=== PATIENT | male | born 1945 | race Caucasian/White ===

== ENCOUNTER 2018-06-19 22:25 | Inpatient (IN) | payer MEDICARE ==
[2018-06-19 23:13] LABS: INR-International Normal Ratio 1.9; Prothrombin Time 21.4 SEC (12.0-14.7)
[2018-06-19 23:14] LABS: Actual Bicarbonate (HCO3a) 18.5 mEq/L (22-28); Base Excess (BEa) -4.5 mEq/L (-2.0 to +3.0); CO2 Tension 28.5 mmHg (35.0-45.0); O2 Tension (PaO2) 51.9 mmHg (> 70.0); pH, Arterial 7.43 (7.35-7.45)
[2018-06-19 23:15] LABS: Calcium, Ionized 1.03 mmol/L (1.12-1.30); Carboxyhemoglobin (COHb) 1.3 gm% (0.0-3.0); Hemoglobin (Hb) 12.7 g/dL (14.0-18.0); Potassium - ABG Lab 3.84 mmol/L (3.70-5.30)
[2018-06-19 23:16] LABS: ALV-art Gradient 110.715 (0-20); Puncture Site LRA
[2018-06-19 23:38] LABS: Troponin I 0.162 ng/mL (< 0.028)
[2018-06-20] MEDS ORDERED: Fleet Enema 133 ML BOT PR PRN (00:30)
[2018-06-20] MEDS ORDERED: Enoxaparin Sodium 40 MG/0.4 ML SYRINGE SC SCH (00:30)
[2018-06-20] MEDS ORDERED: Ondansetron ODT 4 MG TAB PO PRN (00:30)
[2018-06-20] MEDS ORDERED: Bisacodyl 5 MG TAB PO PRN (00:30)
[2018-06-20] MEDS ORDERED: Ondansetron HCl/PF 4 MG/2 ML Vial IVP PRN (00:30)
[2018-06-20] MEDS ORDERED: VANCOMYCIN IVPB PRN (00:36)
[2018-06-20] MEDS ORDERED: CCU Electrolyte Replacement 1 EACH FS SCH (00:36)
[2018-06-20] MEDS ORDERED: Potassium Phosphate 15 MMOL in Sodium Chloride 0.9% 250 ML 250 ML IV PRN (00:51)
[2018-06-20] MEDS ORDERED: Potassium Phosphate 12 MMOL in Sodium Chloride 0.9% 250 ML 250 ML IV PRN (00:51)
[2018-06-20] MEDS ORDERED: CCU ELECTROLYTE REPLACEMENT PROTOCOL FS PRN (00:51)
[2018-06-20] MEDS ORDERED: Magnesium Oxide 400 MG TAB PO PRN ×2 (00:51)
[2018-06-20] MEDS ORDERED: Potassium Chloride 40 MEQ in Sodium Chloride 0.9% 250 ML 250 ML IVPB PRN (00:51)
[2018-06-20] MEDS ORDERED: Potassium Chloride 20 MEQ TAB PO PRN (00:51)
[2018-06-20] MEDS ORDERED: Potassium Chloride 40 MEQ in Premix Bag 1 BAG IVPB PRN (00:51)
[2018-06-20] MEDS ORDERED: Magnesium 2 GM/NS 0.9% 100 ML 2 GM in Premix Bag 1 BAG IVPB PRN (00:51)
[2018-06-20] MEDS ORDERED: Potassium Phosphate 9 MMOL in Sodium Chloride 0.9% 100 ML IVPB PRN (00:51)
--- NOTE | 2018-06-20 02:17 | HP ---
HISTORIAN: The patient's caregiver and patient. HISTORY OF PRESENT ILLNESS: This is a 72-year-old male with a past medical history remarkable for al coholism, cirrhosis, hypertension, hyperlipidemia presenting with shortness of breath, which has been ongoing for a couple of days. Per patient's caregiver, the patient has been having shortness of rebecca ath and also complaining of feeling like he has a cough, but he is not able to get the sputum out. T he patient was then sent [facility] and the patient was found to have some pneumonia i n the lungs bilaterally, so the patient was transferred from [place] to our hospital. Upon revi lau the patient's chart, it was found that the patient had an infection in the right knee. The pat ient was started on antibiotics and the patient also had history of cirrhosis, which the patient is r ecovering from. The patient is an alcoholic and he quit drinking, and the patient is now on Lasix. The patient has diastolic heart failure as well. REVIEW OF SYSTEMS: Positive for shortness of breath, otherwise as documented in HPI. All other syst ems were reviewed and are negative. PAST MEDICAL HISTORY: Refer to HPI. PAST SURGICAL HISTORY: The patient has multiple orthopedic surgeries on his right knee and open redu ction and internal fixation of right distal tibia/fibula fracture. SOCIAL HISTORY: The patient is being taken care of by his ex-, who is the caregiver. The patien t states that he does not want to be resuscitated and he does not want to be intubated. The patient has a [id number] history of smoking and the patient is also alcoholic. ALLERGIES: IODINE and DULOXETINE. FAMILY HISTORY: Reviewed and noncontributory to this visit. CURRENT MEDICATIONS: The patient is on 1. Cubicin 500 mg. 2. Rifampin 300 mg. 3. Metoprolol tartrate 25 mg. 4. Lasix 40 mg. 5. Potassium chloride 20 mEq b.i.d. 6. Jackman every 6 hours p.r.n. 7. Tramadol 50 mg t.i.d. PHYSICAL EXAMINATION: VITAL SIGNS: Temperature is 97.6, blood pressure 105/69, pulse is 87, respiratory rate of 16, O2 sat at 85 on 3-liter oxygen. GENERAL: The patient is lying in bed. At this point, the patient has a BiPAP on. The patient is ab le to speak in full sentences. The patient does not appear to be in acute distress. HEENT: Normocephalic, atraumatic. Pupils are equal, round, and reactive to light. Extraocular musc les are intact. No scleral icterus. Mucous membranes are dry. NECK: Supple. No tracheal deviation. LUNGS: Bilateral crackles and anterior lung fuentes has BiPAP lung sounds. CARDIAC: Positive S1, S2. Regular rate and rhythm. No murmurs, no gallops, no rubs appreciated. ABDOMEN: Obese abdomen. Positive bowel sounds. Soft, nondistended. No tenderness. No pulsatile m asses. BACK: Normal. EXTREMITIES: Upper extremities: 5/5 upper extremity strength. PICC line was noted. No signs of in fection in PICC line. Lower extremities: The patient has about 2+ edema noted at lower extremities. Right knee has 10 cm and [address] No discharge. No redness. No purulent dressing seen. Dressing is intact and clean. NEUROLOGIC: Cranial nerves II-XII grossly intact. The patient is alert, oriented x3, not in acute d istress. SKIN: Warm, dry, and intact. The patient do have some dressing on the right. The right knee 10 cm and 11 cm sutures, which are all in place with no signs of infection. In the ED, the patient was given Levophed. DIAGNOSTIC DATA: Chest x-ray showed diffuse increased interstitial and alveolar opacity throughout t he left hemithorax. Findings are worrisome of pneumonia. On CT of the chest, multifocal infiltrates , likely secondary to pneumonia. Small pleural effusions noted. Cirrhosis with ascites. LABORATORY DATA: WBC is 10.4, hemoglobin is 11.9, hematocrit is 36. Electrolytes, potassium is 3.1, sodium is 131, carbon dioxide is 20, BUN is 12, creatinine is 0.7. GFR greater than 90. Glucose of 79, magnesium of 1.6, lactic acid of 2.9, calcium of 7.7, total bilirubin is 2.6. Urinalysis is neg ative for leukoesterase and negative for nitrites. ASSESSMENT AND PLAN: 1. This is a 72-year-old male being admitted for hypoxic respiratory failure. The patient presented to the hospital with having shortness of breath, and at the time the patient arrived in the ED, the patient's oxygenation was 85%. ABG was done, which showed the patient's O2 tension was 56. Therefor e, the patient was put on BiPAP. I spoke to family. The patient's family stated that the patient is DNR/DNI, and also, the patient agrees to being DNR/DNI. At this point, we will put the patient on B iPAP. We will do another ABG in an hour or so, and we will re-evaluate the patient's oxygenation sta tus. We will admit the patient to the ICU since the patient is also in septic shock with Levophed, a nd we will get Pulmonology consult. We will start the patient on vancomycin and cefepime. We will c ontinue to monitor the patient closely. We will also do pneumonia workup. 2. Diastolic congestive heart failure. The patient does not have any echo on record; however, based on the patient's history and physical in our electronic medical record, the patient do have diastoli c congestive heart failure. The patient takes Lasix. At this point, we cannot give Lasix. The candice ent needs pressors to maintain his blood pressure, so we will continue to watch the patient. 3. Pneumonia. The patient is currently on antibiotics for possible pneumonia, which was confirmed o n imaging. We will continue the patient on antibiotics. We will give the patient DuoNeb treatments p.r.n. and we will continue to monitor the patient. 4. Hypertension. We will monitor the patient's blood pressure closely. 5. Hyperlipidemia. We will monitor the patient. 6. History of right knee surgery, currently stable. No signs of infection. We will monitor the pat ient closely. 7. Cirrhosis with ascites. The patient is currently on pressors. We are not able to give the patie nt his dose of Lasix due to the patient's blood pressure. At this point, we will continue to monitor the patient closely. The patient's abdomen is soft and nontender at this time. We will continue to monitor the patient. 8. Deep venous thrombosis and gastrointestinal prophylaxis. The patient's INR is 1.9. We will give the patient Lovenox for DVT prophylaxis and Pepcid for GI prophylaxis.
[2018-06-20 02:48] LABS: Lactic Acid 4.1 mmol/L (0.5-2.2)
[2018-06-20 02:55] LABS: Troponin I 0.159 ng/mL (< 0.028)
[2018-06-20 02:57] LABS: ALT (SGPT) Less than 7 U/L (8-55); AST (SGOT) 18 U/L (5-34); Albumin 1.8 g/dL (3.4-4.8); Alkaline Phosphatase 138 U/L (40-150); Anion Gap 17 mmol/L (10-20); BUN (Urea Nitrogen) 14 mg/dL (8.4-25.7); Bilirubin, Total 2.7 mg/dL (0.2-1.2); Calc. Creatinine Clearance 107 mL/min (70-130); Calcium 7.5 mg/dL (7.8-10.44); Carbon Dioxide 16 mmol/L (23-31); Chloride 103 mmol/L (98-107); Estimated GFR-MDRD 78; Globulin 3.7 g/dL (2.4-3.5); Glucose 83 mg/dL (80-115); Potassium 4.4 mmol/L (3.5-5.1); Protein, Total 5.5 g/dL (5.8-8.1); Sodium 132 mmol/L (136-145)
[2018-06-20 02:58] LABS: Band 3 % (5-11); Hemoglobin 11.7 g/dL (14.0-18.0); Hypochromia SLIGHT = 6-15 cells (100X) (0-5/hpf); Lymphocytes 12 % (21-51); MDiff Complete? YES; Mean Corpuscular HGB CONC 32.5 g/dL (32.0-36.0); Mean Corpuscular Hemoglobin 32.5 pg (27.0-31.0); Mean Corpuscular Volume 99.8 fL (78.0-98.0); Mean Platelet Volume 6.7 fL (7.4-10.4); Monocytes 4 % (0-10); Neutrophil 81 % (42-75); PLT Morphology Comment Appears Adequate; Platelet Count 243 thou/uL (130-400); RBC Distribution Width 14.8 % (11.5-14.5); White Blood Cell (WBC) Count 10.1 thou/uL (4.8-10.8)
[2018-06-20 03:54] LABS: Actual Bicarbonate (HCO3a) 21.4 mEq/L (22-28); Base Excess (BEa) -1.8 mEq/L (-2.0 to +3.0); CO2 Tension 31.9 mmHg (35.0-45.0); Hemoglobin (Hb) 12.5 g/dL (14.0-18.0); O2 Tension (PaO2) 95.4 mmHg (> 70.0); pH, Arterial 7.45 (7.35-7.45)
[2018-06-20 03:55] LABS: Calcium, Ionized 1.03 mmol/L (1.12-1.30); Carboxyhemoglobin (COHb) 1.6 gm% (0.0-3.0); Potassium - ABG Lab 3.99 mmol/L (3.70-5.30); Puncture Site R RADIAL
[2018-06-20 03:56] LABS: ALV-art Gradient 221.225 (0-20)
[2018-06-20] MEDS: Vancomycin HCl 1.25 GM in Sodium Chloride 0.9% 250 ML 250 ML IVPB SCH ×3 (04:00→21:12)
[2018-06-20] MEDS: Acetaminophen 325 MG TAB PO PRN (04:58)
[2018-06-20] MEDS ORDERED: Norepinephrine 8 MG/0.9% NS 250 ML ONE (09:01)
[2018-06-20] MEDS: Cefepime 2 GM in Sodium Chloride 0.9% 100 ML IVPB SCH ×2 (11:36→17:17)
[2018-06-20] MEDS: Famotidine/PF 20 mg/2ml Vial SLOW IVP SCH ×2 (11:37→19:32)
[2018-06-20 11:54] LABS: Legionella Urinary Ag Negative (Negative); Strep pneumo Urine Ag NEGATIVE (NEGATIVE)
--- NOTE | 2018-06-20 12:37 | PDOC.PN ---
- Subjective Encounter Start Date: 06/20/18 Encounter Start Time: 08:45 -: old records requested/rev Patient seen and examined. No new complaints. No overnight events he required bipap until this morning, he is on levophed, pt feels better now - Objective Resuscitation Status: Resuscitation Status DNR:Do Not Resuscitate MAR Reviewed: Yes Vital Signs & Weight: Vital Signs (12 hours) Temp Pulse Resp Pulse Ox 06/20/18 08:00 98.7 F 06/20/18 07:00 98 F 06/20/18 06:00 98.4 F 06/20/18 05:29 98.1 F 107 H 21 H 97 06/20/18 02:00 98.1 F 06/20/18 01:30 86 98 Weight Weight 229 lb 8.019 oz Most Recent Monitor Data Heart Rate from ECG 113 NIBP 103/60 NIBP BP-Mean 76 Respiration from ECG 19 SpO2 99 I&O: 06/19/18 06/20/18 06/21/18 06:59 06:59 06:59 Intake Total 400 Output Total 100 80 Balance -100 320 Result Diagrams: 06/20/18 02:23 06/20/18 02:23 Additional Labs: Accuchecks 06/19/18 22:47 POC Glucose 74 Radiology Reviewed by me: Yes EKG Reviewed by me: Yes (nsr) Phys Exam - Physical Examination Constitutional: NAD HEENT: PERRLA, moist MMs, sclera anicteric Neck: no JVD, supple Respiratory: no wheezing, no rhonchi scattered rales Cardiovascular: RRR, no significant murmur, no rub tachycardia Gastrointestinal: soft, positive bowel sounds ascites+ Musculoskeletal: no edema, pulses present Neurological: moves all 4 limbs Lymphatic: no nodes Psychiatric: normal affect Skin: no rash, normal turgor Dx/Plan (1) Acute respiratory failure with hypoxia Code(s): J96.01 - ACUTE RESPIRATORY FAILURE WITH HYPOXIA Status: Acute (2) Demand ischemia Code(s): I24.8 - OTHER FORMS OF ACUTE ISCHEMIC HEART DISEASE Status: Acute (3) Lactic acidosis Code(s): E87.2 - ACIDOSIS Status: Acute (4) Multifocal pneumonia Code(s): J18.9 - PNEUMONIA, UNSPECIFIED ORGANISM Status: Acute (5) Septic shock Code(s): A41.9 - SEPSIS, UNSPECIFIED ORGANISM; R65.21 - SEVERE SEPSIS WITH SEPTIC SHOCK Status: Acute (6) Alcoholic cirrhosis of liver with ascites Code(s): K70.31 - ALCOHOLIC CIRRHOSIS OF LIVER WITH ASCITES Status: Chronic (7) Chronic stage c diastolic heart failure Code(s): I50.32 - CHRONIC DIASTOLIC (CONGESTIVE) HEART FAILURE Status: Chronic (8) Coagulopathy Status: Chronic (9) Hypertension Code(s): I10 - ESSENTIAL (PRIMARY) HYPERTENSION Status: Chronic (10) Hyponatremia Code(s): E87.1 - HYPO-OSMOLALITY AND HYPONATREMIA Status: Chronic (11) Macrocytic anemia Code(s): D53.9 - NUTRITIONAL ANEMIA, UNSPECIFIED Status: Chronic (12) Physical deconditioning Code(s): R53.81 - OTHER MALAISE Status: Chronic - Plan cont current plan of care, continue antibiotics, respiratory therapy * continue cefepime and vancomycin * continue leveophed titration * continue bipap as needed * pulmonary on case * medication reviewed as below * symptomatic treatment * will follow culture * his prognosis is guarded * he is DNR. Review of Systems - Review of Systems Constitutional: weakness. negative: fever, chills, sweats, malaise, other ENT: negative: Ear Pain, Ear Discharge, Nose Pain, Nose Discharge, Nose Congestion, Mouth Pain, Mouth Swelling, Throat Pain, Throat Swelling, Other Respiratory: Cough, Shortness of Breath, SOB with Excertion. negative: Dry, Hemoptysis, Pleuritic Pain, Sputum, Wheezing Cardiovascular: edema. negative: chest pain, palpitations, orthopnea, paroxysmal nocturnal dyspnea, light headedness, other Gastrointestinal: negative: Nausea, Vomiting, Abdominal Pain, Diarrhea, Constipation, Melena, Hematochezia, Other Genitourinary: negative: Dysuria, Frequency, Incontinence, Hematuria, Retention , Other Musculoskeletal: Leg Pain. negative: Neck Pain, Shoulder Pain, Arm Pain, Back Pain, Hand Pain, Foot Pain, Other - Medications/Allergies Allergies/Adverse Reactions: Allergies Allergy/AdvReac Type Severity Reaction Status Date / Time Iodinated Contrast- Oral and Allergy Verified 01/31/18 11:31 IV Dye [Iodinated Contrast Media - IV Dye] loxapine Allergy Verified 01/31/18 11:31 shrimp Allergy Verified 01/31/18 11:31 Medications: Current Medications Acetaminophen (Tylenol) 650 mg PO Q4H PRN PRN Reason: Headache/Fever or Pain Last Admin: 06/20/18 04:58 Dose: 650 mg Bisacodyl (Dulcolax) 10 mg PO DAILYPRN PRN PRN Reason: Constipation Famotidine (Pepcid) 20 mg SLOW IVP Q12HR [facility] Last Admin: 06/20/18 11:37 Dose: Not Given Potassium Chloride 40 meq/ (Sodium Chloride) 270 mls @ 135 mls/hr IVPB ASDIR PRN PRN Reason: FOR SERUM K+ 2.5 - 3.5 Potassium Chloride 40 meq/ (Device) 100 mls @ 50 mls/hr IVPB ASDIR PRN PRN Reason: FOR SERUM K+ 2.5 - 3.5 Magnesium Sulfate 1 gm/ Sodium (Chloride) 102 mls @ 102 mls/hr IV PRN PRN PRN Reason: MAG LEVEL 1.4 - 2.0 Magnesium Sulfate 2 gm/ Device 100 mls @ 100 mls/hr IVPB ASDIR PRN PRN Reason: MAGNESIUM < 1.4 Potassium Phosphate 9 mmol/ (Sodium Chloride) 103 mls @ 25.75 mls/hr IVPB ASDIR PRN PRN Reason: Phosphate 1.0-1.8 Potassium Phosphate 12 mmol/ (Sodium Chloride) 254 mls @ 63.5 mls/hr IV ASDIR PRN PRN Reason: Serum phosphate 0.5-0.9 Potassium Phosphate 15 mmol/ (Sodium Chloride) 255 mls @ 63.75 mls/hr IV ASDIR PRN PRN Reason: Serum Phos < 0.5 Cefepime HCl 2 gm/ Sodium (Chloride) 100 mls @ 200 mls/hr IVPB 0600,1800 [facility] Last Admin: 06/20/18 11:36 Dose: Not Given Vancomycin HCl 1.25 gm/ Sodium (Chloride) 250 mls @ 166.667 mls/hr IVPB 0400, 1200,2000 [facility] Last Admin: 06/20/18 12:37 Dose: 250 mls Magnesium Oxide (Magnesium Oxide) 400 mg PO BIDPRN PRN PRN Reason: FOR SERUM MAG 1.4 - 2.0 Magnesium Oxide (Magnesium Oxide) 800 mg PO PRN PRN PRN Reason: FOR SERUM MAG < 1.4 Miscellaneous Medication (Pharmacy To Dose) 1 each IVPB PRN PRN PRN Reason: Pharmacy to dose Miscellaneous Medication (Ccu Electrolyte Replacement) 1 each FS ONE YEIMY Stop: 07/20/18 00:37 Miscellaneous Medication (Phos-Nak) 1 pkt PO TIDPRN PRN PRN Reason: FOR PHOS LEVEL 1.0 - 1.8 Miscellaneous Medication (Phos-Nak) 2 pkt PO TIDPRN PRN PRN Reason: FOR PHOS LEVEL 0.5 - 1.0 Ccu Electrolyte (Replacement Protocol) 0 each FS PRN PRN PRN Reason: FOR ELECTROLYTE REPLACEMENT Ondansetron HCl (Zofran Odt) 4 mg PO Q6H PRN PRN Reason: Nausea/Vomiting Ondansetron HCl (Zofran) 4 mg IVP Q6H PRN PRN Reason: Nausea/Vomiting Pneumococcal 13-Valent Conj Vacc (Prevnar) 0.5 ml IM .ONCE ONE Stop: 06/22/18 09:01 Potassium Chloride (K-Dur) 40 meq PO ASDIR PRN PRN Reason: FOR SERUM K+ 2.5 - 3.5 Potassium Chloride (Klor-Con) 40 meq PER TUBE ASDIR PRN PRN Reason: FOR SERUM K+ 2.5-3.5 Saccharomyces Boulardii (Florastor) 250 mg PO DAILY [facility] Sodium Biphosphate/Sodium Phosphate (Fleet Enema) 133 ml [place] ONE PRN PRN Reason: Constipation Stop: 07/20/18 00:31 Sodium Chloride (Flush - Normal Saline) 10 ml IVF Q12HR [facility] Last Admin: 06/20/18 11:37 Dose: Not Given Sodium Chloride (Flush - Normal Saline) 10 ml IVF PRN PRN PRN Reason: Saline Flush
[2018-06-20] MEDS ORDERED: Norepinephrine 8 MG/250 ML BAG IVPB PRN (17:25)
--- NOTE | 2018-06-20 18:50 | CON ---
DATE OF CONSULTATION: 06/20/2018 HISTORY OF PRESENT ILLNESS: Mr. Saucedo is a 72-year-old male. He is very pleasant. He says 2017, has been a bad year for him from an orthopedic surgery standpoint. 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 The hardware has been removed. He has had multiple admissions to [facility] for this and eventually had fusion of his knee on the right. He has a bandage and says he has been draining out of the lateral aspect of his knee and was actually recently in the hospital at [facility] , receiving IV antibiotics. He was sent home with a PICC line. SOCIAL HISTORY: He is a former smoker, former heavy drinker. He says he has not smoked in 2 months. He has not had a drink in quite some time. He was drinking, he says a half gallon of Ml a day on the [employer]. PAST HISTORY: He reportedly has a history of cirrhosis. We do not have any medical records from [facility] yet. ALLERGIES: He reports allergies to IODINE and DULOXETINE. FAMILY HISTORY: Negative for lung disease in early age. MEDICATIONS: Prior to admission he was on Cubicin, rifampin, metoprolol, Lasix , potassium, [place], tramadol. REVIEW OF SYSTEMS: Ten-point review of systems completed; otherwise negative. He is admitted for hypotension. He says he has been bedridden essentially for many months. PHYSICAL EXAMINATION: GENERAL: 72 year old male. He appears older than his age. VITALS: He is afebrile, heart rate 98, respiratory rate is 22, oximetry is 91% on 4 liter cannula, blood pressure 97/57. HEENT: Pupils are equal. Sclerae is anicteric. NECK: Supple, no lymphadenopathy. LUNGS: Clear. HEART: Regular rhythm. S1 and S2 are normal. ABDOMEN: Soft and nontender. EXTREMITIES: Without clubbing, cyanosis, or edema. He does have a bandage on the lateral aspect of his right leg. He has chronic plantar flexion of his right foot. He has stasis changes in both lower extremities. His right foot hurts when he is dorsiflexed. DIAGNOSTIC AND LABORATORY DATA: Chest x-ray and CT had been reviewed. He has diffuse alveolar infiltrate in his left lung and small infiltrate in his right base. White count is 10.1, hemoglobin 11.7, platelets 243,000. Sodium 132, potassium 4.4, chloride 103, bicarbonate 16, BUN 14, creatinine 0.95, bilirubin is 2.7, alkaline phosphatase 138, AST is 18, ALT less than 7, protein is 5.5, albumin is 1.1. IMPRESSION: 1. Hypotension? intravascular volume depletion versus sepsis. It would be unususal for him to present septic on IV antibiotics. He has been volume resuscitated and he is weaning off pressors. 2. Mild hyponatremia. 3. Metabolic acidosis, pH 7.45, CO2 of 31, pO2 of 97 on his last gas, which is improved from yesterday with a pH of 7.43, CO2 of 28. 4. ? infected hardware on the right. We really need medical records from [facility]. 5. Cirrhosis. 6. History of heavy tobacco use with no complaints of dyspnea. 7. Pneumonia, most likely with aspiration pathogens secondary to his chronic bedridden state and deconditioning. 8. Do not resuscitate status. We are happy to follow along with the other physicians caring for him. This was a 70-minute consult, with greater than 50% of the time spent in unit coordinating care. PIYUSH
[2018-06-20 20:09] LABS: Vancomycin, Trough 47.5 ug/mL
[2018-06-21 02:32] LABS: Vancomycin, Random 41.4 ug/mL (See Comment)
[2018-06-21] MEDS: Cefepime 2 GM in Sodium Chloride 0.9% 100 ML IVPB SCH ×2 (05:19→18:18)
[2018-06-21 09:30] LABS: #Eosinphils 0.3 thou/uL (0.0-0.7); #Lymphocytes 1.5 thou/uL (1.20-3.40); #Monocytes 0.7 thou/uL (0.11-0.59); #Neutrophils 7.8 thou/uL (1.40-6.50); %Basophils 0.1 % (0.0-1.0); %Eosinophils 2.6 % (0.0-10.0); %Lymphocytes 14.5 % (21.0-51.0); %Monocytes 6.9 % (0.0-10.0); %Neutrophils 75.9 % (42.0-75.0); Hemoglobin 11.5 g/dL (14.0-18.0); Mean Corpuscular HGB CONC 33.4 g/dL (32.0-36.0); Mean Corpuscular Hemoglobin 32.8 pg (27.0-31.0); Mean Corpuscular Volume 98.2 fL (78.0-98.0); Mean Platelet Volume 6.7 fL (7.4-10.4); Platelet Count 256 thou/uL (130-400); Red Blood Cell (RBC) Count 3.52 mill/uL (4.70-6.10); White Blood Cell (WBC) Count 10.2 thou/uL (4.8-10.8)
[2018-06-21 09:51] LABS: ALT (SGPT) 9 U/L (8-55); AST (SGOT) 34 U/L (5-34); Albumin 1.9 g/dL (3.4-4.8); Alkaline Phosphatase 147 U/L (40-150); Anion Gap 17 mmol/L (10-20); BUN (Urea Nitrogen) 20 mg/dL (8.4-25.7); Bilirubin, Total 1.8 mg/dL (0.2-1.2); Calc. Creatinine Clearance 78 mL/min (70-130); Calcium 7.5 mg/dL (7.8-10.44); Carbon Dioxide 16 mmol/L (23-31); Chloride 102 mmol/L (98-107); Estimated GFR-MDRD 55; Globulin 3.8 g/dL (2.4-3.5); Glucose 124 mg/dL (80-115); Potassium 4.6 mmol/L (3.5-5.1); Protein, Total 5.7 g/dL (5.8-8.1); Sodium 130 mmol/L (136-145)
[2018-06-21] MEDS ORDERED: Albumin 25% 25 GM/100 ML BOT IVPB SCH (10:43)
[2018-06-21] MEDS: Saccharomyces boulardii 250 MG CAP PO SCH (11:14)
[2018-06-21] MEDS: Famotidine 20 MG TAB PO SCH ×2 (11:15→22:16)
--- NOTE | 2018-06-21 11:46 | PDOC.PN ---
- Subjective Encounter Start Date: 06/21/18 Encounter Start Time: 09:00 pt is doing well, still on levophed drip, no pain, no fever - Objective Resuscitation Status: Resuscitation Status DNR:Do Not Resuscitate MAR Reviewed: Yes Vital Signs & Weight: Vital Signs (12 hours) Temp 06/21/18 08:00 97.8 F 06/21/18 04:00 97.6 F 06/21/18 00:00 97.2 F L Weight Admit Weight 230 lb Weight 229 lb 8.019 oz Most Recent Monitor Data Heart Rate from ECG 103 NIBP 117/65 NIBP BP-Mean 87 Respiration from ECG 26 SpO2 95 I&O: 06/20/18 06/21/18 06/22/18 06:59 06:59 06:59 Intake Total 2072.4 360 Output Total 100 555 50 Balance -100 1517.4 310 Result Diagrams: 06/21/18 09:14 06/21/18 09:14 Radiology Reviewed by me: Yes (xray reviewed) EKG Reviewed by me: Yes (nsr) Phys Exam - Physical Examination Constitutional: NAD HEENT: PERRLA, moist MMs, sclera anicteric Neck: no JVD, supple Respiratory: no wheezing, no rhonchi Cardiovascular: RRR, no significant murmur, no rub Gastrointestinal: soft, no distention, positive bowel sounds ascites+ Musculoskeletal: pulses present, edema present Neurological: non-focal, moves all 4 limbs Lymphatic: no nodes Psychiatric: normal affect Skin: no rash, normal turgor Dx/Plan (1) Acute respiratory failure with hypoxia Code(s): J96.01 - ACUTE RESPIRATORY FAILURE WITH HYPOXIA Status: Acute (2) Demand ischemia Code(s): I24.8 - OTHER FORMS OF ACUTE ISCHEMIC HEART DISEASE Status: Acute (3) Lactic acidosis Code(s): E87.2 - ACIDOSIS Status: Acute (4) Multifocal pneumonia Code(s): J18.9 - PNEUMONIA, UNSPECIFIED ORGANISM Status: Acute (5) Septic shock Code(s): A41.9 - SEPSIS, UNSPECIFIED ORGANISM; R65.21 - SEVERE SEPSIS WITH SEPTIC SHOCK Status: Acute (6) Alcoholic cirrhosis of liver with ascites Code(s): K70.31 - ALCOHOLIC CIRRHOSIS OF LIVER WITH ASCITES Status: Chronic (7) Chronic stage c diastolic heart failure Code(s): I50.32 - CHRONIC DIASTOLIC (CONGESTIVE) HEART FAILURE Status: Chronic (8) Coagulopathy Status: Chronic (9) Hypertension Code(s): I10 - ESSENTIAL (PRIMARY) HYPERTENSION Status: Chronic (10) Hyponatremia Code(s): E87.1 - HYPO-OSMOLALITY AND HYPONATREMIA Status: Chronic (11) Macrocytic anemia Code(s): D53.9 - NUTRITIONAL ANEMIA, UNSPECIFIED Status: Chronic (12) Physical deconditioning Code(s): R53.81 - OTHER MALAISE Status: Chronic - Plan cont current plan of care, continue antibiotics * orthopedic consulted for his hardware infection * consult dr quinonez to decide about antibiotics * continue vancomycin and cefepime for now * follow culture * wean off levophed as tolerated * medication reviewed as below * symptomatic treatment. Review of Systems - Review of Systems Constitutional: negative: fever, chills, sweats, weakness, malaise, other Eyes: negative: Pain, Vision Change, Conjunctivae Inflammation, Eyelid Inflammation, Redness, Other ENT: negative: Ear Pain, Ear Discharge, Nose Pain, Nose Discharge, Nose Congestion, Mouth Pain, Mouth Swelling, Throat Pain, Throat Swelling, Other Respiratory: negative: Cough, Dry, Shortness of Breath, Hemoptysis, SOB with Excertion, Pleuritic Pain, Sputum, Wheezing Cardiovascular: negative: chest pain, palpitations, orthopnea, paroxysmal nocturnal dyspnea, edema, light headedness, other Gastrointestinal: negative: Nausea, Vomiting, Abdominal Pain, Diarrhea, Constipation, Melena, Hematochezia, Other Genitourinary: negative: Dysuria, Frequency, Incontinence, Hematuria, Retention , Other Musculoskeletal: Leg Pain. negative: Neck Pain, Shoulder Pain, Arm Pain, Back Pain, Hand Pain, Foot Pain, Other - Medications/Allergies Allergies/Adverse Reactions: Allergies Allergy/AdvReac Type Severity Reaction Status Date / Time Iodinated Contrast- Oral and Allergy Verified 01/31/18 11:31 IV Dye [Iodinated Contrast Media - IV Dye] loxapine Allergy Verified 01/31/18 11:31 shrimp Allergy Verified 01/31/18 11:31 Medications: Current Medications Acetaminophen (Tylenol) 650 mg PO Q4H PRN PRN Reason: Headache/Fever or Pain Last Admin: 06/20/18 04:58 Dose: 650 mg Albumin Human (Albumin 25%) 25 gm IVPB NOW YEIMY Stop: 06/21/18 12:30 Last Admin: 06/21/18 11:37 Dose: 25 gm Albumin Human (Albumin 25%) 25 gm IVPB Q6HR [facility] Stop: 06/23/18 12:01 Bisacodyl (Dulcolax) 10 mg PO DAILYPRN PRN PRN Reason: Constipation Famotidine (Pepcid) 20 mg PO Q12HR [facility] Last Admin: 06/21/18 11:15 Dose: 20 mg Potassium Chloride 40 meq/ (Sodium Chloride) 270 mls @ 135 mls/hr IVPB ASDIR PRN PRN Reason: FOR SERUM K+ 2.5 - 3.5 Potassium Chloride 40 meq/ (Device) 100 mls @ 50 mls/hr IVPB ASDIR PRN PRN Reason: FOR SERUM K+ 2.5 - 3.5 Magnesium Sulfate 1 gm/ Sodium (Chloride) 102 mls @ 102 mls/hr IV PRN PRN PRN Reason: MAG LEVEL 1.4 - 2.0 Magnesium Sulfate 2 gm/ Device 100 mls @ 100 mls/hr IVPB ASDIR PRN PRN Reason: MAGNESIUM < 1.4 Potassium Phosphate 9 mmol/ (Sodium Chloride) 103 mls @ 25.75 mls/hr IVPB ASDIR PRN PRN Reason: Phosphate 1.0-1.8 Potassium Phosphate 12 mmol/ (Sodium Chloride) 254 mls @ 63.5 mls/hr IV ASDIR PRN PRN Reason: Serum phosphate 0.5-0.9 Potassium Phosphate 15 mmol/ (Sodium Chloride) 255 mls @ 63.75 mls/hr IV ASDIR PRN PRN Reason: Serum Phos < 0.5 Cefepime HCl 2 gm/ Sodium (Chloride) 100 mls @ 200 mls/hr IVPB 0600,1800 [facility] Last Admin: 06/21/18 05:19 Dose: 100 mls Norepinephrine Bitartrate (Levophed) 250 mls @ 0 mls/hr IVPB INF PRN; Protocol PRN Reason: Blood Pressure Last Admin: 06/21/18 05:20 Dose: 250 mls Vancomycin HCl 1.25 gm/ Sodium (Chloride) 250 mls @ 166.667 mls/hr IVPB .PENDING LEVEL < 20 YEIMY Magnesium Oxide (Magnesium Oxide) 400 mg PO BIDPRN PRN PRN Reason: FOR SERUM MAG 1.4 - 2.0 Magnesium Oxide (Magnesium Oxide) 800 mg PO PRN PRN PRN Reason: FOR SERUM MAG < 1.4 Miscellaneous Medication (Pharmacy To Dose) 1 each IVPB PRN PRN PRN Reason: Pharmacy to dose Miscellaneous Medication (Ccu Electrolyte Replacement) 1 each FS ONE [facility] Stop: 07/20/18 00:37 Miscellaneous Medication (Phos-Nak) 1 pkt PO TIDPRN PRN PRN Reason: FOR PHOS LEVEL 1.0 - 1.8 Miscellaneous Medication (Phos-Nak) 2 pkt PO TIDPRN PRN PRN Reason: FOR PHOS LEVEL 0.5 - 1.0 Morphine Sulfate (Morphine) 2 mg SLOW IVP Q4H PRN PRN Reason: Severe Pain (7-10) Last Admin: 06/21/18 01:29 Dose: 2 mg Ccu Electrolyte (Replacement Protocol) 0 each FS PRN PRN PRN Reason: FOR ELECTROLYTE REPLACEMENT Ondansetron HCl (Zofran Odt) 4 mg PO Q6H PRN PRN Reason: Nausea/Vomiting Ondansetron HCl (Zofran) 4 mg IVP Q6H PRN PRN Reason: Nausea/Vomiting Pneumococcal 13-Valent Conj Vacc (Prevnar) 0.5 ml IM .ONCE ONE Stop: 06/22/18 09:01 Potassium Chloride (K-Dur) 40 meq PO ASDIR PRN PRN Reason: FOR SERUM K+ 2.5 - 3.5 Potassium Chloride (Klor-Con) 40 meq PER TUBE ASDIR PRN PRN Reason: FOR SERUM K+ 2.5-3.5 Saccharomyces Boulardii (Florastor) 250 mg PO DAILY [facility] Last Admin: 06/21/18 11:14 Dose: 250 mg Sodium Biphosphate/Sodium Phosphate (Fleet Enema) 133 ml [place] ONE PRN PRN Reason: Constipation Stop: 07/20/18 00:31 Sodium Chloride (Flush - Normal Saline) 10 ml IVF Q12HR [facility] Last Admin: 06/21/18 11:16 Dose: 10 ml Sodium Chloride (Flush - Normal Saline) 10 ml IVF PRN PRN PRN Reason: Saline Flush
[2018-06-21 12:15] LABS: Bilirubin Negative (Negative); Blood, Urine Negative (Negative); Clarity CLOUDY (Clear); Glucose, Urine (Dipstick) Negative (Negative); Leukocyte Small (Negative); Nitrite Negative (Negative); Protein, Urine (Dipstick) 30 mg/dL (Neg-Trace); Urobilinogen 0.2 mg/dL (0.2-1.0)
--- NOTE | 2018-06-21 12:18 | RAD ---
RIGHT TIBIA AND FIBULA TWO VIEWS: HISTORY: Hardware survey. COMPARISON: None. FINDINGS: There is a lulu traversing the right knee joint space. There appears to be bone graft material in the knee joint space. The distal aspect of the intramedullary lulu terminates at the distal third of the tibial diaphysis. Tracks from two previously removed screws are noted in the proximal to mid right tibia. At the level of the distal tibia, there appears to be extensive internal fixation hardware al ángel the lateral aspect of the distal fibula, as well as within the intramedullary aspect of the dista l tibia, traversing the tibiotalar articulation and extending through the calcaneus and tibia. Fusio n hardware is suspected. The majority of the fusion hardware appears to be intact. The screw at the distal aspect of the external fixation hardware, at the distal aspect of the fibula, is broken. The re is also a broken screw traversing the posterior-superior calcaneus. There does appear to be soft tissue swelling. There does appear to be some perihardware lucency involving the component within th e medullary space at the distal tibia, as well as perihardware lucency involving a screw associated w ith this hardware, at the level of the distal tibia. There appear to be erosive changes involving th e calcaneus, where the intramedullary internal fixation hardware was inserted. IMPRESSION: Postoperative changes, as above. POS: KRYSTYNA
[2018-06-21 12:22] LABS: Bacteria/HPF None Seen HPF (None Seen)
[2018-06-21 12:23] LABS: Pathc Cast-AUWi Flag 5.96 (0-2.49)
--- NOTE | 2018-06-21 12:32 | RAD ---
RIGHT FEMUR TWO VIEWS: 06/21/2018 HISTORY: Hardware survey. COMPARISON: View of the right knee from 05/15/2018. FINDINGS: There is partial visualization of a right knee arthrodesis with a single lulu transfixing the knee rayo nt with increased density material within the knee joint, related to prior surgery. There is irregul arity involving the distal right femoral metadiaphysis and metaphysis, which may be related to remote fracture and injury or related to prior post surgical change. This is unchanged from the prior exam . The distal portion of the tibial component is not imaged on this exam. No acute fracture or dislo cation is seen involving the right femur. There is osteoarthritis of the right hip. Vascular calcif ications are seen in the superficial femoral and limited visualized popliteal artery. IMPRESSION: 1. No acute osseous abnormality involving the right femur. 2. Mild osteoarthritis, right hip. 3. Post surgical changes, right knee, related to arthrodesis, with irregularity of the distal right femoral metadiaphysis, which may be related to prior injury and remote fracture. POS: KRYSTYNA
[2018-06-21 12:36] LABS: Renal Epithelial None Seen HPF (0-3); Transitional Epithelial NONE SEEN HPF (0-3)
[2018-06-21 12:37] LABS: Hyaline Casts/LPF 0-3 HYALINE CAST LPF (0-3 Hyaline); Manual Microscopic Reviewed? No Path Casts Seen
[2018-06-21] MEDS: Albumin 25% 25 GM/100 ML BOT IVPB SCH ×2 (13:52→18:18)
--- NOTE | 2018-06-21 14:09 | CON ---
DATE OF CONSULTATION: 06/21/2018. REQUESTING PHYSICIAN: Dr. Filiberto Jc. CONSULTING PHYSICIAN: Dr. Dmitriy Guerrero. 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 BRIEF CLINICAL HISTORY: Mr. Herman is a 72-year-old white male who was admitted to our facility to [facility] emergency room 2 days ago with septic shock. He has had a known draining arthrodesis for several months now, which was preceded by a failed total knee arthroplasty for the last couple of years. I o nly have the most recent hospitalization notes from Dr. Alford, which indicated a debridement and irrig ation of his infected arthrodesis of the right lower extremity. His orthopedic history is somewhat c omplex and dates back approximately 3 years according to the patient when he injured himself. He had an ORIF, ultimately a tibiotalar fusion as followed by a right total knee arthroplasty approximately 3 years ago. This got infected and it was explanted. He had antibiotic spacers and ex-fix placed a nd then ultimately arthrodesis nail was placed in the right lower extremity. All these modalities gusman ve remained infected according to the patient. He has been in and out of the hospital many times in the last 3 years and now he has been admitted to [place] and the patient requested another orthope dic opinion regarding his condition. He was treated by the medicine team and Dr. Jc successfully. He is still on some pressors, but his septic shock is resolving with treatment. He is currently co nvalescing in the Intensive Care Unit. PAST MEDICAL HISTORY: Does consist of congestive heart failure. He has a history of chronic alcohol ism and tobacco use, but he has not smoked in 2-3 months and he quit drinking a few years ago. He do es have a history of cirrhosis. PHYSICAL EXAMINATION: Visual inspection of the right lower extremity demonstrates him to have a drai taylor wound on the lateral aspect of the knee. He has claw toes on the right and edematous changes of the right lower extremity consistent with peripheral edema and impaired vasoconstriction control and vasomotor control. IMAGING STUDIES: Two views femur and two views tibia demonstrates fusion nail to be in place. It do es not appear to be a solid arthrodesis between the distal femur and proximal tibia. He has signific ant amount of hardware placed in the ankle consistent with open reduction and internal fixation as we ll as the tibiotalar fusion nail. IMPRESSION: 1. 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 2. Failed arthrodesis, right lower extremity. 3. Congestive heart failure. 4. Alcoholic cirrhosis and generally poor health. PLAN: A long discussion with the patient regarding treatment options were failed arthrodesis to incl ude explantation as well as above knee amputation of the right lower extremity. The patient is arvin ble to this as he has just recently had a septic shock infection secondary to this chronic problem an d most likely will suffer these in the future. Our plan is to perform the explantation and above-the -knee amputation on Tuesday of this week as long as Dr. Jc and the medicine team are comfortable wi th the patient being medically optimized. We will discuss the option with Dr. Jc and patient has been posted for Tuesday and I will meet with he and his significant other either tomorrow or later thi s evening to discuss details of surgery and obtaining consent.
--- NOTE | 2018-06-21 16:50 | PRG ---
DATE OF SERVICE: 06/21/2018 His case was also discussed with Orthopedic Surgery and Dr. Vazquez. SUBJECTIVE: His drainage out of his right leg when he arrived to [facility] was cultured and this isolated Staph aureus. Orthopedics feels that there is no good treatment other than amputation for this if he wants this problem to be resolved as it can be. I am waiting for their final recommendations. He says he is feeling better. PAST HISTORY: Not obtained SOCIAL HISTORY: Not obtained. FAMILY HISTORY: Non contributory REVIEW OF SYSTEMS: 10 point system review completed, otherwise negative. OBJECTIVE: GENERAL: His drainage out of his right leg when he arrived to [facility] was cultured and this isolated Staph aureus. HEENT: pupils react. NECK: supple. VITAL SIGNS: His blood pressure is 112/64, heart rate 95, respiratory rate is 25. LUNGS: Clear. HEART: Regular rhythm. ABDOMEN: Soft. EXTREMITIES: Without asymmetry as stasis changes, more on the right than on the left. MRSA was isolated from his knee drainage as well as yeast and a coag negative staph. Blood cultures are negative this admission. IMPRESSION: 1. Extreme deconditioning secondary to multiple orthopedic procedures on his right lower extremity. Orthopedics have been consulted for further recommendations as well as Infectious Disease. 2. Hypotension, most likely secondary to intravascular volume depletion. This is essentially resolved. 3. Cirrhosis with a low serum albumin. I have started him on salt poor albumin. This will help with his oncotic pressure and hopefully facilitate maintenance of blood pressure, especially in the setting of an operative procedure. 4. Mild metabolic acidosis. 5. Anemia, most likely of chronic disease. 6. Coagulopathy. This will obviously need to be corrected before an operative procedure and probably will have to be corrected with fresh frozen plasma, I would not give that today. I would wait until the night before the morning of the procedure. We will continue to follow in the Critical Care Unit for now. Obviously, this is a high morbidity surgery if he requires it, but his morbidity with his current chronically infected right lower extremity is quite high and if he can survive the surgery and the wound healing, he will probably have a better quality of life than he has now in my opinion. ADDENDUM: Mr. Saucedo also has aspiration pneumonia, for which he is asymptomatic at this point in time. His gas exchange is improved to a point where he would probably tolerate general anesthesia without any significant complications. I would continue the IV antimicrobial therapy for now for his pneumonia as well as antimicrobial therapy for his knee. The pneumonia is most likely aspiration mediated. This is a 50 minute consult, with greater than 50% of time spent on unit in coordination of care. PIYUSH
[2018-06-21] MEDS ORDERED: Lorazepam 2 MG/ML VIAL ONE (19:43)
--- NOTE | 2018-06-21 21:01 | PDOC.EVN ---
Event Note - Event Note Event Note: pt interfering with treatment, needing restrains, even after anxiolytics have been giving, will monitor
--- NOTE | 2018-06-21 21:08 | CON ---
DATE OF CONSULTATION: 06/21/2018 REASON FOR CONSULTATION: Pneumonia, right knee infection. HISTORY OF PRESENT ILLNESS: Mr. Saucedo is a 72-year-old patient, who has a history of alcoholism, chronic smoking with COPD, hypertension, and multiple right knee, complications related to prior replacements with treatments including protracted IV antimicrobial therapy for Streptococcus mitis infection , eventually resulted in chronic and stable right knee prosthesis. He had readmissions and repeat sampling of the area with negative cultures. Eventually , the prosthesis was removed, he was treated again with protracted antimicrobial therapy and apparently left against medical advice from a rehab and then went home. At home, he developed a purulent exudate with foul odor and he was admitted and had operative irrigation by Dr. Alford, arthrotomy. The operative report has been reviewed and there was gross purulence encountered with two sinus tracts. The area was washed out and rongeur and curet used to further dissection debridement. At this time, culture yielded methicillin- resistant Staphylococcus aureus. Vancomycin MELISSA was 1. The patient was kind of not willing to be examined this last admission to the hospital. He eventually was discharged on Cubicin, rifampin, metoprolol, Lasix, potassium chloride, and [place]. Over the past few days, he developed progressively worsening dyspnea, some cough, but no sputum production. He was brought to the emergency room in [place] and then transferred to [facility] with bilateral multifocal pneumonitis. He was admitted to the ICU, he is not intubated at this time. He is awake, a little bit delirious. REVIEW OF SYSTEMS: He denies any headaches, no visual symptoms, sore throat, odynophagia, dysphagia, no back pain. He is coughing a little bit, but no sputum production. No abdominal pain. He has some moderate pain in the right foot and mild pain in the right knee. PAST MEDICAL HISTORY: Alcoholism, chronic liver disease, chronic smoking, COPD , hypertension, hyperlipidemia, multiple complications right knee arthroplasty site, which culminated in removal of the implant recently and fusion procedure. He had a recent washout procedure with MRSA retrieved and had been discharged on IV Cubicin and rifampin. PAST SURGICAL HISTORY: As above. He also has a fracture of the distal tibia, fibula, which required fixation of the right ankle. SOCIAL HISTORY: Alcoholism. He has a DNR status. Lives in his own home and is currently a smoker. Still drink alcoholic beverages. ALLERGIES: IODINE, DULOXETINE. FAMILY HISTORY: Noncontributory. MEDICATION LIST: In the hospital includes albumin, Dulcolax, cefepime, Pepcid, magnesium, morphine, Levophed, and vancomycin. PHYSICAL EXAMINATION: VITAL SIGNS: T-max 98.4, blood pressure 117/55, pulse 102 and 96, and O2 sats are 98% with nasal cannula O2 administration. SKIN: Shows the area of surgical intervention of the right knee with still stitches in place. The incision appears dry without erythema, no areas of dehiscence, the knee itself is not erythematous. GENERAL: The patient is voiding spontaneously. He is awake. He did not recognize me. He knows he is in [facility], but could not tell me the date. His recollection of the events is very poor. HEENT: Ocular movements are conjugate. Pupils are 2 mm and reactive. Numerous missing teeth, the remainder ones with marked decay. NECK: Supple. LUNGS: With symmetric air entry with few crackles scattered through right and left hemithorax. No wheezing. HEART: S1 and S2 with no murmurs. No S3. ABDOMEN: Slightly distended. No obvious evidence of ascites. No bladder distention. EXTREMITIES: The right knee is postoperatively not inflamed, does not appear inflamed. There is light amount of serous drainage, but it is very scanty amount in the lower edge of the incision, stitches still in place. He has a right foot and flexion seems to be chronically, so he has a complete fixation of the ankle joint following previous fracture. NEUROLOGIC: Awake is awake, but is disoriented except for name and place. LABORATORY DATA: White cell count is 10.1, hemoglobin 11.7, MCV 99 with 81% neutrophils, 12% lymphocytes, and follow up white cell count 10.2, hemoglobin 11.5. INR 1.9, pH 7.45, pCO2 of 31, pO2 of 95. Sodium 130, creatinine 1.29, which is up from admission, bilirubin was 2.7 and 1.8. Transaminases normal, alkaline phosphatase normal, albumin 1.8 and 1.9. Serum total protein 5.5. CRP 11.38. Urinalysis with 4-6 wbc's. Legionella and Strep pneumonia antigen negative. Vancomycin trough is 47 and chest x-ray and CT of chest with bilateral diffuse multifocal pneumonitis. ASSESSMENT: 1. Alcoholism with chronic liver disease. 2. Chronic obstructive pulmonary disease, chronic smoking. 3. Multiple complications right knee, which ended up and implant removal and fixation with most recent procedure in May when MRSA was retrieved from site. The patient had been receiving daptomycin since mid May approximately and was supposed to complete treatment at the end of this month and then be on suppressive oral antimicrobial therapy. 4. Progressively worsening bilateral pulmonary infiltrates with hypoxemia. DISCUSSION: Differential diagnosis includes community-acquired pneumonia, usual pathogens, plus possibility of hospital-acquired pathogens with resistant profile versus acute eosinophilic pneumonia secondary to daptomycin. There is asymmetry in the lung infiltrates which would be atypical for eosinophilic pneumonia. Pathogens including pneumocystis also within the realm of possibility, but less likely other fungal and mycobacterial infection are less likely as well. Pulmonary edema secondary to cardiomyopathy and other forms of pneumonitis less likely. In addition to broad spectrum antimicrobial coverage, may consider methylprednisolone. I do not believe that we need to do any surgical intervention at this point for the right lower knee. I do not find evidence of uncontrolled infection there at this point. MTDD
[2018-06-22] MEDS: Albumin 25% 25 GM/100 ML BOT IVPB SCH ×4 (00:41→17:42)
[2018-06-22] MEDS ORDERED: Vancomycin HCl 1.25 GM in Sodium Chloride 0.9% 250 ML 250 ML IVPB SCH (03:30)
[2018-06-22] MEDS: Cefepime 2 GM in Sodium Chloride 0.9% 100 ML IVPB SCH ×2 (05:36→17:56)
[2018-06-22] MEDS ORDERED: ISOVUE-370 76%-LOCM 1 ML ONE (08:22)
[2018-06-22] MEDS: Saccharomyces boulardii 250 MG CAP PO SCH (08:35)
[2018-06-22] MEDS: Famotidine 20 MG TAB PO SCH ×2 (08:35→21:26)
[2018-06-22] MEDS ORDERED: Prevnar 13-Val Conj/PF 0.5 ML SYRINGE IM ONE (09:00)
[2018-06-22] MEDS ORDERED: Diabetic Tussin 200 MG/10 ML UDCUP PO PRN (09:28)
[2018-06-22] MEDS ORDERED: Chloraseptic Spray 180 ml Bottle PO PRN (09:28)
[2018-06-22] MEDS ORDERED: Sodium Chloride 0.65% Nasal 44 ML BOT EA NARE PRN (09:28)
[2018-06-22] MEDS ORDERED: Eucerin (Mineral Oil/Petrolatum,White) 30 gm Jar TOP PRN (09:28)
[2018-06-22] MEDS ORDERED: hydrALAZINE 20 MG/ML VIAL SLOW IVP PRN (09:28)
[2018-06-22] MEDS ORDERED: Milk Of Magnesia 30 ML UDCUP PO PRN (09:28)
[2018-06-22] MEDS ORDERED: Mag-Al 1200 mg/1200 mg/30 ML UDCUP PO PRN (09:28)
[2018-06-22] MEDS ORDERED: Artificial Tears 18 DROP/0.9 ML EA EYE PRN (09:28)
--- NOTE | 2018-06-22 10:32 | PDOC.PN ---
- Subjective Encounter Start Date: 06/22/18 Encounter Start Time: 09:50 this morning pt is not agitated but he has more dyspnea, no fever last night he was delerious and required restraints - Objective Resuscitation Status: Resuscitation Status DNR:Do Not Resuscitate MAR Reviewed: Yes Vital Signs & Weight: Vital Signs (12 hours) Temp Pulse Ox 06/22/18 08:00 94 L 06/22/18 07:00 97.0 F L 92 L 06/22/18 04:00 97.8 F 06/22/18 02:14 96 06/22/18 00:00 97.6 F 95 Weight Admit Weight 230 lb Weight 229 lb 8.019 oz Most Recent Monitor Data Heart Rate from ECG 114 NIBP 113/63 NIBP BP-Mean 92 Respiration from ECG 19 SpO2 89 I&O: 06/21/18 06/22/18 06/23/18 06:59 06:59 06:59 Intake Total 2072.4 2858 490 Output Total 555 495 300 Balance 1517.4 2363 190 Result Diagrams: 06/21/18 09:14 06/21/18 09:14 EKG Reviewed by me: Yes (nsr) Phys Exam - Physical Examination Constitutional: NAD HEENT: PERRLA, moist MMs, sclera anicteric Neck: no JVD, supple Respiratory: no wheezing, no rhonchi coarse sound Cardiovascular: RRR, no significant murmur, no rub Gastrointestinal: soft, non-tender, no distention, positive bowel sounds ascites+ Musculoskeletal: edema present anasarca+ Neurological: moves all 4 limbs Lymphatic: no nodes Psychiatric: normal affect Skin: no rash, normal turgor Dx/Plan (1) Acute respiratory failure with hypoxia Code(s): J96.01 - ACUTE RESPIRATORY FAILURE WITH HYPOXIA Status: Acute (2) Demand ischemia Code(s): I24.8 - OTHER FORMS OF ACUTE ISCHEMIC HEART DISEASE Status: Acute (3) Lactic acidosis Code(s): E87.2 - ACIDOSIS Status: Acute (4) Multifocal pneumonia Code(s): J18.9 - PNEUMONIA, UNSPECIFIED ORGANISM Status: Acute (5) Septic shock Code(s): A41.9 - SEPSIS, UNSPECIFIED ORGANISM; R65.21 - SEVERE SEPSIS WITH SEPTIC SHOCK Status: Resolved (6) Alcoholic cirrhosis of liver with ascites Code(s): K70.31 - ALCOHOLIC CIRRHOSIS OF LIVER WITH ASCITES Status: Chronic (7) Chronic stage c diastolic heart failure Code(s): I50.32 - CHRONIC DIASTOLIC (CONGESTIVE) HEART FAILURE Status: Chronic (8) Coagulopathy Status: Chronic (9) Hypertension Code(s): I10 - ESSENTIAL (PRIMARY) HYPERTENSION Status: Chronic (10) Hyponatremia Code(s): E87.1 - HYPO-OSMOLALITY AND HYPONATREMIA Status: Chronic (11) Macrocytic anemia Code(s): D53.9 - NUTRITIONAL ANEMIA, UNSPECIFIED Status: Chronic (12) Physical deconditioning Code(s): R53.81 - OTHER MALAISE Status: Chronic - Plan cont current plan of care, continue antibiotics * now off levophed * continue albumin * anasarca related with cirrhosis * continue cefepime and vancomycin * may be we can monitor him at [facility] today * medication reviewed as below * symptomatic treatment * ID recommendation noted * follow culture. so far negative * will repeat labs tomorrow Review of Systems - Review of Systems Constitutional: weakness. negative: fever, chills, sweats, malaise, other Respiratory: Shortness of Breath, SOB with Excertion. negative: Cough, Dry, Hemoptysis, Pleuritic Pain, Sputum, Wheezing Cardiovascular: edema. negative: chest pain, palpitations, orthopnea, paroxysmal nocturnal dyspnea, light headedness, other Gastrointestinal: negative: Nausea, Vomiting, Abdominal Pain, Diarrhea, Constipation, Melena, Hematochezia, Other Genitourinary: negative: Dysuria, Frequency, Incontinence, Hematuria, Retention , Other Musculoskeletal: Leg Pain. negative: Neck Pain, Shoulder Pain, Arm Pain, Back Pain, Hand Pain, Foot Pain, Other - Medications/Allergies Allergies/Adverse Reactions: Allergies Allergy/AdvReac Type Severity Reaction Status Date / Time Iodinated Contrast- Oral and Allergy Verified 01/31/18 11:31 IV Dye [Iodinated Contrast Media - IV Dye] loxapine Allergy Verified 01/31/18 11:31 shrimp Allergy Verified 01/31/18 11:31 Medications: Current Medications Acetaminophen (Tylenol) 650 mg PO Q4H PRN PRN Reason: Headache/Fever or Pain Last Admin: 06/20/18 04:58 Dose: 650 mg Al Hydroxide/Mg Hydroxide (Maalox) 15 ml PO Q4H PRN PRN Reason: Heartburn or Indigestion Albumin Human (Albumin 25%) 25 gm IVPB Q6HR [facility] Stop: 06/23/18 12:01 Last Admin: 06/22/18 05:36 Dose: 25 gm Artificial Tears (Tears Naturale) 0 drop EA EYE PRN PRN PRN Reason: Dry Eyes Bisacodyl (Dulcolax) 10 mg PO DAILYPRN PRN PRN Reason: Constipation Famotidine (Pepcid) 20 mg PO Q12HR [facility] Last Admin: 06/22/18 08:35 Dose: 20 mg Guaifenesin (Robitussin Sf) 200 mg PO Q4H PRN PRN Reason: Cough Hydralazine HCl (Apresoline) 10 mg SLOW IVP Q4H PRN PRN Reason: Systolic BP > 180 Potassium Chloride 40 meq/ (Sodium Chloride) 270 mls @ 135 mls/hr IVPB ASDIR PRN PRN Reason: FOR SERUM K+ 2.5 - 3.5 Potassium Chloride 40 meq/ (Device) 100 mls @ 50 mls/hr IVPB ASDIR PRN PRN Reason: FOR SERUM K+ 2.5 - 3.5 Magnesium Sulfate 1 gm/ Sodium (Chloride) 102 mls @ 102 mls/hr IV PRN PRN PRN Reason: MAG LEVEL 1.4 - 2.0 Magnesium Sulfate 2 gm/ Device 100 mls @ 100 mls/hr IVPB ASDIR PRN PRN Reason: MAGNESIUM < 1.4 Potassium Phosphate 9 mmol/ (Sodium Chloride) 103 mls @ 25.75 mls/hr IVPB ASDIR PRN PRN Reason: Phosphate 1.0-1.8 Potassium Phosphate 12 mmol/ (Sodium Chloride) 254 mls @ 63.5 mls/hr IV ASDIR PRN PRN Reason: Serum phosphate 0.5-0.9 Potassium Phosphate 15 mmol/ (Sodium Chloride) 255 mls @ 63.75 mls/hr IV ASDIR PRN PRN Reason: Serum Phos < 0.5 Cefepime HCl 2 gm/ Sodium (Chloride) 100 mls @ 200 mls/hr IVPB 0600,1800 [facility] Last Admin: 06/22/18 05:36 Dose: 100 mls Norepinephrine Bitartrate (Levophed) 250 mls @ 0 mls/hr IVPB INF PRN; Protocol PRN Reason: Blood Pressure Last Admin: 06/21/18 05:20 Dose: 250 mls Vancomycin HCl 1.25 gm/ Sodium (Chloride) 250 mls @ 166.667 mls/hr IVPB .PENDING LEVEL < 20 YEIMY Magnesium Hydroxide (Milk Of Magnesium) 30 ml PO DAILYPRN PRN PRN Reason: Constipation Magnesium Oxide (Magnesium Oxide) 400 mg PO BIDPRN PRN PRN Reason: FOR SERUM MAG 1.4 - 2.0 Magnesium Oxide (Magnesium Oxide) 800 mg PO PRN PRN PRN Reason: FOR SERUM MAG < 1.4 Mineral Oil/White Petrolatum (Eucerin Cream) 0 gm TOP BIDPRN PRN PRN Reason: Dry Skin Miscellaneous Medication (Pharmacy To Dose) 1 each IVPB PRN PRN PRN Reason: Pharmacy to dose Miscellaneous Medication (Phos-Nak) 1 pkt PO TIDPRN PRN PRN Reason: FOR PHOS LEVEL 1.0 - 1.8 Miscellaneous Medication (Phos-Nak) 2 pkt PO TIDPRN PRN PRN Reason: FOR PHOS LEVEL 0.5 - 1.0 Morphine Sulfate (Morphine) 2 mg SLOW IVP Q4H PRN PRN Reason: Severe Pain (7-10) Last Admin: 06/22/18 08:31 Dose: 2 mg Ondansetron HCl (Zofran Odt) 4 mg PO Q6H PRN PRN Reason: Nausea/Vomiting Ondansetron HCl (Zofran) 4 mg IVP Q6H PRN PRN Reason: Nausea/Vomiting Phenol (Chloraseptic Mason 180 Ml Bot) 0 ml PO PRN PRN PRN Reason: Sore Throat Potassium Chloride (K-Dur) 40 meq PO ASDIR PRN PRN Reason: FOR SERUM K+ 2.5 - 3.5 Potassium Chloride (Klor-Con) 40 meq PER TUBE ASDIR PRN PRN Reason: FOR SERUM K+ 2.5-3.5 Saccharomyces Boulardii (Florastor) 250 mg PO DAILY [facility] Last Admin: 06/22/18 08:35 Dose: 250 mg Sodium Biphosphate/Sodium Phosphate (Fleet Enema) 133 ml W[place] ONE PRN PRN Reason: Constipation Stop: 07/20/18 00:31 Sodium Chloride (Flush - Normal Saline) 10 ml IVF Q12HR [facility] Last Admin: 06/22/18 08:35 Dose: 10 ml Sodium Chloride (Flush - Normal Saline) 10 ml IVF PRN PRN PRN Reason: Saline Flush Sodium Chloride ([place] Nasal Mason 0.65%) 0 ml EA NARE QIDPRN PRN PRN Reason: Nasal Congestion
--- NOTE | 2018-06-22 15:43 | RAD ---
1 VIEW CHEST: Date: 06/22/18 COMPARISON: 06/19/18. HISTORY: Hypoxia. FINDINGS: Stable right-sided PICC line. Persistent interstitial and alveolar infiltrates throughout the lung pa renchyma. Stable configuration of the cardiac silhouette. No pneumothorax or osseous abnormalities. IMPRESSION: Persistent interstitial and alveolar infiltrates. Continued surveillance is recommended. POS: DIVYA
[2018-06-22] MEDS ORDERED: Furosemide 40 MG/4 ML VIAL SLOW IVP SCH (15:45)
--- NOTE | 2018-06-22 15:46 | PRG ---
DATE OF SERVICE: 06/22/2018 SUBJECTIVE: Mr. Virgil Saucedo has no new complaints. He is tired of being in bed, but admits he is starting to get used to it. We discussed his amputation again, he is willing to move forward. He sa ys he realizes that hopefully this will make him actually more functional over the long haul if we ca n just get him through the healing phase after the surgery. OBJECTIVE: VITAL SIGNS: He is afebrile, heart rate is 102, blood pressure 126/75, respiratory rates in the 20s to low 30s. LUNGS: Clear. HEART: Regular rhythm. ABDOMEN: Soft and nontender. He is tentatively on the schedule for tomorrow. He has an INR of 1.9 on admission, so I have ordered plasma today and we will repeat a protime in the morning. If his INR is prolonged in the morning, we will give him more plasma prior to surgery. LABORATORY DATA: There is no new lab today. He obviously needs lab in the morning for surgery. ASSESSMENT AND PLAN: He had an episode last night where he became short of breath, which resolved th morning. I suspect this is secondary more likely to retained mucus and secretions than anything e lse given his rapid improvement when the sun came up. We will place him on a nebulizer and continue with current care. He is in a positive fluid balance t hat is almost 4 liters over the last 2 days. I will check a chest x-ray in the morning. Cut back on his fluids. With regards to the diffuse infiltrate in his left lung, I still believe this is an aspiration pneumo cali and from that standpoint, he is clinically stable. I doubt there is a malignant process going on in his left chest. There was no clear indication for bronchoscopy at this point in time. I would c ontinue antimicrobial therapy both for his knee and he really needs to continue this for his lungs.
[2018-06-22] MEDS ORDERED: diphenhydrAMINE 50 MG/ML VIAL IVP SCH (20:15)
[2018-06-22] MEDS ORDERED: methylPREDNISolone Sod Succ/PF 125 MG/2 ML VIAL IVP SCH (20:15)
[2018-06-22] MEDS ORDERED: Famotidine/PF 20 mg/2ml Vial SLOW IVP SCH (20:30)
[2018-06-22] MEDS ORDERED: Lorazepam 2 MG/ML VIAL SLOW IVP PRN (21:43)
--- NOTE | 2018-06-22 22:39 | CT ---
CTA OF THE CHEST WITH CONTRAST: 06/22/18 COMPARISON: 06/19/18 HISTORY: Dyspnea. TECHNIQUE: Multiple contiguous axial images were obtained in a CTA of the chest with contrast per pulmonary embo lism protocol. 3D oblique MIP reformats and direct coronal reformats were performed. FINDINGS: The pulmonary arteries are well opacified without filling defect to suggest pulmonary emboli. The hea rt is mildly enlarged. Calcifications are seen in the coronary arteries. No hilar or mediastinal lymp hadenopathy are seen. There is a small left pleural effusion. Multifocal ground glass opacities are seen in the lungs which likely represent multifocal infiltrates. These appear to have worsened compared to the prior examina tion. A gallstone is seen in the gallbladder. There are varices adjacent to the spleen. The liver is nodula r and cirrhotic. Degenerative changes are seen in the spine. Diffuse soft tissue anasarca is present. IMPRESSION: 1. No evidence of pulmonary thromboembolism. 2. Worsening multifocal infiltrates. 3. Small left pleural effusion. POS: [facility]
[2018-06-23] MEDS: Albumin 25% 25 GM/100 ML BOT IVPB SCH ×3 (01:23→14:39)
[2018-06-23 04:01] LABS: #Lymphocytes 0.5 thou/uL (1.20-3.40); #Monocytes 0.1 thou/uL (0.11-0.59); #Neutrophils 4.9 thou/uL (1.40-6.50); %Basophils 0.3 % (0.0-1.0); %Eosinophils 0.5 % (0.0-10.0); %Lymphocytes 8.6 % (21.0-51.0); %Monocytes 2.4 % (0.0-10.0); %Neutrophils 88.3 % (42.0-75.0); Hemoglobin 8.2 g/dL (14.0-18.0); Mean Corpuscular HGB CONC 33.4 g/dL (32.0-36.0); Mean Corpuscular Hemoglobin 32.7 pg (27.0-31.0); Mean Corpuscular Volume 97.9 fL (78.0-98.0); Mean Platelet Volume 7.4 fL (7.4-10.4); Platelet Count 127 thou/uL (130-400); RBC Distribution Width 15.2 % (11.5-14.5); Red Blood Cell (RBC) Count 2.51 mill/uL (4.70-6.10); White Blood Cell (WBC) Count 5.6 thou/uL (4.8-10.8)
[2018-06-23 04:07] LABS: Vancomycin, Random 21.6 ug/mL (See Comment)
[2018-06-23 04:13] LABS: INR-International Normal Ratio 1.6; Prothrombin Time 19.3 SEC (12.0-14.7)
[2018-06-23 04:20] LABS: ALT (SGPT) 8 U/L (8-55); AST (SGOT) 25 U/L (5-34); Albumin 3.9 g/dL (3.4-4.8); Alkaline Phosphatase 104 U/L (40-150); Anion Gap 17 mmol/L (10-20); BUN (Urea Nitrogen) 20 mg/dL (8.4-25.7); Bilirubin, Total 1.9 mg/dL (0.2-1.2); Calc. Creatinine Clearance 99 mL/min (70-130); Calcium 8.8 mg/dL (7.8-10.44); Carbon Dioxide 20 mmol/L (23-31); Chloride 102 mmol/L (98-107); Estimated GFR-MDRD 72; Globulin 2.6 g/dL (2.4-3.5); Glucose 124 mg/dL (80-115); Potassium 3.8 mmol/L (3.5-5.1); Protein, Total 6.5 g/dL (5.8-8.1); Sodium 135 mmol/L (136-145)
[2018-06-23] MEDS: Cefepime 2 GM in Sodium Chloride 0.9% 100 ML IVPB SCH ×2 (05:33→18:42)
--- NOTE | 2018-06-23 08:37 | RAD ---
PORTABLE AP CHEST XRAY: DATE: 06/23/18. HISTORY: On ventilator. Followup evaluation. COMPARISON: 06/22/18. FINDINGS: The patient is rotated to the right which limits evaluation of the chest including mediastinal struct ures and cardiac silhouette and right chest. Right-sided PICC line is in place. There are increased interstitial and alveolar opacities seen diffusely throughout the lungs bilaterally and given differ ences in technique are probably not significantly changed when compared to prior study. There is a s uggestion of small bilateral pleural effusions. IMPRESSION: 1. Stable chest with diffuse increased interstitial and alveolar opacities bilaterally as well as bi lateral pleural effusions. 2. The heart is probably enlarged, but the patient is rotated which limits adequate evaluation. POS: [facility]
--- NOTE | 2018-06-23 08:38 | PDOC.PN ---
- Subjective Encounter Start Date: 06/23/18 Encounter Start Time: 07:00 pt is wheezing this morning, he appears sleepy and confused, exwife bedside, no fever, appear more dyspnic - Objective Resuscitation Status: Resuscitation Status DNR:Do Not Resuscitate MAR Reviewed: Yes Vital Signs & Weight: Vital Signs (12 hours) Temp Pulse Pulse Resp BP Pulse Ox 06/23/18 08:00 97.5 F L 06/23/18 07:29 100 22 H 06/23/18 05:38 97.9 F 97 24 H 113/77 95 06/23/18 02:55 99 24 H 96 06/23/18 02:00 97.9 F 06/23/18 01:24 97.8 F 94 26 H 122/78 98 06/22/18 23:50 98.0 F 93 21 H 91/54 L 99 06/22/18 23:30 97.9 F 98 23 H 86/53 L 96 06/22/18 23:00 97.9 F 06/22/18 22:38 102 H 20 98 Weight Admit Weight 230 lb Weight 229 lb 8.019 oz Most Recent Monitor Data Heart Rate from ECG 103 NIBP 132/74 NIBP BP-Mean 89 Respiration from ECG 21 SpO2 87 I&O: 06/22/18 06/23/18 06/24/18 06:59 06:59 06:59 Intake Total 2858 3008 Output Total 495 1650 Balance 2363 1358 Result Diagrams: 06/23/18 03:30 06/23/18 03:30 Radiology Reviewed by me: Yes (chest xray, echo) EKG Reviewed by me: Yes (nsr) Phys Exam - Physical Examination Constitutional: NAD confused HEENT: PERRLA, sclera anicteric Neck: no nodes, supple, full ROM Respiratory: wheezing present bilateral scattered rales Cardiovascular: RRR, no rub parasternal murmur+ Gastrointestinal: soft, non-tender, positive bowel sounds ascites+ Musculoskeletal: pulses present, edema present Neurological: moves all 4 limbs Lymphatic: no nodes Psychiatric: normal affect Skin: no rash, normal turgor Dx/Plan (1) Acute respiratory failure with hypoxia Code(s): J96.01 - ACUTE RESPIRATORY FAILURE WITH HYPOXIA Status: Acute (2) Demand ischemia Code(s): I24.8 - OTHER FORMS OF ACUTE ISCHEMIC HEART DISEASE Status: Acute (3) Lactic acidosis Code(s): E87.2 - ACIDOSIS Status: Acute (4) Multifocal pneumonia Code(s): J18.9 - PNEUMONIA, UNSPECIFIED ORGANISM Status: Acute (5) Septic shock Code(s): A41.9 - SEPSIS, UNSPECIFIED ORGANISM; R65.21 - SEVERE SEPSIS WITH SEPTIC SHOCK Status: Resolved (6) Alcoholic cirrhosis of liver with ascites Code(s): K70.31 - ALCOHOLIC CIRRHOSIS OF LIVER WITH ASCITES Status: Chronic (7) Chronic stage c diastolic heart failure Code(s): I50.32 - CHRONIC DIASTOLIC (CONGESTIVE) HEART FAILURE Status: Chronic (8) Coagulopathy Status: Chronic (9) Hypertension Code(s): I10 - ESSENTIAL (PRIMARY) HYPERTENSION Status: Chronic (10) Hyponatremia Code(s): E87.1 - HYPO-OSMOLALITY AND HYPONATREMIA Status: Chronic (11) Macrocytic anemia Code(s): D53.9 - NUTRITIONAL ANEMIA, UNSPECIFIED Status: Chronic (12) Physical deconditioning Code(s): R53.81 - OTHER MALAISE Status: Chronic (13) Status post hardware removal Code(s): Z98.890 - OTHER SPECIFIED POSTPROCEDURAL STATES Status: Chronic (14) Pulmonary hypertension Code(s): I27.20 - PULMONARY HYPERTENSION, UNSPECIFIED Status: Chronic (15) Severe tricuspid regurgitation Code(s): I07.1 - RHEUMATIC TRICUSPID INSUFFICIENCY Status: Chronic - Plan cont current plan of care, plan discussed w/ family, continue antibiotics * medication reviewed as below * symptomatic treatment. * will give one dose of lasix * continue cefepime and vancomycin * ? plan for right AKA * prognosis is guarded * BNP is elevated Review of Systems - Review of Systems Eyes: negative: Pain, Vision Change, Conjunctivae Inflammation, Eyelid Inflammation, Redness, Other ENT: negative: Ear Pain, Ear Discharge, Nose Pain, Nose Discharge, Nose Congestion, Mouth Pain, Mouth Swelling, Throat Pain, Throat Swelling, Other Respiratory: negative: Cough, Dry, Shortness of Breath, Hemoptysis, SOB with Excertion, Pleuritic Pain, Sputum, Wheezing Cardiovascular: edema. negative: chest pain, palpitations, orthopnea, paroxysmal nocturnal dyspnea, light headedness, other Gastrointestinal: negative: Nausea, Vomiting, Abdominal Pain, Diarrhea, Constipation, Melena, Hematochezia, Other Genitourinary: negative: Dysuria, Frequency, Incontinence, Hematuria, Retention , Other Musculoskeletal: negative: Neck Pain, Shoulder Pain, Arm Pain, Back Pain, Hand Pain, Leg Pain, Foot Pain, Other Skin: negative: Rash, Lesions, José, Bruising, Other Neurological: Confusion. negative: Weakness, Numbness, Incoordination, Change in Speech, Seizures, Other Other: not reliable due to his level of cognitive status - Medications/Allergies Allergies/Adverse Reactions: Allergies Allergy/AdvReac Type Severity Reaction Status Date / Time Iodinated Contrast- Oral and Allergy Verified 01/31/18 11:31 IV Dye [Iodinated Contrast Media - IV Dye] loxapine Allergy Verified 01/31/18 11:31 shrimp Allergy Verified 01/31/18 11:31 Medications: Current Medications Acetaminophen (Tylenol) 650 mg PO Q4H PRN PRN Reason: Headache/Fever or Pain Last Admin: 06/20/18 04:58 Dose: 650 mg Al Hydroxide/Mg Hydroxide (Maalox) 15 ml PO Q4H PRN PRN Reason: Heartburn or Indigestion Albumin Human (Albumin 25%) 25 gm IVPB Q6HR [facility] Stop: 06/23/18 12:01 Last Admin: 06/23/18 06:29 Dose: 25 gm Albuterol/Ipratropium (Duoneb) 3 ml NEB [id number] [facility] Last Admin: 06/23/18 07:29 Dose: 3 ml Artificial Tears (Tears Naturale) 0 drop EA EYE PRN PRN PRN Reason: Dry Eyes Bisacodyl (Dulcolax) 10 mg PO DAILYPRN PRN PRN Reason: Constipation Famotidine (Pepcid) 20 mg PO Q12HR [facility] Last Admin: 06/22/18 21:26 Dose: Not Given Furosemide (Lasix) 40 mg SLOW IVP ONE [facility] Guaifenesin (Robitussin Sf) 200 mg PO Q4H PRN PRN Reason: Cough Hydralazine HCl (Apresoline) 10 mg SLOW IVP Q4H PRN PRN Reason: Systolic BP > 180 Potassium Chloride 40 meq/ (Sodium Chloride) 270 mls @ 135 mls/hr IVPB ASDIR PRN PRN Reason: FOR SERUM K+ 2.5 - 3.5 Potassium Chloride 40 meq/ (Device) 100 mls @ 50 mls/hr IVPB ASDIR PRN PRN Reason: FOR SERUM K+ 2.5 - 3.5 Magnesium Sulfate 1 gm/ Sodium (Chloride) 102 mls @ 102 mls/hr IV PRN PRN PRN Reason: MAG LEVEL 1.4 - 2.0 Magnesium Sulfate 2 gm/ Device 100 mls @ 100 mls/hr IVPB ASDIR PRN PRN Reason: MAGNESIUM < 1.4 Potassium Phosphate 9 mmol/ (Sodium Chloride) 103 mls @ 25.75 mls/hr IVPB ASDIR PRN PRN Reason: Phosphate 1.0-1.8 Potassium Phosphate 12 mmol/ (Sodium Chloride) 254 mls @ 63.5 mls/hr IV ASDIR PRN PRN Reason: Serum phosphate 0.5-0.9 Potassium Phosphate 15 mmol/ (Sodium Chloride) 255 mls @ 63.75 mls/hr IV ASDIR PRN PRN Reason: Serum Phos < 0.5 Cefepime HCl 2 gm/ Sodium (Chloride) 100 mls @ 200 mls/hr IVPB 0600,1800 [facility] Last Admin: 06/23/18 05:33 Dose: 100 mls Vancomycin HCl 1.25 gm/ Sodium (Chloride) 250 mls @ 166.667 mls/hr IVPB .PENDING LEVEL < 20 [facility] Lorazepam (Ativan) 1 mg SLOW IVP Q2H PRN PRN Reason: RESTLESSNESS/AGITATION Last Admin: 06/23/18 01:23 Dose: 1 mg Magnesium Hydroxide (Milk Of Magnesium) 30 ml PO DAILYPRN PRN PRN Reason: Constipation Magnesium Oxide (Magnesium Oxide) 400 mg PO BIDPRN PRN PRN Reason: FOR SERUM MAG 1.4 - 2.0 Magnesium Oxide (Magnesium Oxide) 800 mg PO PRN PRN PRN Reason: FOR SERUM MAG < 1.4 Mineral Oil/White Petrolatum (Eucerin Cream) 0 gm TOP BIDPRN PRN PRN Reason: Dry Skin Miscellaneous Medication (Pharmacy To Dose) 1 each IVPB PRN PRN PRN Reason: Pharmacy to dose Miscellaneous Medication (Phos-Nak) 1 pkt PO TIDPRN PRN PRN Reason: FOR PHOS LEVEL 1.0 - 1.8 Miscellaneous Medication (Phos-Nak) 2 pkt PO TIDPRN PRN PRN Reason: FOR PHOS LEVEL 0.5 - 1.0 Morphine Sulfate (Morphine) 2 mg SLOW IVP Q4H PRN PRN Reason: Severe Pain (7-10) Last Admin: 06/23/18 04:03 Dose: 2 mg Ondansetron HCl (Zofran Odt) 4 mg PO Q6H PRN PRN Reason: Nausea/Vomiting Ondansetron HCl (Zofran) 4 mg IVP Q6H PRN PRN Reason: Nausea/Vomiting Phenol (Chloraseptic [place] 180 Ml Bot) 0 ml PO PRN PRN PRN Reason: Sore Throat Potassium Chloride (K-Dur) 40 meq PO ASDIR PRN PRN Reason: FOR SERUM K+ 2.5 - 3.5 Potassium Chloride (Klor-Con) 40 meq PER TUBE ASDIR PRN PRN Reason: FOR SERUM K+ 2.5-3.5 Saccharomyces Boulardii (Florastor) 250 mg PO DAILY [facility] Last Admin: 06/22/18 08:35 Dose: 250 mg Sodium Biphosphate/Sodium Phosphate (Fleet Enema) 133 ml FL ONE PRN PRN Reason: Constipation Stop: 07/20/18 00:31 Sodium Chloride (Flush - Normal Saline) 10 ml IVF Q12HR [facility] Last Admin: 06/22/18 21:27 Dose: 10 ml Sodium Chloride (Flush - Normal Saline) 10 ml IVF PRN PRN PRN Reason: Saline Flush Sodium Chloride ([place] Nasal [place] 0.65%) 0 ml EA NARE QIDPRN PRN PRN Reason: Nasal Congestion
[2018-06-23] MEDS ORDERED: Furosemide 40 MG/4 ML VIAL SLOW IVP SCH (08:45)
[2018-06-23] MEDS ORDERED: PROPOFOL 200 MG/20 ML VIAL ONE (10:06)
[2018-06-23] MEDS ORDERED: Propofol 1,000 MG/100 ML VIAL IV ONE (12:36)
[2018-06-23 13:14] LABS: Actual Bicarbonate (HCO3a) 19.6 mEq/L (22-28); Base Excess (BEa) -6.9 mEq/L (-2.0 to +3.0); CO2 Tension 43.6 mmHg (35.0-45.0); Carboxyhemoglobin (COHb) 1.1 gm% (0.0-3.0); Hemoglobin (Hb) 9.4 g/dL (14.0-18.0); O2 Tension (PaO2) 138.5 mmHg (> 70.0); Potassium - ABG Lab 3.69 mmol/L (3.70-5.30); pH, Arterial 7.27 (7.35-7.45)
[2018-06-23 13:16] LABS: Puncture Site ALINE
--- NOTE | 2018-06-23 13:39 | OP ---
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 PROCEDURE PERFORMED: Removal of knee prosthesis cemented with methyl methacrylate and amputation of the right leg through the thigh, [id number] amputation. SURGEON: Dmitriy Guerrero M.D. ACCOUNTING MACHINE OPERATOR: Javier Schwarz PA-C. BLOOD LOSS: About 200 mL. SPECIMEN: Leg. DRAINS: None. COMPLICATIONS: None. TOURNIQUET TIME: 69 minutes. DESCRIPTION OF PROCEDURE: The patient was taken to the operating room where general anesthesia was i nduced. He was placed on a bump. Right leg was prepped and draped in usual sterile fashion. I elev ated the leg to exsanguinate and used a sterile tourniquet high on the thigh, then reprepped and drap ed the leg since there was pus draining from the wound. I juventino flaps proximally above the knee joint to try and avoid contaminating the overall incision with deep infection. Flaps were incised, identi fied the profunda femoris artery. I cut the femur circumferentially using a Gigli saw for the back h retirement and a power saw for the front half because there was a large intramedullary nail shaft for the pr osthesis in the femur. The femoral prosthesis was then removed with some difficulty from the femur. I then spent about the next 15 minutes chipping cement from inside the intramedullary canal. I used the [place] revision instruments to help with this. Once this was completed, I used pulsatile lava ge irrigation and I used a reamed flexible reaming of the intramedullary canal to clean the inside of the femur. Once this was cleaned out the ureter irrigated further with pulsatile lavage irrigation. I identified the profunda femoris and the common femoral arteries and double ligated this with a si lk suture and stick ties. Tourniquet was released. Hemostasis was obtained. I closed the flaps wit h #2 Vicryl for fascial layer and loosely closed the skin with Prolene to allow for drainage, then I will place a wound VAC on this drain tomorrow.
[2018-06-23] MEDS: Famotidine 20 MG TAB PO SCH ×2 (14:18→20:55)
[2018-06-23] MEDS: Saccharomyces boulardii 250 MG CAP PO SCH (14:18)
[2018-06-23] MEDS: Vancomycin HCl 1.25 GM in Sodium Chloride 0.9% 250 ML 250 ML IVPB SCH (14:39)
--- NOTE | 2018-06-23 15:01 | PRG ---
DATE OF SERVICE: 06/23/2018 SERVICE: Pulmonary Medicine. INTERVAL HISTORY: The patient went to the operating room this morning and returned to the ICU, still intubated. He underwent a successful amputation of the lower extremity. He cannot provide addition al elements of the history because he is currently sedated. Otherwise, there were no reports of the events overnight. PHYSICAL EXAMINATION: VITAL SIGNS: Afebrile, pulse 90, blood pressure 125/61, respirations 18, saturation 94% on 47% FiO2 and a PEEP of 7. GENERAL: The patient is intubated and sedated. HEENT: Normocephalic, atraumatic. Sclerae are white. Conjunctivae are pink. Oral mucosa is moist without lesions. LUNGS: Decent air entry. There are crackles present. No prolonged expiratory phase is noted. Rhon chi are there. ABDOMEN: Soft, nontender, nondistended. Bowel sounds are positive. HEART: Normal rate, regular. MUSCULOSKELETAL: No cyanosis or clubbing. The right leg is now surgically absent. No edema is pres ent. GENITOURINARY: Fatima catheter in place. LABORATORY DATA: WBC 5.6, hemoglobin 8.2, platelets 127,000. INR 1.6. PH 7.27, pCO2 43, PO2 138. Basic metabolic profile and liver function studies are essentially unremarkable. Total bilirubin is minimally elevated at 1.9. BNP 3600. Urinalysis was previously unremarkable. Random vancomycin 18. Strep and Legionella urine antigens are negative. IMAGIN. Chest x-ray demonstrates diffuse infiltrates throughout bilateral lung fuentes. It is most severe in the right mid lung zone, in the left lower lobe. 2. Echocardiogram demonstrates normal ejection fraction, but there is a D-shaped ventricle consisten t with elevated right-sided heart pressures. Dilated aortic root is noted. 3. CT of the chest demonstrates no evidence of VTE. Worsening multifocal infiltrates are present. There is a small left pleural effusion present. ASSESSMENT: 1. Acute hypoxic respiratory failure. 2. Community-acquired pneumonia. 3. Septic arthritis, status post right above-knee amputation, postop day 0. 4. Pulmonary hypertension. DISCUSSION AND PLAN: The patient is a little volume up for the duration of this hospital stay. Incl uding the ER, he is up a total of 8 liters. We will try to minimize our fluids moving forward and pr ovide him with a daily dose of Lasix. Antibiotics including vancomycin and cefepime will be continue d. He will remain on mechanical ventilation over the next 24 hours. Hopefully, we will be able to e xtubate him shortly. I will continue to follow through the weekend. CRITICAL CARE TIME: 30 minutes.
[2018-06-23] MEDS ORDERED: DISCONTINUE PREVIOUS NARCOTIC PAIN MEDICATIONS AND BENZODIAZEPINES FS SCH (15:07)
[2018-06-23] MEDS ORDERED: Propofol BOLUS 1,000 MG/100 ML VIAL IV PRN (15:07)
[2018-06-23] MEDS ORDERED: Fentanyl BOLUS 250 ML IVPB PRN (15:07)
[2018-06-23] MEDS: fentaNYL Citrate/PF 2,000 MCG in Sodium Chloride 0.9% 60 ML IV SCH (15:48)
[2018-06-23] MEDS: Propofol 1,000 MG/100 ML VIAL IV PRN (19:50)
[2018-06-23 20:09] LABS: Mycoplasma pneumoniae IgG AB 325 U/mL (0-99); Mycoplasma pneumoniae IgM AB Less than 770 U/mL (0-769)
[2018-06-24] MEDS: Cefepime 2 GM in Sodium Chloride 0.9% 100 ML IVPB SCH ×2 (05:51→17:34)
[2018-06-24] MEDS: Furosemide 40 MG/4 ML VIAL SLOW IVP SCH (05:52)
[2018-06-24 07:03] LABS: Actual Bicarbonate (HCO3a) 21.3 mEq/L (22-28); Base Excess (BEa) -3.2 mEq/L (-2.0 to +3.0); Calcium, Ionized 1.11 mmol/L (1.12-1.30); Carboxyhemoglobin (COHb) 0.8 gm% (0.0-3.0); Hemoglobin (Hb) 9.3 g/dL (14.0-18.0); O2 Tension (PaO2) 141.5 mmHg (> 70.0); Potassium - ABG Lab 3.24 mmol/L (3.70-5.30); pH, Arterial 7.39 (7.35-7.45)
[2018-06-24 07:04] LABS: Puncture Site ALINE
[2018-06-24 07:28] LABS: #Eosinphils 0.1 thou/uL (0.0-0.7); #Lymphocytes 0.9 thou/uL (1.20-3.40); #Monocytes 0.8 thou/uL (0.11-0.59); #Neutrophils 7.4 thou/uL (1.40-6.50); %Basophils 0.3 % (0.0-1.0); %Eosinophils 1.4 % (0.0-10.0); %Lymphocytes 9.8 % (21.0-51.0); %Monocytes 8.8 % (0.0-10.0); %Neutrophils 79.7 % (42.0-75.0); Hemoglobin 8.9 g/dL (14.0-18.0); Mean Corpuscular HGB CONC 32.6 g/dL (32.0-36.0); Mean Corpuscular Volume 98.3 fL (78.0-98.0); Mean Platelet Volume 7.4 fL (7.4-10.4); Platelet Count 146 thou/uL (130-400); RBC Distribution Width 16.3 % (11.5-14.5); Red Blood Cell (RBC) Count 2.77 mill/uL (4.70-6.10); White Blood Cell (WBC) Count 9.2 thou/uL (4.8-10.8)
[2018-06-24 07:45] LABS: Lactic Acid 1.6 mmol/L (0.5-2.2)
[2018-06-24 07:50] LABS: ALT (SGPT) 8 U/L (8-55); AST (SGOT) 22 U/L (5-34); Albumin 3.5 g/dL (3.4-4.8); Alkaline Phosphatase 85 U/L (40-150); Anion Gap 12 mmol/L (10-20); BUN (Urea Nitrogen) 20 mg/dL (8.4-25.7); Bilirubin, Total 1.7 mg/dL (0.2-1.2); Calc. Creatinine Clearance 97 mL/min (70-130); Calcium 8.7 mg/dL (7.8-10.44); Carbon Dioxide 21 mmol/L (23-31); Chloride 107 mmol/L (98-107); Estimated GFR-MDRD 72; Globulin 2.4 g/dL (2.4-3.5); Glucose 87 mg/dL (80-115); Potassium 3.4 mmol/L (3.5-5.1); Protein, Total 5.9 g/dL (5.8-8.1); Sodium 137 mmol/L (136-145)
[2018-06-24 07:54] LABS: Troponin I 0.091 ng/mL (< 0.028)
--- NOTE | 2018-06-24 07:59 | RAD ---
PORTABLE CHEST: Date: 06/24/18 PROVIDED CLINICAL HISTORY: Respiratory insufficiency. FINDINGS: Comparison with 06/23/18. Interval placement of endotracheal tube and enteric catheter, the former tip located in the region of the thoracic inlet and the latter tip located inferior to the diaphragm, but not visualized. Extensi ve bilateral air space disease and bilateral pleural effusions persist. There is no evidence for pneu mothorax. Right-sided central line is again seen in similar position. IMPRESSION: Interval intubation and enteric catheter placement. Diffuse bilateral air space disease and bilateral pleural effusions. POS: [facility]
[2018-06-24] MEDS: Famotidine 20 MG TAB PO SCH ×2 (09:17→19:54)
[2018-06-24] MEDS: Saccharomyces boulardii 250 MG CAP PO SCH (09:17)
--- NOTE | 2018-06-24 10:24 | PDOC.PN ---
- Subjective Encounter Start Date: 06/24/18 Encounter Start Time: 08:50 -: old records requested/rev pt is on ventilator, no fever, arousable on vent - Objective Resuscitation Status: Resuscitation Status DNR:Do Not Resuscitate MAR Reviewed: Yes Vital Signs & Weight: Vital Signs (12 hours) Temp Pulse Resp BP Pulse Ox 06/24/18 08:00 18 98 06/24/18 07:00 98.0 F 06/24/18 06:24 88 133/63 06/24/18 06:23 90 17 99 06/24/18 06:00 15 06/24/18 04:00 97.9 F 16 06/24/18 02:19 85 15 97 06/24/18 02:00 15 06/24/18 00:00 97.9 F 15 06/23/18 22:52 88 15 96 Weight Admit Weight 230 lb Weight 225 lb Most Recent Monitor Data Heart Rate from ECG 106 NIBP 107/67 NIBP BP-Mean 78 Respiration from ECG 18 SpO2 94 I&O: 06/23/18 06/24/18 06/25/18 06:59 06:59 06:59 Intake Total 3008 769 50 Output Total 1650 675 600 Balance 1358 94 -550 Result Diagrams: 06/24/18 07:15 06/24/18 07:15 Radiology Reviewed by me: Yes EKG Reviewed by me: Yes (nsr, irregular) Phys Exam - Physical Examination Constitutional: NAD on vent HEENT: PERRLA, sclera anicteric Neck: no JVD, supple Respiratory: no wheezing, no rales, no rhonchi Cardiovascular: no rub, irregular SM+ parasternal Gastrointestinal: soft, no distention, positive bowel sounds Musculoskeletal: pulses present, edema present unable to assess Lymphatic: no nodes Deviation from normal: unable to assess Skin: normal turgor Dx/Plan (1) Acute respiratory failure with hypoxia Code(s): J96.01 - ACUTE RESPIRATORY FAILURE WITH HYPOXIA Status: Acute (2) Demand ischemia Code(s): I24.8 - OTHER FORMS OF ACUTE ISCHEMIC HEART DISEASE Status: Acute (3) Lactic acidosis Code(s): E87.2 - ACIDOSIS Status: Acute (4) Multifocal pneumonia Code(s): J18.9 - PNEUMONIA, UNSPECIFIED ORGANISM Status: Acute (5) Septic shock Code(s): A41.9 - SEPSIS, UNSPECIFIED ORGANISM; R65.21 - SEVERE SEPSIS WITH SEPTIC SHOCK Status: Resolved (6) Alcoholic cirrhosis of liver with ascites Code(s): K70.31 - ALCOHOLIC CIRRHOSIS OF LIVER WITH ASCITES Status: Chronic (7) Chronic stage c diastolic heart failure Code(s): I50.32 - CHRONIC DIASTOLIC (CONGESTIVE) HEART FAILURE Status: Chronic (8) Coagulopathy Status: Chronic (9) Hypertension Code(s): I10 - ESSENTIAL (PRIMARY) HYPERTENSION Status: Chronic (10) Hyponatremia Code(s): E87.1 - HYPO-OSMOLALITY AND HYPONATREMIA Status: Chronic (11) Macrocytic anemia Code(s): D53.9 - NUTRITIONAL ANEMIA, UNSPECIFIED Status: Chronic (12) Physical deconditioning Code(s): R53.81 - OTHER MALAISE Status: Chronic (13) Status post hardware removal Code(s): Z98.890 - OTHER SPECIFIED POSTPROCEDURAL STATES Status: Chronic (14) Pulmonary hypertension Code(s): I27.20 - PULMONARY HYPERTENSION, UNSPECIFIED Status: Chronic (15) Severe tricuspid regurgitation Code(s): I07.1 - RHEUMATIC TRICUSPID INSUFFICIENCY Status: Chronic (16) Above knee amputation of right lower extremity Code(s): Z89.611 - ACQUIRED ABSENCE OF RIGHT LEG ABOVE KNEE Status: Acute - Plan cont current plan of care, continue antibiotics * medication reviewed as below * symptomatic treatment * vent management as per pulmonary * post op care as per ortho. * continue vancomycin and cefepime * prognosis is guarded Review of Systems - Review of Systems Other: unable to review due to intubated status - Medications/Allergies Allergies/Adverse Reactions: Allergies Allergy/AdvReac Type Severity Reaction Status Date / Time Iodinated Contrast- Oral and Allergy Verified 01/31/18 11:31 IV Dye [Iodinated Contrast Media - IV Dye] loxapine Allergy Verified 01/31/18 11:31 shrimp Allergy Verified 01/31/18 11:31 Medications: Current Medications Acetaminophen (Tylenol) 650 mg PO Q4H PRN PRN Reason: Headache/Fever or Pain Last Admin: 06/20/18 04:58 Dose: 650 mg Al Hydroxide/Mg Hydroxide (Maalox) 15 ml PO Q4H PRN PRN Reason: Heartburn or Indigestion Albuterol/Ipratropium (Duoneb) 3 ml NEB [id number] [facility] Last Admin: 06/24/18 10:25 Dose: 3 ml Artificial Tears (Tears Naturale) 0 drop EA EYE PRN PRN PRN Reason: Dry Eyes Bisacodyl (Dulcolax) 10 mg PO DAILYPRN PRN PRN Reason: Constipation Famotidine (Pepcid) 20 mg PO Q12HR [facility] Last Admin: 06/24/18 09:17 Dose: 20 mg Furosemide (Lasix) 40 mg SLOW IVP 0600 [facility] Last Admin: 06/24/18 05:52 Dose: 40 mg Furosemide (Lasix) 40 mg SLOW IVP ONE [facility] Guaifenesin (Robitussin Sf) 200 mg PO Q4H PRN PRN Reason: Cough Hydralazine HCl (Apresoline) 10 mg SLOW IVP Q4H PRN PRN Reason: Systolic BP > 180 Potassium Chloride 40 meq/ (Sodium Chloride) 270 mls @ 135 mls/hr IVPB ASDIR PRN PRN Reason: FOR SERUM K+ 2.5 - 3.5 Potassium Chloride 40 meq/ (Device) 100 mls @ 50 mls/hr IVPB ASDIR PRN PRN Reason: FOR SERUM K+ 2.5 - 3.5 Magnesium Sulfate 1 gm/ Sodium (Chloride) 102 mls @ 102 mls/hr IV PRN PRN PRN Reason: MAG LEVEL 1.4 - 2.0 Magnesium Sulfate 2 gm/ Device 100 mls @ 100 mls/hr IVPB ASDIR PRN PRN Reason: MAGNESIUM < 1.4 Potassium Phosphate 9 mmol/ (Sodium Chloride) 103 mls @ 25.75 mls/hr IVPB ASDIR PRN PRN Reason: Phosphate 1.0-1.8 Potassium Phosphate 12 mmol/ (Sodium Chloride) 254 mls @ 63.5 mls/hr IV ASDIR PRN PRN Reason: Serum phosphate 0.5-0.9 Potassium Phosphate 15 mmol/ (Sodium Chloride) 255 mls @ 63.75 mls/hr IV ASDIR PRN PRN Reason: Serum Phos < 0.5 Cefepime HCl 2 gm/ Sodium (Chloride) 100 mls @ 200 mls/hr IVPB 0600,1800 [facility] Last Admin: 06/24/18 05:51 Dose: 100 mls Vancomycin HCl 1.25 gm/ Sodium (Chloride) 250 mls @ 166.667 mls/hr IVPB Q2D@ 1400 [facility] Last Admin: 06/23/18 14:39 Dose: 250 mls Fentanyl Citrate 2,000 mcg/ (Sodium Chloride) 100 mls @ 0 mls/hr IV INF [facility]; Protocol Stop: 07/23/18 15:07 Last Admin: 06/23/18 15:48 Dose: 100 mls Fentanyl Citrate (Fentanyl Bolus) 250 mls @ 0 mls/hr IVPB PRN PRN PRN Reason: Breakthrough pain/agitation Stop: 07/23/18 15:07 Lorazepam (Ativan) 2 mg SLOW IVP Q1H PRN PRN Reason: Breakthrough agitation Stop: 07/23/18 15:07 Magnesium Hydroxide (Milk Of Magnesium) 30 ml PO DAILYPRN PRN PRN Reason: Constipation Magnesium Oxide (Magnesium Oxide) 400 mg PO BIDPRN PRN PRN Reason: FOR SERUM MAG 1.4 - 2.0 Magnesium Oxide (Magnesium Oxide) 800 mg PO PRN PRN PRN Reason: FOR SERUM MAG < 1.4 Mineral Oil/White Petrolatum (Eucerin Cream) 0 gm TOP BIDPRN PRN PRN Reason: Dry Skin Miscellaneous Medication (Pharmacy To Dose) 1 each IVPB PRN PRN PRN Reason: Pharmacy to dose Miscellaneous Medication (Phos-Nak) 1 pkt PO TIDPRN PRN PRN Reason: FOR PHOS LEVEL 1.0 - 1.8 Miscellaneous Medication (Phos-Nak) 2 pkt PO TIDPRN PRN PRN Reason: FOR PHOS LEVEL 0.5 - 1.0 Morphine Sulfate (Morphine) 2 mg SLOW IVP Q1H PRN PRN Reason: BREAKTHROUGH PAIN/AGITATION Stop: 07/23/18 15:07 Discontinue Previous Narcotic Pain Medications And Benzodiazepines 1 each FS .ONE [facility] Stop: 07/23/18 15:07 Ondansetron HCl (Zofran Odt) 4 mg PO Q6H PRN PRN Reason: Nausea/Vomiting Ondansetron HCl (Zofran) 4 mg IVP Q6H PRN PRN Reason: Nausea/Vomiting Phenol (Chloraseptic [place] 180 Ml Bot) 0 ml PO PRN PRN PRN Reason: Sore Throat Potassium Chloride (K-Dur) 40 meq PO ASDIR PRN PRN Reason: FOR SERUM K+ 2.5 - 3.5 Potassium Chloride (Klor-Con) 40 meq PER TUBE ASDIR PRN PRN Reason: FOR SERUM K+ 2.5-3.5 Potassium Chloride (Klor-Con) 40 meq PO Q4H [facility] Stop: 06/24/18 14:31 Propofol (Diprivan) 1,000 mg IV INF PRN; Protocol PRN Reason: TO ACHIEVE GOAL RASS Stop: 07/23/18 15:07 Last Admin: 06/23/18 19:50 Dose: 1,000 mg Propofol (Diprivan Bolus) 20 mg IV Q5MIN PRN PRN Reason: BREAKTHROUGH AGITATION Stop: 07/23/18 15:07 Saccharomyces Boulardii (Florastor) 250 mg PO DAILY [facility] Last Admin: 06/24/18 09:17 Dose: 250 mg Sodium Biphosphate/Sodium Phosphate (Fleet Enema) 133 ml [place] ONE PRN PRN Reason: Constipation Stop: 07/20/18 00:31 Sodium Chloride (Flush - Normal Saline) 10 ml IVF Q12HR [facility] Last Admin: 06/24/18 09:18 Dose: 10 ml Sodium Chloride (Flush - Normal Saline) 10 ml IVF PRN PRN PRN Reason: Saline Flush Sodium Chloride ([place] Nasal [place] 0.65%) 0 ml EA NARE QIDPRN PRN PRN Reason: Nasal Congestion
[2018-06-24] MEDS: Propofol 1,000 MG/100 ML VIAL IV PRN ×2 (11:05→22:48)
[2018-06-24] MEDS: fentaNYL Citrate/PF 2,000 MCG in Sodium Chloride 0.9% 60 ML IV SCH (11:08)
--- NOTE | 2018-06-24 11:44 | PRG ---
DATE OF SERVICE: 06/24/2018 SERVICE: Pulmonary Medicine. INTERVAL HISTORY: The patient is doing fine in the postop period. He is recovering nicely. He does not have any complaints right now, but remains fairly heavily sedated. The nursing reports no events overnight. PHYSICAL EXAMINATION: VITAL SIGNS: Afebrile, pulse 106, blood pressure 107/67, respirations 18, saturation 94% on 51% FiO2. HEENT: Normocephalic, atraumatic. Sclerae are white. Conjunctivae are pink. Oral mucosa is moist without lesions. LUNGS: Extensive rhonchi and crackles are present. No prolonged expiratory phase or wheezing is appreciated. HEART: Normal rate, regular. ABDOMEN: Soft, nontender, nondistended. Bowel sounds are positive. MUSCULOSKELETAL: No cyanosis or clubbing. There is diffuse 2+ edema throughout. GENITOURINARY: Fatima catheter in place. NEUROLOGIC: Grossly nonfocal. LABORATORY DATA: WBC 9.2, hemoglobin 8.9 and roughly stable, platelets 146,000 and up trending. INR 1.6. PH 7.39, pCO2 36, pO2 141 on 51% FiO2. Potassium 3.4. Creatinine 1.02. Total bilirubin 1.7. Basic metabolic profile is otherwise unremarkable. Troponin 0.09 and down trending. Lactate is unremarkable. Tracheal cultures have many white blood cells, but no organisms are seen. Interestingly, moderate epithelial cells were recovered. IMAGING: Chest x-ray demonstrates extensive bilateral infiltrates. Bilateral pleural effusions are noted. Widened carinal angle is suggestive of left atrial enlargement. Endotracheal tube is 2 cm above the level of the al. Enteric catheter courses below the level of the diaphragm in the midline. ASSESSMENT: 1. Acute hypoxic respiratory failure. 2. Community-acquired pneumonia. 3. Septic arthritis, status post right above-knee amputation, postop day 1. 4. Pulmonary hypertension. DISCUSSION AND PLAN: We will continue to diurese the patient until he returns to euvolemia. Potassium will be replaced throughout the day. We will continue to wean oxygen support as tolerated. In 24 hours, hopefully we will be able to comfortably extubate the patient. All depends on his volume status, however. Critical care time: 30 minutes. [facility]
--- NOTE | 2018-06-24 13:25 | PRG ---
DATE OF SERVICE: 06/24/2018 SUBJECTIVE: Mr. Saucedo had amputation of the right lower extremity at the AKA level by Dr. Guerrero. The operative note was reviewed and the pathology report is still pending. He is now intubated, wilmer david. OBJECTIVE: VITAL SIGNS: T-max 97.9, blood pressure 100/49, respiratory rate 18, O2 sat 95%. His I's and O's ar e positive for the past 72 hours. He has got an indwelling Fatima catheter. HEENT: Ocular movements are not testable at this time. He has miotic pupils. LUNGS: Symmetric coarse breath sounds. CARDIOVASCULAR: S1, S2, regular rate without obvious murmurs. ABDOMEN: Soft. The right AKA site with dressing, which was now removed. LABORATORY DATA: White cell count 5.6, hemoglobin 8.2, platelets 127,000 with 88% neutrophils. Chem istry of sodium 135, creatinine 1.02, bilirubin 1.9, albumin 3.9. Urinalysis was not remarkable. To xicology with a vancomycin trough of 18. Microbiology with negative blood cultures at 48 hours from admission and respiratory culture, no grow th thus far. The patient had a chest CT angiogram on 06/22/2018 with worsening multifocal infiltrate s. A repeat chest x-ray on 06/23/2018, with stable chest with diffuse interstitial alveolar opacitie s bilaterally and bilateral pleural effusions. Echocardiogram report from 06/22/2018, with estimated EF of 60%-65%, elevated right-sided pressures, reduced RV systolic function, severe tricuspid regurg itation, which are consistent with pulmonary hypertension, probably from the lung disease. ASSESSMENT AND DISCUSSION: Alcoholism, chronic liver disease, chronic obstructive pulmonary disease, multiple complications right knee with eventual implant removal and fixation with most recent proced ure in May when MRSA was retrieved from site. The patient had been on daptomycin and rifampin sin ce mid May and now developed bilateral pneumonitis. Currently receiving treatment assuming an inf ectious pneumonitis. 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 The patient is not bacteremic and would be less likely that the right knee process led to the pne umonitis. Since had been on effective antimicrobial therapy, the unlikely to become bacteremic with in the morning.
[2018-06-24] MEDS ORDERED: Furosemide 40 MG/4 ML VIAL SLOW IVP SCH (15:00)
[2018-06-24] MEDS ORDERED: Amiodarone HCl 450 MG, Admixture Fee 1 EACH in Dextrose 5% in Water 250 ML IVPB SCH ×2 (19:45→20:00)
[2018-06-24] MEDS ORDERED: Amiodarone HCl 150 MG, Admixture Fee 1 EACH in Dextrose 5% in Water 100 ML IVPB SCH ×2 (19:45→20:00)
[2018-06-24] MEDS ORDERED: Digoxin 0.5 MG/2 ML AMP SLOW IVP SCH ×2 (20:00→23:59)
[2018-06-24] MEDS: Lorazepam 2 MG/ML VIAL SLOW IVP PRN (21:53)
[2018-06-25 04:17] LABS: Anion Gap 13 mmol/L (10-20); BUN (Urea Nitrogen) 19 mg/dL (8.4-25.7); Calc. Creatinine Clearance 106 mL/min (70-130); Calcium 8.3 mg/dL (7.8-10.44); Carbon Dioxide 21 mmol/L (23-31); Chloride 109 mmol/L (98-107); Estimated GFR-MDRD 79; Glucose 90 mg/dL (80-115); Magnesium 1.6 mg/dL (1.6-2.6); Phosphorus 2.2 mg/dL (2.3-4.7); Potassium 3.5 mmol/L (3.5-5.1); Sodium 139 mmol/L (136-145)
[2018-06-25 04:33] LABS: Band 11 % (5-11); Eosinophils 1 % (0-10); Hemoglobin 8.6 g/dL (14.0-18.0); Lymphocytes 8 % (21-51); MDiff Complete? YES; Mean Corpuscular HGB CONC 33.9 g/dL (32.0-36.0); Mean Corpuscular Hemoglobin 32.9 pg (27.0-31.0); Mean Corpuscular Volume 97.1 fL (78.0-98.0); Mean Platelet Volume 7.1 fL (7.4-10.4); Monocytes 5 % (0-10); Neutrophil 75 % (42-75); Platelet Count 124 thou/uL (130-400); RBC Distribution Width 15.9 % (11.5-14.5); Red Blood Cell (RBC) Count 2.62 mill/uL (4.70-6.10); White Blood Cell (WBC) Count 8.2 thou/uL (4.8-10.8)
[2018-06-25] MEDS: Cefepime 2 GM in Sodium Chloride 0.9% 100 ML IVPB SCH ×2 (05:02→18:25)
[2018-06-25] MEDS: Furosemide 40 MG/4 ML VIAL SLOW IVP SCH (05:02)
[2018-06-25 07:03] LABS: Actual Bicarbonate (HCO3a) 21.9 mEq/L (22-28); Base Excess (BEa) -2.5 mEq/L (-2.0 to +3.0); Calcium, Ionized 1.08 mmol/L (1.12-1.30); Carboxyhemoglobin (COHb) 1.6 gm% (0.0-3.0); Hemoglobin (Hb) 9.2 g/dL (14.0-18.0); O2 Tension (PaO2) 85.2 mmHg (> 70.0); Potassium - ABG Lab 3.58 mmol/L (3.70-5.30)
[2018-06-25 07:06] LABS: Puncture Site ALINE
[2018-06-25] MEDS: Saccharomyces boulardii 250 MG CAP PO SCH (08:54)
[2018-06-25] MEDS: Famotidine 20 MG TAB PO SCH ×2 (08:55→21:11)
[2018-06-25] MEDS: fentaNYL Citrate/PF 2,000 MCG in Sodium Chloride 0.9% 60 ML IV SCH (09:55)
--- NOTE | 2018-06-25 11:13 | PRG ---
DATE OF SERVICE: 06/25/2018 SERVICE: Pulmonary Medicine. INTERVAL HISTORY: The patient is doing great from a respiratory standpoint. He cannot provide any additional elements of the history. There has been no interval events overnight. PHYSICAL EXAMINATION: VITAL SIGNS: Afebrile, pulse 100, blood pressure 139/70, respirations 14, saturation 96% on 37% FiO2 and PEEP of 5. GENERAL: The patient is intubated and sedated. HEENT: Normocephalic, atraumatic. Sclerae are white. Conjunctivae are pink. Oral mucosa is moist without lesions. LUNGS: Decent air entry. Crackles are still present. There is no prolonged expiratory phase or wheezing. HEART: Normal rate, regular. ABDOMEN: Soft, nontender, nondistended. Bowel sounds are positive. MUSCULOSKELETAL: No cyanosis or clubbing. There is 2 to 3+ pitting in the left lower extremity, which has actually improved a little bit. LABORATORY DATA: WBC 8.2, hemoglobin 8.6, platelets 124,000. PH 7.40, pCO2 36 , pO2 85, corresponding to saturation of 96% down to 37% FiO2. Basic metabolic profile is essentially unremarkable. Bicarbonate is stable at 21, phosphorus 2.2 and low. Magnesium 1.6. ASSESSMENT: 1. Acute hypoxic respiratory failure. 2. Community-acquired pneumonia. 3. Septic arthritis, status post right above-knee amputation, postop day 2. 4. Pulmonary hypertension. DISCUSSION AND PLAN: We will continue to gently diurese the patient as tolerated. I will replace his potassium, phosphorus and magnesium today. Antibiotics will be continued. We will hold sedation and put him on a spontaneous breathing trial. I have dropped his PEEP and his FiO2. If he tolerates these changes, we will consider him for extubation at some point today. Pulmonary Critical Care will continue to follow along. Critical care time: 30 minutes. MTDD
[2018-06-25] MEDS ORDERED: Magnesium Sulfate 2 GM in Sodium Chloride 0.9% 100 ML IVPB SCH (12:00)
[2018-06-25] MEDS ORDERED: Potassium Phosphate 30 MMOL in Sodium Chloride 0.9% 500 ML IVPB SCH (12:00)
--- NOTE | 2018-06-25 12:33 | PDOC.PN ---
- Subjective Encounter Start Date: 06/25/18 Encounter Start Time: 12:31 Subjective: nsg notes rev, maggie ovn, ventilated -: ex / caregiver @ bedside - Objective Resuscitation Status: Resuscitation Status DNR:Do Not Resuscitate Vital Signs & Weight: Vital Signs (12 hours) Temp Pulse Resp BP Pulse Ox 06/25/18 10:17 100 139/70 06/25/18 10:16 92 10 L 96 06/25/18 10:00 11 L 06/25/18 08:00 99.0 F 06/25/18 07:50 11 L 98 06/25/18 06:31 100 132/58 L 06/25/18 06:27 100 14 94 L 06/25/18 06:00 13 06/25/18 04:00 11 L 06/25/18 03:00 98.4 F 06/25/18 02:19 102 H 06/25/18 02:18 100 12 93 L 06/25/18 02:00 13 Weight Admit Weight 230 lb Weight 225 lb Most Recent Monitor Data Heart Rate from ECG 105 NIBP 131/70 NIBP BP-Mean 87 Respiration from ECG 14 SpO2 97 I&O: 06/24/18 06/25/18 06/26/18 06:59 06:59 06:59 Intake Total 769 1274.3 60 Output Total 675 2970 1100 Balance 94 -1695.7 -1040 Result Diagrams: 06/25/18 03:28 06/25/18 03:28 Phys Exam - Physical Examination Constitutional: NAD lying in bed, intubated, restrained ETT in appropriate placement prominent ventilator sounds Cardiovascular: RRR, no significant murmur, no rub soft heart tones Gastrointestinal: soft, positive bowel sounds Dx/Plan - Plan (1) Acute respiratory failure with hypoxia Code(s): J96.01 - ACUTE RESPIRATORY FAILURE WITH HYPOXIA Status: Acute ventilator dependent apprec [facility] c/s (2) Demand ischemia Code(s): I24.8 - OTHER FORMS OF ACUTE ISCHEMIC HEART DISEASE Status: Acute (3) Lactic acidosis Code(s): E87.2 - ACIDOSIS Status: Acute improved (4) Multifocal pneumonia Code(s): J18.9 - PNEUMONIA, UNSPECIFIED ORGANISM Status: Acute vanc, cefepime (5) Septic shock Code(s): A41.9 - SEPSIS, UNSPECIFIED ORGANISM; R65.21 - SEVERE SEPSIS WITH SEPTIC SHOCK Status: Resolved vanc, cefepime empiric (6) Alcoholic cirrhosis of liver with ascites Code(s): K70.31 - ALCOHOLIC CIRRHOSIS OF LIVER WITH ASCITES Status: Chronic (7) Chronic stage c diastolic heart failure Code(s): I50.32 - CHRONIC DIASTOLIC (CONGESTIVE) HEART FAILURE Status: Chronic (8) Coagulopathy Status: Chronic (9) Hypertension Code(s): I10 - ESSENTIAL (PRIMARY) HYPERTENSION Status: Chronic (10) Hyponatremia Code(s): E87.1 - HYPO-OSMOLALITY AND HYPONATREMIA Status: Chronic stable (11) Macrocytic anemia Code(s): D53.9 - NUTRITIONAL ANEMIA, UNSPECIFIED Status: Chronic stable (12) Physical deconditioning Code(s): R53.81 - OTHER MALAISE Status: Chronic will need PT/ OT as soon as feasible (13) Status post hardware removal Code(s): Z98.890 - OTHER SPECIFIED POSTPROCEDURAL STATES Status: Chronic apprec ortho c/s (14) Pulmonary hypertension Code(s): I27.20 - PULMONARY HYPERTENSION, UNSPECIFIED Status: Chronic (15) Severe tricuspid regurgitation Code(s): I07.1 - RHEUMATIC TRICUSPID INSUFFICIENCY Status: Chronic (16) Above knee amputation of right lower extremity Code(s): Z89.611 - ACQUIRED ABSENCE OF RIGHT LEG ABOVE KNEE Status: Acute - Plan * prognosis is guarded Review of Systems - Medications/Allergies Allergies/Adverse Reactions: Allergies Allergy/AdvReac Type Severity Reaction Status Date / Time Iodinated Contrast- Oral and Allergy Verified 01/31/18 11:31 IV Dye [Iodinated Contrast Media - IV Dye] loxapine Allergy Verified 01/31/18 11:31 shrimp Allergy Verified 01/31/18 11:31 Medications: Current Medications Acetaminophen (Tylenol) 650 mg PO Q4H PRN PRN Reason: Headache/Fever or Pain Last Admin: 06/20/18 04:58 Dose: 650 mg Al Hydroxide/Mg Hydroxide (Maalox) 15 ml PO Q4H PRN PRN Reason: Heartburn or Indigestion Albuterol/Ipratropium (Duoneb) 3 ml NEB [id number] [facility] Last Admin: 06/25/18 10:16 Dose: 3 ml Artificial Tears (Tears Naturale) 0 drop EA EYE PRN PRN PRN Reason: Dry Eyes Bisacodyl (Dulcolax) 10 mg PO DAILYPRN PRN PRN Reason: Constipation Famotidine (Pepcid) 20 mg PO Q12HR [facility] Last Admin: 06/25/18 08:55 Dose: 20 mg Furosemide (Lasix) 40 mg SLOW IVP 0600 [facility] Last Admin: 06/25/18 05:02 Dose: 40 mg Furosemide (Lasix) 40 mg SLOW IVP 1400 [facility] Stop: 06/25/18 16:00 Guaifenesin (Robitussin Sf) 200 mg PO Q4H PRN PRN Reason: Cough Hydralazine HCl (Apresoline) 10 mg SLOW IVP Q4H PRN PRN Reason: Systolic BP > 180 Potassium Chloride 40 meq/ (Sodium Chloride) 270 mls @ 135 mls/hr IVPB ASDIR PRN PRN Reason: FOR SERUM K+ 2.5 - 3.5 Potassium Chloride 40 meq/ (Device) 100 mls @ 50 mls/hr IVPB ASDIR PRN PRN Reason: FOR SERUM K+ 2.5 - 3.5 Magnesium Sulfate 1 gm/ Sodium (Chloride) 102 mls @ 102 mls/hr IV PRN PRN PRN Reason: MAG LEVEL 1.4 - 2.0 Magnesium Sulfate 2 gm/ Device 100 mls @ 100 mls/hr IVPB ASDIR PRN PRN Reason: MAGNESIUM < 1.4 Potassium Phosphate 9 mmol/ (Sodium Chloride) 103 mls @ 25.75 mls/hr IVPB ASDIR PRN PRN Reason: Phosphate 1.0-1.8 Potassium Phosphate 12 mmol/ (Sodium Chloride) 254 mls @ 63.5 mls/hr IV ASDIR PRN PRN Reason: Serum phosphate 0.5-0.9 Potassium Phosphate 15 mmol/ (Sodium Chloride) 255 mls @ 63.75 mls/hr IV ASDIR PRN PRN Reason: Serum Phos < 0.5 Cefepime HCl 2 gm/ Sodium (Chloride) 100 mls @ 200 mls/hr IVPB 0600,1800 [facility] Last Admin: 06/25/18 05:02 Dose: 100 mls Vancomycin HCl 1.25 gm/ Sodium (Chloride) 250 mls @ 166.667 mls/hr IVPB Q2D@ 1400 [facility] Last Admin: 06/23/18 14:39 Dose: 250 mls Fentanyl Citrate 2,000 mcg/ (Sodium Chloride) 100 mls @ 0 mls/hr IV INF [facility]; Protocol Stop: 07/23/18 15:07 Last Admin: 06/25/18 09:55 Dose: 100 mls Fentanyl Citrate (Fentanyl Bolus) 250 mls @ 0 mls/hr IVPB PRN PRN PRN Reason: Breakthrough pain/agitation Stop: 07/23/18 15:07 Magnesium Sulfate 2 gm/ Sodium (Chloride) 104 mls @ 100 mls/hr IVPB NOW [facility] Stop: 06/25/18 14:00 Potassium Phosphate 30 mmol/ (Sodium Chloride) 510 mls @ 83.3 mls/hr IVPB NOW [facility] Stop: 06/25/18 18:08 Lorazepam (Ativan) 2 mg SLOW IVP Q1H PRN PRN Reason: Breakthrough agitation Stop: 07/23/18 15:07 Last Admin: 06/24/18 21:53 Dose: 2 mg Magnesium Hydroxide (Milk Of Magnesium) 30 ml PO DAILYPRN PRN PRN Reason: Constipation Magnesium Oxide (Magnesium Oxide) 400 mg PO BIDPRN PRN PRN Reason: FOR SERUM MAG 1.4 - 2.0 Last Admin: 06/25/18 04:28 Dose: 400 mg Magnesium Oxide (Magnesium Oxide) 800 mg PO PRN PRN PRN Reason: FOR SERUM MAG < 1.4 Mineral Oil/White Petrolatum (Eucerin Cream) 0 gm TOP BIDPRN PRN PRN Reason: Dry Skin Miscellaneous Medication (Pharmacy To Dose) 1 each IVPB PRN PRN PRN Reason: Pharmacy to dose Miscellaneous Medication (Phos-Nak) 1 pkt PO TIDPRN PRN PRN Reason: FOR PHOS LEVEL 1.0 - 1.8 Miscellaneous Medication (Phos-Nak) 2 pkt PO TIDPRN PRN PRN Reason: FOR PHOS LEVEL 0.5 - 1.0 Morphine Sulfate (Morphine) 2 mg SLOW IVP Q1H PRN PRN Reason: BREAKTHROUGH PAIN/AGITATION Stop: 07/23/18 15:07 Discontinue Previous Narcotic Pain Medications And Benzodiazepines 1 each FS .ONE [facility] Stop: 07/23/18 15:07 Ondansetron HCl (Zofran Odt) 4 mg PO Q6H PRN PRN Reason: Nausea/Vomiting Ondansetron HCl (Zofran) 4 mg IVP Q6H PRN PRN Reason: Nausea/Vomiting Phenol (Chloraseptic [place] 180 Ml Bot) 0 ml PO PRN PRN PRN Reason: Sore Throat Potassium Chloride (K-Dur) 40 meq PO ASDIR PRN PRN Reason: FOR SERUM K+ 2.5 - 3.5 Potassium Chloride (Klor-Con) 40 meq PER TUBE ASDIR PRN PRN Reason: FOR SERUM K+ 2.5-3.5 Last Admin: 06/25/18 04:28 Dose: 40 meq Potassium Chloride (Klor-Con) 40 meq PO NOW [facility] Stop: 06/25/18 13:30 Last Admin: 06/25/18 11:54 Dose: 40 meq Propofol (Diprivan) 1,000 mg IV INF PRN; Protocol PRN Reason: TO ACHIEVE GOAL RASS Stop: 07/23/18 15:07 Last Admin: 06/24/18 22:48 Dose: 1,000 mg Propofol (Diprivan Bolus) 20 mg IV Q5MIN PRN PRN Reason: BREAKTHROUGH AGITATION Stop: 07/23/18 15:07 Saccharomyces Boulardii (Florastor) 250 mg PO DAILY [facility] Last Admin: 06/25/18 08:54 Dose: 250 mg Sodium Biphosphate/Sodium Phosphate (Fleet Enema) 133 ml [place] ONE PRN PRN Reason: Constipation Stop: 07/20/18 00:31 Sodium Chloride (Flush - Normal Saline) 10 ml IVF Q12HR [facility] Last Admin: 06/25/18 08:55 Dose: 10 ml Sodium Chloride (Flush - Normal Saline) 10 ml IVF PRN PRN PRN Reason: Saline Flush Sodium Chloride ([place] Nasal [place] 0.65%) 0 ml EA NARE QIDPRN PRN PRN Reason: Nasal Congestion
[2018-06-25] MEDS: Vancomycin HCl 1.25 GM in Sodium Chloride 0.9% 250 ML 250 ML IVPB SCH (13:43)
[2018-06-25] MEDS ORDERED: Furosemide 40 MG/4 ML VIAL SLOW IVP SCH (14:00)
[2018-06-26] MEDS: fentaNYL Citrate/PF 2,000 MCG in Sodium Chloride 0.9% 60 ML IV SCH (03:16)
[2018-06-26] MEDS: Furosemide 40 MG/4 ML VIAL SLOW IVP SCH (06:46)
[2018-06-26] MEDS: Cefepime 2 GM in Sodium Chloride 0.9% 100 ML IVPB SCH ×2 (06:47→17:39)
[2018-06-26 08:19] LABS: Actual Bicarbonate (HCO3a) 24.2 mEq/L (22-28); Base Excess (BEa) -0.8 mEq/L (-2.0 to +3.0); CO2 Tension 41.7 mmHg (35.0-45.0); Calcium, Ionized 1.11 mmol/L (1.12-1.30); Hemoglobin (Hb) 10.4 g/dL (14.0-18.0); O2 Tension (PaO2) 70.4 mmHg (> 70.0); Potassium - ABG Lab 3.96 mmol/L (3.70-5.30); pH, Arterial 7.38 (7.35-7.45)
[2018-06-26 08:28] LABS: Puncture Site RR
[2018-06-26 08:29] LABS: ALV-art Gradient 98.505 (0-20)
[2018-06-26] MEDS: Famotidine 20 MG TAB PO SCH ×2 (09:12→22:10)
[2018-06-26] MEDS: Saccharomyces boulardii 250 MG CAP PO SCH (09:12)
--- NOTE | 2018-06-26 11:50 | PDOC.PN ---
- Subjective Encounter Start Date: 06/26/18 Encounter Start Time: 09:50 -: old records requested/rev pt is on ventilator, Patient seen and examined. No overnight events - Objective Resuscitation Status: Resuscitation Status DNR:Do Not Resuscitate MAR Reviewed: Yes Vital Signs & Weight: Vital Signs (12 hours) Temp Pulse Resp BP Pulse Ox 06/26/18 11:03 102 H 06/26/18 10:00 14 06/26/18 08:00 97 06/26/18 07:54 15 06/26/18 07:43 101 H 136/77 06/26/18 07:00 98.9 F 06/26/18 06:00 14 06/26/18 04:00 99.4 F 17 06/26/18 02:40 103 H 06/26/18 02:39 105 H 19 97 06/26/18 02:00 15 06/26/18 00:00 99.1 F 14 Weight Admit Weight 230 lb Weight 225 lb Most Recent Monitor Data Heart Rate from ECG 104 NIBP 155/77 NIBP BP-Mean 84 Respiration from ECG 13 SpO2 95 I&O: 06/25/18 06/26/18 06/27/18 06:59 06:59 06:59 Intake Total 1274.3 2528.5 Output Total 2970 3520 1180 Balance -1695.7 -991.5 -1180 Result Diagrams: 06/25/18 03:28 06/25/18 03:28 EKG Reviewed by me: Yes (nsr) Phys Exam - Physical Examination Constitutional: NAD on ventilator HEENT: PERRLA, sclera anicteric Neck: no JVD, supple Respiratory: no wheezing, no rales, no rhonchi reduced air entry at base Cardiovascular: RRR, no rub SM+ parasternal Gastrointestinal: soft, no distention, positive bowel sounds Musculoskeletal: edema present right AKA site with wound vac unable to assess Lymphatic: no nodes Deviation from normal: unable to assess Skin: no rash, normal turgor Dx/Plan (1) Acute respiratory failure with hypoxia Code(s): J96.01 - ACUTE RESPIRATORY FAILURE WITH HYPOXIA Status: Acute Comment: on vent (2) Demand ischemia Code(s): I24.8 - OTHER FORMS OF ACUTE ISCHEMIC HEART DISEASE Status: Acute (3) Lactic acidosis Code(s): E87.2 - ACIDOSIS Status: Resolved (4) Multifocal pneumonia Code(s): J18.9 - PNEUMONIA, UNSPECIFIED ORGANISM Status: Acute (5) Septic shock Code(s): A41.9 - SEPSIS, UNSPECIFIED ORGANISM; R65.21 - SEVERE SEPSIS WITH SEPTIC SHOCK Status: Resolved (6) Alcoholic cirrhosis of liver with ascites Code(s): K70.31 - ALCOHOLIC CIRRHOSIS OF LIVER WITH ASCITES Status: Chronic (7) Chronic stage c diastolic heart failure Code(s): I50.32 - CHRONIC DIASTOLIC (CONGESTIVE) HEART FAILURE Status: Chronic (8) Coagulopathy Status: Chronic (9) Hypertension Code(s): I10 - ESSENTIAL (PRIMARY) HYPERTENSION Status: Chronic (10) Hyponatremia Code(s): E87.1 - HYPO-OSMOLALITY AND HYPONATREMIA Status: Chronic (11) Macrocytic anemia Code(s): D53.9 - NUTRITIONAL ANEMIA, UNSPECIFIED Status: Chronic (12) Physical deconditioning Code(s): R53.81 - OTHER MALAISE Status: Chronic (13) Status post hardware removal Code(s): Z98.890 - OTHER SPECIFIED POSTPROCEDURAL STATES Status: Chronic (14) Pulmonary hypertension Code(s): I27.20 - PULMONARY HYPERTENSION, UNSPECIFIED Status: Chronic (15) Severe tricuspid regurgitation Code(s): I07.1 - RHEUMATIC TRICUSPID INSUFFICIENCY Status: Chronic (16) Above knee amputation of right lower extremity Code(s): Z89.611 - ACQUIRED ABSENCE OF RIGHT LEG ABOVE KNEE Status: Acute - Plan cont current plan of care, continue antibiotics * continue wound care with wound vac * vent as per pulmonary * continue cefepime and vancomycin * medication reviewed as below * symptomatic treatment * supportive care. Review of Systems - Review of Systems Other: unable to review due to intubated status - Medications/Allergies Allergies/Adverse Reactions: Allergies Allergy/AdvReac Type Severity Reaction Status Date / Time Iodinated Contrast- Oral and Allergy Verified 01/31/18 11:31 IV Dye [Iodinated Contrast Media - IV Dye] loxapine Allergy Verified 01/31/18 11:31 shrimp Allergy Verified 01/31/18 11:31 Medications: Current Medications Acetaminophen (Tylenol) 650 mg PO Q4H PRN PRN Reason: Headache/Fever or Pain Last Admin: 06/20/18 04:58 Dose: 650 mg Al Hydroxide/Mg Hydroxide (Maalox) 15 ml PO Q4H PRN PRN Reason: Heartburn or Indigestion Albuterol/Ipratropium (Duoneb) 3 ml NEB [id number] [facility] Last Admin: 06/26/18 11:03 Dose: 3 ml Artificial Tears (Tears Naturale) 0 drop EA EYE PRN PRN PRN Reason: Dry Eyes Bisacodyl (Dulcolax) 10 mg PO DAILYPRN PRN PRN Reason: Constipation Famotidine (Pepcid) 20 mg PO Q12HR [facility] Last Admin: 06/26/18 09:12 Dose: 20 mg Furosemide (Lasix) 40 mg SLOW IVP 0600 [facility] Last Admin: 06/26/18 06:46 Dose: 40 mg Guaifenesin (Robitussin Sf) 200 mg PO Q4H PRN PRN Reason: Cough Hydralazine HCl (Apresoline) 10 mg SLOW IVP Q4H PRN PRN Reason: Systolic BP > 180 Potassium Chloride 40 meq/ (Sodium Chloride) 270 mls @ 135 mls/hr IVPB ASDIR PRN PRN Reason: FOR SERUM K+ 2.5 - 3.5 Potassium Chloride 40 meq/ (Device) 100 mls @ 50 mls/hr IVPB ASDIR PRN PRN Reason: FOR SERUM K+ 2.5 - 3.5 Magnesium Sulfate 1 gm/ Sodium (Chloride) 102 mls @ 102 mls/hr IV PRN PRN PRN Reason: MAG LEVEL 1.4 - 2.0 Magnesium Sulfate 2 gm/ Device 100 mls @ 100 mls/hr IVPB ASDIR PRN PRN Reason: MAGNESIUM < 1.4 Potassium Phosphate 9 mmol/ (Sodium Chloride) 103 mls @ 25.75 mls/hr IVPB ASDIR PRN PRN Reason: Phosphate 1.0-1.8 Potassium Phosphate 12 mmol/ (Sodium Chloride) 254 mls @ 63.5 mls/hr IV ASDIR PRN PRN Reason: Serum phosphate 0.5-0.9 Potassium Phosphate 15 mmol/ (Sodium Chloride) 255 mls @ 63.75 mls/hr IV ASDIR PRN PRN Reason: Serum Phos < 0.5 Cefepime HCl 2 gm/ Sodium (Chloride) 100 mls @ 200 mls/hr IVPB 0600,1800 [facility] Last Admin: 06/26/18 06:47 Dose: 100 mls Vancomycin HCl 1.25 gm/ Sodium (Chloride) 250 mls @ 166.667 mls/hr IVPB Q2D@ 1400 [facility] Last Admin: 06/25/18 13:43 Dose: 250 mls Fentanyl Citrate 2,000 mcg/ (Sodium Chloride) 100 mls @ 0 mls/hr IV INF YEIMY; Protocol Stop: 07/23/18 15:07 Last Admin: 06/26/18 03:16 Dose: 100 mls Fentanyl Citrate (Fentanyl Bolus) 250 mls @ 0 mls/hr IVPB PRN PRN PRN Reason: Breakthrough pain/agitation Stop: 07/23/18 15:07 Lorazepam (Ativan) 2 mg SLOW IVP Q1H PRN PRN Reason: Breakthrough agitation Stop: 07/23/18 15:07 Last Admin: 06/24/18 21:53 Dose: 2 mg Magnesium Hydroxide (Milk Of Magnesium) 30 ml PO DAILYPRN PRN PRN Reason: Constipation Magnesium Oxide (Magnesium Oxide) 400 mg PO BIDPRN PRN PRN Reason: FOR SERUM MAG 1.4 - 2.0 Last Admin: 06/25/18 04:28 Dose: 400 mg Magnesium Oxide (Magnesium Oxide) 800 mg PO PRN PRN PRN Reason: FOR SERUM MAG < 1.4 Mineral Oil/White Petrolatum (Eucerin Cream) 0 gm TOP BIDPRN PRN PRN Reason: Dry Skin Miscellaneous Medication (Pharmacy To Dose) 1 each IVPB PRN PRN PRN Reason: Pharmacy to dose Miscellaneous Medication (Phos-Nak) 1 pkt PO TIDPRN PRN PRN Reason: FOR PHOS LEVEL 1.0 - 1.8 Miscellaneous Medication (Phos-Nak) 2 pkt PO TIDPRN PRN PRN Reason: FOR PHOS LEVEL 0.5 - 1.0 Morphine Sulfate (Morphine) 2 mg SLOW IVP Q1H PRN PRN Reason: BREAKTHROUGH PAIN/AGITATION Stop: 07/23/18 15:07 Discontinue Previous Narcotic Pain Medications And Benzodiazepines 1 each FS .ONE YEIMY Stop: 07/23/18 15:07 Ondansetron HCl (Zofran Odt) 4 mg PO Q6H PRN PRN Reason: Nausea/Vomiting Ondansetron HCl (Zofran) 4 mg IVP Q6H PRN PRN Reason: Nausea/Vomiting Phenol (Chloraseptic [place] 180 Ml Bot) 0 ml PO PRN PRN PRN Reason: Sore Throat Potassium Chloride (K-Dur) 40 meq PO ASDIR PRN PRN Reason: FOR SERUM K+ 2.5 - 3.5 Potassium Chloride (Klor-Con) 40 meq PER TUBE ASDIR PRN PRN Reason: FOR SERUM K+ 2.5-3.5 Last Admin: 06/26/18 10:09 Dose: 40 meq Propofol (Diprivan) 1,000 mg IV INF PRN; Protocol PRN Reason: TO ACHIEVE GOAL RASS Stop: 07/23/18 15:07 Last Admin: 06/24/18 22:48 Dose: 1,000 mg Propofol (Diprivan Bolus) 20 mg IV Q5MIN PRN PRN Reason: BREAKTHROUGH AGITATION Stop: 07/23/18 15:07 Saccharomyces Boulardii (Florastor) 250 mg PO DAILY [facility] Last Admin: 06/26/18 09:12 Dose: 250 mg Sodium Biphosphate/Sodium Phosphate (Fleet Enema) 133 ml [place] ONE PRN PRN Reason: Constipation Stop: 07/20/18 00:31 Sodium Chloride (Flush - Normal Saline) 10 ml IVF Q12HR [facility] Last Admin: 06/26/18 09:13 Dose: 10 ml Sodium Chloride (Flush - Normal Saline) 10 ml IVF PRN PRN PRN Reason: Saline Flush Sodium Chloride ([place] Nasal [place] 0.65%) 0 ml EA NARE QIDPRN PRN PRN Reason: Nasal Congestion
[2018-06-26] MEDS ORDERED: Morphine 10 MG/ML VIAL SLOW IVP PRN (12:35)
--- NOTE | 2018-06-26 23:03 | PRG ---
DATE OF SERVICE: 06/26/2018 SUBJECTIVE: Virgil Saucedo remains mechanically ventilated. OBJECTIVE: VITAL SIGNS: Heart rate is 77, temperature is 94, blood pressure 109/58, respiratory rates in the timi ns. Intake and output is negative 991. LUNGS: Remarkable for mild rhonchi. HEART: Regular rhythm. ABDOMEN: Soft. EXTREMITIES: Edema on the left, right lower extremity is bandaged. LABORATORY DATA: White count 8.2, hemoglobin 8.6, platelets 124,000 yesterday. There is no lab toda y. IMPRESSION: Respiratory failure. We will continue with slow weaning from mechanical ventilation. H is pressure support, PEEP, and volume ventilation were decreased today. volume is still 9 lite rs a minute. I will switch him to Precedex. His fentanyl drip has been discontinued. He will receive p.r.n. megan magana for pain. Critical care time was 30 minutes.
[2018-06-27 04:46] LABS: Anion Gap 13 mmol/L (10-20); BUN (Urea Nitrogen) 19 mg/dL (8.4-25.7); Band 16 % (5-11); Calc. Creatinine Clearance 132 mL/min (70-130); Calcium 8.4 mg/dL (7.8-10.44); Carbon Dioxide 25 mmol/L (23-31); Chloride 109 mmol/L (98-107); Eosinophils 2 % (0-10); Estimated GFR-MDRD Greater than 90; Glucose 126 mg/dL (80-115); Hemoglobin 9.6 g/dL (14.0-18.0); Lymphocytes 5 % (21-51); MDiff Complete? YES; Mean Corpuscular HGB CONC 32.2 g/dL (32.0-36.0); Mean Corpuscular Hemoglobin 31.9 pg (27.0-31.0); Mean Corpuscular Volume 98.9 fL (78.0-98.0); Mean Platelet Volume 7.6 fL (7.4-10.4); Monocytes 7 % (0-10); Neutrophil 70 % (42-75); Platelet Count 130 thou/uL (130-400); RBC Distribution Width 15.9 % (11.5-14.5); Red Blood Cell (RBC) Count 3.02 mill/uL (4.70-6.10); Sodium 143 mmol/L (136-145); White Blood Cell (WBC) Count 9.2 thou/uL (4.8-10.8)
[2018-06-27] MEDS: Cefepime 2 GM in Sodium Chloride 0.9% 100 ML IVPB SCH ×2 (05:17→18:42)
[2018-06-27] MEDS: Furosemide 40 MG/4 ML VIAL SLOW IVP SCH (05:17)
[2018-06-27 07:31] LABS: Actual Bicarbonate (HCO3a) 26.6 mEq/L (22-28); CO2 Tension 41.4 mmHg (35.0-45.0); O2 Tension (PaO2) 67.4 mmHg (> 70.0); pH, Arterial 7.43 (7.35-7.45)
[2018-06-27 07:32] LABS: Calcium, Ionized 1.15 mmol/L (1.12-1.30); Carboxyhemoglobin (COHb) 2.2 gm% (0.0-3.0); Potassium - ABG Lab 3.75 mmol/L (3.70-5.30); Puncture Site RRA
--- NOTE | 2018-06-27 09:04 | RAD ---
PORTABLE CHEST: HISTORY: Respiratory distress. COMPARISON: 06/24/2018 FINDINGS: Endotracheal tube and NG tube are in satisfactory position. Parenchymal lung changes are unchanged. Right PICC line remains in position. IMPRESSION: Stable examination. POS: KRYSTYNA
[2018-06-27] MEDS: Saccharomyces boulardii 250 MG CAP PO SCH (09:49)
[2018-06-27] MEDS: Famotidine 20 MG TAB PO SCH ×2 (09:50→21:22)
--- NOTE | 2018-06-27 12:34 | PDOC.PN ---
- Subjective Encounter Start Date: 06/27/18 Encounter Start Time: 09:00 pt is on ventilator, arousable and follows command - Objective Resuscitation Status: Resuscitation Status DNR:Do Not Resuscitate MAR Reviewed: Yes Vital Signs & Weight: Vital Signs (12 hours) Temp Pulse Resp BP Pulse Ox 06/27/18 10:00 12 06/27/18 09:48 69 06/27/18 08:00 98.5 F 14 93 L 06/27/18 07:08 60 121/56 L 06/27/18 07:06 60 17 96 06/27/18 06:00 15 06/27/18 05:00 97.8 F 06/27/18 04:00 16 06/27/18 03:00 97.7 F 06/27/18 02:51 67 06/27/18 02:00 20 Weight Admit Weight 225 lb 15.581 oz Weight 225 lb Most Recent Monitor Data Heart Rate from ECG 77 NIBP 125/62 NIBP BP-Mean 72 Respiration from ECG 23 SpO2 95 I&O: 06/26/18 06/27/18 06/28/18 06:59 06:59 06:59 Intake Total 2528.5 1082 80 Output Total 3520 2870 1140 Balance -991.5 -1788 -1060 Result Diagrams: 06/27/18 04:10 06/27/18 04:10 Radiology Reviewed by me: Yes (chest xray reviewed) EKG Reviewed by me: Yes (nsr) Phys Exam - Physical Examination Constitutional: NAD on ventilator HEENT: PERRLA, sclera anicteric Neck: no JVD, supple Respiratory: no wheezing, no rales, no rhonchi Cardiovascular: RRR, no rub parasternal murmur Gastrointestinal: soft, non-tender, no distention, positive bowel sounds right aka with wound vac, left leg edema reduced Lymphatic: no nodes Skin: no rash, normal turgor Dx/Plan (1) Acute respiratory failure with hypoxia Code(s): J96.01 - ACUTE RESPIRATORY FAILURE WITH HYPOXIA Status: Acute Comment: on vent (2) Demand ischemia Code(s): I24.8 - OTHER FORMS OF ACUTE ISCHEMIC HEART DISEASE Status: Acute (3) Lactic acidosis Code(s): E87.2 - ACIDOSIS Status: Resolved (4) Multifocal pneumonia Code(s): J18.9 - PNEUMONIA, UNSPECIFIED ORGANISM Status: Acute (5) Septic shock Code(s): A41.9 - SEPSIS, UNSPECIFIED ORGANISM; R65.21 - SEVERE SEPSIS WITH SEPTIC SHOCK Status: Resolved (6) Alcoholic cirrhosis of liver with ascites Code(s): K70.31 - ALCOHOLIC CIRRHOSIS OF LIVER WITH ASCITES Status: Chronic (7) Chronic stage c diastolic heart failure Code(s): I50.32 - CHRONIC DIASTOLIC (CONGESTIVE) HEART FAILURE Status: Chronic (8) Coagulopathy Status: Chronic (9) Hypertension Code(s): I10 - ESSENTIAL (PRIMARY) HYPERTENSION Status: Chronic (10) Hyponatremia Code(s): E87.1 - HYPO-OSMOLALITY AND HYPONATREMIA Status: Chronic (11) Macrocytic anemia Code(s): D53.9 - NUTRITIONAL ANEMIA, UNSPECIFIED Status: Chronic (12) Physical deconditioning Code(s): R53.81 - OTHER MALAISE Status: Chronic (13) Status post hardware removal Code(s): Z98.890 - OTHER SPECIFIED POSTPROCEDURAL STATES Status: Chronic (14) Pulmonary hypertension Code(s): I27.20 - PULMONARY HYPERTENSION, UNSPECIFIED Status: Chronic (15) Severe tricuspid regurgitation Code(s): I07.1 - RHEUMATIC TRICUSPID INSUFFICIENCY Status: Chronic (16) Above knee amputation of right lower extremity Code(s): Z89.611 - ACQUIRED ABSENCE OF RIGHT LEG ABOVE KNEE Status: Acute - Plan cont current plan of care, continue antibiotics * weaning as per pulmonary * continue wound care * continue cefepime and vancomycin * medication reviewed as below * symptomatic treatment. Review of Systems - Review of Systems Other: unable to review due to intubated status - Medications/Allergies Allergies/Adverse Reactions: Allergies Allergy/AdvReac Type Severity Reaction Status Date / Time Iodinated Contrast- Oral and Allergy Verified 01/31/18 11:31 IV Dye [Iodinated Contrast Media - IV Dye] loxapine Allergy Verified 01/31/18 11:31 shrimp Allergy Verified 01/31/18 11:31 Medications: Current Medications Acetaminophen (Tylenol) 650 mg PO Q4H PRN PRN Reason: Headache/Fever or Pain Last Admin: 06/20/18 04:58 Dose: 650 mg Al Hydroxide/Mg Hydroxide (Maalox) 15 ml PO Q4H PRN PRN Reason: Heartburn or Indigestion Albuterol/Ipratropium (Duoneb) 3 ml NEB [id number] [facility] Last Admin: 06/27/18 09:56 Dose: 3 ml Artificial Tears (Tears Naturale) 0 drop EA EYE PRN PRN PRN Reason: Dry Eyes Bisacodyl (Dulcolax) 10 mg PO DAILYPRN PRN PRN Reason: Constipation Famotidine (Pepcid) 20 mg PO Q12HR [facility] Last Admin: 06/27/18 09:50 Dose: 20 mg Furosemide (Lasix) 40 mg SLOW IVP 0600 [facility] Last Admin: 06/27/18 05:17 Dose: 40 mg Guaifenesin (Robitussin Sf) 200 mg PO Q4H PRN PRN Reason: Cough Hydralazine HCl (Apresoline) 10 mg SLOW IVP Q4H PRN PRN Reason: Systolic BP > 180 Potassium Chloride 40 meq/ (Sodium Chloride) 270 mls @ 135 mls/hr IVPB ASDIR PRN PRN Reason: FOR SERUM K+ 2.5 - 3.5 Potassium Chloride 40 meq/ (Device) 100 mls @ 50 mls/hr IVPB ASDIR PRN PRN Reason: FOR SERUM K+ 2.5 - 3.5 Magnesium Sulfate 1 gm/ Sodium (Chloride) 102 mls @ 102 mls/hr IV PRN PRN PRN Reason: MAG LEVEL 1.4 - 2.0 Magnesium Sulfate 2 gm/ Device 100 mls @ 100 mls/hr IVPB ASDIR PRN PRN Reason: MAGNESIUM < 1.4 Potassium Phosphate 9 mmol/ (Sodium Chloride) 103 mls @ 25.75 mls/hr IVPB ASDIR PRN PRN Reason: Phosphate 1.0-1.8 Potassium Phosphate 12 mmol/ (Sodium Chloride) 254 mls @ 63.5 mls/hr IV ASDIR PRN PRN Reason: Serum phosphate 0.5-0.9 Potassium Phosphate 15 mmol/ (Sodium Chloride) 255 mls @ 63.75 mls/hr IV ASDIR PRN PRN Reason: Serum Phos < 0.5 Cefepime HCl 2 gm/ Sodium (Chloride) 100 mls @ 200 mls/hr IVPB 0600,1800 [facility] Last Admin: 06/27/18 05:17 Dose: 100 mls Vancomycin HCl 1.25 gm/ Sodium (Chloride) 250 mls @ 166.667 mls/hr IVPB Q2D@ 1400 [facility] Last Admin: 06/25/18 13:43 Dose: 250 mls Dexmedetomidine HCl 200 mcg/ (Sodium Chloride) 50 mls @ 0 mls/hr IVPB INF YEIMY; Protocol Last Admin: 06/27/18 05:14 Dose: 50 mls Lorazepam (Ativan) 2 mg SLOW IVP Q1H PRN PRN Reason: Breakthrough agitation Stop: 07/23/18 15:07 Last Admin: 06/24/18 21:53 Dose: 2 mg Magnesium Hydroxide (Milk Of Magnesium) 30 ml PO DAILYPRN PRN PRN Reason: Constipation Magnesium Oxide (Magnesium Oxide) 400 mg PO BIDPRN PRN PRN Reason: FOR SERUM MAG 1.4 - 2.0 Last Admin: 06/25/18 04:28 Dose: 400 mg Magnesium Oxide (Magnesium Oxide) 800 mg PO PRN PRN PRN Reason: FOR SERUM MAG < 1.4 Mineral Oil/White Petrolatum (Eucerin Cream) 0 gm TOP BIDPRN PRN PRN Reason: Dry Skin Miscellaneous Medication (Pharmacy To Dose) 1 each IVPB PRN PRN PRN Reason: Pharmacy to dose Miscellaneous Medication (Phos-Nak) 1 pkt PO TIDPRN PRN PRN Reason: FOR PHOS LEVEL 1.0 - 1.8 Miscellaneous Medication (Phos-Nak) 2 pkt PO TIDPRN PRN PRN Reason: FOR PHOS LEVEL 0.5 - 1.0 Morphine Sulfate (Morphine) 2 mg SLOW IVP Q1H PRN PRN Reason: BREAKTHROUGH PAIN/AGITATION Stop: 07/23/18 15:07 Morphine Sulfate (Morphine) 10 mg SLOW IVP Q1H PRN PRN Reason: Breakthrough Pain Discontinue Previous Narcotic Pain Medications And Benzodiazepines 1 each FS .ONE [facility] Stop: 07/23/18 15:07 Ondansetron HCl (Zofran Odt) 4 mg PO Q6H PRN PRN Reason: Nausea/Vomiting Ondansetron HCl (Zofran) 4 mg IVP Q6H PRN PRN Reason: Nausea/Vomiting Phenol (Chloraseptic [place] 180 Ml Bot) 0 ml PO PRN PRN PRN Reason: Sore Throat Potassium Chloride (K-Dur) 40 meq PO ASDIR PRN PRN Reason: FOR SERUM K+ 2.5 - 3.5 Potassium Chloride (Klor-Con) 40 meq PER TUBE ASDIR PRN PRN Reason: FOR SERUM K+ 2.5-3.5 Last Admin: 06/26/18 10:09 Dose: 40 meq Propofol (Diprivan) 1,000 mg IV INF PRN; Protocol PRN Reason: TO ACHIEVE GOAL RASS Stop: 07/23/18 15:07 Last Admin: 06/24/18 22:48 Dose: 1,000 mg Propofol (Diprivan Bolus) 20 mg IV Q5MIN PRN PRN Reason: BREAKTHROUGH AGITATION Stop: 07/23/18 15:07 Saccharomyces Boulardii (Florastor) 250 mg PO DAILY [facility] Last Admin: 06/27/18 09:49 Dose: 250 mg Sodium Biphosphate/Sodium Phosphate (Fleet Enema) 133 ml [place] ONE PRN PRN Reason: Constipation Stop: 07/20/18 00:31 Sodium Chloride (Flush - Normal Saline) 10 ml IVF Q12HR [facility] Last Admin: 06/26/18 22:10 Dose: 10 ml Sodium Chloride (Flush - Normal Saline) 10 ml IVF PRN PRN PRN Reason: Saline Flush Sodium Chloride ([place] Nasal [place] 0.65%) 0 ml EA NARE QIDPRN PRN PRN Reason: Nasal Congestion
--- NOTE | 2018-06-27 12:52 | PRG ---
DATE OF SERVICE: 06/26/2018 SUBJECTIVE: Virgil is a 72-year-old white male, who is postop day #4 from a right above-knee amputat ion from a septic right failed arthroplasty/arthrodesis. He is still in the intensive care unit and under a significant sedation and intubated and on supportive measures. OBJECTIVE: His stump looks nice and is supple. There is no significant tissue tension appreciated. Wound VAC is working normally as expected. IMPRESSION: A 72-year-old male postoperative day #4, right above-knee transfemoral amputation with e xplantation of hardware. PLAN: Continue current management. We will continue to follow. Defer medical management to hospita lists and diamond polisher.
--- NOTE | 2018-06-27 13:41 | PRG ---
DATE OF SERVICE: 06/27/2018 SUBJECTIVE: Mr. Saucedo remains mechanically ventilated. OBJECTIVE: VITAL SIGNS: Stable. His minute volume is 7-9 liters a minute. He is afebrile, blood pressure 108/ 59, heart rate 74, respiratory rate is 15. Intake and output is negative 1787. LUNGS: Remarkable for coarse equal breath sounds. HEART: Regular rhythm. ABDOMEN: Soft and nontender. EXTREMITIES: His left lower extremity is with stasis changes. His stump I am told is smaller per my discussion with Dr. Guerrero. LABORATORY DATA: White count is 9.2, hemoglobin 9.6, platelets 130,000. Sodium 143, potassium 4, ch loride 109, bicarbonate 25, BUN 19, creatinine 0.75. Ammonia was normal today. IMPRESSION: 1. Respiratory failure. 2. Somnolence. He is too sleepy to extubate, so we will stop the high-dose morphine for pain and st op the Precedex and then reassess him in the morning. I suspect we will be able to place him in a ne uro chair in the morning and extubate him. 3. Weakness and deconditioning prior to surgery is the biggest factor. CRITICAL CARE TIME: 30 minutes.
[2018-06-27 14:32] LABS: Vancomycin, Trough 18.8 ug/mL
--- NOTE | 2018-06-27 15:21 | PRG ---
DATE OF SERVICE: 06/27/2018 SUBJECTIVE: Mr. Herman is postop day #5 from a right transfemoral above knee amputation with explant ation of fusion nail. He is still convalescing in the Intensive Care Unit with his intubation heavil y sedated. OBJECTIVE: Visual inspection of the incision demonstrates . There is no they appear to b e intact. No active bleeding is noted. ASSESSMENT: A 72-year-old male postoperative day #5 secondary to a transfemoral above knee amputatio n and explantation fusion nail. PLAN: Continue current care, recheck tomorrow.
[2018-06-27] MEDS: Vancomycin HCl 1.25 GM in Sodium Chloride 0.9% 250 ML 250 ML IVPB SCH (17:30)
[2018-06-28] MEDS: Lorazepam 2 MG/ML VIAL SLOW IVP PRN ×2 (00:11→20:58)
[2018-06-28 04:26] LABS: Band 4 % (5-11); Hemoglobin 10.8 g/dL (14.0-18.0); Lymphocytes 10 % (21-51); MDiff Complete? YES; Mean Corpuscular HGB CONC 31.9 g/dL (32.0-36.0); Mean Corpuscular Hemoglobin 31.7 pg (27.0-31.0); Mean Corpuscular Volume 99.2 fL (78.0-98.0); Mean Platelet Volume 7.4 fL (7.4-10.4); Monocytes 7 % (0-10); Myelocyte 1 % (0-0); Neutrophil 78 % (42-75); Platelet Count 190 thou/uL (130-400); RBC Distribution Width 16.1 % (11.5-14.5); Red Blood Cell (RBC) Count 3.42 mill/uL (4.70-6.10); White Blood Cell (WBC) Count 14.2 thou/uL (4.8-10.8)
[2018-06-28] MEDS: Cefepime 2 GM in Sodium Chloride 0.9% 100 ML IVPB SCH ×2 (06:09→19:14)
[2018-06-28] MEDS: Furosemide 40 MG/4 ML VIAL SLOW IVP SCH (06:09)
[2018-06-28 06:35] LABS: Anion Gap 13 mmol/L (10-20); BUN (Urea Nitrogen) 20 mg/dL (8.4-25.7); Calc. Creatinine Clearance 132 mL/min (70-130); Calcium 8.7 mg/dL (7.8-10.44); Carbon Dioxide 27 mmol/L (23-31); Chloride 109 mmol/L (98-107); Estimated GFR-MDRD Greater than 90; Glucose 104 mg/dL (80-115); Potassium 3.5 mmol/L (3.5-5.1); Sodium 145 mmol/L (136-145)
[2018-06-28 07:08] LABS: Actual Bicarbonate (HCO3a) 28.1 mEq/L (22-28); Base Excess (BEa) 4.2 mEq/L (-2.0 to +3.0); CO2 Tension 39.4 mmHg (35.0-45.0); Calcium, Ionized 1.15 mmol/L (1.12-1.30); Carboxyhemoglobin (COHb) 1.7 gm% (0.0-3.0); Hemoglobin (Hb) 11.1 g/dL (14.0-18.0); O2 Tension (PaO2) 96.6 mmHg (> 70.0); Potassium - ABG Lab 3.43 mmol/L (3.70-5.30); pH, Arterial 7.47 (7.35-7.45)
[2018-06-28 07:09] LABS: Puncture Site RRA
--- NOTE | 2018-06-28 09:22 | RAD ---
AP VIEW CHEST: INDICATIONS: Intubation. COMPARISON: Prior exam dated 06/17/2018. FINDINGS: The patient remains intubated with subsequent gastric catheter placement. Cardiomegaly persists, Pe rihilar opacities are stable. Small bilateral pleural effusions are similar. No pneumothorax is ammy dent. IMPRESSION: Stable examination. POS: TPC
--- NOTE | 2018-06-28 11:02 | PRG ---
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 He has be en extubated at 8:30 this morning and he requested water. He recognizes me and he is alert and orien david, a little sluggish with cognition, but overall Virgil looks better than yesterday. PHYSICAL EXAMINATION: Visual inspection of the right lower extremity demonstrates his amputation to be closed very well. Incision is clean. There is some ooze from the medial side, but the wound VAC is being changed presently. It is still weepy but not tense. ASSESSMENT: A 72-year-old male status post right lower extremity above knee amputation secondary to failed arthrodesis. PLAN: Continue current care. Continue to follow. Continue wound VAC.
--- NOTE | 2018-06-28 11:28 | PDOC.PN ---
- Subjective Encounter Start Date: 06/28/18 Encounter Start Time: 10:15 pt was extubated this morning and then he is seated in chair - Objective Resuscitation Status: Resuscitation Status DNR:Do Not Resuscitate MAR Reviewed: Yes Vital Signs & Weight: Vital Signs (12 hours) Temp Pulse Resp BP Pulse Ox 06/28/18 10:54 105 H 19 95 06/28/18 08:30 112 H 19 97 06/28/18 08:00 98.8 F 06/28/18 07:42 95 06/28/18 06:42 116 H 160/68 H 06/28/18 06:40 120 H 12 96 06/28/18 06:00 16 06/28/18 04:00 13 06/28/18 02:12 106 H 165/86 H 06/28/18 02:00 16 06/28/18 00:00 98.3 F 16 Weight Admit Weight 225 lb 15.581 oz Weight 225 lb Most Recent Monitor Data Heart Rate from ECG 110 NIBP 128/58 NIBP BP-Mean 67 Respiration from ECG 16 SpO2 97 I&O: 06/27/18 06/28/18 06/29/18 06:59 06:59 06:59 Intake Total 1082 1380 Output Total 2870 1910 1420 [facility]1788 [phone] Result Diagrams: 06/28/18 03:31 06/28/18 03:31 Radiology Reviewed by me: Yes (chest xray reviwed) Phys Exam - Physical Examination Constitutional: NAD HEENT: PERRLA, moist MMs, sclera anicteric Neck: no JVD, supple Respiratory: no wheezing, no rales, no rhonchi Cardiovascular: RRR, no rub parasternal mumrmur+ Gastrointestinal: soft, non-tender, no distention, positive bowel sounds Musculoskeletal: edema present right aka with wound vac in place Neurological: non-focal Lymphatic: no nodes Psychiatric: normal affect Skin: no rash, normal turgor Dx/Plan (1) Acute respiratory failure with hypoxia Code(s): J96.01 - ACUTE RESPIRATORY FAILURE WITH HYPOXIA Status: Acute Comment: on vent (2) Demand ischemia Code(s): I24.8 - OTHER FORMS OF ACUTE ISCHEMIC HEART DISEASE Status: Acute (3) Lactic acidosis Code(s): E87.2 - ACIDOSIS Status: Resolved (4) Multifocal pneumonia Code(s): J18.9 - PNEUMONIA, UNSPECIFIED ORGANISM Status: Acute (5) Septic shock Code(s): A41.9 - SEPSIS, UNSPECIFIED ORGANISM; R65.21 - SEVERE SEPSIS WITH SEPTIC SHOCK Status: Resolved (6) Alcoholic cirrhosis of liver with ascites Code(s): K70.31 - ALCOHOLIC CIRRHOSIS OF LIVER WITH ASCITES Status: Chronic (7) Chronic stage c diastolic heart failure Code(s): I50.32 - CHRONIC DIASTOLIC (CONGESTIVE) HEART FAILURE Status: Chronic (8) Coagulopathy Status: Chronic (9) Hypertension Code(s): I10 - ESSENTIAL (PRIMARY) HYPERTENSION Status: Chronic (10) Hyponatremia Code(s): E87.1 - HYPO-OSMOLALITY AND HYPONATREMIA Status: Chronic (11) Macrocytic anemia Code(s): D53.9 - NUTRITIONAL ANEMIA, UNSPECIFIED Status: Chronic (12) Physical deconditioning Code(s): R53.81 - OTHER MALAISE Status: Chronic (13) Status post hardware removal Code(s): Z98.890 - OTHER SPECIFIED POSTPROCEDURAL STATES Status: Chronic (14) Pulmonary hypertension Code(s): I27.20 - PULMONARY HYPERTENSION, UNSPECIFIED Status: Chronic (15) Severe tricuspid regurgitation Code(s): I07.1 - RHEUMATIC TRICUSPID INSUFFICIENCY Status: Chronic (16) Above knee amputation of right lower extremity Code(s): Z89.611 - ACQUIRED ABSENCE OF RIGHT LEG ABOVE KNEE Status: Acute - Plan cont current plan of care, continue antibiotics * extubation done today * medication reviewed as below * symptomatic treatment * continue wound care at surgical site * continue empiric cefepime and vancomycin * monitor labs * will need placement eventually. Review of Systems - Review of Systems Other: not reliable due to current level of alertness after extubation - Medications/Allergies Allergies/Adverse Reactions: Allergies Allergy/AdvReac Type Severity Reaction Status Date / Time Iodinated Contrast- Oral and Allergy Verified 01/31/18 11:31 IV Dye [Iodinated Contrast Media - IV Dye] loxapine Allergy Verified 01/31/18 11:31 shrimp Allergy Verified 01/31/18 11:31 Medications: Current Medications Acetaminophen (Tylenol) 650 mg PO Q4H PRN PRN Reason: Headache/Fever or Pain Last Admin: 06/20/18 04:58 Dose: 650 mg Al Hydroxide/Mg Hydroxide (Maalox) 15 ml PO Q4H PRN PRN Reason: Heartburn or Indigestion Albuterol/Ipratropium (Duoneb) 3 ml NEB [id number] [facility] Last Admin: 06/28/18 10:54 Dose: 3 ml Artificial Tears (Tears Naturale) 0 drop EA EYE PRN PRN PRN Reason: Dry Eyes Bisacodyl (Dulcolax) 10 mg PO DAILYPRN PRN PRN Reason: Constipation Famotidine (Pepcid) 20 mg PO Q12HR [facility] Last Admin: 06/27/18 21:22 Dose: 20 mg Furosemide (Lasix) 40 mg SLOW IVP 0600 [facility] Last Admin: 06/28/18 06:09 Dose: 40 mg Guaifenesin (Robitussin Sf) 200 mg PO Q4H PRN PRN Reason: Cough Hydralazine HCl (Apresoline) 10 mg SLOW IVP Q4H PRN PRN Reason: Systolic BP > 180 Potassium Chloride 40 meq/ (Sodium Chloride) 270 mls @ 135 mls/hr IVPB ASDIR PRN PRN Reason: FOR SERUM K+ 2.5 - 3.5 Potassium Chloride 40 meq/ (Device) 100 mls @ 50 mls/hr IVPB ASDIR PRN PRN Reason: FOR SERUM K+ 2.5 - 3.5 Magnesium Sulfate 1 gm/ Sodium (Chloride) 102 mls @ 102 mls/hr IV PRN PRN PRN Reason: MAG LEVEL 1.4 - 2.0 Magnesium Sulfate 2 gm/ Device 100 mls @ 100 mls/hr IVPB ASDIR PRN PRN Reason: MAGNESIUM < 1.4 Potassium Phosphate 9 mmol/ (Sodium Chloride) 103 mls @ 25.75 mls/hr IVPB ASDIR PRN PRN Reason: Phosphate 1.0-1.8 Potassium Phosphate 12 mmol/ (Sodium Chloride) 254 mls @ 63.5 mls/hr IV ASDIR PRN PRN Reason: Serum phosphate 0.5-0.9 Potassium Phosphate 15 mmol/ (Sodium Chloride) 255 mls @ 63.75 mls/hr IV ASDIR PRN PRN Reason: Serum Phos < 0.5 Cefepime HCl 2 gm/ Sodium (Chloride) 100 mls @ 200 mls/hr IVPB 0600,1800 [facility] Last Admin: 06/28/18 06:09 Dose: 100 mls Vancomycin HCl 1.25 gm/ Sodium (Chloride) 250 mls @ 166.667 mls/hr IVPB Q2D@ 1400 [facility] Last Admin: 06/27/18 17:30 Dose: 250 mls Lorazepam (Ativan) 2 mg SLOW IVP Q1H PRN PRN Reason: Breakthrough agitation Stop: 07/23/18 15:07 Last Admin: 06/28/18 00:11 Dose: 1 mg Magnesium Hydroxide (Milk Of Magnesium) 30 ml PO DAILYPRN PRN PRN Reason: Constipation Magnesium Oxide (Magnesium Oxide) 400 mg PO BIDPRN PRN PRN Reason: FOR SERUM MAG 1.4 - 2.0 Last Admin: 06/25/18 04:28 Dose: 400 mg Magnesium Oxide (Magnesium Oxide) 800 mg PO PRN PRN PRN Reason: FOR SERUM MAG < 1.4 Mineral Oil/White Petrolatum (Eucerin Cream) 0 gm TOP BIDPRN PRN PRN Reason: Dry Skin Miscellaneous Medication (Pharmacy To Dose) 1 each IVPB PRN PRN PRN Reason: Pharmacy to dose Miscellaneous Medication (Phos-Nak) 1 pkt PO TIDPRN PRN PRN Reason: FOR PHOS LEVEL 1.0 - 1.8 Miscellaneous Medication (Phos-Nak) 2 pkt PO TIDPRN PRN PRN Reason: FOR PHOS LEVEL 0.5 - 1.0 Morphine Sulfate (Morphine) 2 mg SLOW IVP Q1H PRN PRN Reason: BREAKTHROUGH PAIN/AGITATION Stop: 07/23/18 15:07 Last Admin: 06/28/18 10:34 Dose: 2 mg Discontinue Previous Narcotic Pain Medications And Benzodiazepines 1 each FS .ONE [facility] Stop: 07/23/18 15:07 Ondansetron HCl (Zofran Odt) 4 mg PO Q6H PRN PRN Reason: Nausea/Vomiting Ondansetron HCl (Zofran) 4 mg IVP Q6H PRN PRN Reason: Nausea/Vomiting Last Admin: 06/27/18 22:34 Dose: 4 mg Phenol (Chloraseptic [place] 180 Ml Bot) 0 ml PO PRN PRN PRN Reason: Sore Throat Potassium Chloride (K-Dur) 40 meq PO ASDIR PRN PRN Reason: FOR SERUM K+ 2.5 - 3.5 Potassium Chloride (Klor-Con) 40 meq PER TUBE ASDIR PRN PRN Reason: FOR SERUM K+ 2.5-3.5 Last Admin: 06/26/18 10:09 Dose: 40 meq Propofol (Diprivan) 1,000 mg IV INF PRN; Protocol PRN Reason: TO ACHIEVE GOAL RASS Stop: 07/23/18 15:07 Last Admin: 06/24/18 22:48 Dose: 1,000 mg Propofol (Diprivan Bolus) 20 mg IV Q5MIN PRN PRN Reason: BREAKTHROUGH AGITATION Stop: 07/23/18 15:07 Saccharomyces Boulardii (Florastor) 250 mg PO DAILY [facility] Last Admin: 06/27/18 09:49 Dose: 250 mg Sodium Biphosphate/Sodium Phosphate (Fleet Enema) 133 ml [place] ONE PRN PRN Reason: Constipation Stop: 07/20/18 00:31 Sodium Chloride (Flush - Normal Saline) 10 ml IVF Q12HR [facility] Last Admin: 06/27/18 21:32 Dose: 10 ml Sodium Chloride (Flush - Normal Saline) 10 ml IVF PRN PRN PRN Reason: Saline Flush Sodium Chloride ([place] Nasal [place] 0.65%) 0 ml EA NARE QIDPRN PRN PRN Reason: Nasal Congestion
[2018-06-28] MEDS: Saccharomyces boulardii 250 MG CAP PO SCH (12:45)
[2018-06-28] MEDS: Famotidine 20 MG TAB PO SCH ×2 (12:45→20:58)
--- NOTE | 2018-06-28 16:36 | PRG ---
DATE OF SERVICE: 06/28/2018 SUBJECTIVE: Virgil Saucedo did well overnight. He was placed in a chair this morning. He was on pre ssure support of 5 and PEEP of 5 and had no labored respirations. OBJECTIVE: VITAL SIGNS: He is afebrile, heart rate is 97, oximetry is 97 on 3 liters, now that he has been extu bated, blood pressure was 141/66, his minute volume was 7 liters a minute. His negative inspiratory force was greater than negative 35 cm of water pressure. He had passed a leak test. He subsequently has been extubated and has done well post-extubation. LUNGS: His lungs are clear anteriorly. HEART: Regular rhythm. ABDOMEN: Soft. He passed a bedside swallowing evaluation. We will start advancing his diet. His white count is 14.2, hemoglobin 10.8, platelets 190. Sodium 145, potassium 3.5, chloride 109, bi carbonate 27, BUN 20, creatinine 0.75. IMPRESSION: 1. Status post mechanical ventilation perioperatively after a high amputation on the right lower ext remity 2. 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 3. Left lung pneumonia, most likely aspiration mediated. 4. Extreme deconditioning. 5. Cirrhosis with liver synthetic abnormalities (prolonged protime on admission with hypoalbuminemia ). He is doing reasonably well. Surprisingly, he has tolerated extubation. I will plan to rediscus s the DO NOT RESUSCITATE status with him. He initially was a DNR because he was tired of living with his legs and this issue will need to be re addressed since he has had an amputation. We will continue with aggressive care for now. Critical care time was 30 minutes.
--- NOTE | 2018-06-28 18:26 | PRG ---
DATE OF SERVICE: 06/28/2018 Mr. Saucedo was set up in a chair this morning. He met criteria for weaning from mechanical ventilati on. His minute volume is 7-9 liters a minute. He has negative inspiratory force and respiratory rat e to tidal volume ratio were all acceptable. He subsequently has been extubated. We had BiPAP on [facility]. He had really needed that. PHYSICAL EXAMINATION: VITAL SIGNS: This afternoon, his blood pressure 137/56, heart rate 101, respiratory rates in the timi ns. LUNGS: Clear. HEART: Regular rhythm. ABDOMEN: Soft. LABORATORY DATA: White count 14.2, hemoglobin 10.8, platelets 190,000. Sodium 145, potassium 3.5, chloride 109, bicarbonate 27, BUN 20, creatinine 0.75. Blood gas this mor taylor, , CO2 of 39, pO2 of 96. IMPRESSION: 1. Status post mechanical ventilation after high amputation of his right lower extremity. 2. Cirrhosis. 3. Deconditioning. 4. Depression. I am not sure he would want to continue to be a do not resuscitate status, but as he recovers from this, we will discuss this with him again. 5. Hepatic synthetic dysfunction with coagulopathy prior to surgery corrected with fresh frozen plas ma. We will continue to follow with physical therapy and hopefully move him to Orthopedic Surgery [facility] today.
[2018-06-29] MEDS: Furosemide 40 MG/4 ML VIAL SLOW IVP SCH (04:50)
[2018-06-29] MEDS: Cefepime 2 GM in Sodium Chloride 0.9% 100 ML IVPB SCH ×2 (04:50→17:52)
[2018-06-29 04:58] LABS: Anion Gap 10 mmol/L (10-20); BUN (Urea Nitrogen) 18 mg/dL (8.4-25.7); Calc. Creatinine Clearance 148 mL/min (70-130); Calcium 8.2 mg/dL (7.8-10.44); Carbon Dioxide 28 mmol/L (23-31); Chloride 107 mmol/L (98-107); Estimated GFR-MDRD Greater than 90; Glucose 94 mg/dL (80-115); Potassium 3.4 mmol/L (3.5-5.1); Sodium 142 mmol/L (136-145)
[2018-06-29 05:00] LABS: Eosinophils 3 % (0-10); Hemoglobin 9.6 g/dL (14.0-18.0); Hypochromia SLIGHT = 6-15 cells (100X) (0-5/hpf); Lymphocytes 16 % (21-51); MDiff Complete? YES; Mean Corpuscular HGB CONC 32.3 g/dL (32.0-36.0); Mean Corpuscular Hemoglobin 32.1 pg (27.0-31.0); Mean Corpuscular Volume 99.5 fL (78.0-98.0); Mean Platelet Volume 7.3 fL (7.4-10.4); Monocytes 10 % (0-10); Neutrophil 71 % (42-75); PLT Morphology Comment Appears Adequate; Platelet Count 164 thou/uL (130-400); Polychromasia SLIGHT = 2-3 cells (100X) (0-2/hpf); RBC Distribution Width 16.3 % (11.5-14.5); Red Blood Cell (RBC) Count 2.97 mill/uL (4.70-6.10); White Blood Cell (WBC) Count 11.8 thou/uL (4.8-10.8)
[2018-06-29] MEDS: Famotidine 20 MG TAB PO SCH ×2 (08:25→20:24)
[2018-06-29] MEDS: Saccharomyces boulardii 250 MG CAP PO SCH (08:25)
--- NOTE | 2018-06-29 09:11 | RAD ---
PORTABLE SEMIUPRIGHT FRONTAL CHEST RADIOGRAPH: DATE: 06/29/18. COMPARISON: 06/28/18. HISTORY: Ventilated patient, respiratory distress. FINDINGS: Stable right-sided PICC. Endotracheal tube has been removed since the prior study. Cardiac silhouet te is prominent. There is pulmonary vascular congestion and nonspecific perihilar and left upper lob e interstitial opacity. Blunting of costophrenic angles suggests small bilateral pleural effusions. IMPRESSION: No significant interval change aside from interval extubation. POS: KRYSTYNA
--- NOTE | 2018-06-29 11:44 | PDOC.PN ---
- Subjective Encounter Start Date: 06/29/18 Encounter Start Time: 09:30 Patient seen and examined. No new complaints. No overnight events pt is seated in chair, stable - Objective Resuscitation Status: Resuscitation Status DNR:Do Not Resuscitate MAR Reviewed: Yes Vital Signs & Weight: Vital Signs (12 hours) Temp Pulse Resp Pulse Ox 06/29/18 10:22 104 H 19 93 L 06/29/18 08:00 98.4 F 95 06/29/18 06:46 100 22 H 96 06/29/18 04:00 97.3 F L 06/29/18 02:36 95 06/29/18 02:15 97 20 95 Weight Admit Weight 225 lb 15.581 oz Weight 225 lb Most Recent Monitor Data Heart Rate from ECG 110 NIBP 148/78 NIBP BP-Mean 96 Respiration from ECG 22 SpO2 95 I&O: 06/28/18 06/29/18 06/30/18 06:59 06:59 06:59 Intake Total 1380 1654 470 Output Total 2205 2235 865 [facility] [phone] Result Diagrams: 06/29/18 04:33 06/29/18 04:33 Radiology Reviewed by me: Yes (chest xray reviwed) EKG Reviewed by me: Yes (atrial arrythmia noted) Phys Exam - Physical Examination Constitutional: NAD HEENT: PERRLA, moist MMs, sclera anicteric Neck: no JVD, supple Respiratory: no wheezing, no rales, no rhonchi Cardiovascular: irregular SM+, tachycardia Gastrointestinal: soft, non-tender, no distention, positive bowel sounds Musculoskeletal: edema present edema on left leg, right AKA with wound vac in place Lymphatic: no nodes Psychiatric: normal affect Skin: no rash, normal turgor Dx/Plan (1) Acute respiratory failure with hypoxia Code(s): J96.01 - ACUTE RESPIRATORY FAILURE WITH HYPOXIA Status: Acute Comment: (2) Demand ischemia Code(s): I24.8 - OTHER FORMS OF ACUTE ISCHEMIC HEART DISEASE Status: Acute (3) Lactic acidosis Code(s): E87.2 - ACIDOSIS Status: Resolved (4) Multifocal pneumonia Code(s): J18.9 - PNEUMONIA, UNSPECIFIED ORGANISM Status: Acute (5) Septic shock Code(s): A41.9 - SEPSIS, UNSPECIFIED ORGANISM; R65.21 - SEVERE SEPSIS WITH SEPTIC SHOCK Status: Resolved (6) Alcoholic cirrhosis of liver with ascites Code(s): K70.31 - ALCOHOLIC CIRRHOSIS OF LIVER WITH ASCITES Status: Chronic (7) Chronic stage c diastolic heart failure Code(s): I50.32 - CHRONIC DIASTOLIC (CONGESTIVE) HEART FAILURE Status: Chronic (8) Coagulopathy Status: Chronic (9) Hypertension Code(s): I10 - ESSENTIAL (PRIMARY) HYPERTENSION Status: Chronic (10) Hyponatremia Code(s): E87.1 - HYPO-OSMOLALITY AND HYPONATREMIA Status: Chronic (11) Macrocytic anemia Code(s): D53.9 - NUTRITIONAL ANEMIA, UNSPECIFIED Status: Chronic (12) Physical deconditioning Code(s): R53.81 - OTHER MALAISE Status: Chronic (13) Status post hardware removal Code(s): Z98.890 - OTHER SPECIFIED POSTPROCEDURAL STATES Status: Chronic (14) Pulmonary hypertension Code(s): I27.20 - PULMONARY HYPERTENSION, UNSPECIFIED Status: Chronic (15) Severe tricuspid regurgitation Code(s): I07.1 - RHEUMATIC TRICUSPID INSUFFICIENCY Status: Chronic (16) Above knee amputation of right lower extremity Code(s): Z89.611 - ACQUIRED ABSENCE OF RIGHT LEG ABOVE KNEE Status: Acute - Plan cont current plan of care, continue antibiotics, PT/OT, licensed social worker, respiratory therapy * overall stable and doing ok after extubation * continue wound care at AKA site with wound vac * continue empiric antibiotics cefepime and vancomycin, as he will not need penitentiary antibiotics given AKA * medication reviewed as below * symptomatic treatment * if pulmonary ok, pt is overall stable for transfer to [facility] * supportive care * will need placement. Review of Systems - Review of Systems Constitutional: weakness. negative: fever, chills, sweats, malaise, other ENT: negative: Ear Pain, Ear Discharge, Nose Pain, Nose Discharge, Nose Congestion, Mouth Pain, Mouth Swelling, Throat Pain, Throat Swelling, Other Respiratory: negative: Cough, Dry, Shortness of Breath, Hemoptysis, SOB with Excertion, Pleuritic Pain, Sputum, Wheezing Cardiovascular: edema. negative: chest pain, palpitations, orthopnea, paroxysmal nocturnal dyspnea, light headedness, other Gastrointestinal: negative: Nausea, Vomiting, Abdominal Pain, Diarrhea, Constipation, Melena, Hematochezia, Other Genitourinary: negative: Dysuria, Frequency, Incontinence, Hematuria, Retention , Other - Medications/Allergies Allergies/Adverse Reactions: Allergies Allergy/AdvReac Type Severity Reaction Status Date / Time Iodinated Contrast- Oral and Allergy Verified 01/31/18 11:31 IV Dye [Iodinated Contrast Media - IV Dye] loxapine Allergy Verified 01/31/18 11:31 shrimp Allergy Verified 01/31/18 11:31 Medications: Current Medications Acetaminophen (Tylenol) 650 mg PO Q4H PRN PRN Reason: Headache/Fever or Pain Last Admin: 06/20/18 04:58 Dose: 650 mg Al Hydroxide/Mg Hydroxide (Maalox) 15 ml PO Q4H PRN PRN Reason: Heartburn or Indigestion Albuterol/Ipratropium (Duoneb) 3 ml NEB [id number] [facility] Last Admin: 06/29/18 10:22 Dose: 3 ml Artificial Tears (Tears Naturale) 0 drop EA EYE PRN PRN PRN Reason: Dry Eyes Bisacodyl (Dulcolax) 10 mg PO DAILYPRN PRN PRN Reason: Constipation Famotidine (Pepcid) 20 mg PO Q12HR [facility] Last Admin: 06/29/18 08:25 Dose: 20 mg Furosemide (Lasix) 40 mg SLOW IVP 0600 [facility] Last Admin: 06/29/18 04:50 Dose: 40 mg Guaifenesin (Robitussin Sf) 200 mg PO Q4H PRN PRN Reason: Cough Hydralazine HCl (Apresoline) 10 mg SLOW IVP Q4H PRN PRN Reason: Systolic BP > 180 Potassium Chloride 40 meq/ (Sodium Chloride) 270 mls @ 135 mls/hr IVPB ASDIR PRN PRN Reason: FOR SERUM K+ 2.5 - 3.5 Potassium Chloride 40 meq/ (Device) 100 mls @ 50 mls/hr IVPB ASDIR PRN PRN Reason: FOR SERUM K+ 2.5 - 3.5 Magnesium Sulfate 1 gm/ Sodium (Chloride) 102 mls @ 102 mls/hr IV PRN PRN PRN Reason: MAG LEVEL 1.4 - 2.0 Magnesium Sulfate 2 gm/ Device 100 mls @ 100 mls/hr IVPB ASDIR PRN PRN Reason: MAGNESIUM < 1.4 Potassium Phosphate 9 mmol/ (Sodium Chloride) 103 mls @ 25.75 mls/hr IVPB ASDIR PRN PRN Reason: Phosphate 1.0-1.8 Potassium Phosphate 12 mmol/ (Sodium Chloride) 254 mls @ 63.5 mls/hr IV ASDIR PRN PRN Reason: Serum phosphate 0.5-0.9 Potassium Phosphate 15 mmol/ (Sodium Chloride) 255 mls @ 63.75 mls/hr IV ASDIR PRN PRN Reason: Serum Phos < 0.5 Cefepime HCl 2 gm/ Sodium (Chloride) 100 mls @ 200 mls/hr IVPB 0600,1800 [facility] Last Admin: 06/29/18 04:50 Dose: 100 mls Vancomycin HCl 1.25 gm/ Sodium (Chloride) 250 mls @ 166.667 mls/hr IVPB Q2D@ 1400 [facility] Last Admin: 06/27/18 17:30 Dose: 250 mls Lorazepam (Ativan) 2 mg SLOW IVP Q1H PRN PRN Reason: Breakthrough agitation Stop: 07/23/18 15:07 Last Admin: 06/28/18 20:58 Dose: 2 mg Magnesium Hydroxide (Milk Of Magnesium) 30 ml PO DAILYPRN PRN PRN Reason: Constipation Magnesium Oxide (Magnesium Oxide) 400 mg PO BIDPRN PRN PRN Reason: FOR SERUM MAG 1.4 - 2.0 Last Admin: 06/25/18 04:28 Dose: 400 mg Magnesium Oxide (Magnesium Oxide) 800 mg PO PRN PRN PRN Reason: FOR SERUM MAG < 1.4 Mineral Oil/White Petrolatum (Eucerin Cream) 0 gm TOP BIDPRN PRN PRN Reason: Dry Skin Miscellaneous Medication (Pharmacy To Dose) 1 each IVPB PRN PRN PRN Reason: Pharmacy to dose Miscellaneous Medication (Phos-Nak) 1 pkt PO TIDPRN PRN PRN Reason: FOR PHOS LEVEL 1.0 - 1.8 Miscellaneous Medication (Phos-Nak) 2 pkt PO TIDPRN PRN PRN Reason: FOR PHOS LEVEL 0.5 - 1.0 Morphine Sulfate (Morphine) 2 mg SLOW IVP Q1H PRN PRN Reason: BREAKTHROUGH PAIN/AGITATION Stop: 07/23/18 15:07 Last Admin: 06/28/18 10:34 Dose: 2 mg Discontinue Previous Narcotic Pain Medications And Benzodiazepines 1 each FS .ONE [facility] Stop: 07/23/18 15:07 Ondansetron HCl (Zofran Odt) 4 mg PO Q6H PRN PRN Reason: Nausea/Vomiting Ondansetron HCl (Zofran) 4 mg IVP Q6H PRN PRN Reason: Nausea/Vomiting Last Admin: 06/27/18 22:34 Dose: 4 mg Phenol (Chloraseptic [place] 180 Ml Bot) 0 ml PO PRN PRN PRN Reason: Sore Throat Potassium Chloride (K-Dur) 40 meq PO ASDIR PRN PRN Reason: FOR SERUM K+ 2.5 - 3.5 Potassium Chloride (Klor-Con) 40 meq PER TUBE ASDIR PRN PRN Reason: FOR SERUM K+ 2.5-3.5 Last Admin: 06/26/18 10:09 Dose: 40 meq Propofol (Diprivan) 1,000 mg IV INF PRN; Protocol PRN Reason: TO ACHIEVE GOAL RASS Stop: 07/23/18 15:07 Last Admin: 06/24/18 22:48 Dose: 1,000 mg Propofol (Diprivan Bolus) 20 mg IV Q5MIN PRN PRN Reason: BREAKTHROUGH AGITATION Stop: 07/23/18 15:07 Saccharomyces Boulardii (Florastor) 250 mg PO DAILY [facility] Last Admin: 06/29/18 08:25 Dose: 250 mg Sodium Biphosphate/Sodium Phosphate (Fleet Enema) 133 ml [place] ONE PRN PRN Reason: Constipation Stop: 07/20/18 00:31 Sodium Chloride (Flush - Normal Saline) 10 ml IVF Q12HR [facility] Last Admin: 06/29/18 08:25 Dose: 10 ml Sodium Chloride (Flush - Normal Saline) 10 ml IVF PRN PRN PRN Reason: Saline Flush Sodium Chloride ([place] Nasal [place] 0.65%) 0 ml EA NARE QIDPRN PRN PRN Reason: Nasal Congestion
[2018-06-29] MEDS: Vancomycin HCl 1.25 GM in Sodium Chloride 0.9% 250 ML 250 ML IVPB SCH (15:17)
--- NOTE | 2018-06-29 18:24 | PRG ---
DATE OF SERVICE: 06/29/2018 SUBJECTIVE: Mr. Saucedo says he is feeling great. He received a dose of Ativan and said he was havin g a hard time waking up. Ativan will be removed from his MAR. He has now been in the hospital 10 days, on cefepime, so we should be able to discontinue his cefepim e soon. OBJECTIVE: LUNGS: Remarkable for mild rhonchi. He has adequately controlled secretions at this time. HEART: Regular rhythm. ABDOMEN: Soft. EXTREMITIES: Bandaged. Intake and output is negative 691. LABORATORY DATA: White count 11.8, hemoglobin 9.6, platelets 164,000. Sodium 142, potassium 3.4, ch loride 107, bicarbonate 28, BUN 18, creatinine 0.67. IMPRESSION: 1. Status post [id number] amputation for a chronically infected right lower extremity. 2. Severe intravascular volume depletion combined with probable early sepsis on presentation. Cultu res remain negative except for a tracheal aspirate, which grew yeast. This does not need to be treat ed. 3. Extreme deconditioning secondary to prolonged illness with his right lower extremity infection. 4. Cirrhosis. 5. Probable chronic obstructive pulmonary disease. PLAN: We will continue with wound care, out of neuro chair, strengthening exercises. At some point in time, we will need transfer to either a long-term acute care or a [facility] facility, but I do not feel that is appropriate at least for the rest of this week. I discussed the above with Orthoped ic Surgery as well.
[2018-06-30 05:16] LABS: Band 11 % (5-11); Eosinophils 2 % (0-10); Hemoglobin 9.6 g/dL (14.0-18.0); Lymphocytes 9 % (21-51); MDiff Complete? YES; Mean Corpuscular HGB CONC 31.6 g/dL (32.0-36.0); Mean Corpuscular Hemoglobin 31.4 pg (27.0-31.0); Mean Corpuscular Volume 99.4 fL (78.0-98.0); Mean Platelet Volume 7.6 fL (7.4-10.4); Metamyelocyte 3 % (0-0); Monocytes 15 % (0-10); Myelocyte 1 % (0-0); Neutrophil 59 % (42-75); PLT Morphology Comment Appears Adequate; Platelet Count 148 thou/uL (130-400); RBC Distribution Width 16.2 % (11.5-14.5); Red Blood Cell (RBC) Count 3.05 mill/uL (4.70-6.10); White Blood Cell (WBC) Count 11.5 thou/uL (4.8-10.8)
[2018-06-30] MEDS: Furosemide 40 MG/4 ML VIAL SLOW IVP SCH (05:16)
[2018-06-30] MEDS: Cefepime 2 GM in Sodium Chloride 0.9% 100 ML IVPB SCH (05:18)
[2018-06-30 05:23] LABS: Anion Gap 9 mmol/L (10-20); BUN (Urea Nitrogen) 14 mg/dL (8.4-25.7); Calc. Creatinine Clearance 157 mL/min (70-130); Calcium 8.3 mg/dL (7.8-10.44); Carbon Dioxide 29 mmol/L (23-31); Chloride 103 mmol/L (98-107); Estimated GFR-MDRD Greater than 90; Glucose 93 mg/dL (80-115); Potassium 3.4 mmol/L (3.5-5.1); Sodium 138 mmol/L (136-145)
[2018-06-30] MEDS: Acetaminophen 325 MG TAB PO PRN (06:39)
--- NOTE | 2018-06-30 08:41 | RAD ---
CHEST ONE VIEW: HISTORY: Dyspnea. Followup. COMPARISON: 06/29/2018 FINDINGS: The cardiac silhouette is magnified and at the upper limits of normal in size. The pulmonary vascula ture remains engorged but improved compared to yesterday's exam. The mediastinum is midline, allowin g for slight rightward rotation to the patient. No evidence of pneumothorax. The left lateral costo phrenic angle is excluded from the image. A right upper extremity PICC is partially visualized. IMPRESSION: Radiographic improvement in the appearance of the pulmonary vascular congestion. POS: DIVYA
--- NOTE | 2018-06-30 10:21 | PRG ---
DATE OF SERVICE: 06/30/2018 PHYSICAL EXAMINATION: VITAL SIGNS: Heart rate 92, respiratory rates in the 20s, oximetry is 90% on 3 liters, blood pressur e 139/82. LUNGS: Clear. CARDIOVASCULAR: Regular rhythm. S1 and S2 are normal. ABDOMEN: Soft and nontender. EXTREMITIES: Without clubbing, cyanosis, or edema. IMPRESSION: 1. Status post above the knee amputation on the right for chronically infected joint and hardware wi th a draining fistula track that has grown out methicillin-resistant Staph as well as coag negative S taph and a yeast. I suspect yeast colonized. 2. Anemia. His hemoglobin is stable at 9.6. 3. Probable subacute aspiration pneumonitis on the left, improving clinically and radiographically. He has had an adequate course of IV antimicrobial therapy in my opinion. He is tolerating p.o. We will continue with wound care, supportive care in the ICU. 4. Cirrhosis, not a clinical issue at this time, status post transfusion of fresh frozen plasma to f acilitate his operation. 5. Extreme deconditioning because of his chronic lower extremity issues. 6. History of tobacco use, probable chronic obstructive pulmonary disease, not a clinical issue at t his time.
[2018-06-30] MEDS: Saccharomyces boulardii 250 MG CAP PO SCH (10:22)
[2018-06-30] MEDS: Famotidine 20 MG TAB PO SCH ×2 (10:22→20:26)
--- NOTE | 2018-06-30 11:39 | PDOC.PN ---
- Subjective Encounter Start Date: 06/30/18 Encounter Start Time: 09:50 Patient seen and examined. No new complaints. No overnight events - Objective Resuscitation Status: Resuscitation Status DNR:Do Not Resuscitate MAR Reviewed: Yes Vital Signs & Weight: Vital Signs (12 hours) Temp Pulse Resp Pulse Ox 06/30/18 10:47 95 20 06/30/18 07:47 92 23 H 100 06/30/18 04:00 98.3 F 06/30/18 02:11 85 22 H 99 06/30/18 00:00 98.1 F Weight Admit Weight 225 lb 15.581 oz Weight 225 lb Most Recent Monitor Data Heart Rate from ECG 98 NIBP 139/82 NIBP BP-Mean 101 Respiration from ECG 24 SpO2 100 I&O: 06/29/18 06/30/18 07/01/18 06:59 06:59 06:59 Intake Total 1654 2941 Output Total 2345 2065 Balance -691 876 Result Diagrams: 06/30/18 04:45 06/30/18 04:45 Phys Exam - Physical Examination Constitutional: NAD HEENT: PERRLA, moist MMs, sclera anicteric Neck: no JVD, supple Respiratory: no wheezing, no rales, no rhonchi Cardiovascular: RRR, no rub sm+ Gastrointestinal: soft, non-tender, no distention, positive bowel sounds Musculoskeletal: edema present right aka with wound vac in place Lymphatic: no nodes Psychiatric: normal affect Skin: no rash, normal turgor Dx/Plan (1) Acute respiratory failure with hypoxia Code(s): J96.01 - ACUTE RESPIRATORY FAILURE WITH HYPOXIA Status: Acute Comment: (2) Demand ischemia Code(s): I24.8 - OTHER FORMS OF ACUTE ISCHEMIC HEART DISEASE Status: Acute (3) Lactic acidosis Code(s): E87.2 - ACIDOSIS Status: Resolved (4) Multifocal pneumonia Code(s): J18.9 - PNEUMONIA, UNSPECIFIED ORGANISM Status: Acute (5) Septic shock Code(s): A41.9 - SEPSIS, UNSPECIFIED ORGANISM; R65.21 - SEVERE SEPSIS WITH SEPTIC SHOCK Status: Resolved (6) Alcoholic cirrhosis of liver with ascites Code(s): K70.31 - ALCOHOLIC CIRRHOSIS OF LIVER WITH ASCITES Status: Chronic (7) Chronic stage c diastolic heart failure Code(s): I50.32 - CHRONIC DIASTOLIC (CONGESTIVE) HEART FAILURE Status: Chronic (8) Coagulopathy Status: Chronic (9) Hypertension Code(s): I10 - ESSENTIAL (PRIMARY) HYPERTENSION Status: Chronic (10) Hyponatremia Code(s): E87.1 - HYPO-OSMOLALITY AND HYPONATREMIA Status: Chronic (11) Macrocytic anemia Code(s): D53.9 - NUTRITIONAL ANEMIA, UNSPECIFIED Status: Chronic (12) Physical deconditioning Code(s): R53.81 - OTHER MALAISE Status: Chronic (13) Status post hardware removal Code(s): Z98.890 - OTHER SPECIFIED POSTPROCEDURAL STATES Status: Chronic (14) Pulmonary hypertension Code(s): I27.20 - PULMONARY HYPERTENSION, UNSPECIFIED Status: Chronic (15) Severe tricuspid regurgitation Code(s): I07.1 - RHEUMATIC TRICUSPID INSUFFICIENCY Status: Chronic (16) Above knee amputation of right lower extremity Code(s): Z89.611 - ACQUIRED ABSENCE OF RIGHT LEG ABOVE KNEE Status: Acute (17) Hypokalemia Code(s): E87.6 - HYPOKALEMIA Status: Acute - Plan cont current plan of care, continue antibiotics, PT/OT, transition social worker, respiratory therapy * medication reviewed as below * symptomatic treatment * overall stable and improving * continue to monitor in CCU, transfer when pulmonary ok * on cefepime and vancomycin * wound care * will need swing bed on discharge. * replace potassium as per protocol Review of Systems - Review of Systems Constitutional: weakness. negative: fever, chills, sweats, malaise, other ENT: negative: Ear Pain, Ear Discharge, Nose Pain, Nose Discharge, Nose Congestion, Mouth Pain, Mouth Swelling, Throat Pain, Throat Swelling, Other Respiratory: negative: Cough, Dry, Shortness of Breath, Hemoptysis, SOB with Excertion, Pleuritic Pain, Sputum, Wheezing Cardiovascular: negative: chest pain, palpitations, orthopnea, paroxysmal nocturnal dyspnea, edema, light headedness, other Gastrointestinal: negative: Nausea, Vomiting, Abdominal Pain, Diarrhea, Constipation, Melena, Hematochezia, Other Genitourinary: negative: Dysuria, Frequency, Incontinence, Hematuria, Retention , Other Musculoskeletal: negative: Neck Pain, Shoulder Pain, Arm Pain, Back Pain, Hand Pain, Leg Pain, Foot Pain, Other - Medications/Allergies Allergies/Adverse Reactions: Allergies Allergy/AdvReac Type Severity Reaction Status Date / Time Iodinated Contrast- Oral and Allergy Verified 01/31/18 11:31 IV Dye [Iodinated Contrast Media - IV Dye] loxapine Allergy Verified 01/31/18 11:31 shrimp Allergy Verified 01/31/18 11:31 Medications: Current Medications Acetaminophen (Tylenol) 650 mg PO Q4H PRN PRN Reason: Headache/Fever or Pain Last Admin: 06/30/18 06:39 Dose: 650 mg Al Hydroxide/Mg Hydroxide (Maalox) 15 ml PO Q4H PRN PRN Reason: Heartburn or Indigestion Last Admin: 06/30/18 00:36 Dose: 15 ml Albuterol/Ipratropium (Duoneb) 3 ml NEB [id number] [facility] Last Admin: 06/30/18 10:47 Dose: 3 ml Artificial Tears (Tears Naturale) 0 drop EA EYE PRN PRN PRN Reason: Dry Eyes Bisacodyl (Dulcolax) 10 mg PO DAILYPRN PRN PRN Reason: Constipation Cefdinir (Omnicef) 300 mg PO BID [facility] Stop: 07/03/18 23:59 Famotidine (Pepcid) 20 mg PO Q12HR [facility] Last Admin: 06/30/18 10:22 Dose: 20 mg Furosemide (Lasix) 40 mg SLOW IVP 0600 [facility] Last Admin: 06/30/18 05:16 Dose: 40 mg Guaifenesin (Robitussin Sf) 200 mg PO Q4H PRN PRN Reason: Cough Hydralazine HCl (Apresoline) 10 mg SLOW IVP Q4H PRN PRN Reason: Systolic BP > 180 Potassium Chloride 40 meq/ (Sodium Chloride) 270 mls @ 135 mls/hr IVPB ASDIR PRN PRN Reason: FOR SERUM K+ 2.5 - 3.5 Potassium Chloride 40 meq/ (Device) 100 mls @ 50 mls/hr IVPB ASDIR PRN PRN Reason: FOR SERUM K+ 2.5 - 3.5 Magnesium Sulfate 1 gm/ Sodium (Chloride) 102 mls @ 102 mls/hr IV PRN PRN PRN Reason: MAG LEVEL 1.4 - 2.0 Magnesium Sulfate 2 gm/ Device 100 mls @ 100 mls/hr IVPB ASDIR PRN PRN Reason: MAGNESIUM < 1.4 Potassium Phosphate 9 mmol/ (Sodium Chloride) 103 mls @ 25.75 mls/hr IVPB ASDIR PRN PRN Reason: Phosphate 1.0-1.8 Potassium Phosphate 12 mmol/ (Sodium Chloride) 254 mls @ 63.5 mls/hr IV ASDIR PRN PRN Reason: Serum phosphate 0.5-0.9 Potassium Phosphate 15 mmol/ (Sodium Chloride) 255 mls @ 63.75 mls/hr IV ASDIR PRN PRN Reason: Serum Phos < 0.5 Vancomycin HCl 1.25 gm/ Sodium (Chloride) 250 mls @ 166.667 mls/hr IVPB Q2D@ 1400 [facility] Last Admin: 06/29/18 15:17 Dose: 250 mls Magnesium Hydroxide (Milk Of Magnesium) 30 ml PO DAILYPRN PRN PRN Reason: Constipation Magnesium Oxide (Magnesium Oxide) 400 mg PO BIDPRN PRN PRN Reason: FOR SERUM MAG 1.4 - 2.0 Last Admin: 06/25/18 04:28 Dose: 400 mg Magnesium Oxide (Magnesium Oxide) 800 mg PO PRN PRN PRN Reason: FOR SERUM MAG < 1.4 Mineral Oil/White Petrolatum (Eucerin Cream) 0 gm TOP BIDPRN PRN PRN Reason: Dry Skin Miscellaneous Medication (Pharmacy To Dose) 1 each IVPB PRN PRN PRN Reason: Pharmacy to dose Miscellaneous Medication (Phos-Nak) 1 pkt PO TIDPRN PRN PRN Reason: FOR PHOS LEVEL 1.0 - 1.8 Miscellaneous Medication (Phos-Nak) 2 pkt PO TIDPRN PRN PRN Reason: FOR PHOS LEVEL 0.5 - 1.0 Ondansetron HCl (Zofran Odt) 4 mg PO Q6H PRN PRN Reason: Nausea/Vomiting Ondansetron HCl (Zofran) 4 mg IVP Q6H PRN PRN Reason: Nausea/Vomiting Last Admin: 06/27/18 22:34 Dose: 4 mg Phenol (Chloraseptic [place] 180 Ml Bot) 0 ml PO PRN PRN PRN Reason: Sore Throat Potassium Chloride (K-Dur) 40 meq PO ASDIR PRN PRN Reason: FOR SERUM K+ 2.5 - 3.5 Last Admin: 06/30/18 06:39 Dose: 40 meq Potassium Chloride (Klor-Con) 40 meq PER TUBE ASDIR PRN PRN Reason: FOR SERUM K+ 2.5-3.5 Last Admin: 06/26/18 10:09 Dose: 40 meq Saccharomyces Boulardii (Florastor) 250 mg PO DAILY [facility] Last Admin: 06/30/18 10:22 Dose: 250 mg Sodium Biphosphate/Sodium Phosphate (Fleet Enema) 133 ml [place] ONE PRN PRN Reason: Constipation Stop: 07/20/18 00:31 Sodium Chloride (Flush - Normal Saline) 10 ml IVF Q12HR [facility] Last Admin: 06/30/18 10:23 Dose: 10 ml Sodium Chloride (Flush - Normal Saline) 10 ml IVF PRN PRN PRN Reason: Saline Flush Sodium Chloride ([place] Nasal [place] 0.65%) 0 ml EA NARE QIDPRN PRN PRN Reason: Nasal Congestion
[2018-06-30] MEDS: Cefdinir 300 MG CAP PO SCH (20:26)
[2018-06-30] MEDS: Melatonin 3 MG TAB PO PRN (21:32)
[2018-07-01 04:28] LABS: Anion Gap 9 mmol/L (10-20); BUN (Urea Nitrogen) 13 mg/dL (8.4-25.7); Calc. Creatinine Clearance 160 mL/min (70-130); Calcium 7.7 mg/dL (7.8-10.44); Carbon Dioxide 29 mmol/L (23-31); Chloride 102 mmol/L (98-107); Estimated GFR-MDRD Greater than 90; Glucose 87 mg/dL (80-115); Potassium 3.5 mmol/L (3.5-5.1); Sodium 136 mmol/L (136-145)
[2018-07-01 04:45] LABS: Hemoglobin 8.5 g/dL (14.0-18.0); Hypochromia SLIGHT = 6-15 cells (100X) (0-5/hpf); Lymphocytes 7 % (21-51); MDiff Complete? YES; Mean Corpuscular HGB CONC 31.8 g/dL (32.0-36.0); Mean Corpuscular Hemoglobin 31.6 pg (27.0-31.0); Mean Corpuscular Volume 99.3 fL (78.0-98.0); Mean Platelet Volume 7.3 fL (7.4-10.4); Monocytes 6 % (0-10); Neutrophil 87 % (42-75); PLT Morphology Comment Appears Adequate; Platelet Count 135 thou/uL (130-400); RBC Distribution Width 16.1 % (11.5-14.5); White Blood Cell (WBC) Count 12.1 thou/uL (4.8-10.8)
[2018-07-01] MEDS: Furosemide 40 MG/4 ML VIAL SLOW IVP SCH (05:50)
--- NOTE | 2018-07-01 09:00 | PRG ---
DATE OF SERVICE: 07/01/2018 SUBJECTIVE: This morning, he is awake, alert, and responsive, complaining of pain in his leg, big am putation. PHYSICAL EXAMINATION: VITAL SIGNS: Respirations are 21, pulse 85, sats 100% on 3 liters, blood pressure 147/71. GENERAL: He is awake, alert, responsive. CHEST: Anterior rhonchi. CARDIAC: Normal S1 and S2. No gallops. ABDOMEN: Soft. EXTREMITIES: No edema. LABORATORY DATA: His white count 12,000, H and H is 8 and 26, platelet count is normal. Electrolyte s are normal. Chest x-ray shows no acute infiltrates. IMPRESSION: 1. Status post above-knee amputation, right lower extremity. 2. Severe chronic obstructive pulmonary disease. 3. Alcoholic liver disease. 4. Cirrhosis. 5. Ascites. PLAN: Continue aggressive PT and supportive care, empiric antibiotics. Omnicef and vancomycin. We will follow.
--- NOTE | 2018-07-01 09:16 | RAD ---
PORTABLE AP CHEST XRAY: DATE: 07/01/18. HISTORY: On ventilator. COMPARISON: 06/30/18. FINDINGS: The patient is rotated to the right which accentuates the cardiac silhouette and bronchovascular zunilda ings. The left lung base is incompletely imaged, but there is a suggestion of increased density of t he left lung base which could be related to left pleural effusion and atelectasis, although developin g pneumonia left lung base is a possibility. There is a suggestion of mild increased interstitial an d alveolar opacities in the left perihilar location, but some of this appearance could be related to patient rotation. Right-sided PICC line remains in place. Given differences in patient rotation, th ere has been no significant interval change. IMPRESSION: Overall stable chest. POS: KRYSTYNA
[2018-07-01] MEDS: Famotidine 20 MG TAB PO SCH ×2 (09:52→22:17)
[2018-07-01] MEDS: Saccharomyces boulardii 250 MG CAP PO SCH (09:52)
[2018-07-01] MEDS: Cefdinir 300 MG CAP PO SCH ×2 (09:52→22:17)
--- NOTE | 2018-07-01 10:10 | PDOC.PN ---
- Subjective Encounter Start Date: 07/01/18 Encounter Start Time: 08:50 Patient seen and examined. No new complaints. No overnight events - Objective Resuscitation Status: Resuscitation Status DNR:Do Not Resuscitate MAR Reviewed: Yes Vital Signs & Weight: Vital Signs (12 hours) Temp Pulse Resp Pulse Ox 07/01/18 06:26 100 07/01/18 06:23 85 21 H 100 07/01/18 03:00 98.1 F 07/01/18 02:18 92 20 97 06/30/18 23:00 98.6 F 06/30/18 22:10 90 21 H 98 Weight Admit Weight 225 lb 15.581 oz Weight 207 lb 14.334 oz Most Recent Monitor Data Heart Rate from ECG 99 NIBP 147/71 NIBP BP-Mean 92 Respiration from ECG 21 SpO2 99 I&O: 06/30/18 07/01/18 07/02/18 06:59 06:59 06:59 Intake Total 2941 1170 Output Total 2065 1075 Balance 876 95 Result Diagrams: 07/01/18 04:00 07/01/18 04:00 Radiology Reviewed by me: Yes (chest xray reviewed) EKG Reviewed by me: Yes Phys Exam - Physical Examination Constitutional: NAD HEENT: PERRLA, moist MMs, sclera anicteric Neck: no JVD, supple Respiratory: no wheezing, no rales, no rhonchi anteriorly Cardiovascular: RRR, no significant murmur, no rub parasternal SM+ Gastrointestinal: soft, non-tender, no distention, positive bowel sounds Musculoskeletal: edema present left leg edema+, right AKA with wound vac, corey+ Neurological: non-focal Lymphatic: no nodes Psychiatric: normal affect Skin: no rash, normal turgor Dx/Plan (1) Acute respiratory failure with hypoxia Code(s): J96.01 - ACUTE RESPIRATORY FAILURE WITH HYPOXIA Status: Acute Comment: (2) Demand ischemia Code(s): I24.8 - OTHER FORMS OF ACUTE ISCHEMIC HEART DISEASE Status: Acute (3) Lactic acidosis Code(s): E87.2 - ACIDOSIS Status: Resolved (4) Multifocal pneumonia Code(s): J18.9 - PNEUMONIA, UNSPECIFIED ORGANISM Status: Acute (5) Septic shock Code(s): A41.9 - SEPSIS, UNSPECIFIED ORGANISM; R65.21 - SEVERE SEPSIS WITH SEPTIC SHOCK Status: Resolved (6) Alcoholic cirrhosis of liver with ascites Code(s): K70.31 - ALCOHOLIC CIRRHOSIS OF LIVER WITH ASCITES Status: Chronic (7) Chronic stage c diastolic heart failure Code(s): I50.32 - CHRONIC DIASTOLIC (CONGESTIVE) HEART FAILURE Status: Chronic (8) Coagulopathy Status: Chronic (9) Hypertension Code(s): I10 - ESSENTIAL (PRIMARY) HYPERTENSION Status: Chronic (10) Hyponatremia Code(s): E87.1 - HYPO-OSMOLALITY AND HYPONATREMIA Status: Chronic (11) Macrocytic anemia Code(s): D53.9 - NUTRITIONAL ANEMIA, UNSPECIFIED Status: Chronic (12) Physical deconditioning Code(s): R53.81 - OTHER MALAISE Status: Chronic (13) Status post hardware removal Code(s): Z98.890 - OTHER SPECIFIED POSTPROCEDURAL STATES Status: Chronic (14) Pulmonary hypertension Code(s): I27.20 - PULMONARY HYPERTENSION, UNSPECIFIED Status: Chronic (15) Severe tricuspid regurgitation Code(s): I07.1 - RHEUMATIC TRICUSPID INSUFFICIENCY Status: Chronic (16) Above knee amputation of right lower extremity Code(s): Z89.611 - ACQUIRED ABSENCE OF RIGHT LEG ABOVE KNEE Status: Acute - Plan cont current plan of care, continue antibiotics, PT/OT, social welfare research worker * continue vancomycin and omnicef * close monitoring in ccu * medication reviewed as below * symptomatic treatment * will need placement. Review of Systems - Review of Systems Eyes: negative: Pain, Vision Change, Conjunctivae Inflammation, Eyelid Inflammation, Redness, Other ENT: negative: Ear Pain, Ear Discharge, Nose Pain, Nose Discharge, Nose Congestion, Mouth Pain, Mouth Swelling, Throat Pain, Throat Swelling, Other Respiratory: negative: Cough, Dry, Shortness of Breath, Hemoptysis, SOB with Excertion, Pleuritic Pain, Sputum, Wheezing Cardiovascular: negative: chest pain, palpitations, orthopnea, paroxysmal nocturnal dyspnea, edema, light headedness, other Gastrointestinal: negative: Nausea, Vomiting, Abdominal Pain, Diarrhea, Constipation, Melena, Hematochezia, Other Genitourinary: negative: Dysuria, Frequency, Incontinence, Hematuria, Retention , Other Musculoskeletal: negative: Neck Pain, Shoulder Pain, Arm Pain, Back Pain, Hand Pain, Leg Pain, Foot Pain, Other - Medications/Allergies Allergies/Adverse Reactions: Allergies Allergy/AdvReac Type Severity Reaction Status Date / Time Iodinated Contrast- Oral and Allergy Verified 01/31/18 11:31 IV Dye [Iodinated Contrast Media - IV Dye] loxapine Allergy Verified 01/31/18 11:31 shrimp Allergy Verified 01/31/18 11:31 Medications: Current Medications Acetaminophen (Tylenol) 650 mg PO Q4H PRN PRN Reason: Headache/Fever or Pain Last Admin: 06/30/18 06:39 Dose: 650 mg Al Hydroxide/Mg Hydroxide (Maalox) 15 ml PO Q4H PRN PRN Reason: Heartburn or Indigestion Last Admin: 06/30/18 00:36 Dose: 15 ml Albuterol/Ipratropium (Duoneb) 3 ml NEB [id number] [facility] Last Admin: 07/01/18 06:23 Dose: 3 ml Artificial Tears (Tears Naturale) 0 drop EA EYE PRN PRN PRN Reason: Dry Eyes Bisacodyl (Dulcolax) 10 mg PO DAILYPRN PRN PRN Reason: Constipation Cefdinir (Omnicef) 300 mg PO BID [facility] Stop: 07/03/18 23:59 Last Admin: 06/30/18 20:26 Dose: 300 mg Famotidine (Pepcid) 20 mg PO Q12HR [facility] Last Admin: 06/30/18 20:26 Dose: 20 mg Furosemide (Lasix) 40 mg SLOW IVP 0600 [facility] Last Admin: 07/01/18 05:50 Dose: 40 mg Guaifenesin (Robitussin Sf) 200 mg PO Q4H PRN PRN Reason: Cough Hydralazine HCl (Apresoline) 10 mg SLOW IVP Q4H PRN PRN Reason: Systolic BP > 180 Potassium Chloride 40 meq/ (Sodium Chloride) 270 mls @ 135 mls/hr IVPB ASDIR PRN PRN Reason: FOR SERUM K+ 2.5 - 3.5 Potassium Chloride 40 meq/ (Device) 100 mls @ 50 mls/hr IVPB ASDIR PRN PRN Reason: FOR SERUM K+ 2.5 - 3.5 Magnesium Sulfate 1 gm/ Sodium (Chloride) 102 mls @ 102 mls/hr IV PRN PRN PRN Reason: MAG LEVEL 1.4 - 2.0 Magnesium Sulfate 2 gm/ Device 100 mls @ 100 mls/hr IVPB ASDIR PRN PRN Reason: MAGNESIUM < 1.4 Potassium Phosphate 9 mmol/ (Sodium Chloride) 103 mls @ 25.75 mls/hr IVPB ASDIR PRN PRN Reason: Phosphate 1.0-1.8 Potassium Phosphate 12 mmol/ (Sodium Chloride) 254 mls @ 63.5 mls/hr IV ASDIR PRN PRN Reason: Serum phosphate 0.5-0.9 Potassium Phosphate 15 mmol/ (Sodium Chloride) 255 mls @ 63.75 mls/hr IV ASDIR PRN PRN Reason: Serum Phos < 0.5 Vancomycin HCl 1.25 gm/ Sodium (Chloride) 250 mls @ 166.667 mls/hr IVPB Q2D@ 1400 [facility] Last Admin: 06/29/18 15:17 Dose: 250 mls Magnesium Hydroxide (Milk Of Magnesium) 30 ml PO DAILYPRN PRN PRN Reason: Constipation Magnesium Oxide (Magnesium Oxide) 400 mg PO BIDPRN PRN PRN Reason: FOR SERUM MAG 1.4 - 2.0 Last Admin: 06/25/18 04:28 Dose: 400 mg Magnesium Oxide (Magnesium Oxide) 800 mg PO PRN PRN PRN Reason: FOR SERUM MAG < 1.4 Melatonin (Melatonin) 3 mg PO HSPRN PRN PRN Reason: Insomnia Last Admin: 06/30/18 21:32 Dose: 3 mg Mineral Oil/White Petrolatum (Eucerin Cream) 0 gm TOP BIDPRN PRN PRN Reason: Dry Skin Miscellaneous Medication (Pharmacy To Dose) 1 each IVPB PRN PRN PRN Reason: Pharmacy to dose Miscellaneous Medication (Phos-Nak) 1 pkt PO TIDPRN PRN PRN Reason: FOR PHOS LEVEL 1.0 - 1.8 Miscellaneous Medication (Phos-Nak) 2 pkt PO TIDPRN PRN PRN Reason: FOR PHOS LEVEL 0.5 - 1.0 Ondansetron HCl (Zofran Odt) 4 mg PO Q6H PRN PRN Reason: Nausea/Vomiting Ondansetron HCl (Zofran) 4 mg IVP Q6H PRN PRN Reason: Nausea/Vomiting Last Admin: 06/27/18 22:34 Dose: 4 mg Phenol (Chloraseptic [place] 180 Ml Bot) 0 ml PO PRN PRN PRN Reason: Sore Throat Potassium Chloride (K-Dur) 40 meq PO ASDIR PRN PRN Reason: FOR SERUM K+ 2.5 - 3.5 Last Admin: 06/30/18 06:39 Dose: 40 meq Potassium Chloride (Klor-Con) 40 meq PER TUBE ASDIR PRN PRN Reason: FOR SERUM K+ 2.5-3.5 Last Admin: 06/26/18 10:09 Dose: 40 meq Saccharomyces Boulardii (Florastor) 250 mg PO DAILY [facility] Last Admin: 06/30/18 10:22 Dose: 250 mg Sodium Biphosphate/Sodium Phosphate (Fleet Enema) 133 ml AL ONE PRN PRN Reason: Constipation Stop: 07/20/18 00:31 Sodium Chloride (Flush - Normal Saline) 10 ml IVF Q12HR [facility] Last Admin: 06/30/18 20:27 Dose: 10 ml Sodium Chloride (Flush - Normal Saline) 10 ml IVF PRN PRN PRN Reason: Saline Flush Sodium Chloride ([place] Nasal [place] 0.65%) 0 ml EA NARE QIDPRN PRN PRN Reason: Nasal Congestion
[2018-07-01 13:18] LABS: Vancomycin, Trough 16.7 ug/mL
[2018-07-01] MEDS: Vancomycin HCl 1.25 GM in Sodium Chloride 0.9% 250 ML 250 ML IVPB SCH (13:52)
[2018-07-01 22:56] LABS: #Basophils 0.1 thou/uL (0.0-0.2); #Eosinphils 0.4 thou/uL (0.0-0.7); #Lymphocytes 1.6 thou/uL (1.20-3.40); #Monocytes 1.7 thou/uL (0.11-0.59); %Basophils 0.6 % (0.0-1.0); %Lymphocytes 12.5 % (21.0-51.0); %Monocytes 13.1 % (0.0-10.0); %Neutrophils 70.8 % (42.0-75.0); Mean Corpuscular Hemoglobin 31.9 pg (27.0-31.0); Mean Corpuscular Volume 99.5 fL (78.0-98.0); Mean Platelet Volume 7.6 fL (7.4-10.4); Platelet Count 128 thou/uL (130-400); RBC Distribution Width 16.2 % (11.5-14.5); Red Blood Cell (RBC) Count 2.83 mill/uL (4.70-6.10); White Blood Cell (WBC) Count 12.7 thou/uL (4.8-10.8)
[2018-07-01 23:17] LABS: Anion Gap 10 mmol/L (10-20); BUN (Urea Nitrogen) 12 mg/dL (8.4-25.7); Calc. Creatinine Clearance 141 mL/min (70-130); Carbon Dioxide 31 mmol/L (23-31); Chloride 100 mmol/L (98-107); Estimated GFR-MDRD Greater than 90; Glucose 102 mg/dL (80-115); Potassium 3.5 mmol/L (3.5-5.1); Sodium 137 mmol/L (136-145)
[2018-07-02 04:33] LABS: Band 17 % (5-11); Eosinophils 2 % (0-10); Hemoglobin 8.3 g/dL (14.0-18.0); Lymphocytes 7 % (21-51); MDiff Complete? YES; Mean Corpuscular HGB CONC 32.2 g/dL (32.0-36.0); Mean Corpuscular Volume 99.4 fL (78.0-98.0); Mean Platelet Volume 7.9 fL (7.4-10.4); Monocytes 9 % (0-10); Neutrophil 65 % (42-75); PLT Morphology Comment Appears Adequate; Platelet Count 131 thou/uL (130-400); RBC Distribution Width 16.1 % (11.5-14.5); Red Blood Cell (RBC) Count 2.61 mill/uL (4.70-6.10); White Blood Cell (WBC) Count 11.4 thou/uL (4.8-10.8)
[2018-07-02 04:42] LABS: Anion Gap 10 mmol/L (10-20); BUN (Urea Nitrogen) 10 mg/dL (8.4-25.7); Calc. Creatinine Clearance 155 mL/min (70-130); Calcium 8.2 mg/dL (7.8-10.44); Carbon Dioxide 28 mmol/L (23-31); Chloride 101 mmol/L (98-107); Estimated GFR-MDRD Greater than 90; Glucose 91 mg/dL (80-115); Potassium 3.2 mmol/L (3.5-5.1); Sodium 136 mmol/L (136-145)
[2018-07-02] MEDS: Furosemide 40 MG/4 ML VIAL SLOW IVP SCH (06:40)
[2018-07-02] MEDS ORDERED: Loperamide HCl 2 MG CAP PO PRN (08:02)
[2018-07-02] MEDS ORDERED: Potassium Chloride 20 MEQ TAB PO SCH (08:30)
[2018-07-02] MEDS: Cefdinir 300 MG CAP PO SCH ×2 (10:13→21:24)
[2018-07-02] MEDS: Famotidine 20 MG TAB PO SCH ×2 (10:13→21:24)
[2018-07-02] MEDS: Saccharomyces boulardii 250 MG CAP PO SCH (10:13)
[2018-07-02] MEDS: Acetaminophen 325 MG TAB PO PRN ×2 (10:14→15:43)
--- NOTE | 2018-07-02 10:50 | PDOC.PN ---
- Subjective Encounter Start Date: 07/02/18 Encounter Start Time: 07:20 Patient seen and examined. No new complaints. No overnight events - Objective Resuscitation Status: Resuscitation Status DNR:Do Not Resuscitate MAR Reviewed: Yes Vital Signs & Weight: Vital Signs (12 hours) Temp Pulse Resp BP Pulse Ox 07/02/18 07:49 97.8 F 83 18 126/60 93 L 07/02/18 04:00 98.6 F 07/02/18 02:15 89 23 H 07/02/18 00:00 98.4 F Weight Admit Weight 225 lb 15.581 oz Weight 206 lb 3.2 oz Most Recent Monitor Data Heart Rate from ECG 87 NIBP 137/51 NIBP BP-Mean 81 Respiration from ECG 15 SpO2 97 I&O: 07/01/18 07/02/18 07/03/18 06:59 06:59 06:59 Intake Total 1170 1660 Output Total 1075 3255 Balance 95 -1595 Result Diagrams: 07/02/18 04:10 07/02/18 04:10 Additional Labs: Accuchecks 07/02/18 05:35 POC Glucose 96 EKG Reviewed by me: Yes (nsr) Phys Exam - Physical Examination Constitutional: NAD HEENT: PERRLA, moist MMs, sclera anicteric Neck: no JVD, supple Respiratory: no wheezing, no rales, no rhonchi Cardiovascular: RRR, no rub SM+ Gastrointestinal: soft, non-tender, no distention, positive bowel sounds left leg edema+, right AKA with wound vac+ Neurological: non-focal Lymphatic: no nodes Psychiatric: normal affect Skin: no rash, normal turgor Dx/Plan (1) Acute respiratory failure with hypoxia Code(s): J96.01 - ACUTE RESPIRATORY FAILURE WITH HYPOXIA Status: Acute Comment: (2) Demand ischemia Code(s): I24.8 - OTHER FORMS OF ACUTE ISCHEMIC HEART DISEASE Status: Acute (3) Lactic acidosis Code(s): E87.2 - ACIDOSIS Status: Resolved (4) Multifocal pneumonia Code(s): J18.9 - PNEUMONIA, UNSPECIFIED ORGANISM Status: Acute (5) Septic shock Code(s): A41.9 - SEPSIS, UNSPECIFIED ORGANISM; R65.21 - SEVERE SEPSIS WITH SEPTIC SHOCK Status: Resolved (6) Alcoholic cirrhosis of liver with ascites Code(s): K70.31 - ALCOHOLIC CIRRHOSIS OF LIVER WITH ASCITES Status: Chronic (7) Chronic stage c diastolic heart failure Code(s): I50.32 - CHRONIC DIASTOLIC (CONGESTIVE) HEART FAILURE Status: Chronic (8) Coagulopathy Status: Chronic (9) Hypertension Code(s): I10 - ESSENTIAL (PRIMARY) HYPERTENSION Status: Chronic (10) Hyponatremia Code(s): E87.1 - HYPO-OSMOLALITY AND HYPONATREMIA Status: Chronic (11) Macrocytic anemia Code(s): D53.9 - NUTRITIONAL ANEMIA, UNSPECIFIED Status: Chronic (12) Physical deconditioning Code(s): R53.81 - OTHER MALAISE Status: Chronic (13) Status post hardware removal Code(s): Z98.890 - OTHER SPECIFIED POSTPROCEDURAL STATES Status: Chronic (14) Pulmonary hypertension Code(s): I27.20 - PULMONARY HYPERTENSION, UNSPECIFIED Status: Chronic (15) Severe tricuspid regurgitation Code(s): I07.1 - RHEUMATIC TRICUSPID INSUFFICIENCY Status: Chronic (16) Above knee amputation of right lower extremity Code(s): Z89.611 - ACQUIRED ABSENCE OF RIGHT LEG ABOVE KNEE Status: Acute - Plan cont current plan of care, continue antibiotics, PT/OT, 7th grade social studies teacher * continue omnicef, vancomycin * medication reviewed as below * symptomatic treatment * wound care * discharge planning to swing bed, may be tomorrow if arranged * supportive care. Review of Systems - Review of Systems Constitutional: weakness. negative: fever, chills, sweats, malaise, other Eyes: negative: Pain, Vision Change, Conjunctivae Inflammation, Eyelid Inflammation, Redness, Other ENT: negative: Ear Pain, Ear Discharge, Nose Pain, Nose Discharge, Nose Congestion, Mouth Pain, Mouth Swelling, Throat Pain, Throat Swelling, Other Respiratory: negative: Cough, Dry, Shortness of Breath, Hemoptysis, SOB with Excertion, Pleuritic Pain, Sputum, Wheezing Cardiovascular: edema. negative: chest pain, palpitations, orthopnea, paroxysmal nocturnal dyspnea, light headedness, other Gastrointestinal: negative: Nausea, Vomiting, Abdominal Pain, Diarrhea, Constipation, Melena, Hematochezia, Other Genitourinary: negative: Dysuria, Frequency, Incontinence, Hematuria, Retention , Other Musculoskeletal: negative: Neck Pain, Shoulder Pain, Arm Pain, Back Pain, Hand Pain, Leg Pain, Foot Pain, Other Skin: negative: Rash, Lesions, José, Bruising, Other - Medications/Allergies Allergies/Adverse Reactions: Allergies Allergy/AdvReac Type Severity Reaction Status Date / Time Iodinated Contrast- Oral and Allergy Verified 01/31/18 11:31 IV Dye [Iodinated Contrast Media - IV Dye] loxapine Allergy Verified 01/31/18 11:31 shrimp Allergy Verified 01/31/18 11:31 Medications: Current Medications Acetaminophen (Tylenol) 650 mg PO Q4H PRN PRN Reason: Headache/Fever or Pain Last Admin: 07/02/18 10:14 Dose: 650 mg Al Hydroxide/Mg Hydroxide (Maalox) 15 ml PO Q4H PRN PRN Reason: Heartburn or Indigestion Last Admin: 06/30/18 00:36 Dose: 15 ml Albuterol/Ipratropium (Duoneb) 3 ml NEB [id number] [facility] Last Admin: 07/02/18 08:52 Dose: Not Given Artificial Tears (Tears Naturale) 0 drop EA EYE PRN PRN PRN Reason: Dry Eyes Bisacodyl (Dulcolax) 10 mg PO DAILYPRN PRN PRN Reason: Constipation Cefdinir (Omnicef) 300 mg PO BID [facility] Stop: 07/03/18 23:59 Last Admin: 07/02/18 10:13 Dose: 300 mg Famotidine (Pepcid) 20 mg PO Q12HR [facility] Last Admin: 07/02/18 10:13 Dose: 20 mg Furosemide (Lasix) 40 mg SLOW IVP 0600 [facility] Last Admin: 07/02/18 06:40 Dose: 40 mg Guaifenesin (Robitussin Sf) 200 mg PO Q4H PRN PRN Reason: Cough Hydralazine HCl (Apresoline) 10 mg SLOW IVP Q4H PRN PRN Reason: Systolic BP > 180 Vancomycin HCl 1.25 gm/ Sodium (Chloride) 250 mls @ 166.667 mls/hr IVPB Q2D@ 1400 [facility] Last Admin: 07/01/18 13:52 Dose: 250 mls Loperamide HCl (Imodium) 2 mg PO PRN PRN PRN Reason: Diarrhea/Loose Stools Magnesium Hydroxide (Milk Of Magnesium) 30 ml PO DAILYPRN PRN PRN Reason: Constipation Melatonin (Melatonin) 3 mg PO HSPRN PRN PRN Reason: Insomnia Last Admin: 06/30/18 21:32 Dose: 3 mg Mineral Oil/White Petrolatum (Eucerin Cream) 0 gm TOP BIDPRN PRN PRN Reason: Dry Skin Miscellaneous Medication (Pharmacy To Dose) 1 each IVPB PRN PRN PRN Reason: Pharmacy to dose Ondansetron HCl (Zofran Odt) 4 mg PO Q6H PRN PRN Reason: Nausea/Vomiting Ondansetron HCl (Zofran) 4 mg IVP Q6H PRN PRN Reason: Nausea/Vomiting Last Admin: 06/27/18 22:34 Dose: 4 mg Phenol (Chloraseptic [place] 180 Ml Bot) 0 ml PO PRN PRN PRN Reason: Sore Throat Saccharomyces Boulardii (Florastor) 250 mg PO DAILY [facility] Last Admin: 07/02/18 10:13 Dose: 250 mg Sodium Biphosphate/Sodium Phosphate (Fleet Enema) 133 ml [place] ONE PRN PRN Reason: Constipation Stop: 07/20/18 00:31 Sodium Chloride (Flush - Normal Saline) 10 ml IVF Q12HR [facility] Last Admin: 07/02/18 10:13 Dose: 10 ml Sodium Chloride (Flush - Normal Saline) 10 ml IVF PRN PRN PRN Reason: Saline Flush Sodium Chloride ([place] Nasal [place] 0.65%) 0 ml EA NARE QIDPRN PRN PRN Reason: Nasal Congestion
--- NOTE | 2018-07-02 12:54 | PRG ---
DATE OF SERVICE: 07/02/2018 SUBJECTIVE: This morning, awake, alert, responsive. He is getting a breathing treatment. Status post above-knee amputation, right. OBJECTIVE: VITAL SIGNS: Blood pressure is 126/60, sats are 92 liters, respiratory rate 12, temperature 97. GENERAL: He denies any pain or discomfort. CHEST: Decreased breath sounds, no wheezing. CARDIAC: Normal S1, S2, no gallops. ABDOMEN: No masses. LABORATORY: Electrolytes are normal. White count 11,000, H&H 8 and 25, platelet count 31. IMPRESSION: 1. Chronic obstructive pulmonary disease. 2. Status post right above-knee amputation. 3. Cirrhosis. 4. Diastolic dysfunction. 5. Severe deconditioning. PLAN: Continue PT, neb treatment, and Lasix. Supportive care.
[2018-07-02] MEDS: Morphine 4 MG/ML VIAL SLOW IVP PRN (17:32)
[2018-07-02] MEDS: Melatonin 3 MG TAB PO PRN (21:33)
[2018-07-03] MEDS: Furosemide 40 MG/4 ML VIAL SLOW IVP SCH (05:47)
[2018-07-03 05:49] LABS: Anion Gap 10 mmol/L (10-20); BUN (Urea Nitrogen) 8 mg/dL (8.4-25.7); Calc. Creatinine Clearance 147 mL/min (70-130); Calcium 7.9 mg/dL (7.8-10.44); Carbon Dioxide 29 mmol/L (23-31); Chloride 100 mmol/L (98-107); Estimated GFR-MDRD Greater than 90; Glucose 94 mg/dL (80-115); Magnesium 1.4 mg/dL (1.6-2.6); Phosphorus 2.5 mg/dL (2.3-4.7); Potassium 3.4 mmol/L (3.5-5.1); Sodium 136 mmol/L (136-145)
[2018-07-03 05:51] LABS: ALT (SGPT) 15 U/L (8-55); AST (SGOT) 31 U/L (5-34); Albumin 2.5 g/dL (3.4-4.8); Alkaline Phosphatase 115 U/L (40-150); Bilirubin, Direct 1.3 mg/dL (0.1-0.3); Bilirubin, Total 2.6 mg/dL (0.2-1.2); Protein, Total 5.5 g/dL (5.8-8.1)
[2018-07-03 06:23] LABS: Hemoglobin 8.4 g/dL (14.0-18.0); Hypochromia MODERATE=16-30 cells (100X) (0-5/hpf); Lymphocytes 8 % (21-51); MDiff Complete? YES; Mean Corpuscular HGB CONC 32.2 g/dL (32.0-36.0); Mean Corpuscular Hemoglobin 32.2 pg (27.0-31.0); Mean Platelet Volume 7.6 fL (7.4-10.4); Monocytes 4 % (0-10); Neutrophil 88 % (42-75); PLT Morphology Comment Appears Adequate; Platelet Count 143 thou/uL (130-400); RBC Distribution Width 16.3 % (11.5-14.5); White Blood Cell (WBC) Count 9.5 thou/uL (4.8-10.8)
[2018-07-03] MEDS ORDERED: Magnesium Sulfate 4 GM in Sodium Chloride 0.9% 250 ML 250 ML IVPB SCH (06:45)
--- NOTE | 2018-07-03 08:57 | RAD ---
PORTABLE CHEST 1 VIEW: DATE: 07/03/18. TIME: 7:00 a.m. HISTORY: Respiratory distress. FINDINGS: Comparison is made with the exam of 07/01/18. There is continued rotation of the patient to the right. There is a right upper extremity PICC line with tip in the projection of the SVC. There is a suggestion of interval improvement in the left per ihilar densities. Small pleural effusions may be present. No pneumothoraces are seen. POS: [facility]
[2018-07-03] MEDS: Famotidine 20 MG TAB PO SCH ×2 (10:02→21:37)
[2018-07-03] MEDS: Folic Acid 1 MG TAB PO SCH (10:02)
[2018-07-03] MEDS: Cefdinir 300 MG CAP PO SCH ×2 (10:03→21:37)
[2018-07-03] MEDS: Potassium Chloride 20 MEQ TAB PO SCH ×2 (10:03→16:42)
[2018-07-03] MEDS: Cyanocobalamin (Vitamin B-12) 1,000 MCG TAB PO SCH (10:03)
[2018-07-03] MEDS: Saccharomyces boulardii 250 MG CAP PO SCH (10:03)
--- NOTE | 2018-07-03 10:16 | PDOC.PN ---
- Subjective Encounter Start Date: 07/03/18 Encounter Start Time: 07:40 Patient seen and examined. No new complaints. No overnight events - Objective Resuscitation Status: Resuscitation Status DNR:Do Not Resuscitate MAR Reviewed: Yes Vital Signs & Weight: Vital Signs (12 hours) Temp Pulse Resp BP Pulse Ox 07/03/18 07:59 98.8 F 84 20 125/60 99 07/03/18 07:22 85 18 97 07/03/18 03:58 98.3 F 86 18 110/54 L 92 L 07/03/18 02:02 92 12 07/02/18 23:43 98.6 F 91 18 117/56 L 91 L 07/02/18 22:46 96 12 Weight Admit Weight 225 lb 15.581 oz Weight 200 lb 8 oz Most Recent Monitor Data Heart Rate from ECG 87 NIBP 137/51 NIBP BP-Mean 81 Respiration from ECG 15 SpO2 97 I&O: 07/02/18 07/03/18 07/04/18 06:59 06:59 06:59 Intake Total 1660 200 Output Total 3255 6050 Balance -1595 5822 Result Diagrams: 07/03/18 05:00 07/03/18 05:00 Additional Labs: Accuchecks 07/03/18 07/02/18 07/02/18 06:00 18:01 12:49 POC Glucose 103 84 150 H EKG Reviewed by me: Yes Phys Exam - Physical Examination Constitutional: NAD HEENT: PERRLA, moist MMs, sclera anicteric Neck: no JVD, supple Respiratory: no wheezing, no rales, no rhonchi Cardiovascular: RRR, no rub SM+ Gastrointestinal: soft, non-tender, no distention, positive bowel sounds Musculoskeletal: edema present edema left leg right aka site with wound vac Neurological: moves all 4 limbs Lymphatic: no nodes Psychiatric: normal affect, A&O x 3 Skin: no rash, normal turgor Dx/Plan (1) Acute respiratory failure with hypoxia Code(s): J96.01 - ACUTE RESPIRATORY FAILURE WITH HYPOXIA Status: Acute Comment: (2) Demand ischemia Code(s): I24.8 - OTHER FORMS OF ACUTE ISCHEMIC HEART DISEASE Status: Acute (3) Lactic acidosis Code(s): E87.2 - ACIDOSIS Status: Resolved (4) Multifocal pneumonia Code(s): J18.9 - PNEUMONIA, UNSPECIFIED ORGANISM Status: Acute (5) Septic shock Code(s): A41.9 - SEPSIS, UNSPECIFIED ORGANISM; R65.21 - SEVERE SEPSIS WITH SEPTIC SHOCK Status: Resolved (6) Alcoholic cirrhosis of liver with ascites Code(s): K70.31 - ALCOHOLIC CIRRHOSIS OF LIVER WITH ASCITES Status: Chronic (7) Chronic stage c diastolic heart failure Code(s): I50.32 - CHRONIC DIASTOLIC (CONGESTIVE) HEART FAILURE Status: Chronic (8) Coagulopathy Status: Chronic (9) Hypertension Code(s): I10 - ESSENTIAL (PRIMARY) HYPERTENSION Status: Chronic (10) Hyponatremia Code(s): E87.1 - HYPO-OSMOLALITY AND HYPONATREMIA Status: Chronic (11) Macrocytic anemia Code(s): D53.9 - NUTRITIONAL ANEMIA, UNSPECIFIED Status: Chronic (12) Physical deconditioning Code(s): R53.81 - OTHER MALAISE Status: Chronic (13) Status post hardware removal Code(s): Z98.890 - OTHER SPECIFIED POSTPROCEDURAL STATES Status: Chronic (14) Pulmonary hypertension Code(s): I27.20 - PULMONARY HYPERTENSION, UNSPECIFIED Status: Chronic (15) Severe tricuspid regurgitation Code(s): I07.1 - RHEUMATIC TRICUSPID INSUFFICIENCY Status: Chronic (16) Above knee amputation of right lower extremity Code(s): Z89.611 - ACQUIRED ABSENCE OF RIGHT LEG ABOVE KNEE Status: Acute (17) Hypokalemia Code(s): E87.6 - HYPOKALEMIA Status: Acute (18) Hypomagnesemia Code(s): E83.42 - HYPOMAGNESEMIA Status: Acute - Plan cont current plan of care, plan discussed w/ family, continue antibiotics, PT/OT , social media developer * medication reviewed as below * symptomatic treatment * wound care * will need placement * replace magnesium, potassium. Review of Systems - Review of Systems ENT: negative: Ear Pain, Ear Discharge, Nose Pain, Nose Discharge, Nose Congestion, Mouth Pain, Mouth Swelling, Throat Pain, Throat Swelling, Other Respiratory: negative: Cough, Dry, Shortness of Breath, Hemoptysis, SOB with Excertion, Pleuritic Pain, Sputum, Wheezing Cardiovascular: negative: chest pain, palpitations, orthopnea, paroxysmal nocturnal dyspnea, edema, light headedness, other Gastrointestinal: negative: Nausea, Vomiting, Abdominal Pain, Diarrhea, Constipation, Melena, Hematochezia, Other Genitourinary: negative: Dysuria, Frequency, Incontinence, Hematuria, Retention , Other Musculoskeletal: negative: Neck Pain, Shoulder Pain, Arm Pain, Back Pain, Hand Pain, Leg Pain, Foot Pain, Other - Medications/Allergies Allergies/Adverse Reactions: Allergies Allergy/AdvReac Type Severity Reaction Status Date / Time Iodinated Contrast- Oral and Allergy Verified 01/31/18 11:31 IV Dye [Iodinated Contrast Media - IV Dye] loxapine Allergy Verified 01/31/18 11:31 shrimp Allergy Verified 01/31/18 11:31 Medications: Current Medications Acetaminophen (Tylenol) 650 mg PO Q4H PRN PRN Reason: Headache/Fever or Pain Last Admin: 07/02/18 15:43 Dose: 650 mg Al Hydroxide/Mg Hydroxide (Maalox) 15 ml PO Q4H PRN PRN Reason: Heartburn or Indigestion Last Admin: 06/30/18 00:36 Dose: 15 ml Albuterol/Ipratropium (Duoneb) 3 ml NEB [id number] [facility] Last Admin: 07/03/18 07:22 Dose: 3 ml Artificial Tears (Tears Naturale) 0 drop EA EYE PRN PRN PRN Reason: Dry Eyes Bisacodyl (Dulcolax) 10 mg PO DAILYPRN PRN PRN Reason: Constipation Cefdinir (Omnicef) 300 mg PO BID [facility] Stop: 07/03/18 23:59 Last Admin: 07/03/18 10:03 Dose: 300 mg Cyanocobalamin (Vitamin B-12) 1,000 mcg PO DAILY [facility] Last Admin: 07/03/18 10:03 Dose: 1,000 mcg Famotidine (Pepcid) 20 mg PO Q12HR [facility] Last Admin: 07/03/18 10:02 Dose: 20 mg Folic Acid (Folvite) 1 mg PO DAILY [facility] Last Admin: 07/03/18 10:02 Dose: 1 mg Furosemide (Lasix) 40 mg SLOW IVP 0600 [facility] Last Admin: 07/03/18 05:47 Dose: 40 mg Guaifenesin (Robitussin Sf) 200 mg PO Q4H PRN PRN Reason: Cough Hydralazine HCl (Apresoline) 10 mg SLOW IVP Q4H PRN PRN Reason: Systolic BP > 180 Vancomycin HCl 1.25 gm/ Sodium (Chloride) 250 mls @ 166.667 mls/hr IVPB Q2D@ 1400 [facility] Last Admin: 07/01/18 13:52 Dose: 250 mls Loperamide HCl (Imodium) 2 mg PO PRN PRN PRN Reason: Diarrhea/Loose Stools Magnesium Hydroxide (Milk Of Magnesium) 30 ml PO DAILYPRN PRN PRN Reason: Constipation Melatonin (Melatonin) 3 mg PO HSPRN PRN PRN Reason: Insomnia Last Admin: 07/02/18 21:33 Dose: 3 mg Mineral Oil/White Petrolatum (Eucerin Cream) 0 gm TOP BIDPRN PRN PRN Reason: Dry Skin Miscellaneous Medication (Pharmacy To Dose) 1 each IVPB PRN PRN PRN Reason: Pharmacy to dose Morphine Sulfate (Morphine) 2 mg SLOW IVP Q6H PRN PRN Reason: Pain Last Admin: 07/02/18 17:32 Dose: 2 mg Ondansetron HCl (Zofran Odt) 4 mg PO Q6H PRN PRN Reason: Nausea/Vomiting Ondansetron HCl (Zofran) 4 mg IVP Q6H PRN PRN Reason: Nausea/Vomiting Last Admin: 06/27/18 22:34 Dose: 4 mg Phenol (Chloraseptic [place] 180 Ml Bot) 0 ml PO PRN PRN PRN Reason: Sore Throat Potassium Chloride (K-Dur) 40 meq PO BID[facility] Stop: 07/03/18 17:01 Last Admin: 07/03/18 10:03 Dose: 40 meq Saccharomyces Boulardii (Florastor) 250 mg PO DAILY [facility] Last Admin: 07/03/18 10:03 Dose: 250 mg Sodium Biphosphate/Sodium Phosphate (Fleet Enema) 133 ml [place] ONE PRN PRN Reason: Constipation Stop: 07/20/18 00:31 Sodium Chloride (Flush - Normal Saline) 10 ml IVF Q12HR [facility] Last Admin: 07/03/18 10:04 Dose: 10 ml Sodium Chloride (Flush - Normal Saline) 10 ml IVF PRN PRN PRN Reason: Saline Flush Sodium Chloride ([place] Nasal [place] 0.65%) 0 ml EA NARE QIDPRN PRN PRN Reason: Nasal Congestion Thiamine HCl (Thiamine) 100 mg PO DAILY [facility] Last Admin: 07/03/18 10:03 Dose: 100 mg
[2018-07-03] MEDS: Morphine 4 MG/ML VIAL SLOW IVP PRN (12:01)
[2018-07-03] MEDS: Vancomycin HCl 1.25 GM in Sodium Chloride 0.9% 250 ML 250 ML IVPB SCH (14:18)
--- NOTE | 2018-07-03 14:50 | PRG ---
DATE OF SERVICE: 07/03/2018 SUBJECTIVE: Mr. Virgil Saucedo has no new complaints. His spirits seem to be better every day. OBJECTIVE: VITAL SIGNS: His sats are 90 on room air. He is afebrile, heart rate is 95, respiratory rate is 20, blood pressure 118/64. LUNGS: Clear. HEART: Regular rhythm. ABDOMEN: Soft and nontender. LABORATORY DATA: White count 9.5, hemoglobin 8.4, platelets 143,000. Electrolytes are unremarkable. Potassium is 3.4, bilirubin is 2.6, albumin is 2.5. IMPRESSION: 1. 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 2. Cirrhosis. 3. Deconditioning. He will need to go somewhere eventually for wound care and physical therapy, appears to be medically stable at this time. Chest radiograph suggestive of small effusions. His infiltrate on the left fco ears to be improving. His pneumonia appears to be adequately treated at this point. Probably take a month to 6 weeks for h is radiograph to normalize.
[2018-07-03] MEDS: Melatonin 3 MG TAB PO PRN (21:37)
[2018-07-03] MEDS: Acetaminophen 325 MG TAB PO PRN (21:37)
[2018-07-04 05:41] LABS: Band 12 % (5-11); Eosinophils 3 % (0-10); Hemoglobin 8.5 g/dL (14.0-18.0); Lymphocytes 16 % (21-51); MDiff Complete? YES; Mean Corpuscular HGB CONC 31.9 g/dL (32.0-36.0); Mean Corpuscular Hemoglobin 31.9 pg (27.0-31.0); Mean Corpuscular Volume 99.8 fL (78.0-98.0); Mean Platelet Volume 7.4 fL (7.4-10.4); Metamyelocyte 1 % (0-0); Monocytes 5 % (0-10); Neutrophil 63 % (42-75); PLT Morphology Comment Appears Adequate; Platelet Count 155 thou/uL (130-400); RBC Distribution Width 16.2 % (11.5-14.5); Red Blood Cell (RBC) Count 2.65 mill/uL (4.70-6.10); White Blood Cell (WBC) Count 9.3 thou/uL (4.8-10.8)
[2018-07-04 05:45] LABS: Anion Gap 8 mmol/L (10-20); BUN (Urea Nitrogen) 8 mg/dL (8.4-25.7); Calc. Creatinine Clearance 144 mL/min (70-130); Calcium 7.9 mg/dL (7.8-10.44); Carbon Dioxide 27 mmol/L (23-31); Chloride 102 mmol/L (98-107); Estimated GFR-MDRD Greater than 90; Glucose 88 mg/dL (80-115); Magnesium 1.6 mg/dL (1.6-2.6); Potassium 4.1 mmol/L (3.5-5.1); Sodium 133 mmol/L (136-145)
[2018-07-04] MEDS: Furosemide 40 MG/4 ML VIAL SLOW IVP SCH (06:30)
--- NOTE | 2018-07-04 09:11 | PDOC.PN ---
- Subjective Encounter Start Date: 07/04/18 Encounter Start Time: 07:10 Patient seen and examined. No new complaints. No overnight events - Objective Resuscitation Status: Resuscitation Status DNR:Do Not Resuscitate MAR Reviewed: Yes Vital Signs & Weight: Vital Signs (12 hours) Temp Pulse Resp BP Pulse Ox 07/04/18 07:34 98.1 F 86 14 115/65 94 L 07/04/18 06:24 88 16 93 L 07/04/18 04:00 98.4 F 84 24 H 101/55 L 92 L 07/04/18 02:32 96 07/04/18 00:00 98.7 F 86 20 103/54 L 92 L 07/03/18 23:42 96 Weight Admit Weight 225 lb 15.581 oz Weight 199 lb 8 oz Most Recent Monitor Data Heart Rate from ECG 87 NIBP 137/51 NIBP BP-Mean 81 Respiration from ECG 15 SpO2 97 I&O: 07/03/18 07/04/18 07/05/18 06:59 06:59 06:59 Intake Total 200 720 300 Output Total 6050 820 Balance -5850 720 -520 Result Diagrams: 07/04/18 05:18 07/04/18 05:18 Additional Labs: Accuchecks 07/04/18 05:54 POC Glucose 87 EKG Reviewed by me: Yes Phys Exam - Physical Examination Constitutional: NAD HEENT: PERRLA, moist MMs, sclera anicteric Neck: no JVD, supple Respiratory: no wheezing, no rales, no rhonchi Cardiovascular: RRR, no significant murmur, no rub Gastrointestinal: soft, non-tender, no distention, positive bowel sounds Musculoskeletal: edema present right aka with wound vac Neurological: non-focal, normal sensation Lymphatic: no nodes Psychiatric: normal affect, A&O x 3 Skin: no rash, normal turgor Dx/Plan (1) Acute respiratory failure with hypoxia Code(s): J96.01 - ACUTE RESPIRATORY FAILURE WITH HYPOXIA Status: Acute Comment: (2) Demand ischemia Code(s): I24.8 - OTHER FORMS OF ACUTE ISCHEMIC HEART DISEASE Status: Acute (3) Lactic acidosis Code(s): E87.2 - ACIDOSIS Status: Resolved (4) Multifocal pneumonia Code(s): J18.9 - PNEUMONIA, UNSPECIFIED ORGANISM Status: Acute (5) Septic shock Code(s): A41.9 - SEPSIS, UNSPECIFIED ORGANISM; R65.21 - SEVERE SEPSIS WITH SEPTIC SHOCK Status: Resolved (6) Alcoholic cirrhosis of liver with ascites Code(s): K70.31 - ALCOHOLIC CIRRHOSIS OF LIVER WITH ASCITES Status: Chronic (7) Chronic stage c diastolic heart failure Code(s): I50.32 - CHRONIC DIASTOLIC (CONGESTIVE) HEART FAILURE Status: Chronic (8) Coagulopathy Status: Chronic (9) Hypertension Code(s): I10 - ESSENTIAL (PRIMARY) HYPERTENSION Status: Chronic (10) Hyponatremia Code(s): E87.1 - HYPO-OSMOLALITY AND HYPONATREMIA Status: Chronic (11) Macrocytic anemia Code(s): D53.9 - NUTRITIONAL ANEMIA, UNSPECIFIED Status: Chronic (12) Physical deconditioning Code(s): R53.81 - OTHER MALAISE Status: Chronic (13) Status post hardware removal Code(s): Z98.890 - OTHER SPECIFIED POSTPROCEDURAL STATES Status: Chronic (14) Pulmonary hypertension Code(s): I27.20 - PULMONARY HYPERTENSION, UNSPECIFIED Status: Chronic (15) Severe tricuspid regurgitation Code(s): I07.1 - RHEUMATIC TRICUSPID INSUFFICIENCY Status: Chronic (16) Above knee amputation of right lower extremity Code(s): Z89.611 - ACQUIRED ABSENCE OF RIGHT LEG ABOVE KNEE Status: Acute (17) Hypokalemia Code(s): E87.6 - HYPOKALEMIA Status: Acute (18) Hypomagnesemia Code(s): E83.42 - HYPOMAGNESEMIA Status: Acute - Plan cont current plan of care, social sciences research scientist * wound care with wound vac * once wound vac arranged will dc to rehab * medication reviewed as below * symptomatic treatment * no need of any more antibiotics. Review of Systems - Review of Systems ENT: negative: Ear Pain, Ear Discharge, Nose Pain, Nose Discharge, Nose Congestion, Mouth Pain, Mouth Swelling, Throat Pain, Throat Swelling, Other Respiratory: negative: Cough, Dry, Shortness of Breath, Hemoptysis, SOB with Excertion, Pleuritic Pain, Sputum, Wheezing Cardiovascular: negative: chest pain, palpitations, orthopnea, paroxysmal nocturnal dyspnea, edema, light headedness, other Gastrointestinal: negative: Nausea, Vomiting, Abdominal Pain, Diarrhea, Constipation, Melena, Hematochezia, Other Genitourinary: negative: Dysuria, Frequency, Incontinence, Hematuria, Retention , Other Musculoskeletal: negative: Neck Pain, Shoulder Pain, Arm Pain, Back Pain, Hand Pain, Leg Pain, Foot Pain, Other - Medications/Allergies Allergies/Adverse Reactions: Allergies Allergy/AdvReac Type Severity Reaction Status Date / Time Iodinated Contrast- Oral and Allergy Verified 01/31/18 11:31 IV Dye [Iodinated Contrast Media - IV Dye] loxapine Allergy Verified 01/31/18 11:31 shrimp Allergy Verified 01/31/18 11:31 Medications: Current Medications Acetaminophen (Tylenol) 650 mg PO Q4H PRN PRN Reason: Headache/Fever or Pain Last Admin: 07/03/18 21:37 Dose: 650 mg Al Hydroxide/Mg Hydroxide (Maalox) 15 ml PO Q4H PRN PRN Reason: Heartburn or Indigestion Last Admin: 06/30/18 00:36 Dose: 15 ml Albuterol/Ipratropium (Duoneb) 3 ml NEB [id number] [facility] Last Admin: 07/04/18 06:24 Dose: 3 ml Artificial Tears (Tears Naturale) 0 drop EA EYE PRN PRN PRN Reason: Dry Eyes Bisacodyl (Dulcolax) 10 mg PO DAILYPRN PRN PRN Reason: Constipation Cyanocobalamin (Vitamin B-12) 1,000 mcg PO DAILY [facility] Last Admin: 07/03/18 10:03 Dose: 1,000 mcg Famotidine (Pepcid) 20 mg PO Q12HR [facility] Last Admin: 07/03/18 21:37 Dose: 20 mg Folic Acid (Folvite) 1 mg PO DAILY [facility] Last Admin: 07/03/18 10:02 Dose: 1 mg Furosemide (Lasix) 40 mg SLOW IVP 0600 [facility] Last Admin: 07/04/18 06:30 Dose: 40 mg Guaifenesin (Robitussin Sf) 200 mg PO Q4H PRN PRN Reason: Cough Hydralazine HCl (Apresoline) 10 mg SLOW IVP Q4H PRN PRN Reason: Systolic BP > 180 Loperamide HCl (Imodium) 2 mg PO PRN PRN PRN Reason: Diarrhea/Loose Stools Magnesium Hydroxide (Milk Of Magnesium) 30 ml PO DAILYPRN PRN PRN Reason: Constipation Melatonin (Melatonin) 3 mg PO HSPRN PRN PRN Reason: Insomnia Last Admin: 07/03/18 21:37 Dose: 3 mg Mineral Oil/White Petrolatum (Eucerin Cream) 0 gm TOP BIDPRN PRN PRN Reason: Dry Skin Miscellaneous Medication (Pharmacy To Dose) 1 each IVPB PRN PRN PRN Reason: Pharmacy to dose Morphine Sulfate (Morphine) 2 mg SLOW IVP Q6H PRN PRN Reason: Pain Last Admin: 07/03/18 12:01 Dose: 2 mg Ondansetron HCl (Zofran Odt) 4 mg PO Q6H PRN PRN Reason: Nausea/Vomiting Ondansetron HCl (Zofran) 4 mg IVP Q6H PRN PRN Reason: Nausea/Vomiting Last Admin: 06/27/18 22:34 Dose: 4 mg Phenol (Chloraseptic [place] 180 Ml Bot) 0 ml PO PRN PRN PRN Reason: Sore Throat Saccharomyces Boulardii (Florastor) 250 mg PO DAILY [facility] Last Admin: 07/03/18 10:03 Dose: 250 mg Sodium Biphosphate/Sodium Phosphate (Fleet Enema) 133 ml [place] ONE PRN PRN Reason: Constipation Stop: 07/20/18 00:31 Sodium Chloride (Flush - Normal Saline) 10 ml IVF Q12HR [facility] Last Admin: 07/03/18 21:39 Dose: 10 ml Sodium Chloride (Flush - Normal Saline) 10 ml IVF PRN PRN PRN Reason: Saline Flush Sodium Chloride ([place] Nasal [place] 0.65%) 0 ml EA NARE QIDPRN PRN PRN Reason: Nasal Congestion Thiamine HCl (Thiamine) 100 mg PO DAILY [facility] Last Admin: 07/03/18 10:03 Dose: 100 mg
[2018-07-04] MEDS: Saccharomyces boulardii 250 MG CAP PO SCH (10:06)
[2018-07-04] MEDS: Folic Acid 1 MG TAB PO SCH (10:06)
[2018-07-04] MEDS: Cyanocobalamin (Vitamin B-12) 1,000 MCG TAB PO SCH (10:06)
[2018-07-04] MEDS: Famotidine 20 MG TAB PO SCH (10:07)
[2018-07-04 11:09] VITALS: BMI 26.4
--- NOTE | 2018-07-04 13:31 | PRG ---
DATE OF SERVICE: 07/04/2018 Mr. Saucedo wants to go home. He really does not understand how difficult it will be for him to care for himself with 1 leg. PHYSICAL EXAMINATION: VITAL SIGNS: He is afebrile, heart rate 80s, respiratory rate 16, oximetry 98 on 2 liter cannula. Blood pressure 115/65. LUNGS: Remarkable for distant breath sounds. CHEST: His chest exam is improved dramatically compared to when he was admitted. CARDIOVASCULAR: Regular rhythm. ABDOMEN: Soft. IMPRESSION: 1. Pneumonia, subacute, likely aspiration mediated. 2. Bedridden state. 3. Chronically infected right lower extremity status post multiple surgical procedures, now with a h igh amputation. 4. Cirrhosis, probably needs to be on Aldactone, although he is not having big problems with fluid r etention. He has been treated with IV diuretics. 5. Distant history of alcohol abuse. 6. Distant history of tobacco use. 7. ? Chronic obstructive pulmonary disease, on nebulizer treatments more for secretion clearance th an anything. Overall, he appears to be stable for transfer to any place he can get wound care and ph ysical therapy.
--- NOTE | 2018-07-04 15:16 | DIS ---
DATE OF ADMISSION: 06/19/2018 DATE OF DISCHARGE: 07/04/2018 PRIMARY CARE PHYSICIAN: Dr. Hardy Delgado. DISCHARGE DISPOSITION: Rehabilitation. 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 SECONDARY DISCHARGE DIAGNOSES: Alcoholic cirrhosis of liver with ascites, anasarca, coagulopathy, ch ronic stage C diastolic heart failure, hypertension, macrocytic anemia, physical deconditioning, mellisa re tricuspid regurgitation, history of recent hardware removal from right knee. PRIMARY PROCEDURE/OPERATION: Endotracheal intubation and right above knee amputation. RADIOLOGICAL INVESTIGATION: Echocardiography showed severe tricuspid regurgitation, diastolic dysfun ction. CT angiography showed multifocal pneumonia. Patient had several chest x-rays while in hospit al. SIGNIFICANT LABORATORY DATA: WBC most recently 9.3, hemoglobin 8.5, platelet 155. INR 1.6. Sodium 133, potassium 4.1, BUN 8, creatinine 0.61, calcium 7.9, magnesium 1.6, AST 31, ALT 15, alkaline phos phatase 115, albumin 2.5. Urinalysis unremarkable. Mycoplasma IgG titer high. Mycoplasma pneumonia IgM titer less than 770. Streptococcal pneumonia antigen negative. Legionella pneumophila antigen negative. Respiratory culture was growing yeast. DISCHARGE MEDICATIONS: Tramadol 50 mg t.i.d. p.r.n., Tylenol #3 1 or 2 tablets q.6 hourly p.r.n., Pe pcid 20 mg p.o. b.i.d., aspirin 81 mg p.o. b.i.d., vitamin B12 1000 mcg p.o. daily, folic acid 1 mg p .o. daily, Lasix 40 mg t.i.d., potassium chloride 20 mEq p.o. b.i.d., melatonin 3 mg p.o. at bedtime p.r.n., thiamine 100 mg p.o. daily, vancomycin IV every other day. CONTRAINDICATIONS: None. CODE STATUS: DNR. INPATIENT CONSULTANTS: Dr. Vazquez, Dr. Jc, [facility] was following while in hospital. ALLERGIES: IODINATED CONTRAST, LOXAPINE. DISCHARGE PLAN: Post hospital, the patient is discharged to rehabilitation. Subsequently, patient w ill follow up with primary care physician. HOSPITAL COURSE: A 72-year-old male who has previous history of hardware removal from right knee and subsequently he had MRSA infection and required hospitalization at [facility]. The patient was discharged home with IV daptomycin. The patient was brought to hospital at this time with septic shock. Rhonda laird was admitted on 06/19/[address] Shahab Darnell. Please see his H&P for further detail. The pat ient was in septic shock as well as with acute respiratory failure. On admission, he required Levophed support for septic shock and after that blood pressure improved. At that point Levophed drip was discontinued. He had associated lactic acidosis and demand ischemia of myocardium from sepsis. The patient also had CT angiography which confirmed multifocal pneumonia. Patient was getting initially cefepime and vancomycin while in hospital. The patient also had a source of infection with knee hardware side and that is why during this admiss ion, the patient underwent a right above-knee amputation. The patient was DNR, but patient was okay without procedure related intubation and subsequently mallory villalobos remained intubated for several days. Eventually, the patient was extubated. He had significant v olume overload from congestive heart failure which required diuretic therapy. By the time of dischar ge, his volume status significantly improved. He had abnormal electrolytes that were replaced while in hospital. His electrolytes are also corrected. At this point, the patient requires some oxygen to maintain saturation, but eventually he may not nee d oxygen therapy. Patient required wound VAC at surgical site. The patient has finished antibiotic therapy while in hospital, but Orthopedic physician wants to continue vancomycin. I spoke with Dr. Celine guerra and he recommended that as source of infection is out, he does not need anymore antibiotic thera py. During entire hospital course, he was receiving vancomycin, initially cefepime and then changed to Omnicef. After extubation, the patient stayed in ICU for several days and then we transferred him to telemetry floor where he had continuous physical therapy. This patient was requiring inpatient rehabilitation and that is why with help of piano case and bench assembler, we arranged rehabilitation. Patient also has wound VAC a rranged at rehabilitation. He will need PT, OT, wound care, and antibiotic therapy as per ortho. Ab ove-mentioned medication reconciliation done. The patient is seen and examined at bedside today. Please see my progress note from today for furthe r detail. Paperwork for discharge done. Discharge medication reconciliation done. Total time spent on discharge day 35 minutes.
[2018-07-04 20:21] VITALS: BP 107/58; TEMP 98.7
[2018-07-04] MEDS ORDERED: Aspirin 81 mg Enteric Coated Tablet PO SCH (21:00)
[2018-07-05] MEDS ORDERED: Vancomycin HCl 1.25 GM in Sodium Chloride 0.9% 250 ML 250 ML IVPB SCH (14:00)
== END 2018-07-04 20:18 | DRG 853 ==
LOC: ERS 22:25 → CCU 23:02 → 2SE 07-02 05:36
PROVIDERS: ADMIT Internal Medicine; ATTEND Internal Medicine
PROC: 0Y6C0Z1 Detachment at Right Upper Leg, High, Open Approach (ICD-10-PCS; principal; 2018-06-23)
PROC: 0SPC0JZ Removal of Synthetic Substitute from Right Knee Joint, Open Approach (ICD-10-PCS; 2018-06-23)
PROC: 5A1935Z Respiratory Ventilation, Less than 24 Consecutive Hours (ICD-10-PCS; 2018-06-23)
PROC: 0BH17EZ Insertion of Endotracheal Airway into Trachea, Via Natural or Artificial Opening (ICD-10-PCS; 2018-06-23)
PROC: 02HV33Z Insertion of Infusion Device into Superior Vena Cava, Percutaneous Approach (ICD-10-PCS; 2018-07-04)
DX: A41.02 Sepsis due to Methicillin resistant Staphylococcus aureus (principal); R65.21 Severe sepsis with septic shock; J18.9 Pneumonia, unspecified organism; J96.01 Acute respiratory failure with hypoxia; I50.22 Chronic systolic (congestive) heart failure; R18.8 Other ascites; E87.1 Hypo-osmolality and hyponatremia; I24.8 Other forms of acute ischemic heart disease; E87.2 Acidosis; D68.9 Coagulation defect, unspecified; I11.0 Hypertensive heart disease with heart failure; E78.5 Hyperlipidemia, unspecified; K74.60 Unspecified cirrhosis of liver; F17.210 Nicotine dependence, cigarettes, uncomplicated; F10.10 Alcohol abuse, uncomplicated; Z79.899 Other long term (current) drug therapy; Z79.891 Long term (current) use of opiate analgesic; Z91.048 Other nonmedicinal substance allergy status; Z88.8 Allergy status to other drugs, medicaments and biological substances; E66.9 Obesity, unspecified; Z74.01 Bed confinement status; J44.9 Chronic obstructive pulmonary disease, unspecified; F32.9 Major depressive disorder, single episode, unspecified; I27.20 Pulmonary hypertension, unspecified; I95.9 Hypotension, unspecified; D63.8 Anemia in other chronic diseases classified elsewhere; I07.1 Rheumatic tricuspid insufficiency; Z66 Do not resuscitate; Z68.27 Body mass index [BMI] 27.0-27.9, adult
CPT/HCPCS: 36415; 36416; 36430; 71045; 71275; 80048; 80053; 80076; 80202; 81001; 82140; 82553; 82805; 83605; 83735; 83880; 84100; 84484; 85007; 85025; 85027; 85610; 86140; 86850; 86900; 86901; 87070; 87205; 87899; 88307; 88311; 93005; 93010; 93306; 94002; 94003; 94150; 94640; 94660; 94760; 96365; 96366; A4216; C1769; G8978-GP-CN; G8979-GP-CL; G8987-GO-CM; G8988-GO-CK; J0282; J0692; J1160; J1200; J1650; J1940; J2060; J2270; J2405; J2704; J2930; J3010; J3370; J3475; J7050; J7070; J7620; P9016; P9047; P9059; S0028

== ENCOUNTER 2018-10-16 19:01 | Emergency (ER) | payer MEDICARE ==
[2018-10-16 21:28] LABS: #Eosinphils 0.5 thou/uL (0.0-0.7); #Lymphocytes 1.7 thou/uL (1.20-3.40); %Basophils 0.5 % (0.0-1.0); %Eosinophils 5.6 % (0.0-10.0); %Lymphocytes 18.5 % (21.0-51.0); %Monocytes 10.5 % (0.0-10.0); %Neutrophils 64.9 % (42.0-75.0); Hemoglobin 10.9 g/dL (14.0-18.0); Mean Corpuscular HGB CONC 32.6 g/dL (32.0-36.0); Mean Corpuscular Hemoglobin 32.3 pg (27.0-31.0); Mean Corpuscular Volume 99.1 fL (78.0-98.0); Mean Platelet Volume 7.2 fL (7.4-10.4); Platelet Count 150 thou/uL (130-400); Red Blood Cell (RBC) Count 3.37 mill/uL (4.70-6.10); White Blood Cell (WBC) Count 9.3 thou/uL (4.8-10.8)
[2018-10-16 21:53] LABS: Anion Gap 12 mmol/L (10-20); BUN (Urea Nitrogen) 16 mg/dL (8.4-25.7); Calc. Creatinine Clearance 0 mL/min (70-130); Calcium 8.5 mg/dL (7.8-10.44); Carbon Dioxide 29 mmol/L (23-31); Chloride 100 mmol/L (98-107); Estimated GFR-MDRD 65; Glucose 93 mg/dL (83-110); Potassium 3.1 mmol/L (3.5-5.1); Sodium 138 mmol/L (136-145)
[2018-10-16] MEDS ORDERED: HYDROcodone/Acetaminophen 5/325 mg Tablet ONE (22:07)
[2018-10-16 22:41] LABS: Bilirubin Negative (Negative); Blood, Urine Large (Negative); Clarity CLEAR (Clear); Glucose, Urine (Dipstick) Negative (Negative); Leukocyte Negative (Negative); Nitrite Negative (Negative); Protein, Urine (Dipstick) Trace mg/dL (Neg-Trace)
[2018-10-16 22:44] LABS: Bacteria/HPF None Seen HPF (None Seen); Hyaline Casts/LPF 0-3 HYALINE CAST LPF (0-3 Hyaline); Pathc Cast-AUWi Flag 0.14 (0-2.49); RBC/HPF 21-50 HPF (0-3); Squamous Epithelial 0-3 HPF (0-3); WBC/HPF 0-3 HPF (0-3)
== END 2018-10-16 23:30 | disposition home or self-care (01) ==
LOC: ERS 19:01
DX: T81.40XA Infection following a procedure, unspecified, initial encounter (principal); R31.9 Hematuria, unspecified; I10 Essential (primary) hypertension; K21.9 Gastro-esophageal reflux disease without esophagitis; F17.210 Nicotine dependence, cigarettes, uncomplicated; Z79.891 Long term (current) use of opiate analgesic; Z79.899 Other long term (current) drug therapy
CPT/HCPCS: 80048; 81003; 81015; 85025; 99283

== ENCOUNTER 2019-02-21 14:38 | Outpatient (CLI) | payer MEDICARE ==
[~2019-02-21 14:38] MED LIST: Gadobenate Dimeglumine 529 MG/1 ML (20ML VIAL) ONE
--- NOTE | 2019-02-21 16:37 | MRI ---
MRI OF THE RIGHT LEG WITH AND WITHOUT IV CONTRAST: 02/21/19 INDICATION: History of amputation with pain and drainage from the amputation site. TECHNIQUE: Multiplanar and multisequence MR images were obtained of the right femur with and without contrast ut ilizing 20 mL of Multihance. FINDINGS: There is an above knee amputation present. There is cortical irregularity with abnormal marrow signa l involving the visualized aspects of the proximal femoral metaphysis extending through the femoral s haft with associated enhancement suspicious for osteomyelitis of the right femur. There is a retaine d low signal intensity object within the mid shaft femur intramedullary canal likely related to the p tanika's prior knee prosthesis. There is a periosseous abscess seen along the amputation site just la teral and distal to the cut margins of the distal femoral shaft. This abscess measures 4.5 x 1.8 x 3. 5 cm. There is a suspected draining sinus tract to the right lateral skin surface of the amputation s ite from this abscess collection. There is diffuse muscular atrophy of the right leg. No pathological ly enlarged lymph nodes are evident. IMPRESSION: 1. Osteomyelitis of the right femur with periosseous abscess seen along the distal aspect of the amputation site draining to the lateral skin surface of the amputation stump. 2. Area of focal signal loss within the femoral shaft intramedullary canal likely reflective of a retained portion of the patient's previously seen right knee prosthesis. This was better seen on e femoral radiograph dated 06/21/18. POS: CET
== END 2019-02-21 14:39 | disposition home or self-care (01) ==
LOC: SCSMRI 14:38
PROVIDERS: ATTEND Orthopaedic Surgery
DX: M86.9 Osteomyelitis, unspecified (principal)
CPT/HCPCS: 82565; A9577

== ENCOUNTER 2019-02-27 09:27 | Inpatient (IN) | payer MEDICARE ==
[2019-02-27] MEDS ORDERED: Vancomycin HCl 1.5 GM in Sodium Chloride 0.9% 250 ML 300 ML IVPB SCH (10:15)
[2019-02-27 10:22] LABS: #Basophils 0.1 thou/uL (0.0-0.2); #Eosinphils 0.3 thou/uL (0.0-0.7); #Lymphocytes 1.6 thou/uL (1.20-3.40); #Monocytes 0.8 thou/uL (0.11-0.59); #Neutrophils 6.9 thou/uL (1.40-6.50); %Basophils 0.6 % (0.0-1.0); %Eosinophils 2.8 % (0.0-10.0); %Lymphocytes 16.5 % (21.0-51.0); %Monocytes 8.4 % (0.0-10.0); %Neutrophils 71.8 % (42.0-75.0); Hemoglobin 9.3 g/dL (14.0-18.0); Mean Corpuscular HGB CONC 32.7 g/dL (32.0-36.0); Mean Corpuscular Hemoglobin 28.6 pg (27.0-31.0); Mean Corpuscular Volume 87.5 fL (78.0-98.0); Mean Platelet Volume 7.1 fL (7.4-10.4); Platelet Count 193 thou/uL (130-400); RBC Distribution Width 16.5 % (11.5-14.5); Red Blood Cell (RBC) Count 3.24 mill/uL (4.70-6.10); White Blood Cell (WBC) Count 9.6 thou/uL (4.8-10.8)
[2019-02-27 10:42] LABS: Anion Gap 11 mmol/L (10-20); BUN (Urea Nitrogen) 10 mg/dL (8.4-25.7); Calc. Creatinine Clearance 126 mL/min (70-130); Calcium 8.2 mg/dL (7.8-10.44); Carbon Dioxide 22 mmol/L (23-31); Chloride 104 mmol/L (98-107); Estimated GFR-MDRD 85; Glucose 94 mg/dL (83-110); Potassium 3.8 mmol/L (3.5-5.1); Sodium 133 mmol/L (136-145)
[2019-02-27] MEDS ORDERED: Fentanyl 100 MCG/2 ML VIAL ONE ×6 (10:43→12:39)
[2019-02-27] MEDS ORDERED: Heparin 1,000 UNITS/ML VIAL ONE (11:00)
[2019-02-27] MEDS ORDERED: Piperacillin/Tazobactam 3.375 GM in Sodium Chloride 0.9% 100 ML IVPB SCH (12:00)
[2019-02-27] MEDS ORDERED: Promethazine HCl 25 MG/ML VIAL SLOW IVP PRN (12:04)
[2019-02-27] MEDS ORDERED: Ondansetron HCl/PF 4 MG/2 ML Vial IVP PRN (12:04)
[2019-02-27] MEDS ORDERED: Promethazine HCl 25 MG/ML VIAL IM PRN (12:04)
[2019-02-27] MEDS ORDERED: Bisacodyl 5 MG TAB PO PRN (12:11)
[2019-02-27] MEDS ORDERED: HYDROcodone/Acetaminophen 10/325 mg Tablet PO PRN (12:11)
[2019-02-27] MEDS ORDERED: Senokot S 8.6-50 MG TAB PO PRN (12:11)
[2019-02-27] MEDS ORDERED: HYDROmorphone 2 MG/ML VIAL ONE (12:51)
[2019-02-27] MEDS ORDERED: PHENYLEPHRINE-NS 100 MCG/ML 10 ML SYRINGE ONE (14:13)
[2019-02-27] MEDS ORDERED: Ondansetron PF 4 MG/2 ML Vial ONE (14:13)
[2019-02-27] MEDS: HYDROcodone/Acetaminophen 10/325 mg Tablet PO PRN ×2 (14:47→19:06)
[2019-02-27] MEDS: Sodium Chloride 0.9% 1,000 ML IV SCH (14:49)
[2019-02-27] MEDS: Piperacillin/Tazobactam 3.375 GM in Sodium Chloride 0.9% 100 ML IVPB SCH ×2 (16:43→20:03)
[2019-02-27 17:03] VITALS: BMI 33.6
--- NOTE | 2019-02-27 18:10 | OP ---
DATE OF PROCEDURE: 02/27/2019 This is Jaquan Schwarz PA-C dictating a report for Dmitriy Guerrero MD. PREOPERATIVE DIAGNOSES: Right knee above amputation, distal femoral shaft osteomyelitis. POSTOPERATIVE DIAGNOSES: Right knee above amputation, distal femoral shaft osteomyelitis. PROCEDURES: Revision amputation with revision of stump and debridement of right above knee amputation stump. SURGEON: Dmitriy Guerrero MD HOME HEALTH PROVIDER: Jaquan Schwarz PA-C. ANESTHESIA: General via LMA. DRAINS: None. SPECIMENS: Napkin ring of right distal femur with tissue samples and culture. FINDINGS: Fistula with abscess formation at distal femur and evidence of osteomyelitis. COMPLICATIONS: None. COUNTS: Correct. INDICATION FOR SURGERY: Virgil is a 73-year-old white male, who had a prior above knee amputation for a failed knee fusion. This was done in June of last year. The patient has done relatively well in terms of overall improvement, but his amputation site has failed to fully heal, and he has had a fistula formation and abscess formation noted by MRI and evidence of osteomyelitis in the distal femur. He has elected to proceed with revision amputation for correction of this. DESCRIPTION OF PROCEDURE: After informed consent was obtained in the preoperative holding area, the patient was taken to the operative suite and positioned. Appropriate LMA was placed. General anesthesia was induced. Once adequate anesthesia was obtained, the patient was positioned in supine position. The right lower extremity stump was then prepped and draped in the usual sterile fashion. After this, time-out was called and all members of the surgical team agreed upon site, surgeon, and patient. Once this was completed, a longitudinal incision was made directly over the stump using the patient's old incision. Bleeding was controlled with electrocautery. The fistula was followed down all the way to the distal aspect of the femur, which was bluntly dissected out with Bovie electrocautery, sharp dissection, and a nunez elevator. We made a circumferential recess around the distal femur of approximately 6 cm proximal. A large bone clamp was then used to position and hold and the oscillating saw was then used to resect the 6 cm of distal femur. Curettage was used in the canal to ensure viability. We also then removed with a full fistulectomy with Bovie electrocautery until good tissue was found. Cultures were obtained at the deepest part after encountering abscess. The entire wound was then copiously irrigated with normal saline, and we elected to close straight to skin with vertical Prolene stitches and we left a large segment packed open in the midportion. Wound Care had been consulted for a wound VAC placement. Sterile dressing was applied. Procedure was terminated without any complication. The patient was awakened in the operative suite and taken to recovery room in stable condition. LMA was removed. Job ID: [id number] [facility]
[2019-02-27] MEDS: Famotidine 20 MG TAB PO SCH (20:01)
[2019-02-27] MEDS: Vancomycin HCl 1.5 GM in Sodium Chloride 0.9% 250 ML 300 ML IVPB SCH (20:03)
[2019-02-28] MEDS: HYDROcodone/Acetaminophen 10/325 mg Tablet PO PRN ×2 (01:23→09:41)
[2019-02-28] MEDS: Piperacillin/Tazobactam 3.375 GM in Sodium Chloride 0.9% 100 ML IVPB SCH ×4 (03:17→21:27)
[2019-02-28 05:02] LABS: #Basophils 0.1 thou/uL (0.0-0.2); #Eosinphils 0.5 thou/uL (0.0-0.7); #Lymphocytes 1.3 thou/uL (1.20-3.40); #Monocytes 0.6 thou/uL (0.11-0.59); #Neutrophils 6.2 thou/uL (1.40-6.50); %Basophils 0.7 % (0.0-1.0); %Eosinophils 5.3 % (0.0-10.0); %Lymphocytes 14.9 % (21.0-51.0); %Monocytes 6.9 % (0.0-10.0); %Neutrophils 72.1 % (42.0-75.0); Hemoglobin 8.4 g/dL (14.0-18.0); Mean Corpuscular HGB CONC 32.5 g/dL (32.0-36.0); Mean Corpuscular Hemoglobin 28.9 pg (27.0-31.0); Mean Platelet Volume 7.2 fL (7.4-10.4); Platelet Count 174 thou/uL (130-400); RBC Distribution Width 16.7 % (11.5-14.5); Red Blood Cell (RBC) Count 2.91 mill/uL (4.70-6.10); White Blood Cell (WBC) Count 8.6 thou/uL (4.8-10.8)
[2019-02-28 05:24] LABS: Anion Gap 11 mmol/L (10-20); BUN (Urea Nitrogen) 15 mg/dL (8.4-25.7); Calc. Creatinine Clearance 72 mL/min (70-130); Calcium 7.5 mg/dL (7.8-10.44); Carbon Dioxide 22 mmol/L (23-31); Chloride 103 mmol/L (98-107); Estimated GFR-MDRD 45; Glucose 99 mg/dL (83-110); Potassium 3.9 mmol/L (3.5-5.1); Sodium 132 mmol/L (136-145)
[2019-02-28 08:34] LABS: Vancomycin, Trough 34.8 ug/mL
[2019-02-28] MEDS: Vancomycin HCl 1.5 GM in Sodium Chloride 0.9% 250 ML 300 ML IVPB SCH (08:46)
[2019-02-28] MEDS: Famotidine 20 MG TAB PO SCH ×2 (09:42→21:27)
[2019-02-28] MEDS: Enoxaparin Sodium 30 MG/0.3 ML SYRINGE SC SCH (09:42)
[2019-02-28] MEDS: Sodium Chloride 0.9% 1,000 ML IV SCH ×4 (09:43→21:35)
--- NOTE | 2019-02-28 10:51 | PRG ---
DATE OF SERVICE: 02/28/2019 SUBJECTIVE: Virgil is a 73-year-old white male, who is postop day 1 from a revision above-knee amputation secondary to osteomyelitis in the distal aspect of his femoral stump. Overall, he looks better. He has not been out of bed, and he does not ambulate, but he does transfer, and currently his pain is controlled, and he is doing well. OBJECTIVE: VITAL SIGNS: Temperature 97.6, pulse 85, respiratory rate is 14, blood pressure is 145/76. GENERAL: He is alert and oriented to person, place, time, and situation, conversive and appropriate. He is in good spirits today. EXTREMITIES: His incision is clean. No gross strikethrough is noted on the stump. It is still well dressed from yesterday. LABORATORY DATA: Micro; his Gram stain demonstrates Staph aureus. Sensitivity is pending. Hemoglobin and hematocrit are 8.4 and 25.9. IMPRESSION: 1. A 73-year-old male, postop day 1, right above-knee amputation revision and fistulectomy, doing well. 2. Chronic renal insufficiency. 3. Anemia of chronic disease superimposed on blood loss. However, we did not lose much blood in surgery. Tourniquet was not used. The patient has microvascular disease. 4. Hypertension. 5. Tricuspid regurgitation. 6. Demand ischemia. 7. Alcoholic cirrhosis. PLAN: Wound care consult today. We will have pharmacy assist in his vancomycin management and go ahead and treat empirically with IV Rocephin daily for Staph. Job ID: [id number]
[2019-02-28] MEDS ORDERED: Morphine 4 MG/ML VIAL SLOW IVP SCH (11:15)
--- NOTE | 2019-02-28 12:57 | CON ---
DATE OF CONSULTATION: PRIMARY CARE PROVIDER: Unknown. CHIEF COMPLAINT: Management of medical comorbidities. HISTORY OF PRESENT ILLNESS: Mr. Saucedo is a pleasant 73-year-old gentleman, who was seen at [facility] on February 28, 2019, for management of medical comorbidities. Yesterday, he underwent right above-knee amputation. He denies any chest pain or shortness of breath. He denies any fevers or chills. He denies any nausea or vomiting. He reports that the pain in the right lower extremity stump, it is controlled with pain medications. REVIEW OF SYSTEMS: All other systems reviewed and found to be negative. PAST MEDICAL HISTORY: Alcohol abuse, cirrhosis, hypertension, dyslipidemia. PAST SURGICAL HISTORY: Multiple surgeries on the right knee and open reduction and internal fixation of right distal tibia/fibular fracture, in addition to the surgery he underwent yesterday. SOCIAL HISTORY: The patient denies tobacco use or recreational drug use. He reports drinking 2 to 3 beers a day. ALLERGIES: IODINE AND DULOXETINE. HOME MEDICATIONS: 1. Clindamycin 300 mg 3 times a day. 2. Famotidine 20 mg at bedtime. 3. Folic acid 400 mcg daily. 4. Lasix 80 mg daily. 5. Melatonin 10 mg at bedtime as needed. 6. Tramadol 50 mg as needed. 7. Zolpidem 10 mg at bedtime. 8. Potassium chloride 20 mEq 2 times a day. FAMILY HISTORY: Myocardial infarction in his mother. CODE STATUS: I discussed his code status. He wishes to be full code. PHYSICAL EXAMINATION: GENERAL: Mr. Saucedo is awake and alert, not in acute distress. VITAL SIGNS: He is obese, with a BMI of 33.6. Blood pressure is 116/77, pulse 100, respiratory rate 12, and oxygen saturation 94% on room air. He is afebrile. EYES: No scleral icterus. No conjunctival pallor. ENT: Moist mucosal membranes. No oropharyngeal erythema or exudates. NECK: Supple, nontender. Trachea is midline. RESPIRATORY: Accessory muscles of breathing are not active. Chest wall movements are symmetric bilaterally. Lungs are clear to auscultation without wheezes, rhonchi, or crepitations. CARDIOVASCULAR: S1 and S2 are heard, regular. Peripheral pulses palpable. No carotid bruit. No pericardial rub. ABDOMEN: Soft, nontender, bowel sounds heard. No hepatomegaly. No splenomegaly. NEUROLOGIC: Cranial nerves 2 through 12 are intact. MUSCULOSKELETAL: Status post right above-knee amputation, drain in place. SKIN: No rashes or subcutaneous nodules. LYMPHATIC: No cervical lymphadenopathy. PSYCHIATRIC: Normal mood, normal affect. The patient is oriented to person, place, and time. LABORATORY DATA: Mr. Saucedo' labs and investigations were reviewed. He has normal white count, normocytic anemia with hemoglobin 8.4, it was 9.3 yesterday, normal platelet count. Decreased sodium of 132, elevated creatinine of 1.54, it was normal at 0.88 yesterday, and decreased calcium of 7.5 and it was normal at 8.2 yesterday. ASSESSMENT AND PLAN: Mr. Saucedo is a pleasant 73-year-old gentleman, who was seen at [facility] on February 28, 2019. His problem list includes: 1. Acute kidney injury, most likely prerenal. The patient reports poor oral intake. We will provide hydration and recheck. He had 2D echocardiogram in June 2018, which showed left ventricular ejection fraction of 60% to 65%. 2. Hypertension. We will monitor vital signs and titrate antihypertensives as needed. 3. History of daily alcohol use. We will start patient on ASE protocol. 4. Distal femoral osteomyelitis, status post above-knee amputation, antibiotics per Orthopedic team. Many thanks for allowing me to participate in the patient's care. Please feel free to contact me with any questions or concerns. LEVEL OF RISK: Moderate. LEVEL OF COMPLEXITY: Moderate. Job ID: [id number]
[2019-02-28] MEDS ORDERED: Diazepam 5 MG TAB PO PRN (17:35)
[2019-02-28] MEDS ORDERED: Diazepam 5 MG TAB PO SCH (17:45)
[2019-02-28] MEDS ORDERED: Thiamine HCl 200 MG/2 ML VIAL IM SCH (17:45)
[2019-02-28] MEDS: Ondansetron ODT 4 MG TAB PO PRN (21:33)
[2019-02-28] MEDS: Zolpidem Tartrate 5 MG TAB PO PRN (23:52)
[2019-03-01] MEDS: Piperacillin/Tazobactam 3.375 GM in Sodium Chloride 0.9% 100 ML IVPB SCH ×4 (02:30→19:42)
[2019-03-01] MEDS ORDERED: Diazepam 5 MG TAB PO PRN (04:00)
[2019-03-01 04:44] LABS: Anion Gap 12 mmol/L (10-20); BUN (Urea Nitrogen) 18 mg/dL (8.4-25.7); Calc. Creatinine Clearance 63 mL/min (70-130); Calcium 7.6 mg/dL (7.8-10.44); Carbon Dioxide 19 mmol/L (23-31); Chloride 107 mmol/L (98-107); Estimated GFR-MDRD 38; Glucose 95 mg/dL (83-110); Potassium 3.6 mmol/L (3.5-5.1); Sodium 134 mmol/L (136-145)
[2019-03-01] MEDS: Enoxaparin Sodium 30 MG/0.3 ML SYRINGE SC SCH (08:35)
[2019-03-01] MEDS: Magnesium Oxide 400 MG TAB PO SCH (08:36)
[2019-03-01] MEDS: Multivitamin W/ Minerals 1 TAB PO SCH (08:36)
[2019-03-01] MEDS: Famotidine 20 MG TAB PO SCH ×2 (08:36→19:41)
[2019-03-01] MEDS: Thiamine 100 MG TAB PO SCH (08:36)
[2019-03-01] MEDS: Folic Acid 1 MG TAB PO SCH (08:36)
--- NOTE | 2019-03-01 08:53 | PRG ---
DATE OF SERVICE: 03/01/2019 SUBJECTIVE: Virgil is postop day 2 from a right above knee amputation. Cultures returned demonstrating Staphylococcus with resistant only amoxicillin, but otherwise pansensitive. He is currently on Zosyn and vancomycin. Dr. Vazquez will be back tomorrow to evaluate the patient. Otherwise, he rested relatively well. He was seen by the medicine team and started on low-dose benzodiazepines for withdrawals. He is otherwise doing relatively well. He is a little tired this morning. Pain is under adequate control with oral medications. OBJECTIVE: VITAL SIGNS: Temperature 98.5, pulse 79, respiratory rate 16 and unlabored, O2 saturation is between 92 and 95 on room air, blood pressure is 121/75 and up to 140 systolic this morning and asymptomatic. GENERAL: He is alert, oriented, responsive, appropriate with examiner. EXTREMITIES: His VAC output is scant. No gross bleeding. Stump is still well dressed and pliable. LABORATORY DATA: Hemoglobin is 8.4 today, hematocrit 25.9. His creatinine has taken a slight bump from 1.54 to 1.77. We will check his vancomycin levels. Trough was little high at 34.8 and Pharmacy will make adjustments. IMPRESSION: 1. A 73-year-old white male, postoperative day #2, right above-knee amputation revision. 2. Infection with Staphylococcus aureus. PLAN: 1. Continue vancomycin and Zosyn. 2. Skilled placement. Monitor vancomycin. Physical therapy consult for [id number] transfers. Job ID: [id number]
[2019-03-01] MEDS ORDERED: Vancomycin HCl 1.5 GM in Sodium Chloride 0.9% 250 ML 300 ML IVPB SCH ×2 (09:00)
[2019-03-01] MEDS: HYDROcodone/Acetaminophen 10/325 mg Tablet PO PRN ×3 (09:23→21:23)
--- NOTE | 2019-03-01 12:08 | PDOC.PN ---
- Subjective Encounter Start Date: 03/01/19 Encounter Start Time: 10:30 Subjective: feels better -: is able to move his surgical side limb today a bit - Objective Resuscitation Status - Order Detail: 02/28/19 12:26 Resuscitation Status Routine Resuscitation Status: FULL: Full Resuscitation Discussed with: patient JEAN Reviewed: Yes Vital Signs & Weight: Vital Signs (12 hours) Temp Pulse Resp BP Pulse Ox 03/01/19 07:55 98 F 79 16 150/75 H 97 03/01/19 04:07 97.6 F 88 16 145/79 H 95 03/01/19 00:52 98.5 F 79 16 128/75 92 L Weight Admit Weight 255 lb Weight 255 lb I&O: 02/28/19 03/01/19 03/02/19 06:59 06:59 06:59 Intake Total 2100 2254 Output Total 350 1900 Balance 1750 354 Result Diagrams: 02/28/19 04:24 03/01/19 03:57 Phys Exam - Physical Examination HEENT: PERRLA, moist MMs Neck: no JVD, supple Respiratory: no wheezing, no rales Cardiovascular: RRR, no significant murmur Gastrointestinal: soft, non-tender, positive bowel sounds Musculoskeletal: pulses present right aka stump in dressing Neurological: non-focal, moves all 4 limbs Psychiatric: normal affect, A&O x 3 Dx/Plan (1) Osteomyelitis Code(s): M86.9 - OSTEOMYELITIS, UNSPECIFIED Status: Acute Qualifiers: Osteomyelitis type: unspecified type Osteomyelitis location: femur Laterality: right Qualified Code(s): M86.9 - Osteomyelitis, unspecified Comment: s/p right aka (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 Code(s): Z89.611 - ACQUIRED ABSENCE OF RIGHT LEG ABOVE KNEE Status: Acute (3) Cirrhosis Code(s): K74.60 - UNSPECIFIED CIRRHOSIS OF LIVER Status: Chronic Qualifiers: Hepatic cirrhosis type: alcoholic cirrhosis Ascites presence: unspecified Qualified Code(s): K70.30 - Alcoholic cirrhosis of liver without ascites (4) Chronic stage c diastolic heart failure Code(s): I50.32 - CHRONIC DIASTOLIC (CONGESTIVE) HEART FAILURE Status: Chronic (5) Hypertension Code(s): I10 - ESSENTIAL (PRIMARY) HYPERTENSION Status: Chronic Qualifiers: Hypertension type: essential hypertension Qualified Code(s): I10 - Essential (primary) hypertension (6) Macrocytic anemia Code(s): D53.9 - NUTRITIONAL ANEMIA, UNSPECIFIED Status: Chronic (7) Pulmonary hypertension Code(s): I27.20 - PULMONARY HYPERTENSION, UNSPECIFIED Status: Chronic - Plan is growing mrsa in cultures, likely margins are clear and may not need anti -: -biotics, currently on vanc and zosyn -: PT to mobilize as tolerated, will likely need rehab -: continue valium prn/ase protocol -: hemostable, norco prn * . Review of Systems - Medications/Allergies Allergies/Adverse Reactions: Allergies Allergy/AdvReac Type Severity Reaction Status Date / Time duloxetine Allergy Verified 02/26/19 08:59 Iodinated Contrast- Oral and Allergy Verified 02/26/19 08:59 IV Dye [Iodinated Contrast Media - IV Dye] shrimp Allergy Verified 02/26/19 08:59 Medications: Current Medications Hydrocodone Bitart/Acetaminophen (Arcata 10/325) 1 tab PO Q4H PRN PRN Reason: Moderate Pain (4-6) Hydrocodone Bitart/Acetaminophen (Arcata 10/325) 2 tab PO Q4H PRN PRN Reason: Severe Pain (7-10) Last Admin: 03/01/19 09:23 Dose: 2 tab Bisacodyl (Dulcolax) 10 mg PO DAILYPRN PRN PRN Reason: Constipation Diazepam (Valium) 5 mg PO Q4H PRN PRN Reason: FOR ASE 10 OR GREATER Enoxaparin Sodium (Lovenox) 30 mg SC 0900 [facility] Last Admin: 03/01/19 08:35 Dose: 30 mg Famotidine (Pepcid) 20 mg PO BID [facility] Last Admin: 03/01/19 08:36 Dose: 20 mg Folic Acid (Folvite) 1 mg PO DAILY [facility] Last Admin: 03/01/19 08:36 Dose: 1 mg Sodium Chloride (Normal Saline 0.9%) 1,000 mls @ 50 mls/hr IV .Q20H [facility] Last Admin: 02/28/19 21:35 Dose: Not Given Piperacillin Sod/Tazobactam (Sod 3.375 gm/ Sodium Chloride) 100 mls @ 200 mls/ hr IVPB 0300,0900,1500,2100 [facility] Last Admin: 03/01/19 08:35 Dose: 100 mls Sodium Chloride (Normal Saline 0.9%) 1,000 mls @ 70 mls/hr IV .[id number] [facility] Last Admin: 02/28/19 21:26 Dose: 1,000 mls Vancomycin HCl 1.5 gm/ Sodium (Chloride) 300 mls @ 200 mls/hr IVPB .pending level <20 [facility] Iron/Minerals/Multivitamins (Theragran M) 1 tab PO DAILY [facility] Last Admin: 03/01/19 08:36 Dose: 1 tab Magnesium Oxide (Magnesium Oxide) 400 mg PO DAILY [facility] Last Admin: 03/01/19 08:36 Dose: 400 mg Miscellaneous Medication (Pharmacy To Dose) 0 each IVPB ASDIR [facility] Ondansetron HCl (Zofran Odt) 4 mg PO Q6H PRN PRN Reason: Nausea/Vomiting Last Admin: 02/28/19 21:33 Dose: 4 mg Senna/Docusate Sodium (Senokot S) 2 tab PO BID PRN PRN Reason: Constipation Sodium Chloride (Flush - Normal Saline) 10 ml IVF Q12HR [facility] Last Admin: 03/01/19 08:36 Dose: Not Given Sodium Chloride (Flush - Normal Saline) 10 ml IVF PRN PRN PRN Reason: Saline Flush Thiamine HCl (Thiamine) 100 mg PO DAILY [facility] Last Admin: 03/01/19 08:36 Dose: 100 mg Zolpidem Tartrate (Ambien) 5 mg PO HSPRN PRN PRN Reason: Insomnia Last Admin: 02/28/19 23:52 Dose: 5 mg
[2019-03-01] MEDS: Zolpidem Tartrate 5 MG TAB PO PRN (19:41)
[2019-03-01] MEDS: Sodium Chloride 0.9% 1,000 ML IV SCH (19:41)
[2019-03-02] MEDS: HYDROcodone/Acetaminophen 10/325 mg Tablet PO PRN ×4 (01:14→22:54)
[2019-03-02] MEDS: Piperacillin/Tazobactam 3.375 GM in Sodium Chloride 0.9% 100 ML IVPB SCH ×2 (02:30→09:50)
[2019-03-02 08:06] LABS: #Eosinphils 0.3 thou/uL (0.0-0.7); #Lymphocytes 1.3 thou/uL (1.20-3.40); #Monocytes 0.6 thou/uL (0.11-0.59); #Neutrophils 3.4 thou/uL (1.40-6.50); %Basophils 0.6 % (0.0-1.0); %Lymphocytes 22.2 % (21.0-51.0); %Neutrophils 60.1 % (42.0-75.0); Hemoglobin 6.5 g/dL (14.0-18.0); Mean Corpuscular HGB CONC 33.7 g/dL (32.0-36.0); Mean Corpuscular Hemoglobin 29.7 pg (27.0-31.0); Mean Corpuscular Volume 88.2 fL (78.0-98.0); Mean Platelet Volume 6.9 fL (7.4-10.4); Platelet Count 143 thou/uL (130-400); RBC Distribution Width 16.4 % (11.5-14.5); Red Blood Cell (RBC) Count 2.18 mill/uL (4.70-6.10); White Blood Cell (WBC) Count 5.7 thou/uL (4.8-10.8)
[2019-03-02 08:23] LABS: Anion Gap 9 mmol/L (10-20); BUN (Urea Nitrogen) 17 mg/dL (8.4-25.7); Calc. Creatinine Clearance 86 mL/min (70-130); Calcium 7.3 mg/dL (7.8-10.44); Carbon Dioxide 20 mmol/L (23-31); Chloride 109 mmol/L (98-107); Estimated GFR-MDRD 55; Glucose 112 mg/dL (83-110); Potassium 3.6 mmol/L (3.5-5.1); Sodium 134 mmol/L (136-145)
[2019-03-02] MEDS: Magnesium Oxide 400 MG TAB PO SCH (09:08)
[2019-03-02] MEDS: Thiamine 100 MG TAB PO SCH (09:08)
[2019-03-02] MEDS: Famotidine 20 MG TAB PO SCH ×2 (09:08→21:53)
[2019-03-02] MEDS: Folic Acid 1 MG TAB PO SCH (09:08)
[2019-03-02] MEDS: Multivitamin W/ Minerals 1 TAB PO SCH (09:50)
[2019-03-02] MEDS: Enoxaparin Sodium 30 MG/0.3 ML SYRINGE SC SCH (11:00)
[2019-03-02] MEDS ORDERED: Fentanyl 100 MCG/2 ML VIAL SLOW IVP SCH (11:45)
[2019-03-02] MEDS ORDERED: Furosemide 20 MG/2 ML VIAL SLOW IVP SCH ×2 (11:45→20:00)
--- NOTE | 2019-03-02 13:15 | PDOC.PN ---
- Subjective Encounter Start Date: 03/02/19 Encounter Start Time: 10:00 Subjective: pain is better, got some sleep last night -: is moving his right stump a bit -: no bleeding per rectum - Objective Resuscitation Status - Order Detail: 02/28/19 12:26 Resuscitation Status Routine Resuscitation Status: FULL: Full Resuscitation Discussed with: patient JEAN Reviewed: Yes Vital Signs & Weight: Vital Signs (12 hours) Temp Pulse Resp BP Pulse Ox 03/02/19 11:12 98.1 F 84 18 122/72 99 03/02/19 07:57 97.4 F L 88 16 138/67 99 03/02/19 04:13 97.8 F 85 16 97/62 98 Weight Admit Weight 255 lb Weight 255 lb I&O: 03/01/19 03/02/19 03/03/19 06:59 06:59 06:59 Intake Total 2254 2540 Output Total 1900 2100 Balance 354 440 Result Diagrams: 03/02/19 07:51 03/02/19 07:51 Phys Exam - Physical Examination HEENT: PERRLA, moist MMs Neck: no JVD, supple Respiratory: no wheezing, no rales Cardiovascular: RRR, no significant murmur Gastrointestinal: soft, non-tender, positive bowel sounds Musculoskeletal: pulses present right LE aka stump in wound vac Neurological: non-focal, moves all 4 limbs Psychiatric: normal affect, A&O x 3 Dx/Plan (1) Osteomyelitis Code(s): M86.9 - OSTEOMYELITIS, UNSPECIFIED Status: Acute Qualifiers: Osteomyelitis type: unspecified type Osteomyelitis location: femur Laterality: right Qualified Code(s): M86.9 - Osteomyelitis, unspecified Comment: s/p right aka (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 Code(s): Z89.611 - ACQUIRED ABSENCE OF RIGHT LEG ABOVE KNEE Status: Acute (3) Cirrhosis Code(s): K74.60 - UNSPECIFIED CIRRHOSIS OF LIVER Status: Chronic Qualifiers: Hepatic cirrhosis type: alcoholic cirrhosis Ascites presence: unspecified Qualified Code(s): K70.30 - Alcoholic cirrhosis of liver without ascites (4) Chronic stage c diastolic heart failure Code(s): I50.32 - CHRONIC DIASTOLIC (CONGESTIVE) HEART FAILURE Status: Chronic (5) Hypertension Code(s): I10 - ESSENTIAL (PRIMARY) HYPERTENSION Status: Chronic Qualifiers: Hypertension type: essential hypertension Qualified Code(s): I10 - Essential (primary) hypertension (6) Macrocytic anemia Code(s): D53.9 - NUTRITIONAL ANEMIA, UNSPECIFIED Status: Chronic (7) Pulmonary hypertension Code(s): I27.20 - PULMONARY HYPERTENSION, UNSPECIFIED Status: Chronic (8) Acute blood loss anemia Code(s): D62 - ACUTE POSTHEMORRHAGIC ANEMIA Status: Acute - Plan will be recieving prbc today -: will add iron daily, d/w -: is on vanc and zosyn, staph is sensitive to most antibiotics, will -: -see pt for choice of antibiotics if needed, had aka -: BP a bit labile, continue iv fluids for now until blood transfusion * . Review of Systems - Medications/Allergies Allergies/Adverse Reactions: Allergies Allergy/AdvReac Type Severity Reaction Status Date / Time duloxetine Allergy Verified 02/26/19 08:59 Iodinated Contrast- Oral and Allergy Verified 02/26/19 08:59 IV Dye [Iodinated Contrast Media - IV Dye] shrimp Allergy Verified 02/26/19 08:59 Medications: Current Medications Hydrocodone Bitart/Acetaminophen ([place] 10/325) 1 tab PO Q4H PRN PRN Reason: Moderate Pain (4-6) Hydrocodone Bitart/Acetaminophen ([place] 10/325) 2 tab PO Q4H PRN PRN Reason: Severe Pain (7-10) Last Admin: 03/02/19 09:20 Dose: 2 tab Bisacodyl (Dulcolax) 10 mg PO DAILYPRN PRN PRN Reason: Constipation Diazepam (Valium) 5 mg PO Q4H PRN PRN Reason: FOR ASE 10 OR GREATER Enoxaparin Sodium (Lovenox) 30 mg SC 0900 [facility] Famotidine (Pepcid) 20 mg PO BID [facility] Last Admin: 03/02/19 09:08 Dose: 20 mg Fentanyl (Sublimaze) 25 mcg SLOW IVP NOW [facility] Stop: 03/02/19 13:45 Last Admin: 03/02/19 12:13 Dose: 25 mcg Folic Acid (Folvite) 1 mg PO DAILY [facility] Last Admin: 03/02/19 09:08 Dose: 1 mg Furosemide (Lasix) 20 mg SLOW IVP ONE [facility] Stop: 03/02/19 19:00 Sodium Chloride (Normal Saline 0.9%) 1,000 mls @ 50 mls/hr IV .Q20H [facility] Last Admin: 03/01/19 19:41 Dose: 1,000 mls Piperacillin Sod/Tazobactam (Sod 3.375 gm/ Sodium Chloride) 100 mls @ 200 mls/ hr IVPB 0300,0900,1500,2100 [facility] Last Admin: 03/02/19 09:50 Dose: 100 mls Vancomycin HCl 1.5 gm/ Sodium (Chloride) 300 mls @ 200 mls/hr IVPB 1100 [facility] Iron/Minerals/Multivitamins (Theragran M) 1 tab PO DAILY [facility] Last Admin: 03/02/19 09:50 Dose: 1 tab Magnesium Oxide (Magnesium Oxide) 400 mg PO DAILY [facility] Last Admin: 03/02/19 09:08 Dose: 400 mg Miscellaneous Medication (Pharmacy To Dose) 0 each IVPB ASDIR [facility] Ondansetron HCl (Zofran Odt) 4 mg PO Q6H PRN PRN Reason: Nausea/Vomiting Last Admin: 02/28/19 21:33 Dose: 4 mg Senna/Docusate Sodium (Senokot S) 2 tab PO BID PRN PRN Reason: Constipation Sodium Chloride (Flush - Normal Saline) 10 ml IVF Q12HR [facility] Last Admin: 03/02/19 09:08 Dose: 10 ml Sodium Chloride (Flush - Normal Saline) 10 ml IVF PRN PRN PRN Reason: Saline Flush Thiamine HCl (Thiamine) 100 mg PO DAILY [facility] Last Admin: 03/02/19 09:08 Dose: 100 mg Zolpidem Tartrate (Ambien) 5 mg PO HSPRN PRN PRN Reason: Insomnia Last Admin: 03/01/19 19:41 Dose: 5 mg
[2019-03-02] MEDS ORDERED: cefTRIAXone\\ROCEPHIN 1 GM in Sodium Chloride 0.9% 100 ML IVPB SCH (14:00)
--- NOTE | 2019-03-02 14:04 | SPC ---
Sonographic guided left upper extremity PICC HISTORY: Sepsis. FINDINGS: After explaining the procedure and answering all questions, the left upper extremity was pr epped and draped in usual sterile fashion. Sterile technique, buffered local anesthesia, sonographic guidance, and a 22-gauge needle were used to carefully access the left basilic vein. Fernie dard technique single lumen PICC so that the tip lies at the level of the cavoatrial junction. Catheter was flushed and secured externally. Patient tolerated the procedure well and was returned in unchanged condition. Fluoroscopy time 0 seconds. IMPRESSION: Left upper extremity PICC ready for use.
[2019-03-02] MEDS ORDERED: Fentanyl 100 MCG/2 ML VIAL SLOW IVP PRN (19:30)
[2019-03-02] MEDS: cefTRIAXone\\ROCEPHIN 1 GM in Sodium Chloride 0.9% 100 ML IVPB SCH (22:07)
[2019-03-02] MEDS: Sodium Chloride 0.9% 1,000 ML IV SCH (22:08)
[2019-03-03] MEDS: HYDROcodone/Acetaminophen 10/325 mg Tablet PO PRN ×3 (03:36→18:32)
[2019-03-03 05:45] LABS: #Eosinphils 0.3 thou/uL (0.0-0.7); #Lymphocytes 1.2 thou/uL (1.20-3.40); #Monocytes 0.8 thou/uL (0.11-0.59); #Neutrophils 4.8 thou/uL (1.40-6.50); %Basophils 0.6 % (0.0-1.0); %Eosinophils 4.7 % (0.0-10.0); %Lymphocytes 17.1 % (21.0-51.0); %Monocytes 11.1 % (0.0-10.0); %Neutrophils 66.5 % (42.0-75.0); Hemoglobin 6.8 g/dL (14.0-18.0); Mean Corpuscular HGB CONC 33.3 g/dL (32.0-36.0); Mean Corpuscular Hemoglobin 29.4 pg (27.0-31.0); Mean Corpuscular Volume 88.3 fL (78.0-98.0); Mean Platelet Volume 7.1 fL (7.4-10.4); Platelet Count 138 thou/uL (130-400); RBC Distribution Width 15.8 % (11.5-14.5); Red Blood Cell (RBC) Count 2.33 mill/uL (4.70-6.10); White Blood Cell (WBC) Count 7.2 thou/uL (4.8-10.8)
[2019-03-03 06:07] LABS: Anion Gap 7 mmol/L (10-20); BUN (Urea Nitrogen) 17 mg/dL (8.4-25.7); Calc. Creatinine Clearance 96 mL/min (70-130); Calcium 7.6 mg/dL (7.8-10.44); Carbon Dioxide 22 mmol/L (23-31); Chloride 109 mmol/L (98-107); Estimated GFR-MDRD 63; Glucose 126 mg/dL (83-110); Potassium 3.7 mmol/L (3.5-5.1); Sodium 134 mmol/L (136-145)
[2019-03-03] MEDS: Enoxaparin Sodium 30 MG/0.3 ML SYRINGE SC SCH (08:14)
[2019-03-03] MEDS: Zinc Sulfate 220 MG CAP PO SCH (08:28)
[2019-03-03] MEDS: Thiamine 100 MG TAB PO SCH (08:28)
[2019-03-03] MEDS: Ferrous Sulfate 325 MG TAB PO SCH (08:28)
[2019-03-03] MEDS: Ascorbic Acid 500 mg Chewable Tablet PO SCH (08:28)
[2019-03-03] MEDS: Multivitamin W/ Minerals 1 TAB PO SCH (08:29)
[2019-03-03] MEDS: Magnesium Oxide 400 MG TAB PO SCH (08:29)
[2019-03-03] MEDS: Folic Acid 1 MG TAB PO SCH (08:29)
[2019-03-03] MEDS: Famotidine 20 MG TAB PO SCH ×2 (08:29→21:21)
--- NOTE | 2019-03-03 09:12 | PRG ---
DATE OF SERVICE: 03/03/2019 SUBJECTIVE: The patient states that he did well overnight. Wound VAC was removed yesterday. He received 2 units of packed red blood cells yesterday. He reports tingling sensation into his stump. Dressings were changed several times overnight due to saturation onto the bedsheets. He also reports that he has not been getting much food to eat. His diet was changed and he has been only receiving half portions of food and he is very hungry. OBJECTIVE: VITAL SIGNS: Temperature 97.5, respiratory rate 20, pulse 95, and blood pressure 158/89. GENERAL: The patient is awake and alert. He is sitting up in bed. His color seems to have improved since yesterday. He is in no apparent distress. EXTREMITIES: Evaluation of his right lower extremity shows an AKA stump. Dressing is clean and dry. There is a small amount of strike through, however, no saturation. LABORATORY DATA: Today shows a CBC with a hemoglobin of 6.8 and hematocrit of 20.6. Chemistry shows a BUN of 17 and a creatinine of 1.15. Of note, this has decreased since 03/01 when it was 1.77. ASSESSMENT: Status post [id number] amputation to the right lower extremity. PLAN: At this time, the patient is receiving 2 more units of PRBCs after Dr. Garcia was called in the middle of the night last night due to his H and H, which did not come up much. We will redraw a new H and H once his transfusion is complete. He did receive his PICC line yesterday. He continues with vancomycin q.24 at 11:00 a.m. every day. He is also receiving Rocephin every day. His renal function appears to have improved. His blood pressure is being controlled by the Medicine Team. I have changed his diet back to a normal diet, as he appears very hungry at this time. He needs some nutrition. The wound VAC has been discontinued for now. We will continue to keep an eye on his dressings. Job ID: [id number]
[2019-03-03 10:20] LABS: Hemoglobin 7.8 g/dL (14.0-18.0); Platelet Count 145 thou/uL (130-400)
[2019-03-03] MEDS ORDERED: Furosemide 20 MG/2 ML VIAL SLOW IVP SCH (10:30)
[2019-03-03] MEDS: Vancomycin HCl 1.5 GM in Sodium Chloride 0.9% 250 ML 300 ML IVPB SCH (10:38)
--- NOTE | 2019-03-03 12:49 | PDOC.PN ---
- Subjective Encounter Start Date: 03/03/19 Encounter Start Time: 12:00 Subjective: no sob, feels better - Objective Resuscitation Status - Order Detail: 02/28/19 12:26 Resuscitation Status Routine Resuscitation Status: FULL: Full Resuscitation Discussed with: patient JEAN Reviewed: Yes Vital Signs & Weight: Vital Signs (12 hours) Temp Pulse Pulse Resp BP BP Pulse Ox 03/03/19 12:42 97.5 F L 82 18 170/83 H 99 03/03/19 11:03 97.3 F L 87 14 135/78 99 03/03/19 10:00 97.5 F L 94 20 149/84 H 99 03/03/19 08:29 98 03/03/19 07:25 97.5 F L 95 20 158/89 H 98 03/03/19 07:10 97.4 F L 91 92 20 148/97 H 146/87 H 100 03/03/19 04:00 99.3 F 90 16 150/59 H 98 Weight Admit Weight 255 lb Weight 255 lb I&O: 03/02/19 03/03/19 03/04/19 06:59 06:59 06:59 Intake Total 2540 1836 0 Output Total 2100 900 Balance 440 936 0 Result Diagrams: 03/03/19 10:03 03/03/19 05:09 Phys Exam - Physical Examination HEENT: PERRLA, moist MMs Neck: no JVD, supple Respiratory: no wheezing, no rales Cardiovascular: RRR, no significant murmur Gastrointestinal: soft, non-tender, positive bowel sounds Musculoskeletal: no edema, pulses present Neurological: non-focal, moves all 4 limbs Psychiatric: normal affect, A&O x 3 Dx/Plan (1) Osteomyelitis Code(s): M86.9 - OSTEOMYELITIS, UNSPECIFIED Status: Acute Qualifiers: Osteomyelitis type: unspecified type Osteomyelitis location: femur Laterality: right Qualified Code(s): M86.9 - Osteomyelitis, unspecified Comment: s/p right aka (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 Code(s): Z89.611 - ACQUIRED ABSENCE OF RIGHT LEG ABOVE KNEE Status: Acute (3) Cirrhosis Code(s): K74.60 - UNSPECIFIED CIRRHOSIS OF LIVER Status: Chronic Qualifiers: Hepatic cirrhosis type: alcoholic cirrhosis Ascites presence: unspecified Qualified Code(s): K70.30 - Alcoholic cirrhosis of liver without ascites (4) Chronic stage c diastolic heart failure Code(s): I50.32 - CHRONIC DIASTOLIC (CONGESTIVE) HEART FAILURE Status: Chronic (5) Hypertension Code(s): I10 - ESSENTIAL (PRIMARY) HYPERTENSION Status: Chronic Qualifiers: Hypertension type: essential hypertension Qualified Code(s): I10 - Essential (primary) hypertension (6) Macrocytic anemia Code(s): D53.9 - NUTRITIONAL ANEMIA, UNSPECIFIED Status: Chronic (7) Pulmonary hypertension Code(s): I27.20 - PULMONARY HYPERTENSION, UNSPECIFIED Status: Chronic (8) Acute blood loss anemia Code(s): D62 - ACUTE POSTHEMORRHAGIC ANEMIA Status: Acute - Plan has recieved total of 3 u prbc and is awaiting the 4 th unit -: wound vac has been removed -: on regular diet, wants more portions, says his appetite is back now -: mobilize with PT/OT, is on ceftriaxone and vanc -: likely to rehab if stable * . Review of Systems - Medications/Allergies Allergies/Adverse Reactions: Allergies Allergy/AdvReac Type Severity Reaction Status Date / Time duloxetine Allergy Verified 02/26/19 08:59 Iodinated Contrast- Oral and Allergy Verified 02/26/19 08:59 IV Dye [Iodinated Contrast Media - IV Dye] shrimp Allergy Verified 02/26/19 08:59 Medications: Current Medications Hydrocodone Bitart/Acetaminophen ([place] 10/325) 1 tab PO Q4H PRN PRN Reason: Moderate Pain (4-6) Hydrocodone Bitart/Acetaminophen ([place] 10/325) 2 tab PO Q4H PRN PRN Reason: Severe Pain (7-10) Last Admin: 03/03/19 08:29 Dose: 2 tab Ascorbic Acid (Vitamin C) 500 mg PO DAILY [facility] Last Admin: 03/03/19 08:28 Dose: 500 mg Bisacodyl (Dulcolax) 10 mg PO DAILYPRN PRN PRN Reason: Constipation Diazepam (Valium) 5 mg PO Q4H PRN PRN Reason: FOR ASE 10 OR GREATER Enoxaparin Sodium (Lovenox) 30 mg SC 0900 [facility] Last Admin: 03/03/19 08:14 Dose: Not Given Famotidine (Pepcid) 20 mg PO BID [facility] Last Admin: 03/03/19 08:29 Dose: 20 mg Ferrous Sulfate (Feosol) 325 mg PO QAM-WM [facility] Last Admin: 03/03/19 08:28 Dose: 325 mg Folic Acid (Folvite) 1 mg PO DAILY [facility] Last Admin: 03/03/19 08:29 Dose: 1 mg Furosemide (Lasix) 20 mg SLOW IVP [facility] Stop: 03/03/19 18:00 Last Admin: 03/03/19 10:35 Dose: 20 mg Sodium Chloride (Normal Saline 0.9%) 1,000 mls @ 50 mls/hr IV .Q20H [facility] Last Admin: 03/02/19 22:08 Dose: Not Given Vancomycin HCl 1.5 gm/ Sodium (Chloride) 300 mls @ 200 mls/hr IVPB 1100 [facility] Last Admin: 03/03/19 10:38 Dose: 300 mls Ceftriaxone Sodium 1 gm/ (Sodium Chloride) 100 mls @ 200 mls/hr IVPB Q24HR [facility] Last Admin: 03/02/19 22:07 Dose: 100 mls Iron/Minerals/Multivitamins (Theragran M) 1 tab PO DAILY [facility] Last Admin: 03/03/19 08:29 Dose: 1 tab Magnesium Oxide (Magnesium Oxide) 400 mg PO DAILY [facility] Last Admin: 03/03/19 08:29 Dose: 400 mg Miscellaneous Medication (Pharmacy To Dose) 0 each IVPB ASDIR [facility] Ondansetron HCl (Zofran Odt) 4 mg PO Q6H PRN PRN Reason: Nausea/Vomiting Last Admin: 02/28/19 21:33 Dose: 4 mg Senna/Docusate Sodium (Senokot S) 2 tab PO BID PRN PRN Reason: Constipation Sodium Chloride (Flush - Normal Saline) 10 ml IVF Q12HR [facility] Last Admin: 03/03/19 08:30 Dose: Not Given Sodium Chloride (Flush - Normal Saline) 10 ml IVF PRN PRN PRN Reason: Saline Flush Thiamine HCl (Thiamine) 100 mg PO DAILY [facility] Last Admin: 03/03/19 08:28 Dose: 100 mg Zinc Sulfate (Zinc Sulfate) 220 mg PO DAILY [facility] Last Admin: 03/03/19 08:28 Dose: 220 mg Zolpidem Tartrate (Ambien) 5 mg PO HSPRN PRN PRN Reason: Insomnia Last Admin: 03/01/19 19:41 Dose: 5 mg
--- NOTE | 2019-03-03 13:22 | EKG ---
Test Reason : PREOP Blood Pressure : / mmHG Vent. Rate : 075 BPM Atrial Rate : 068 BPM P-R Int : 136 ms QRS Dur : 096 ms QT Int : 438 ms P-R-T Axes : 050 062 056 degrees QTc Int : 489 ms Sinus rhythm with occasional atrial and ventricular complexes Prolonged QT Abnormal ECG When compared with ECG of 24-JUN-2018 19:41, Sinus rhythm has replaced Atrial flutter Vent. rate has decreased BY 73 BPM T wave inversion no longer evident in Inferior leads T wave inversion no longer evident in Anterolateral leads Confirmed by DR. Edward MITCHELL ([id number]) on 03/03/2019 1:22:11 PM Referred By: RADHA Confirmed By:DR. Edward MITCHELL
[2019-03-03] MEDS: Sodium Chloride 0.9% 1,000 ML IV SCH (16:00)
[2019-03-03] MEDS: cefTRIAXone\\ROCEPHIN 1 GM in Sodium Chloride 0.9% 100 ML IVPB SCH (21:21)
[2019-03-03] MEDS: Zolpidem Tartrate 5 MG TAB PO PRN (21:26)
--- NOTE | 2019-03-03 22:57 | CON ---
DATE OF CONSULTATION: REASON FOR CONSULTATION: Right femur osteomyelitis. HISTORY OF PRESENT ILLNESS: A 73-year-old patient, whom I had previously seen at [facility] for complications related to the right knee replacement. 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 This was managed with vancomycin and Rocephin. Eventually, the implant was removed on November 27, and chronic osteo became apparent secondary to methicillin- resistant Staphylococcus aureus. The patient underwent above-knee amputation in June and now has been readmitted with recrudescence of inflammatory changes and had a revision of the above-knee amputation on 02/27 with 6 cm above of the distal femur resected. At this time, methicillin-sensitive Staphylococcus aureus has been retrieved. The patient is awake. He is not confused. He is cooperative. He denies any headaches. No visual symptoms, sore throat, odynophagia, or dysphagia. No cough, sputum production, or chest pain. No back pain. No abdominal pain or diarrhea. Voiding without difficulty in the urinal. PAST MEDICAL HISTORY: Alcoholism, liver cirrhosis, hypertension. PAST SURGICAL HISTORY: Right knee replacement with various complications including infectious, eventual implant removal and above-knee amputation last year. SOCIAL HISTORY: Drinks heavily for many years. Denies smoking. ALLERGIES: IODINE AND DULOXETINE. FAMILY HISTORY: Coronary artery disease. CURRENT MEDICATIONS: 1. Pierce. 2. Vitamin C. 3. Ceftriaxone. 4. Valium. 5. Lovenox. 6. Pepcid. 7. Folvite. 8. Multivitamin. 9. Senokot. 10. Thiamine. 11. Vancomycin. PHYSICAL EXAMINATION: VITAL SIGNS: T-max 98.4, blood pressure 170/84, pulse 86, respirations 16, and O2 saturation 100%. SKIN: Shows the area of the revision with primary closure. The patient has left upper extremity PICC line placed. LYMPH NODES: He has no lymphadenopathy. HEENT: Ocular movements conjugate. Numerous missing teeth. NECK: Supple. LUNGS: Symmetric air entry. HEART: S1, S2. Regular rate. ABDOMEN: Soft, not distended. No organomegaly or ascites. No bladder distention. GENITOURINARY: He is voiding in the urinal. EXTREMITIES: He is able to move extremities. NEUROLOGIC: He is awake, oriented, follows commands. LABORATORY DATA: White cell count 7.2, hemoglobin 6.8, platelets 138. Sodium 134, creatinine 1.15. The femur tissue with Staph aureus, this is a methicillin-susceptible strain. The operative report was reviewed and the fistulous tract was removed and 6 cm of the distal end of the femur was removed as well and the area was closed primarily. The Wound Care was consulted for placement of a wound negative pressure dressing. ASSESSMENT: Alcoholism and multiple complications related to the right knee implant with eventual resection at the AKA level and now revision of the amputation site due to development of fistulous tract, which went all the way down to the bone. The culture from the bone shows Staph aureus, which is methicillin-sensitive. Pathology is still pending. DISCUSSION: The margin of clearance appears to be adequate, so we could conceivably treat him with oral Keflex. 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 So, one could envision oral therapy with Keflex 500 mg 3 times daily for protracted period of time. PICC line has already been placed and if so desired, Rocephin can be continued once daily 2 g, but I would eventually transition him to oral Keflex for maybe 3 months or so. Job ID: [id number] [facility]
[2019-03-04] MEDS: HYDROcodone/Acetaminophen 10/325 mg Tablet PO PRN ×4 (01:55→22:54)
[2019-03-04 06:59] LABS: #Eosinphils 0.5 thou/uL (0.0-0.7); #Lymphocytes 1.4 thou/uL (1.20-3.40); #Monocytes 0.8 thou/uL (0.11-0.59); %Basophils 0.5 % (0.0-1.0); %Lymphocytes 20.4 % (21.0-51.0); %Monocytes 12.5 % (0.0-10.0); %Neutrophils 59.6 % (42.0-75.0); Hemoglobin 8.3 g/dL (14.0-18.0); Mean Corpuscular HGB CONC 32.9 g/dL (32.0-36.0); Mean Corpuscular Hemoglobin 29.5 pg (27.0-31.0); Mean Corpuscular Volume 89.6 fL (78.0-98.0); Mean Platelet Volume 7.1 fL (7.4-10.4); Platelet Count 127 thou/uL (130-400); RBC Distribution Width 15.3 % (11.5-14.5); Red Blood Cell (RBC) Count 2.82 mill/uL (4.70-6.10); White Blood Cell (WBC) Count 6.7 thou/uL (4.8-10.8)
[2019-03-04 07:22] LABS: Anion Gap 10 mmol/L (10-20); BUN (Urea Nitrogen) 16 mg/dL (8.4-25.7); Calc. Creatinine Clearance 107 mL/min (70-130); Calcium 7.8 mg/dL (7.8-10.44); Carbon Dioxide 21 mmol/L (23-31); Chloride 108 mmol/L (98-107); Estimated GFR-MDRD 70; Glucose 89 mg/dL (83-110); Potassium 3.7 mmol/L (3.5-5.1); Sodium 135 mmol/L (136-145)
[2019-03-04] MEDS: Magnesium Oxide 400 MG TAB PO SCH (09:00)
[2019-03-04] MEDS: Zinc Sulfate 220 MG CAP PO SCH (09:00)
[2019-03-04] MEDS: Ferrous Sulfate 325 MG TAB PO SCH (09:00)
[2019-03-04] MEDS: Multivitamin W/ Minerals 1 TAB PO SCH (09:00)
[2019-03-04] MEDS: Enoxaparin Sodium 30 MG/0.3 ML SYRINGE SC SCH (09:00)
[2019-03-04] MEDS: Famotidine 20 MG TAB PO SCH ×2 (09:01→20:37)
[2019-03-04] MEDS: Folic Acid 1 MG TAB PO SCH (09:01)
[2019-03-04] MEDS: Thiamine 100 MG TAB PO SCH (09:01)
[2019-03-04] MEDS: Ascorbic Acid 500 mg Chewable Tablet PO SCH (09:01)
[2019-03-04 10:30] LABS: Vancomycin, Trough 23.1 ug/mL
[2019-03-04] MEDS: Vancomycin HCl 1.5 GM in Sodium Chloride 0.9% 250 ML 300 ML IVPB SCH (10:45)
--- NOTE | 2019-03-04 11:12 | PDOC.PN ---
- Subjective Encounter Start Date: 03/04/19 Encounter Start Time: 08:15 Subjective: slept well, had his breakfast, feels better this am -: no sob - Objective Resuscitation Status - Order Detail: 02/28/19 12:26 Resuscitation Status Routine Resuscitation Status: FULL: Full Resuscitation Discussed with: patient JEAN Reviewed: Yes Vital Signs & Weight: Vital Signs (12 hours) Temp Pulse Resp BP Pulse Ox 03/04/19 07:43 97.6 F 81 12 176/95 H 96 03/04/19 05:00 97.5 F L 86 18 165/72 H 95 03/04/19 00:00 97.6 F 86 16 179/76 H 98 Weight Admit Weight 255 lb Weight 255 lb I&O: 03/03/19 03/04/19 03/05/19 06:59 06:59 06:59 Intake Total 1836 2080 Output Total 900 1590 Balance 936 490 Result Diagrams: 03/04/19 06:40 03/04/19 06:40 Phys Exam - Physical Examination HEENT: PERRLA, moist MMs Neck: no JVD, supple Respiratory: no wheezing, no rales Cardiovascular: RRR, no significant murmur Gastrointestinal: soft, non-tender, positive bowel sounds Musculoskeletal: pulses present right aka stump in dressing, no soakage Neurological: non-focal, moves all 4 limbs Psychiatric: A&O x 3 Dx/Plan (1) Osteomyelitis Code(s): M86.9 - OSTEOMYELITIS, UNSPECIFIED Status: Acute Qualifiers: Osteomyelitis type: unspecified type Osteomyelitis location: femur Laterality: right Qualified Code(s): M86.9 - Osteomyelitis, unspecified Comment: s/p revision of right aka (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 Code(s): Z89.611 - ACQUIRED ABSENCE OF RIGHT LEG ABOVE KNEE Status: Acute (3) Cirrhosis Code(s): K74.60 - UNSPECIFIED CIRRHOSIS OF LIVER Status: Chronic Qualifiers: Hepatic cirrhosis type: alcoholic cirrhosis Ascites presence: unspecified Qualified Code(s): K70.30 - Alcoholic cirrhosis of liver without ascites (4) Chronic stage c diastolic heart failure Code(s): I50.32 - CHRONIC DIASTOLIC (CONGESTIVE) HEART FAILURE Status: Chronic (5) Hypertension Code(s): I10 - ESSENTIAL (PRIMARY) HYPERTENSION Status: Chronic Qualifiers: Hypertension type: essential hypertension Qualified Code(s): I10 - Essential (primary) hypertension (6) Macrocytic anemia Code(s): D53.9 - NUTRITIONAL ANEMIA, UNSPECIFIED Status: Chronic (7) Pulmonary hypertension Code(s): I27.20 - PULMONARY HYPERTENSION, UNSPECIFIED Status: Chronic (8) Acute blood loss anemia Code(s): D62 - ACUTE POSTHEMORRHAGIC ANEMIA Status: Acute - Plan h/h is stable after 4 units of prbc -: add lopressor and norvasc -: awaiting placement -: dc vanc, is on ceftriaxone to transition to keflex per adv -: dc iv fluids, no alc withdrawal symptoms and remains stable * . Review of Systems - Medications/Allergies Allergies/Adverse Reactions: Allergies Allergy/AdvReac Type Severity Reaction Status Date / Time duloxetine Allergy Verified 02/26/19 08:59 Iodinated Contrast- Oral and Allergy Verified 02/26/19 08:59 IV Dye [Iodinated Contrast Media - IV Dye] shrimp Allergy Verified 02/26/19 08:59 Medications: Current Medications Hydrocodone Bitart/Acetaminophen ([place] 10/325) 1 tab PO Q4H PRN PRN Reason: Moderate Pain (4-6) Hydrocodone Bitart/Acetaminophen ([place] 10/325) 2 tab PO Q4H PRN PRN Reason: Severe Pain (7-10) Last Admin: 03/04/19 10:50 Dose: 2 tab Amlodipine Besylate (Norvasc) 5 mg PO DAILY [facility] Amlodipine Besylate (Norvasc) 5 mg PO ONE [facility] Ascorbic Acid (Vitamin C) 500 mg PO DAILY [facility] Last Admin: 03/04/19 09:01 Dose: 500 mg Bisacodyl (Dulcolax) 10 mg PO DAILYPRN PRN PRN Reason: Constipation Diazepam (Valium) 5 mg PO Q4H PRN PRN Reason: FOR ASE 10 OR GREATER Enoxaparin Sodium (Lovenox) 30 mg SC 0900 [facility] Last Admin: 03/04/19 09:00 Dose: 30 mg Famotidine (Pepcid) 20 mg PO BID [facility] Last Admin: 03/04/19 09:01 Dose: 20 mg Ferrous Sulfate (Feosol) 325 mg PO QAM-[facility] Last Admin: 03/04/19 09:00 Dose: 325 mg Folic Acid (Folvite) 1 mg PO DAILY [facility] Last Admin: 03/04/19 09:01 Dose: 1 mg Ceftriaxone Sodium 1 gm/ (Sodium Chloride) 100 mls @ 200 mls/hr IVPB Q24HR [facility] Last Admin: 03/03/19 21:21 Dose: 100 mls Iron/Minerals/Multivitamins (Theragran M) 1 tab PO DAILY [facility] Last Admin: 03/04/19 09:00 Dose: 1 tab Magnesium Oxide (Magnesium Oxide) 400 mg PO DAILY [facility] Last Admin: 03/04/19 09:00 Dose: 400 mg Metoprolol Tartrate (Lopressor) 25 mg PO BID [facility] Miscellaneous Medication (Pharmacy To Dose) 0 each IVPB ASDIR [facility] Ondansetron HCl (Zofran Odt) 4 mg PO Q6H PRN PRN Reason: Nausea/Vomiting Last Admin: 02/28/19 21:33 Dose: 4 mg Senna/Docusate Sodium (Senokot S) 2 tab PO BID PRN PRN Reason: Constipation Sodium Chloride (Flush - Normal Saline) 10 ml IVF Q12HR [facility] Last Admin: 03/04/19 09:00 Dose: 10 ml Sodium Chloride (Flush - Normal Saline) 10 ml IVF PRN PRN PRN Reason: Saline Flush Thiamine HCl (Thiamine) 100 mg PO DAILY [facility] Last Admin: 03/04/19 09:01 Dose: 100 mg Zinc Sulfate (Zinc Sulfate) 220 mg PO DAILY [facility] Last Admin: 03/04/19 09:00 Dose: 220 mg Zolpidem Tartrate (Ambien) 5 mg PO HSPRN PRN PRN Reason: Insomnia Last Admin: 03/03/19 21:26 Dose: 5 mg
[2019-03-04] MEDS ORDERED: Amlodipine 5 MG TAB PO SCH (11:15)
--- NOTE | 2019-03-04 13:17 | PRG ---
DATE OF SERVICE: 03/04/2019 SUBJECTIVE: The patient is feeling much better today. No complaints at this time. States that he did wake up several times during the night because of pain in order to request pain medicine. Otherwise, no new events. OBJECTIVE: VITAL SIGNS: Temperature 98.4, pulse of 83, blood pressure 130/63, and respiratory rate of 16. GENERAL: The patient is awake and alert. He is sitting up to the bedside, eating breakfast at this time. He is in no apparent distress. EXTREMITIES: Evaluation of his right lower AKA stump shows the dressing is clean, dry, and intact. There is no strikethrough. LABORATORY DATA: Laboratory data for today reviewed shows hemoglobin of 8.3, hematocrit of 25.2. Chemistry shows sodium of 135, potassium 3.7. His BUN and creatinine are 16 and 1.04. ASSESSMENT AND PLAN: The patient is orthopedically stable. He is overall much improved over the last 48 hours. His blood count has increased. Per Dr. Vazquez' recommendation, we will change patient to 2 g of Rocephin IV q.24 since the patient already has a PICC line. We will discontinue the vancomycin. He will follow up with Dr. Vazquez and likely transition to p.o. Keflex in approximately 3 months. We are pending case management and placement at this time. Job ID: [id number]
[2019-03-04] MEDS: Metoprolol Tartrate 25 MG TAB PO SCH (20:37)
[2019-03-04] MEDS: cefTRIAXone\\ROCEPHIN 1 GM in Sodium Chloride 0.9% 100 ML IVPB SCH (20:40)
[2019-03-05 04:45] LABS: #Eosinphils 0.4 thou/uL (0.0-0.7); #Lymphocytes 1.3 thou/uL (1.20-3.40); #Monocytes 0.8 thou/uL (0.11-0.59); #Neutrophils 3.7 thou/uL (1.40-6.50); %Basophils 0.7 % (0.0-1.0); %Eosinophils 6.6 % (0.0-10.0); %Lymphocytes 20.9 % (21.0-51.0); %Monocytes 12.8 % (0.0-10.0); Hemoglobin 7.5 g/dL (14.0-18.0); Mean Corpuscular HGB CONC 32.8 g/dL (32.0-36.0); Mean Corpuscular Hemoglobin 29.7 pg (27.0-31.0); Mean Corpuscular Volume 90.6 fL (78.0-98.0); Mean Platelet Volume 7.3 fL (7.4-10.4); Platelet Count 134 thou/uL (130-400); RBC Distribution Width 15.3 % (11.5-14.5); Red Blood Cell (RBC) Count 2.53 mill/uL (4.70-6.10); White Blood Cell (WBC) Count 6.2 thou/uL (4.8-10.8)
[2019-03-05 05:04] LABS: Anion Gap 8 mmol/L (10-20); BUN (Urea Nitrogen) 16 mg/dL (8.4-25.7); Calc. Creatinine Clearance 114 mL/min (70-130); Calcium 7.7 mg/dL (7.8-10.44); Carbon Dioxide 23 mmol/L (23-31); Chloride 109 mmol/L (98-107); Estimated GFR-MDRD 76; Glucose 99 mg/dL (83-110); Sodium 136 mmol/L (136-145)
[2019-03-05] MEDS: HYDROcodone/Acetaminophen 10/325 mg Tablet PO PRN ×4 (06:20→20:40)
[2019-03-05] MEDS: Ferrous Sulfate 325 MG TAB PO SCH (08:46)
[2019-03-05] MEDS: Amlodipine 5 MG TAB PO SCH (08:46)
[2019-03-05] MEDS: Zinc Sulfate 220 MG CAP PO SCH (08:47)
[2019-03-05] MEDS: Famotidine 20 MG TAB PO SCH ×2 (08:47→20:41)
[2019-03-05] MEDS: Folic Acid 1 MG TAB PO SCH (08:47)
[2019-03-05] MEDS: Multivitamin W/ Minerals 1 TAB PO SCH (08:47)
[2019-03-05] MEDS: Magnesium Oxide 400 MG TAB PO SCH (08:48)
[2019-03-05] MEDS: Metoprolol Tartrate 25 MG TAB PO SCH ×2 (08:48→20:41)
[2019-03-05] MEDS: Thiamine 100 MG TAB PO SCH (08:48)
[2019-03-05] MEDS: Ascorbic Acid 500 mg Chewable Tablet PO SCH (08:49)
[2019-03-05] MEDS: Enoxaparin Sodium 30 MG/0.3 ML SYRINGE SC SCH (08:49)
--- NOTE | 2019-03-05 09:44 | PRG ---
DATE OF SERVICE: 03/05/2019 SUBJECTIVE: The patient is sleeping upon my arrival in the room. He wakes up. He seems a little groggy. He has no new complaints today at this time. He states that his dressing has not been changed since yesterday, and he has had no new saturation issues with the dressing. He is awaiting arrival of his breakfast. OBJECTIVE: VITAL SIGNS: Blood pressure 132/76, pulse of 69, temperature of 98.1, and respiratory rate of 18. GENERAL: The patient is awake and alert. He just woke up. He seems a little out of it at this time. He does not seem as alert as yesterday. He is in no apparent distress. EXTREMITIES: Evaluation of the right AKA stump shows that the dressing is intact. It appears to have been changed yesterday on 03/04. No strikethrough. No saturation. LABORATORY RESULTS: From 03/05, today, show hemoglobin 7.5 and hematocrit 23.0. Of note, yesterday this was 8.3 and 25.2. Chemistry for today shows renal function is within normal limits. ASSESSMENT AND PLAN: The patient is status post revision of [id number] amputation stump. It does appear that his H and H have dropped once again. On further questioning about whether or not he has had blood in his stool or dark tarry stools, he denies this. He does not look as well as he appeared yesterday. His dressing has remained dry. We will keep an eye on his blood count and redraw in the morning. The patient is continuing with antibiotic recommendations per Dr. Vazquez and pending case management for discharge planning. Job ID: [id number]
[2019-03-05] MEDS ORDERED: Vancomycin HCl 1.25 GM in Sodium Chloride 0.9% 250 ML 250 ML IVPB SCH (11:00)
--- NOTE | 2019-03-05 11:33 | PDOC.PN ---
- Subjective Encounter Start Date: 03/05/19 Encounter Start Time: 11:00 Subjective: awake and oriented well -: feels good -: eating well, slept well last night - Objective Resuscitation Status - Order Detail: 02/28/19 12:26 Resuscitation Status Routine Resuscitation Status: FULL: Full Resuscitation Discussed with: sergio PENA Reviewed: Yes Vital Signs & Weight: Vital Signs (12 hours) Temp Pulse Resp BP BP Pulse Ox 03/05/19 08:46 69 132/76 03/05/19 08:24 98.1 F 69 18 132/76 96 03/05/19 08:00 96 03/05/19 03:59 98 F 81 16 104/63 97 03/05/19 00:03 98.5 F 75 16 141/87 H 97 Weight Admit Weight 255 lb Weight 255 lb I&O: 03/04/19 03/05/19 03/06/19 06:59 06:59 06:59 Intake Total 2080 1290 Output Total 1590 950 Balance 490 340 Result Diagrams: 03/05/19 04:05 03/05/19 04:05 Phys Exam - Physical Examination HEENT: PERRLA, moist MMs Neck: no JVD, supple Respiratory: no wheezing, no rales Cardiovascular: RRR, no significant murmur Gastrointestinal: soft, non-tender, positive bowel sounds Musculoskeletal: pulses present, edema present right aka stump in clean dressing Neurological: non-focal, moves all 4 limbs Psychiatric: normal affect, A&O x 3 Dx/Plan (1) Osteomyelitis Code(s): M86.9 - OSTEOMYELITIS, UNSPECIFIED Status: Acute Qualifiers: Osteomyelitis type: unspecified type Osteomyelitis location: femur Laterality: right Qualified Code(s): M86.9 - Osteomyelitis, unspecified Comment: s/p revision of right aka (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 Code(s): Z89.611 - ACQUIRED ABSENCE OF RIGHT LEG ABOVE KNEE Status: Acute (3) Cirrhosis Code(s): K74.60 - UNSPECIFIED CIRRHOSIS OF LIVER Status: Chronic Qualifiers: Hepatic cirrhosis type: alcoholic cirrhosis Ascites presence: unspecified Qualified Code(s): K70.30 - Alcoholic cirrhosis of liver without ascites (4) Chronic stage c diastolic heart failure Code(s): I50.32 - CHRONIC DIASTOLIC (CONGESTIVE) HEART FAILURE Status: Chronic (5) Hypertension Code(s): I10 - ESSENTIAL (PRIMARY) HYPERTENSION Status: Chronic Qualifiers: Hypertension type: essential hypertension Qualified Code(s): I10 - Essential (primary) hypertension (6) Macrocytic anemia Code(s): D53.9 - NUTRITIONAL ANEMIA, UNSPECIFIED Status: Chronic (7) Pulmonary hypertension Code(s): I27.20 - PULMONARY HYPERTENSION, UNSPECIFIED Status: Chronic (8) Acute blood loss anemia Code(s): D62 - ACUTE POSTHEMORRHAGIC ANEMIA Status: Acute - Plan oral iron, no need for transfusion now -: on ceftriaxone, to transition to keflex x 3 months -: awaiting rehab placement for help with transfers/mobilizing -: has not had any alc withdrawal symptoms so far -: hemostable * . Review of Systems - Medications/Allergies Allergies/Adverse Reactions: Allergies Allergy/AdvReac Type Severity Reaction Status Date / Time duloxetine Allergy Verified 02/26/19 08:59 Iodinated Contrast- Oral and Allergy Verified 02/26/19 08:59 IV Dye [Iodinated Contrast Media - IV Dye] shrimp Allergy Verified 02/26/19 08:59 Medications: Current Medications Hydrocodone Bitart/Acetaminophen ([place] 10/325) 1 tab PO Q4H PRN PRN Reason: Moderate Pain (4-6) Hydrocodone Bitart/Acetaminophen ([place]o 10/325) 2 tab PO Q4H PRN PRN Reason: Severe Pain (7-10) Last Admin: 03/05/19 06:20 Dose: 2 tab Amlodipine Besylate (Norvasc) 5 mg PO DAILY [facility] Last Admin: 03/05/19 08:46 Dose: 5 mg Ascorbic Acid (Vitamin C) 500 mg PO DAILY [facility] Last Admin: 03/05/19 08:49 Dose: 500 mg Bisacodyl (Dulcolax) 10 mg PO DAILYPRN PRN PRN Reason: Constipation Diazepam (Valium) 5 mg PO Q4H PRN PRN Reason: FOR ASE 10 OR GREATER Famotidine (Pepcid) 20 mg PO BID [facility] Last Admin: 03/05/19 08:47 Dose: 20 mg Ferrous Sulfate (Feosol) 325 mg PO Q[facility] Last Admin: 03/05/19 08:46 Dose: 325 mg Folic Acid (Folvite) 1 mg PO DAILY [facility] Last Admin: 03/05/19 08:47 Dose: 1 mg Ceftriaxone Sodium 1 gm/ (Sodium Chloride) 100 mls @ 200 mls/hr IVPB Q24HR [facility] Last Admin: 03/04/19 20:40 Dose: 100 mls Iron/Minerals/Multivitamins (Theragran M) 1 tab PO DAILY [facility] Last Admin: 03/05/19 08:47 Dose: 1 tab Magnesium Oxide (Magnesium Oxide) 400 mg PO DAILY [facility] Last Admin: 03/05/19 08:48 Dose: 400 mg Metoprolol Tartrate (Lopressor) 25 mg PO BID [facility] Last Admin: 03/05/19 08:48 Dose: 25 mg Ondansetron HCl (Zofran Odt) 4 mg PO Q6H PRN PRN Reason: Nausea/Vomiting Last Admin: 02/28/19 21:33 Dose: 4 mg Senna/Docusate Sodium (Senokot S) 2 tab PO BID PRN PRN Reason: Constipation Sodium Chloride (Flush - Normal Saline) 10 ml IVF Q12HR [facility] Last Admin: 03/05/19 08:52 Dose: 10 ml Sodium Chloride (Flush - Normal Saline) 10 ml IVF PRN PRN PRN Reason: Saline Flush Thiamine HCl (Thiamine) 100 mg PO DAILY [facility] Last Admin: 03/05/19 08:48 Dose: 100 mg Zinc Sulfate (Zinc Sulfate) 220 mg PO DAILY [facility] Last Admin: 03/05/19 08:47 Dose: 220 mg Zolpidem Tartrate (Ambien) 5 mg PO HSPRN PRN PRN Reason: Insomnia Last Admin: 03/03/19 21:26 Dose: 5 mg
[2019-03-05] MEDS: cefTRIAXone\\ROCEPHIN 1 GM in Sodium Chloride 0.9% 100 ML IVPB SCH (20:40)
[2019-03-06 06:45] LABS: Hemoglobin 6.5 g/dL (14.0-18.0); Mean Corpuscular HGB CONC 33.2 g/dL (32.0-36.0); Mean Corpuscular Hemoglobin 30.3 pg (27.0-31.0); Mean Corpuscular Volume 91.4 fL (78.0-98.0); Mean Platelet Volume 7.2 fL (7.4-10.4); Platelet Count 133 thou/uL (130-400); RBC Distribution Width 15.9 % (11.5-14.5); Red Blood Cell (RBC) Count 2.14 mill/uL (4.70-6.10); White Blood Cell (WBC) Count 5.8 thou/uL (4.8-10.8)
[2019-03-06 07:00] LABS: Anion Gap 8 mmol/L (10-20); BUN (Urea Nitrogen) 17 mg/dL (8.4-25.7); Calc. Creatinine Clearance 110 mL/min (70-130); Calcium 7.6 mg/dL (7.8-10.44); Carbon Dioxide 23 mmol/L (23-31); Chloride 109 mmol/L (98-107); Estimated GFR-MDRD 73; Glucose 125 mg/dL (83-110); Potassium 3.9 mmol/L (3.5-5.1); Sodium 136 mmol/L (136-145)
[2019-03-06 08:47] LABS: Band 4 % (5-11); Eosinophils 8 % (0-10); Hypochromia SLIGHT = 6-15 cells (100X) (0-5/hpf); Lymphocytes 17 % (21-51); MDiff Complete? YES; Metamyelocyte 1 % (0-0); Monocytes 14 % (0-10); Neutrophil 54 % (42-75); Platelet Morphology Comment Appears Adequate; Polychromasia SLIGHT = 2-3 cells (100X) (0-2/hpf); Reactive Lymphocytes 1 % (0-10)
[2019-03-06] MEDS: Ferrous Sulfate 325 MG TAB PO SCH (09:01)
[2019-03-06] MEDS: HYDROcodone/Acetaminophen 10/325 mg Tablet PO PRN ×2 (09:04→17:14)
[2019-03-06] MEDS: Zinc Sulfate 220 MG CAP PO SCH (09:06)
[2019-03-06] MEDS: Amlodipine 5 MG TAB PO SCH (09:06)
[2019-03-06] MEDS: Multivitamin W/ Minerals 1 TAB PO SCH (09:06)
[2019-03-06] MEDS: Metoprolol Tartrate 25 MG TAB PO SCH ×2 (09:06→20:59)
[2019-03-06] MEDS: Famotidine 20 MG TAB PO SCH ×2 (09:06→20:59)
[2019-03-06] MEDS: Folic Acid 1 MG TAB PO SCH (09:07)
[2019-03-06] MEDS: Magnesium Oxide 400 MG TAB PO SCH (09:07)
[2019-03-06] MEDS: Thiamine 100 MG TAB PO SCH (09:08)
[2019-03-06] MEDS: Ascorbic Acid 500 mg Chewable Tablet PO SCH (09:08)
[2019-03-06 15:53] LABS: INR-International Normal Ratio 1.4; Prothrombin Time 16.9 SEC (12.0-14.7)
[2019-03-06 15:54] LABS: PTT 43.8 SEC (22.9-36.1)
[2019-03-06 17:11] LABS: Hemoglobin 7.2 g/dL (14.0-18.0)
[2019-03-06 17:12] LABS: Platelet Count 156 thou/uL (130-400)
[2019-03-06] MEDS ORDERED: Furosemide 20 MG/2 ML VIAL SLOW IVP SCH (17:15)
[2019-03-06] MEDS ORDERED: Phytonadione 10 MG/ML AMP PO SCH (17:15)
--- NOTE | 2019-03-06 17:32 | PRG ---
DATE OF SERVICE: 03/06/2019 SUBJECTIVE: The patient reports he continues to have some discomfort in his right stump area. He has some edema in his left leg as well. OBJECTIVE: VITAL SIGNS: Temperature is 98.4, pulse 60, respirations 16, O2 saturation 97% on room air, and blood pressure 117/62. GENERAL APPEARANCE: Age-appropriate male. He is in no distress. He is awake and alert. HEART: Regular rate and rhythm. LUNGS: Clear. ABDOMEN: Benign. EXTREMITIES: Right zsspu-[id number]-qear amputation with a compressive dressing. Left lower extremity has some edema in the ankle. : Reveals some scrotal edema as well. LABORATORY DATA: Hemoglobin 6.5, platelets 133. Coags; PT 16.9, INR 1.4, PTT 44. IMPRESSION AND PLAN: 1. Right stump osteomyelitis status post surgical revision, growing methicillin-susceptible Staphylococcus aureus. Dr. Vazquez has recommended Rocephin to transition to oral Keflex. 2. Acute blood loss anemia. The patient is continuing to bleed from his right stump area. He has coagulopathy. He has received transfusion today. We will continue to monitor his labs. We will give some p.o. vitamin K and may need some FFP. 3. Coagulopathy secondary to cirrhosis as above. 4. Cirrhosis secondary to longstanding alcohol abuse. 5. Chronic congestive heart failure, stage C. The patient has some fluid retention, may need a bit of diuresing. 6. Hypertension stable. 7. Pulmonary hypertension, chronic, stable. 8. Disposition. The patient has been accepted to [facility] once his bleeding situation is stabilized. Job ID: [id number]
[2019-03-06] MEDS: cefTRIAXone\\ROCEPHIN 1 GM in Sodium Chloride 0.9% 100 ML IVPB SCH (21:50)
[2019-03-06 23:21] LABS: Hemoglobin 7.7 g/dL (14.0-18.0); Platelet Count 139 thou/uL (130-400)
[2019-03-07 05:51] LABS: #Basophils 0.1 thou/uL (0.0-0.2); #Eosinphils 0.4 thou/uL (0.0-0.7); #Lymphocytes 1.7 thou/uL (1.20-3.40); #Monocytes 0.8 thou/uL (0.11-0.59); #Neutrophils 3.3 thou/uL (1.40-6.50); %Basophils 0.9 % (0.0-1.0); %Eosinophils 6.3 % (0.0-10.0); %Lymphocytes 27.3 % (21.0-51.0); %Monocytes 13.4 % (0.0-10.0); %Neutrophils 52.1 % (42.0-75.0); Hemoglobin 7.8 g/dL (14.0-18.0); Mean Corpuscular HGB CONC 32.5 g/dL (32.0-36.0); Mean Corpuscular Volume 92.2 fL (78.0-98.0); Platelet Count 139 thou/uL (130-400); White Blood Cell (WBC) Count 6.2 thou/uL (4.8-10.8)
[2019-03-07 05:57] LABS: Anion Gap 9 mmol/L (10-20); BUN (Urea Nitrogen) 18 mg/dL (8.4-25.7); Calc. Creatinine Clearance 108 mL/min (70-130); Calcium 7.7 mg/dL (7.8-10.44); Carbon Dioxide 22 mmol/L (23-31); Chloride 108 mmol/L (98-107); Estimated GFR-MDRD 71; Glucose 91 mg/dL (83-110); Potassium 3.9 mmol/L (3.5-5.1); Sodium 135 mmol/L (136-145)
[2019-03-07 06:00] LABS: ALT (SGPT) 8 U/L (8-55); AST (SGOT) 24 U/L (5-34); Albumin 2.2 g/dL (3.4-4.8); Alkaline Phosphatase 128 U/L (40-150); Bilirubin, Total 2.2 mg/dL (0.2-1.2); Protein, Total 5.2 g/dL (5.8-8.1)
[2019-03-07] MEDS: HYDROcodone/Acetaminophen 10/325 mg Tablet PO PRN ×3 (10:05→20:48)
[2019-03-07] MEDS: Multivitamin W/ Minerals 1 TAB PO SCH (10:09)
[2019-03-07] MEDS: Ascorbic Acid 500 mg Chewable Tablet PO SCH (10:09)
[2019-03-07] MEDS: Folic Acid 1 MG TAB PO SCH (10:10)
[2019-03-07] MEDS: Famotidine 20 MG TAB PO SCH ×2 (10:10→20:35)
[2019-03-07] MEDS: Metoprolol Tartrate 25 MG TAB PO SCH ×2 (10:10→20:35)
[2019-03-07] MEDS: Magnesium Oxide 400 MG TAB PO SCH (10:11)
[2019-03-07] MEDS: Amlodipine 5 MG TAB PO SCH (10:12)
[2019-03-07] MEDS: Zinc Sulfate 220 MG CAP PO SCH (10:13)
[2019-03-07] MEDS: Thiamine 100 MG TAB PO SCH (10:13)
--- NOTE | 2019-03-07 10:52 | PRG ---
DATE OF SERVICE: 03/06/2019 SUBJECTIVE: Virgil is a 73-year-old white male, who had a revision above-knee amputation with approximately 3 inch bone resection last . Over the last couple of days, he has continued to lose some blood. I believe part of this because of our frequency of wound care and dressing changes, and he has also lost some blood in the evenings. Wound VAC has been discontinued and presently we are switching him over to Rocephin, discontinue his vancomycin at some point, and pending Dr. Vazquez' managing antibiotics at this point. He has received blood over the weekend total of about 4 units. Today, the patient feels relatively well, but his hemoglobin has dropped down to about 6.5 and our plan was to go the OR today, but I do not think this would be possible due to his anemia and at that point, we might need to give him some FFP in addition to blood products. OBJECTIVE: VITAL SIGNS: Temperature was 98.4, pulse 73, respiratory rate 16, O2 saturation is 97% on room air, and blood pressure 128/72. GENERAL: He is alert and oriented to person, place, time, situation, responds with examiner. He does admit feeling bad, but overall looks relatively well. LABORATORY DATA: Hemoglobin and hematocrit of 6.5 and 19.6. ASSESSMENT: 1. Blood loss anemia. 2. Alcoholic cirrhosis liver. PLAN: 1. At this point, we need to consider fresh frozen plasma and platelets in addition if we transfuse him again. Cancel surgery for today. I will post him for tomorrow just in the event that we cannot get the bleeding under control with wound care, but I am confident we will. 2. I placed a very well-padded stump dressing today. This holds the patient does not bleed overnight. His hemoglobin and hematocrit stay stable. Then, we will treat him conservatively from now on. We will recheck tomorrow. Defer to Medicine. Job ID: [id number]
--- NOTE | 2019-03-07 10:53 | PRG ---
DATE OF SERVICE: 03/07/2019 SUBJECTIVE: Virgil did well with his dressing last night. He lost very little with no blood. There was no reported output by nursing staff. His hemoglobin came up to 7.8. He did receive 2 units, now to a total of I believe 6. He still feels tired. He admits to a little bit of discomfort, but overall he is sleeping well. OBJECTIVE: VITAL SIGNS: Temperature 98.6, pulse 72, respiratory rate 15, O2 saturation is 98% on room air, and blood pressure 117/61. GENERAL: He is alert, appropriate, responsive to examiner, wakes from sleep. EXTREMITIES: His stump demonstrates the incision to be not tense, does not appear swollen or does not appear infected hourly. Dressing is removed and repacked. IMPRESSION: 1. Postoperative day #5, right above-knee amputation, transfemoral resection revision and fistulectomy. 2. Hypocoagulability. 3. Cirrhosis of the liver with poor clotting factors. PLAN: 1. We re-dressed the wound again today and repacked it. Very little blood loss was noted. 2. Continue conservative treatment whether or not to give him another couple of units of blood. We will discuss with in defer to the Medicine Service. I will recheck the patient tomorrow, but for now just re-dressing, cancel surgery. At this time, I feel he has an active bleed, but rather more from the marrow canal loss. 3. Please see orders. Job ID: [id number]
[2019-03-07] MEDS: Ferrous Sulfate 325 MG TAB PO SCH (14:21)
--- NOTE | 2019-03-07 16:30 | PDOC.PN ---
- Subjective Encounter Start Date: 03/07/19 Encounter Start Time: 14:15 Feels ok. Says he can't tell good days from bad anymore. Not a lot of pain. - Objective Resuscitation Status - Order Detail: 02/28/19 12:26 Resuscitation Status Routine Resuscitation Status: FULL: Full Resuscitation Discussed with: patient Vital Signs & Weight: Vital Signs (12 hours) Temp Pulse Resp BP BP Pulse Ox 03/07/19 12:00 98.3 F 70 18 132/70 95 03/07/19 10:12 72 112/50 L 03/07/19 08:00 97.9 F 67 16 112/50 L 95 03/07/19 07:20 98 Weight Admit Weight 255 lb Weight 255 lb I&O: 03/06/19 03/07/19 03/08/19 06:59 06:59 06:59 Intake Total 1830 1840 Output Total 1200 1050 Balance 630 790 Result Diagrams: 03/07/19 05:20 03/07/19 05:20 Phys Exam - Physical Examination Constitutional: NAD Obese. Neck: no nodes, no JVD Respiratory: no wheezing, no rales, no rhonchi, clear to auscultation bilateral Diminished slightly. Cardiovascular: RRR, no significant murmur, no rub Gastrointestinal: soft, non-tender, no distention, positive bowel sounds Slight edema of the right stump, and 1-2+ edema of the LLE at the ankle. Neurological: non-focal, normal sensation Psychiatric: normal affect, A&O x 3 Dx/Plan (1) Acute blood loss anemia Code(s): D62 - ACUTE POSTHEMORRHAGIC ANEMIA Status: Acute (2) Osteomyelitis Code(s): M86.9 - OSTEOMYELITIS, UNSPECIFIED Status: Acute Qualifiers: Osteomyelitis type: unspecified type Osteomyelitis location: femur Laterality: right Qualified Code(s): M86.9 - Osteomyelitis, unspecified Comment: s/p revision of right aka (3) Cirrhosis Code(s): K74.60 - UNSPECIFIED CIRRHOSIS OF LIVER Status: Chronic Qualifiers: Hepatic cirrhosis type: alcoholic cirrhosis Ascites presence: unspecified Qualified Code(s): K70.30 - Alcoholic cirrhosis of liver without ascites (4) Above knee amputation of right lower extremity Code(s): Z89.611 - ACQUIRED ABSENCE OF RIGHT LEG ABOVE KNEE Status: Acute (5) Demand ischemia Code(s): I24.8 - OTHER FORMS OF ACUTE ISCHEMIC HEART DISEASE Status: Acute (6) Alcoholic cirrhosis of liver with ascites Code(s): K70.31 - ALCOHOLIC CIRRHOSIS OF LIVER WITH ASCITES Status: Chronic (7) Chronic stage c diastolic heart failure Code(s): I50.32 - CHRONIC DIASTOLIC (CONGESTIVE) HEART FAILURE Status: Chronic (8) Coagulopathy Status: Chronic (9) Hypertension Code(s): I10 - ESSENTIAL (PRIMARY) HYPERTENSION Status: Chronic Qualifiers: Hypertension type: essential hypertension Qualified Code(s): I10 - Essential (primary) hypertension (10) Physical deconditioning Code(s): R53.81 - OTHER MALAISE Status: Chronic (11) Pulmonary hypertension Code(s): I27.20 - PULMONARY HYPERTENSION, UNSPECIFIED Status: Chronic (12) Severe tricuspid regurgitation Code(s): I07.1 - RHEUMATIC TRICUSPID INSUFFICIENCY Status: Chronic - Plan * S/p R AKA stump revision for osteo. * Growing MSSA. Can have oral Keflex at discharge. * Post-op bleeding/marrow loss. Transfused once. * Will not transfuse again unless below 7. * Looks much better today overall. * Right stump is less indurated today. * Gave Vit K yesterday. Looks like the bleeding has stopped or slowed considerably. * Unfortunately, he has right heart failure with Cor Pulmonale and he likely has high venous pressures at the stump, exacerbating the bleeding problems. * The only thing keeping him her now is the bleeding. If that appears to be stopped by tomorrow, he could possibly be discharged. * Patient is looking at Rehab vs. home. Discussed with TIFFANY.
[2019-03-07] MEDS: cefTRIAXone\\ROCEPHIN 1 GM in Sodium Chloride 0.9% 100 ML IVPB SCH (20:35)
[2019-03-08] MEDS: Ferrous Sulfate 325 MG TAB PO SCH (09:04)
[2019-03-08] MEDS: Folic Acid 1 MG TAB PO SCH (09:04)
[2019-03-08] MEDS: Metoprolol Tartrate 25 MG TAB PO SCH ×2 (09:04→21:43)
[2019-03-08] MEDS: Magnesium Oxide 400 MG TAB PO SCH (09:04)
[2019-03-08] MEDS: Amlodipine 5 MG TAB PO SCH (09:04)
[2019-03-08] MEDS: Famotidine 20 MG TAB PO SCH ×2 (09:09→21:43)
[2019-03-08] MEDS: Ascorbic Acid 500 mg Chewable Tablet PO SCH (09:09)
[2019-03-08] MEDS: Thiamine 100 MG TAB PO SCH (09:10)
[2019-03-08] MEDS: Zinc Sulfate 220 MG CAP PO SCH (09:10)
[2019-03-08] MEDS: Multivitamin W/ Minerals 1 TAB PO SCH (09:22)
--- NOTE | 2019-03-08 11:22 | PRG ---
DATE OF SERVICE: 03/08/2019 SUBJECTIVE: Virgil is doing little better subjectively. His pain is improved. His pressure dressing came off earlier this morning, but it has been replaced by Wound Care. His hemoglobin and hematocrit yesterday were 7.8 and 24. Pressures remained stable. He does not appear labile, sick. His appetite is improving little bit. OBJECTIVE: VITAL SIGNS: Temperature 98.3, pulse 72, blood pressure is 147/77, respiratory rate is 18 and nonlabored, O2 saturation is 99% on room air. GENERAL: He is alert, responsive, appropriate, and nonfocal. IMPRESSION: 1. Postop day #9, revision above knee, right and hip amputation (transfemoral resection). 2. Coagulopathy secondary to liver failure. PLAN: Today, I have no plans to either draw blood on Virgil or transfuse at this point because he appears stable. Also, discontinued repacking his wound for today. We will do that tomorrow and do it over every other day basis. I plan on him being in the hospital over the weekend to re-evaluate our plan and give consideration to another trip to the OR, if there may be a delayed closure. Job ID: [id number]
[2019-03-08 11:33] LABS: Hemoglobin 7.9 g/dL (14.0-18.0)
[2019-03-08] MEDS: HYDROcodone/Acetaminophen 5/325 mg Tablet PO PRN ×3 (13:25→23:11)
--- NOTE | 2019-03-08 15:15 | PDOC.PN ---
- Subjective Encounter Start Date: 03/08/19 Encounter Start Time: 10:45 Doing well. No complaints today. - Objective Resuscitation Status - Order Detail: 02/28/19 12:26 Resuscitation Status Routine Resuscitation Status: FULL: Full Resuscitation Discussed with: patient Vital Signs & Weight: Vital Signs (12 hours) Temp Pulse Resp BP Pulse Ox 03/08/19 12:40 97.5 F L 63 12 129/77 99 03/08/19 09:04 72 03/08/19 08:02 98.3 F 72 18 147/77 H 99 03/08/19 04:06 98.1 F 73 16 125/68 98 Weight Admit Weight 255 lb Weight 255 lb I&O: 03/07/19 03/08/19 03/09/19 06:59 06:59 06:59 Intake Total 1840 2420 Output Total 1050 1300 Balance 790 1120 Result Diagrams: 03/08/19 11:22 03/07/19 05:20 Phys Exam - Physical Examination Constitutional: NAD Respiratory: no wheezing, no rales, no rhonchi Cardiovascular: RRR, no significant murmur, no rub Gastrointestinal: soft, non-tender, no distention, positive bowel sounds Right stump is softer. LLE with 1+ pitting edema. Psychiatric: normal affect, A&O x 3 Dx/Plan (1) Acute blood loss anemia Code(s): D62 - ACUTE POSTHEMORRHAGIC ANEMIA Status: Acute (2) Osteomyelitis Code(s): M86.9 - OSTEOMYELITIS, UNSPECIFIED Status: Acute Qualifiers: Osteomyelitis type: unspecified type Osteomyelitis location: femur Laterality: right Qualified Code(s): M86.9 - Osteomyelitis, unspecified Comment: s/p revision of right aka (3) Cirrhosis Code(s): K74.60 - UNSPECIFIED CIRRHOSIS OF LIVER Status: Chronic Qualifiers: Hepatic cirrhosis type: alcoholic cirrhosis Ascites presence: unspecified Qualified Code(s): K70.30 - Alcoholic cirrhosis of liver without ascites (4) Above knee amputation of right lower extremity Code(s): Z89.611 - ACQUIRED ABSENCE OF RIGHT LEG ABOVE KNEE Status: Acute (5) Demand ischemia Code(s): I24.8 - OTHER FORMS OF ACUTE ISCHEMIC HEART DISEASE Status: Acute (6) Alcoholic cirrhosis of liver with ascites Code(s): K70.31 - ALCOHOLIC CIRRHOSIS OF LIVER WITH ASCITES Status: Chronic (7) Chronic stage c diastolic heart failure Code(s): I50.32 - CHRONIC DIASTOLIC (CONGESTIVE) HEART FAILURE Status: Chronic (8) Coagulopathy Status: Chronic (9) Hypertension Code(s): I10 - ESSENTIAL (PRIMARY) HYPERTENSION Status: Chronic Qualifiers: Hypertension type: essential hypertension Qualified Code(s): I10 - Essential (primary) hypertension (10) Physical deconditioning Code(s): R53.81 - OTHER MALAISE Status: Chronic (11) Pulmonary hypertension Code(s): I27.20 - PULMONARY HYPERTENSION, UNSPECIFIED Status: Chronic (12) Severe tricuspid regurgitation Code(s): I07.1 - RHEUMATIC TRICUSPID INSUFFICIENCY Status: Chronic - Plan * Hemoglobin is stable. * Agree with holding off on additional labs as there has not been any movement in the hgd and there is not further evidence of bleeding. * Ortho to keep him over the weekend managing wound. * I will another small dose of lasix today. * His other medical issues are chronic and stable. * Will follow at a distance.
[2019-03-08] MEDS ORDERED: Furosemide 20 MG/2 ML VIAL SLOW IVP SCH (15:30)
[2019-03-08] MEDS: cefTRIAXone\\ROCEPHIN 1 GM in Sodium Chloride 0.9% 100 ML IVPB SCH (21:43)
[2019-03-09] MEDS: HYDROcodone/Acetaminophen 5/325 mg Tablet PO PRN ×4 (03:18→20:03)
[2019-03-09] MEDS: Ferrous Sulfate 325 MG TAB PO SCH (08:43)
[2019-03-09] MEDS: Thiamine 100 MG TAB PO SCH (08:43)
[2019-03-09] MEDS: Metoprolol Tartrate 25 MG TAB PO SCH ×2 (08:43→20:09)
[2019-03-09] MEDS: Famotidine 20 MG TAB PO SCH ×2 (08:44→20:03)
[2019-03-09] MEDS: Zinc Sulfate 220 MG CAP PO SCH (08:44)
[2019-03-09] MEDS: Folic Acid 1 MG TAB PO SCH (08:44)
[2019-03-09] MEDS: Multivitamin W/ Minerals 1 TAB PO SCH (08:44)
[2019-03-09] MEDS: Magnesium Oxide 400 MG TAB PO SCH (08:44)
[2019-03-09] MEDS: Ascorbic Acid 500 mg Chewable Tablet PO SCH (08:44)
[2019-03-09] MEDS: Amlodipine 5 MG TAB PO SCH (08:44)
--- NOTE | 2019-03-09 10:54 | PRG ---
DATE OF SERVICE: SUBJECTIVE: Virgil's hemoglobin appeared to stabilized, it is 7.9 yesterday. He is slowly improving in terms of his appetite. PHYSICAL EXAMINATION: His stump was examined today with wound care team and packings removed. He appears to have a solid clot at this point, but still has a large orifice measuring about 4 cm transverse diameter. No active bleeding is noted. IMPRESSION: 1. Right above knee amputation revision with distal femoral resection. 2. Coagulopathy secondary to liver cirrhosis. 3. Anemia secondary to blood loss. PLAN: We will go ahead and redress the wound today and we will leave alone over the weekend. No plans for intervention at this point. We will re-evaluate on Tuesday and give consideration to a delayed closure in the operating room sometime next week. Job ID: [id number]
[2019-03-09] MEDS: cefTRIAXone\\ROCEPHIN 1 GM in Sodium Chloride 0.9% 100 ML IVPB SCH (20:03)
[2019-03-10] MEDS: HYDROcodone/Acetaminophen 5/325 mg Tablet PO PRN ×4 (00:35→16:26)
[2019-03-10] MEDS: Multivitamin W/ Minerals 1 TAB PO SCH (08:23)
[2019-03-10] MEDS: Thiamine 100 MG TAB PO SCH (08:23)
[2019-03-10] MEDS: Ferrous Sulfate 325 MG TAB PO SCH (08:23)
[2019-03-10] MEDS: Folic Acid 1 MG TAB PO SCH (08:23)
[2019-03-10] MEDS: Ascorbic Acid 500 mg Chewable Tablet PO SCH (08:26)
[2019-03-10] MEDS: Zinc Sulfate 220 MG CAP PO SCH (08:26)
[2019-03-10] MEDS: Famotidine 20 MG TAB PO SCH ×2 (08:26→21:15)
[2019-03-10] MEDS: Magnesium Oxide 400 MG TAB PO SCH (08:26)
[2019-03-10] MEDS: Amlodipine 5 MG TAB PO SCH (08:27)
[2019-03-10] MEDS: Metoprolol Tartrate 25 MG TAB PO SCH ×2 (08:28→21:15)
--- NOTE | 2019-03-10 09:45 | PRG ---
DATE OF SERVICE: 03/10/2019 SUBJECTIVE: Virgil continued to convalesce and improve. His pain is under good control. There has been no significant bleeding from his stump. OBJECTIVE: VITAL SIGNS: Temperature 97.5, pulse 64, blood pressure is 123/78, respiratory rate 18 and unlabored, and O2 saturation 97% on room air. GENERAL: He looks better this morning. He is alert and oriented to person, place, time, and situation. Appropriate, responsive, and conversant with examiner. Little to scant drainage is noted, but no large hematoma is identified from his stump. IMPRESSION: 1. Status post right revision above knee amputation with femoral transection. 2. Staph aureus, inoculation of surgical site. 3. Anemia. PLAN: Continue current care. No re-dressing or sticks this weekend. I will see him back on Tuesday, so we can find some time to put him on schedule for a formal delayed closure. Job ID: [id number]
--- NOTE | 2019-03-10 14:58 | PDOC.PN ---
- Subjective Encounter Start Date: 03/10/19 Encounter Start Time: 10:50 Doing well. No complaints. - Objective Resuscitation Status - Order Detail: 02/28/19 12:26 Resuscitation Status Routine Resuscitation Status: FULL: Full Resuscitation Discussed with: patient Vital Signs & Weight: Vital Signs (12 hours) Temp Pulse Resp BP BP Pulse Ox 03/10/19 11:35 98.2 F 65 14 119/65 98 03/10/19 08:27 64 132/72 03/10/19 08:00 95 03/10/19 07:30 97.8 F 66 16 132/72 96 03/10/19 04:00 97.5 F L 64 18 123/78 97 Weight Admit Weight 255 lb Weight 255 lb I&O: 03/09/19 03/10/19 03/11/19 06:59 06:59 06:59 Intake Total 1560 1920 Output Total 2550 900 Balance -990 1020 Result Diagrams: 03/08/19 11:22 03/07/19 05:20 Phys Exam - Physical Examination Constitutional: NAD Respiratory: no wheezing, no rhonchi, clear to auscultation bilateral Minimal scattered rales. Cardiovascular: RRR, no significant murmur Gastrointestinal: soft, non-tender, no distention, positive bowel sounds Stump softer. 1+ pitting edema, LLE. Psychiatric: normal affect, A&O x 3 Dx/Plan (1) Acute blood loss anemia Code(s): D62 - ACUTE POSTHEMORRHAGIC ANEMIA Status: Acute (2) Osteomyelitis Code(s): M86.9 - OSTEOMYELITIS, UNSPECIFIED Status: Acute Qualifiers: Osteomyelitis type: unspecified type Osteomyelitis location: femur Laterality: right Qualified Code(s): M86.9 - Osteomyelitis, unspecified Comment: s/p revision of right aka (3) Cirrhosis Code(s): K74.60 - UNSPECIFIED CIRRHOSIS OF LIVER Status: Chronic Qualifiers: Hepatic cirrhosis type: alcoholic cirrhosis Ascites presence: unspecified Qualified Code(s): K70.30 - Alcoholic cirrhosis of liver without ascites (4) Above knee amputation of right lower extremity Code(s): Z89.611 - ACQUIRED ABSENCE OF RIGHT LEG ABOVE KNEE Status: Acute (5) Demand ischemia Code(s): I24.8 - OTHER FORMS OF ACUTE ISCHEMIC HEART DISEASE Status: Acute (6) Alcoholic cirrhosis of liver with ascites Code(s): K70.31 - ALCOHOLIC CIRRHOSIS OF LIVER WITH ASCITES Status: Chronic (7) Chronic stage c diastolic heart failure Code(s): I50.32 - CHRONIC DIASTOLIC (CONGESTIVE) HEART FAILURE Status: Chronic (8) Coagulopathy Status: Chronic (9) Hypertension Code(s): I10 - ESSENTIAL (PRIMARY) HYPERTENSION Status: Chronic Qualifiers: Hypertension type: essential hypertension Qualified Code(s): I10 - Essential (primary) hypertension (10) Physical deconditioning Code(s): R53.81 - OTHER MALAISE Status: Chronic (11) Pulmonary hypertension Code(s): I27.20 - PULMONARY HYPERTENSION, UNSPECIFIED Status: Chronic (12) Severe tricuspid regurgitation Code(s): I07.1 - RHEUMATIC TRICUSPID INSUFFICIENCY Status: Chronic - Plan * Discussed with Ortho. * Recommend considering FFP prior to intervention on Tuesday. * Medically, has several issues, but appear to be stable.
[2019-03-10] MEDS: cefTRIAXone\\ROCEPHIN 1 GM in Sodium Chloride 0.9% 100 ML IVPB SCH (21:14)
[2019-03-11] MEDS: HYDROcodone/Acetaminophen 5/325 mg Tablet PO PRN ×5 (01:32→23:06)
[2019-03-11] MEDS ORDERED: Phytonadione 10 MG/ML AMP PO SCH (08:00)
[2019-03-11] MEDS ORDERED: Furosemide 40 MG/4 ML VIAL SLOW IVP SCH (08:00)
[2019-03-11] MEDS: Ascorbic Acid 500 mg Chewable Tablet PO SCH (08:23)
[2019-03-11] MEDS: Zinc Sulfate 220 MG CAP PO SCH (08:23)
[2019-03-11] MEDS: Famotidine 20 MG TAB PO SCH ×2 (08:23→20:57)
[2019-03-11] MEDS: Multivitamin W/ Minerals 1 TAB PO SCH (08:23)
[2019-03-11] MEDS: Magnesium Oxide 400 MG TAB PO SCH (08:24)
[2019-03-11] MEDS: Folic Acid 1 MG TAB PO SCH (08:24)
[2019-03-11] MEDS: Thiamine 100 MG TAB PO SCH (08:24)
[2019-03-11] MEDS: Metoprolol Tartrate 25 MG TAB PO SCH ×2 (08:24→20:57)
[2019-03-11] MEDS: Ferrous Sulfate 325 MG TAB PO SCH (08:24)
[2019-03-11 08:53] LABS: #Basophils 0.1 thou/uL (0.0-0.2); #Eosinphils 0.4 thou/uL (0.0-0.7); #Lymphocytes 1.4 thou/uL (1.20-3.40); #Monocytes 0.7 thou/uL (0.11-0.59); #Neutrophils 3.4 thou/uL (1.40-6.50); %Eosinophils 6.8 % (0.0-10.0); %Lymphocytes 23.4 % (21.0-51.0); %Monocytes 11.3 % (0.0-10.0); %Neutrophils 57.5 % (42.0-75.0); Mean Corpuscular HGB CONC 32.5 g/dL (32.0-36.0); Mean Corpuscular Hemoglobin 30.7 pg (27.0-31.0); Mean Corpuscular Volume 94.6 fL (78.0-98.0); Mean Platelet Volume 6.7 fL (7.4-10.4); Platelet Count 177 thou/uL (130-400); RBC Distribution Width 17.2 % (11.5-14.5); Red Blood Cell (RBC) Count 2.61 mill/uL (4.70-6.10); White Blood Cell (WBC) Count 5.9 thou/uL (4.8-10.8)
--- NOTE | 2019-03-11 11:13 | PRG ---
DATE OF SERVICE: 03/11/2019 SUBJECTIVE: The patient has no new complaints. The nurse indicates the patient 's bleeding and oozing from the right stump have increased a fair amount today compared to yesterday. She also reports the patient is a little sleepier today. The patient does report that he does feel more tired today. OBJECTIVE: VITAL SIGNS: Temperature 97.6, pulse 65, respirations 16, O2 saturation 95% on room air, and blood pressure 124/69. GENERAL APPEARANCE: Age-appropriate male. He looks pale. He is slightly sleepy appearing, but fully awake and has normal conversation. HEENT: The patient has some temporalis muscle wasting. HEART: Regular rate and rhythm without murmurs. LUNGS: Slightly diminished, but clear bilaterally with no wheezes or rales. ABDOMEN: Soft, nontender, and nondistended. EXTREMITIES: Right AKA stump has just been redressed. Left lower extremity has some chronic nonpitting edema. LABORATORY DATA: White count 5.9, hemoglobin 8.0, and platelets 177. IMPRESSION AND PLAN: 1. 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 Unfortunately, the patient's postop course has been complicated by his right heart failure and coagulopathy related to his cirrhosis. He has had a fair amount of persistent oozing and bleeding as the wound was left partially open and has continued to have bloody drainage. The plan is to hopefully go back and do a delayed wound closure with persistent pressure dressing on the stump, since the surgery, he has continued to have oozing. I discussed the case with Ortho this morning. 2. Coagulopathy secondary to chronic liver disease and cirrhosis. Increased bloody drainage today, we will go ahead and give a couple units of FFP. He has also been given vitamin K today. We will check coags in the morning as well. The patient will likely need some FFP prior to any surgical intervention as well. 3. Cirrhosis. The patient has chronic liver disease and cirrhosis. Prior imaging did reveal some splenic varices, but no upper gastrointestinal varices. 4. Severe right heart failure. The patient has severe isolated right heart failure with a preserved ejection fraction, but elevated pulmonary artery pressures and a "D" shaped right ventricle secondary to elevated pressures and a dilated right atrium. Unfortunately, right heart failure can be very challenging to treat and in this setting, it is likely causing some elevated venous pressures, making it difficult to achieve hemostasis on the surgical bed. We will diurese some today , although likely going to be of limited benefit. We preferred to try to keep him a bit on the dry side. 5. Anemia. The patient's hemoglobin has been stable since the prior transfusion. 6. Slight demand ischemia secondary to the right heart failure, resolved. 7. Hypertension, chronic, stable. 8. Pulmonary hypertension, leading to cor pulmonale. 9. Severe tricuspid regurgitation, part of the cor pulmonale. Job ID: [id number] [facility]
--- NOTE | 2019-03-11 11:18 | PRG ---
DATE OF SERVICE: 03/11/2019 I had a discussion with the patient regarding advance care planning issues. The patient is , but his ex- has been helping care for him at home. The patient has expressed that he does not want to consider going to a long-term acute care hospital or rehab type facility. He would like to go home. We discussed the difficulties and challenges and his current situation. The plan is to likely attempt another surgical intervention to get some wound closure. However, the challenges exist with his coagulopathy and right heart failure. He has made it clear to me today in our conversation that should this not be successful, that his desire would be to return home to go on some type of a palliative care plan such as hospice. He states that he has thought this through and understands his situation is simply one that is going to be pretty medically challenging. He would like to be DNR as well, which I will enter into the system today. We will have palliative care consult with him as well. Total time in advance care planning, activities was 18 minutes. Job ID: [id number] [facility]
[2019-03-11] MEDS: Cephalexin 250 MG CAP PO SCH ×3 (13:38→23:06)
[2019-03-11] MEDS ORDERED: Potassium Chloride 20 MEQ TAB PO SCH (15:15)
[2019-03-12 05:10] LABS: #Basophils 0.1 thou/uL (0.0-0.2); #Eosinphils 0.4 thou/uL (0.0-0.7); #Lymphocytes 1.3 thou/uL (1.20-3.40); #Monocytes 0.5 thou/uL (0.11-0.59); #Neutrophils 2.2 thou/uL (1.40-6.50); %Basophils 1.2 % (0.0-1.0); %Eosinophils 8.1 % (0.0-10.0); %Lymphocytes 29.9 % (21.0-51.0); %Monocytes 11.6 % (0.0-10.0); %Neutrophils 49.1 % (42.0-75.0); Hemoglobin 6.7 g/dL (14.0-18.0); Mean Corpuscular HGB CONC 32.5 g/dL (32.0-36.0); Mean Corpuscular Hemoglobin 30.7 pg (27.0-31.0); Mean Corpuscular Volume 94.6 fL (78.0-98.0); Mean Platelet Volume 6.8 fL (7.4-10.4); Platelet Count 130 thou/uL (130-400); RBC Distribution Width 17.1 % (11.5-14.5); Red Blood Cell (RBC) Count 2.19 mill/uL (4.70-6.10); White Blood Cell (WBC) Count 4.5 thou/uL (4.8-10.8)
[2019-03-12 05:31] LABS: Anion Gap 8 mmol/L (10-20); BUN (Urea Nitrogen) 12 mg/dL (8.4-25.7); Calc. Creatinine Clearance 134 mL/min (70-130); Calcium 8.2 mg/dL (7.8-10.44); Carbon Dioxide 24 mmol/L (23-31); Chloride 110 mmol/L (98-107); Estimated GFR-MDRD Greater than 90; Glucose 79 mg/dL (83-110); Potassium 4.2 mmol/L (3.5-5.1); Sodium 138 mmol/L (136-145)
[2019-03-12] MEDS: Cephalexin 250 MG CAP PO SCH ×4 (05:40→23:49)
[2019-03-12] MEDS: Metoprolol Tartrate 25 MG TAB PO SCH ×2 (09:14→20:54)
[2019-03-12] MEDS: Ascorbic Acid 500 mg Chewable Tablet PO SCH (09:14)
[2019-03-12] MEDS: Multivitamin W/ Minerals 1 TAB PO SCH (09:14)
[2019-03-12] MEDS: Ferrous Sulfate 325 MG TAB PO SCH (09:14)
[2019-03-12] MEDS: Zinc Sulfate 220 MG CAP PO SCH (09:15)
[2019-03-12] MEDS: Magnesium Oxide 400 MG TAB PO SCH (09:15)
[2019-03-12] MEDS: Famotidine 20 MG TAB PO SCH ×2 (09:15→20:54)
[2019-03-12] MEDS: Folic Acid 1 MG TAB PO SCH (09:15)
[2019-03-12] MEDS: Thiamine 100 MG TAB PO SCH (09:15)
[2019-03-12] MEDS: HYDROcodone/Acetaminophen 5/325 mg Tablet PO PRN ×2 (09:26→19:36)
--- NOTE | 2019-03-12 10:57 | PDOC.PN ---
- Subjective Encounter Start Date: 03/12/19 Encounter Start Time: 10:55 Subjective: minimal bleeding at surgical site - Objective Resuscitation Status - Order Detail: 03/11/19 10:41 Resuscitation Status Routine Resuscitation Status: DNAR: NO Resuscitation Discussed with: Patient JEAN Reviewed: Yes Vital Signs & Weight: Vital Signs (12 hours) Temp Pulse Pulse Resp BP BP BP 03/12/19 10:32 97.5 F L 62 20 119/68 03/12/19 07:56 97.8 F 63 16 145/70 H 03/12/19 04:16 98.6 F 66 16 117/58 L 03/12/19 00:00 97.6 F 65 16 150/77 H Pulse Ox 03/12/19 10:32 97 03/12/19 07:56 98 03/12/19 04:16 93 L 03/12/19 00:00 97 Weight Admit Weight 255 lb Weight 255 lb I&O: 03/11/19 03/12/19 03/13/19 06:59 06:59 06:59 Intake Total 900 1475 0 Output Total 1100 3000 Balance -200 -1525 0 Result Diagrams: 03/12/19 05:00 03/12/19 05:00 Phys Exam - Physical Examination Neck: no JVD Respiratory: clear to auscultation bilateral Cardiovascular: RRR, no significant murmur Gastrointestinal: soft, positive bowel sounds bandaged R AKA Dx/Plan (1) Acute blood loss anemia Code(s): D62 - ACUTE POSTHEMORRHAGIC ANEMIA Status: Acute (2) Osteomyelitis Code(s): M86.9 - OSTEOMYELITIS, UNSPECIFIED Status: Acute Qualifiers: Osteomyelitis type: unspecified type Osteomyelitis location: femur Laterality: right Qualified Code(s): M86.9 - Osteomyelitis, unspecified Comment: s/p revision of right aka (3) Cirrhosis Code(s): K74.60 - UNSPECIFIED CIRRHOSIS OF LIVER Status: Chronic Qualifiers: Hepatic cirrhosis type: alcoholic cirrhosis Ascites presence: unspecified Qualified Code(s): K70.30 - Alcoholic cirrhosis of liver without ascites (4) Above knee amputation of right lower extremity Code(s): Z89.611 - ACQUIRED ABSENCE OF RIGHT LEG ABOVE KNEE Status: Acute (5) Demand ischemia Code(s): I24.8 - OTHER FORMS OF ACUTE ISCHEMIC HEART DISEASE Status: Acute (6) Hypertension Code(s): I10 - ESSENTIAL (PRIMARY) HYPERTENSION Status: Chronic Qualifiers: Hypertension type: essential hypertension Qualified Code(s): I10 - Essential (primary) hypertension (7) Physical deconditioning Code(s): R53.81 - OTHER MALAISE Status: Chronic (8) Pulmonary hypertension Code(s): I27.20 - PULMONARY HYPERTENSION, UNSPECIFIED Status: Chronic - Plan surgery revision of R AKA planned for tomorrow -: check PT/INR, PTT -: transfuse to keep Hg > 7 -: cont metoprolol -: cont po analgesia * .
[2019-03-12 16:24] LABS: Hemoglobin 7.5 g/dL (14.0-18.0); Platelet Count 158 thou/uL (130-400)
[2019-03-12 16:29] LABS: INR-International Normal Ratio 1.4; Prothrombin Time 17.6 SEC (12.0-14.7)
[2019-03-12 16:30] LABS: PTT 43.8 SEC (22.9-36.1)
[2019-03-12 22:30] LABS: Hemoglobin 8.3 g/dL (14.0-18.0)
[2019-03-13] MEDS: Cephalexin 250 MG CAP PO SCH ×4 (05:16→23:29)
[2019-03-13] MEDS: HYDROcodone/Acetaminophen 5/325 mg Tablet PO PRN ×2 (08:30→20:25)
[2019-03-13] MEDS: Metoprolol Tartrate 25 MG TAB PO SCH ×2 (08:31→20:25)
[2019-03-13] MEDS: Ferrous Sulfate 325 MG TAB PO SCH (08:32)
--- NOTE | 2019-03-13 09:41 | PDOC.PN ---
- Subjective Encounter Start Date: 03/13/19 Encounter Start Time: 09:40 Subjective: stump still oozing, planned revision today - Objective Resuscitation Status - Order Detail: 03/11/19 10:41 Resuscitation Status Routine Resuscitation Status: DNAR: NO Resuscitation Discussed with: Patient Vital Signs & Weight: Vital Signs (12 hours) Temp Pulse Resp BP BP Pulse Ox 03/13/19 08:41 97.6 F 62 16 144/81 H 98 03/13/19 07:19 97 03/13/19 04:00 97.4 F L 59 L 16 145/81 H 97 03/13/19 00:00 97.4 F L 16 L 99 H 127/78 99 Weight Admit Weight 255 lb Weight 255 lb I&O: 03/12/19 03/13/19 03/14/19 06:59 06:59 06:59 Intake Total 1475 2030 Output Total 3000 1250 Balance -1525 780 Result Diagrams: 03/12/19 22:05 03/12/19 05:00 Phys Exam - Physical Examination Neck: no JVD Respiratory: clear to auscultation bilateral Cardiovascular: RRR, no significant murmur Gastrointestinal: soft, positive bowel sounds bandaged RLE stump Dx/Plan (1) Acute blood loss anemia Code(s): D62 - ACUTE POSTHEMORRHAGIC ANEMIA Status: Acute (2) Osteomyelitis Code(s): M86.9 - OSTEOMYELITIS, UNSPECIFIED Status: Acute Qualifiers: Osteomyelitis type: unspecified type Osteomyelitis location: femur Laterality: right Qualified Code(s): M86.9 - Osteomyelitis, unspecified Comment: s/p revision of right aka (3) Cirrhosis Code(s): K74.60 - UNSPECIFIED CIRRHOSIS OF LIVER Status: Chronic Qualifiers: Hepatic cirrhosis type: alcoholic cirrhosis Ascites presence: unspecified Qualified Code(s): K70.30 - Alcoholic cirrhosis of liver without ascites (4) Above knee amputation of right lower extremity Code(s): Z89.611 - ACQUIRED ABSENCE OF RIGHT LEG ABOVE KNEE Status: Acute (5) Demand ischemia Code(s): I24.8 - OTHER FORMS OF ACUTE ISCHEMIC HEART DISEASE Status: Acute (6) Hypertension Code(s): I10 - ESSENTIAL (PRIMARY) HYPERTENSION Status: Chronic Qualifiers: Hypertension type: essential hypertension Qualified Code(s): I10 - Essential (primary) hypertension (7) Physical deconditioning Code(s): R53.81 - OTHER MALAISE Status: Chronic (8) Pulmonary hypertension Code(s): I27.20 - PULMONARY HYPERTENSION, UNSPECIFIED Status: Chronic - Plan cont current meds -: surgery today -: H&H/ INR stable- no transfusion indicated * .
[2019-03-13] MEDS ORDERED: Fentanyl 100 MCG/2 ML VIAL SLOW IVP PRN ×2 (14:23)
[2019-03-13] MEDS ORDERED: Sodium Chloride 0.9% 0 ML ONE (14:37)
[2019-03-13] MEDS ORDERED: Fentanyl 100 MCG/2 ML VIAL ONE (15:02)
[2019-03-13] MEDS ORDERED: Promethazine HCl 25 MG/ML VIAL IM PRN (16:24)
[2019-03-13] MEDS ORDERED: Promethazine HCl 25 MG/ML VIAL SLOW IVP PRN (16:24)
[2019-03-13] MEDS ORDERED: Ondansetron HCl/PF 4 MG/2 ML Vial IVP PRN (16:24)
[2019-03-13] MEDS: Thiamine 100 MG TAB PO SCH (17:57)
[2019-03-13] MEDS: Zinc Sulfate 220 MG CAP PO SCH (17:57)
[2019-03-13] MEDS: Folic Acid 1 MG TAB PO SCH (17:58)
[2019-03-13] MEDS: Multivitamin W/ Minerals 1 TAB PO SCH (17:58)
[2019-03-13] MEDS: Magnesium Oxide 400 MG TAB PO SCH (17:58)
[2019-03-13] MEDS: Ascorbic Acid 500 mg Chewable Tablet PO SCH (17:58)
[2019-03-13] MEDS: Famotidine 20 MG TAB PO SCH ×2 (17:58→20:25)
[2019-03-14] MEDS: HYDROcodone/Acetaminophen 5/325 mg Tablet PO PRN ×3 (01:25→20:07)
[2019-03-14] MEDS: Cephalexin 250 MG CAP PO SCH ×4 (05:30→23:15)
[2019-03-14 05:36] LABS: #Eosinphils 0.4 thou/uL (0.0-0.7); #Monocytes 0.7 thou/uL (0.11-0.59); #Neutrophils 2.9 thou/uL (1.40-6.50); %Basophils 0.9 % (0.0-1.0); %Eosinophils 7.9 % (0.0-10.0); %Lymphocytes 20.8 % (21.0-51.0); %Neutrophils 57.4 % (42.0-75.0); Hemoglobin 8.6 g/dL (14.0-18.0); Mean Corpuscular Hemoglobin 31.2 pg (27.0-31.0); Mean Corpuscular Volume 94.5 fL (78.0-98.0); Mean Platelet Volume 6.7 fL (7.4-10.4); Platelet Count 156 thou/uL (130-400); RBC Distribution Width 15.9 % (11.5-14.5); Red Blood Cell (RBC) Count 2.76 mill/uL (4.70-6.10)
[2019-03-14 05:55] LABS: Anion Gap 10 mmol/L (10-20); BUN (Urea Nitrogen) 10 mg/dL (8.4-25.7); Calc. Creatinine Clearance 134 mL/min (70-130); Calcium 8.4 mg/dL (7.8-10.44); Carbon Dioxide 22 mmol/L (23-31); Chloride 111 mmol/L (98-107); Estimated GFR-MDRD Greater than 90; Glucose 89 mg/dL (83-110); Potassium 3.7 mmol/L (3.5-5.1); Sodium 139 mmol/L (136-145)
[2019-03-14 08:19] LABS: PTT 43.1 SEC (22.9-36.1)
[2019-03-14 08:20] LABS: INR-International Normal Ratio 1.4; Prothrombin Time 16.9 SEC (12.0-14.7)
[2019-03-14] MEDS: Famotidine 20 MG TAB PO SCH ×2 (09:35→20:08)
[2019-03-14] MEDS: Multivitamin W/ Minerals 1 TAB PO SCH (09:35)
[2019-03-14] MEDS: Folic Acid 1 MG TAB PO SCH (09:35)
[2019-03-14] MEDS: Ferrous Sulfate 325 MG TAB PO SCH (09:35)
[2019-03-14] MEDS: Metoprolol Tartrate 25 MG TAB PO SCH ×2 (09:36→20:08)
[2019-03-14] MEDS: Zinc Sulfate 220 MG CAP PO SCH (09:36)
[2019-03-14] MEDS: Ascorbic Acid 500 mg Chewable Tablet PO SCH (09:36)
[2019-03-14] MEDS: Thiamine 100 MG TAB PO SCH (09:36)
[2019-03-14] MEDS: Magnesium Oxide 400 MG TAB PO SCH (09:36)
--- NOTE | 2019-03-14 10:03 | OP ---
DATE OF PROCEDURE: 03/13/2019 PREOPERATIVE DIAGNOSIS: Nonhealing right leg amputation stump. POSTOPERATIVE DIAGNOSIS: Nonhealing right leg amputation stump. FINDINGS AT SURGERY: Hematoma, some devascularized tissue. No real signs of infection. PRINTMAKER: Jaquan Schwarz PA-C ESTIMATED BLOOD LOSS: About 200. DESCRIPTION OF PROCEDURE: The patient was taken to the operating room, where general anesthesia was induced. He received Ancef preoperatively. We opened up the old stump incision and I removed sutures from the stump. I debrided skin and muscular tissue. I shortened muscular flaps slightly to try and improve the closure. Pulsatile lavage irrigation was performed. I inspected the femoral artery and measured, this ligature was completely intact. There was no bleeding from the femoral artery. There was some bleeding into the femur. I used bone wax to occlude the cut end of the femur. Additional pulsatile irrigation was performed. At this point, the muscle flap was repaired with 0 Vicryl to close space, and the skin was closed with 0 Prolene. Sterile dressing was applied and compression was applied to this. POSTOPERATIVE PLAN: He will receive FFP and 1 unit of blood in the recovery room. We will consult inpatient hospice to talk to his . I do not expect him to live through this disease process. He has had multiple operations over the last 3 years. His heart and liver are failing. He is unable to make clotting factors, but even though the infection seems to be cured. I think this is just overwhelming shock to his system and the recovery is highly unlikely. Job ID: [id number]
--- NOTE | 2019-03-14 11:38 | PRG ---
DATE OF SERVICE: 03/14/2019 SUBJECTIVE: Virgil is postop day #1 from his primary closure of his right above-knee amputation stump. We feel as though we got good closure on the incision. Subjectively, he is doing relatively well. He is about the same. He is sitting up, visiting. OBJECTIVE: VITAL SIGNS: Temperature 97.9, pulse 66, respiratory rate 14 and nonlabored, and blood pressure is 159/80. GENERAL: He is alert and oriented to person, place, time, and situation. Converses easily with the examiner. There is no active bleeding noted. No strikethrough at the wound. LABORATORY DATA: Hemoglobin and hematocrit of 8.6 and 26.1 today. Chemistry looks within normal limits. IMPRESSION: Postop day #1, right stump primary closure and washout. PLAN: Continue current care. Palliative care has been consulted, and we will follow up on plans for home discharge when they are ready to cover. Job ID: [id number]
--- NOTE | 2019-03-14 16:24 | PDOC.PN ---
- Subjective Encounter Start Date: 03/14/19 Encounter Start Time: 16:23 Subjective: feels well, no complaints - Objective Resuscitation Status - Order Detail: 03/11/19 10:41 Resuscitation Status Routine Resuscitation Status: DNAR: NO Resuscitation Discussed with: Patient JEAN Reviewed: Yes Vital Signs & Weight: Vital Signs (12 hours) Temp Pulse Resp BP BP Pulse Ox 03/14/19 15:50 97.5 F L 75 14 160/76 H 96 03/14/19 11:34 97.4 F L 69 12 104/54 L 97 03/14/19 07:30 97.9 F 66 14 159/80 H 96 Weight Admit Weight 255 lb Weight 255 lb I&O: 03/13/19 03/14/19 03/15/19 06:59 06:59 06:59 Intake Total 2029 1470 Output Total 1250 700 900 Balance 780 770 -900 Result Diagrams: 03/14/19 05:05 03/14/19 05:05 Phys Exam - Physical Examination Neck: no JVD Respiratory: clear to auscultation bilateral Cardiovascular: RRR, no significant murmur Gastrointestinal: soft, positive bowel sounds Musculoskeletal: no edema Dx/Plan (1) Acute blood loss anemia Code(s): D62 - ACUTE POSTHEMORRHAGIC ANEMIA Status: Acute (2) Osteomyelitis Code(s): M86.9 - OSTEOMYELITIS, UNSPECIFIED Status: Acute Qualifiers: Osteomyelitis type: unspecified type Osteomyelitis location: femur Laterality: right Qualified Code(s): M86.9 - Osteomyelitis, unspecified Comment: s/p revision of right aka (3) Cirrhosis Code(s): K74.60 - UNSPECIFIED CIRRHOSIS OF LIVER Status: Chronic Qualifiers: Hepatic cirrhosis type: alcoholic cirrhosis Ascites presence: unspecified Qualified Code(s): K70.30 - Alcoholic cirrhosis of liver without ascites (4) Above knee amputation of right lower extremity Code(s): Z89.611 - ACQUIRED ABSENCE OF RIGHT LEG ABOVE KNEE Status: Acute (5) Demand ischemia Code(s): I24.8 - OTHER FORMS OF ACUTE ISCHEMIC HEART DISEASE Status: Acute (6) Hypertension Code(s): I10 - ESSENTIAL (PRIMARY) HYPERTENSION Status: Chronic Qualifiers: Hypertension type: essential hypertension Qualified Code(s): I10 - Essential (primary) hypertension (7) Physical deconditioning Code(s): R53.81 - OTHER MALAISE Status: Chronic (8) Pulmonary hypertension Code(s): I27.20 - PULMONARY HYPERTENSION, UNSPECIFIED Status: Chronic - Plan stable post op x 1day -: wound care -: PT/OT -: cont cephalexin po -: cont metoprolol po * .
[2019-03-15] MEDS: HYDROcodone/Acetaminophen 5/325 mg Tablet PO PRN ×2 (03:16→20:11)
[2019-03-15] MEDS: Cephalexin 250 MG CAP PO SCH ×5 (05:51→23:26)
[2019-03-15] MEDS: Magnesium Oxide 400 MG TAB PO SCH (08:44)
[2019-03-15] MEDS: Ferrous Sulfate 325 MG TAB PO SCH (08:44)
[2019-03-15] MEDS: Folic Acid 1 MG TAB PO SCH (08:44)
[2019-03-15] MEDS: Zinc Sulfate 220 MG CAP PO SCH (08:44)
[2019-03-15] MEDS: Famotidine 20 MG TAB PO SCH ×2 (08:44→20:10)
[2019-03-15] MEDS: Multivitamin W/ Minerals 1 TAB PO SCH (08:45)
[2019-03-15] MEDS: Thiamine 100 MG TAB PO SCH (08:45)
[2019-03-15] MEDS: Metoprolol Tartrate 25 MG TAB PO SCH ×2 (08:45→20:10)
[2019-03-15] MEDS: Ascorbic Acid 500 mg Chewable Tablet PO SCH (08:45)
--- NOTE | 2019-03-15 11:40 | PDOC.PN ---
- Subjective Encounter Start Date: 03/15/19 Encounter Start Time: 11:38 Subjective: sleeps all the time, arousable, no specific complaints - Objective Resuscitation Status - Order Detail: 03/11/19 10:41 Resuscitation Status Routine Resuscitation Status: DNAR: NO Resuscitation Discussed with: Patient JEAN Reviewed: Yes Vital Signs & Weight: Vital Signs (12 hours) Temp Pulse Resp BP BP Pulse Ox 03/15/19 10:50 98 F 64 16 150/89 H 97 03/15/19 07:29 97.8 F 69 14 176/96 H 96 03/15/19 05:00 98.6 F 76 20 139/65 96 03/15/19 00:36 98.7 F 75 20 162/84 H 95 Weight Admit Weight 255 lb Weight 255 lb I&O: 03/14/19 03/15/19 03/16/19 06:59 06:59 06:59 Intake Total 1470 600 Output Total 700 1575 Balance 770 -975 Result Diagrams: 03/14/19 05:05 03/14/19 05:05 Phys Exam - Physical Examination Neck: no JVD Respiratory: clear to auscultation bilateral Cardiovascular: RRR Gastrointestinal: soft, positive bowel sounds Musculoskeletal: no edema R AKA Dx/Plan (1) Acute blood loss anemia Code(s): D62 - ACUTE POSTHEMORRHAGIC ANEMIA Status: Acute (2) Osteomyelitis Code(s): M86.9 - OSTEOMYELITIS, UNSPECIFIED Status: Acute Qualifiers: Osteomyelitis type: unspecified type Osteomyelitis location: femur Laterality: right Qualified Code(s): M86.9 - Osteomyelitis, unspecified Comment: s/p revision of right aka (3) Cirrhosis Code(s): K74.60 - UNSPECIFIED CIRRHOSIS OF LIVER Status: Chronic Qualifiers: Hepatic cirrhosis type: alcoholic cirrhosis Ascites presence: unspecified Qualified Code(s): K70.30 - Alcoholic cirrhosis of liver without ascites (4) Above knee amputation of right lower extremity Code(s): Z89.611 - ACQUIRED ABSENCE OF RIGHT LEG ABOVE KNEE Status: Acute (5) Demand ischemia Code(s): I24.8 - OTHER FORMS OF ACUTE ISCHEMIC HEART DISEASE Status: Acute (6) Hypertension Code(s): I10 - ESSENTIAL (PRIMARY) HYPERTENSION Status: Chronic Qualifiers: Hypertension type: essential hypertension Qualified Code(s): I10 - Essential (primary) hypertension (7) Physical deconditioning Code(s): R53.81 - OTHER MALAISE Status: Chronic (8) Pulmonary hypertension Code(s): I27.20 - PULMONARY HYPERTENSION, UNSPECIFIED Status: Chronic - Plan hospice involved, apparently drcision pending on inpt vs outpt * .
[2019-03-15] MEDS: Ondansetron ODT 4 MG TAB PO PRN ×2 (13:10→23:56)
[2019-03-16] MEDS: HYDROcodone/Acetaminophen 5/325 mg Tablet PO PRN ×3 (00:51→22:48)
[2019-03-16] MEDS: Cephalexin 250 MG CAP PO SCH ×4 (05:45→19:37)
[2019-03-16] MEDS: Ondansetron ODT 4 MG TAB PO PRN (06:01)
[2019-03-16] MEDS ORDERED: traMADol HCl 50 MG TAB PO PRN (09:35)
[2019-03-16] MEDS ORDERED: Promethazine HCl 25 MG/ML VIAL IM/IV PRN (10:11)
[2019-03-16] MEDS ORDERED: Ondansetron PF 4 MG/2 ML Vial IVP PRN (10:12)
--- NOTE | 2019-03-16 12:50 | PRG ---
DATE OF SERVICE: 03/16/2019 SUBJECTIVE: Virgil has had some nausea and vomiting for the last 12 or so hours. He vomited up approximately 300 mL of bilious green material. No coffee grounds are reported. He is not eating very well. OBJECTIVE: VITAL SIGNS: Temperature 97.6, pulse 52, respiratory rate 18, blood pressure 187/70. GENERAL: He is alert, responsive, and appropriate with examiner. Grossly nonfocal. ABDOMINAL EXAMINATION: Reveals quiet bowels. There is no tingling. I do not get much of activity here. It is non-peritoneal, nontender. IMPRESSION: 1. A 73-year-old white male, postoperative day 3 primary closure above-knee amputation revision. 2. Right-sided congestive heart failure, severe. 3. Anemia. 4. New onset nausea and vomiting. PLAN: 1. We will make him n.p.o. because this may very well be ileus. 2. Consider nasogastric tube. 3. He need to back off the pain medicines a little bit to help with bowel motility since the patient does not walk. 4. Please see orders. Job ID: [id number]
--- NOTE | 2019-03-16 13:01 | PRG ---
DATE OF SERVICE: 03/16/2019 SUBJECTIVE: I was called to the bedside today regarding Virgil's nausea, vomiting, and abdominal pain. OBJECTIVE: Examination revealed a large hernial defect in the midline with a fair amount of bowel extravasated. He had quiet bowel sounds. Palpation of his hernia demonstrated it to be quite tender. I was able to slowly reduce his bowel back through the hernia defect with an audible snap, and although it is uncomfortable, he tolerated it very well. I was called back later by the nursing staff and informed that the patient's nausea, vomiting, and discomfort had completely resolved after reduction of his hernia. IMPRESSION AND PLAN: Suspect incarcerated hernia, ventral, abdominal. Post reduction at bedside, the patient's vomiting is improved. Recheck later, but if his nausea and vomiting return, the nursing staff may place an NG tube and call me. Job ID: [id number]
[2019-03-16] MEDS: Ascorbic Acid 500 mg Chewable Tablet PO SCH (13:47)
[2019-03-16] MEDS: Ferrous Sulfate 325 MG TAB PO SCH (13:47)
[2019-03-16] MEDS: Magnesium Oxide 400 MG TAB PO SCH (13:48)
[2019-03-16] MEDS: Folic Acid 1 MG TAB PO SCH (13:48)
[2019-03-16] MEDS: Famotidine 20 MG TAB PO SCH ×2 (13:48→20:39)
[2019-03-16] MEDS: Zinc Sulfate 220 MG CAP PO SCH (13:48)
[2019-03-16] MEDS: Thiamine 100 MG TAB PO SCH (13:48)
[2019-03-16] MEDS: Multivitamin W/ Minerals 1 TAB PO SCH (13:48)
[2019-03-16] MEDS: Metoprolol Tartrate 25 MG TAB PO SCH ×2 (13:49→20:39)
[2019-03-16] MEDS: cefTRIAXone\\ROCEPHIN 1 GM in Sodium Chloride 0.9% 100 ML IVPB SCH (13:58)
--- NOTE | 2019-03-16 16:16 | PDOC.PN ---
- Subjective Encounter Start Date: 03/16/19 Encounter Start Time: 11:30 Mr. Saucedo was seen today for medical management following right AKA. He has had problems with nausea and vomiting. The pain in his stump was also not adequately controlled. - Objective Resuscitation Status - Order Detail: 03/11/19 10:41 Resuscitation Status Routine Resuscitation Status: DNAR: NO Resuscitation Discussed with: Patient MAR Reviewed: Yes Vital Signs & Weight: Vital Signs (12 hours) Temp Pulse Resp BP BP Pulse Ox 03/16/19 11:33 97.7 F 63 20 148/70 H 96 03/16/19 07:45 97.6 F 52 L 18 187/78 H 96 03/16/19 04:32 98.3 F 60 14 154/85 H 94 L Weight Admit Weight 255 lb Weight 255 lb I&O: 03/15/19 03/16/19 03/17/19 06:59 06:59 06:59 Intake Total 600 500 Output Total 8807 065 2080 Balance -975 300 -1600 Result Diagrams: 03/14/19 05:05 03/14/19 05:05 Phys Exam - Physical Examination HEENT: PERRLA Respiratory: no wheezing, no rales, no rhonchi, clear to auscultation bilateral Cardiovascular: RRR, no significant murmur, no rub Gastrointestinal: soft, non-tender, no distention, positive bowel sounds Stump site is ok Neurological: non-focal, normal sensation Dx/Plan (1) Osteomyelitis Code(s): M86.9 - OSTEOMYELITIS, UNSPECIFIED Status: Acute Qualifiers: Osteomyelitis type: unspecified type Osteomyelitis location: femur Laterality: right Qualified Code(s): M86.9 - Osteomyelitis, unspecified Comment: s/p revision of right aka (2) Cirrhosis Code(s): K74.60 - UNSPECIFIED CIRRHOSIS OF LIVER Status: Chronic Qualifiers: Hepatic cirrhosis type: alcoholic cirrhosis Ascites presence: unspecified Qualified Code(s): K70.30 - Alcoholic cirrhosis of liver without ascites (3) Above knee amputation of right lower extremity Code(s): Z89.611 - ACQUIRED ABSENCE OF RIGHT LEG ABOVE KNEE Status: Acute (4) Hypertension Code(s): I10 - ESSENTIAL (PRIMARY) HYPERTENSION Status: Chronic Qualifiers: Hypertension type: essential hypertension Qualified Code(s): I10 - Essential (primary) hypertension (5) Physical deconditioning Code(s): R53.81 - OTHER MALAISE Status: Chronic - Plan * Osteomyelitis of the right femur- he is s/p AKA * ID recommendations noted with regard to antibiotic choice, and length of therapy- continue Rocephin and Keflex * Cirrhosis- Child Levine Class B based on recent lab results * HTN- blood pressure is a bit elevated continue Meotprolol. * Symptom relief- Ultram was added to his regimen * Patient is considering Palliative care and Hospice
[2019-03-16] MEDS: traMADol HCl 50 MG TAB PO PRN (17:31)
[2019-03-17] MEDS: Cephalexin 250 MG CAP PO SCH ×4 (00:43→17:45)
[2019-03-17] MEDS: Zolpidem Tartrate 5 MG TAB PO PRN (01:25)
[2019-03-17] MEDS: HYDROcodone/Acetaminophen 5/325 mg Tablet PO PRN ×2 (05:17→17:45)
[2019-03-17] MEDS: Metoprolol Tartrate 25 MG TAB PO SCH (08:40)
[2019-03-17] MEDS: Famotidine 20 MG TAB PO SCH (08:40)
[2019-03-17] MEDS: Ferrous Sulfate 325 MG TAB PO SCH (11:55)
[2019-03-17] MEDS: Ascorbic Acid 500 mg Chewable Tablet PO SCH (11:55)
[2019-03-17] MEDS: Magnesium Oxide 400 MG TAB PO SCH (11:55)
[2019-03-17] MEDS: Folic Acid 1 MG TAB PO SCH (11:55)
[2019-03-17] MEDS: Thiamine 100 MG TAB PO SCH (11:56)
[2019-03-17] MEDS: Zinc Sulfate 220 MG CAP PO SCH (11:56)
[2019-03-17] MEDS: Multivitamin W/ Minerals 1 TAB PO SCH (11:56)
[2019-03-17] MEDS: cefTRIAXone\\ROCEPHIN 1 GM in Sodium Chloride 0.9% 100 ML IVPB SCH (13:32)
[2019-03-17] MEDS: traMADol HCl 50 MG TAB PO PRN (13:38)
--- NOTE | 2019-03-17 14:55 | PDOC.PN ---
- Subjective Encounter Start Date: 03/17/19 Encounter Start Time: 14:53 Mr. Saucedo was seen today in follow-up post right AKA. He does not have any complaints. - Objective Resuscitation Status - Order Detail: 03/11/19 10:41 Resuscitation Status Routine Resuscitation Status: DNAR: NO Resuscitation Discussed with: Patient JEAN Reviewed: Yes Vital Signs & Weight: Vital Signs (12 hours) Temp Pulse Resp BP BP Pulse Ox 03/17/19 12:09 97.6 F 52 L 15 131/72 93 L 03/17/19 08:37 98.4 F 59 L 18 143/82 H 98 03/17/19 04:46 97.8 F 61 16 120/71 95 Weight Admit Weight 255 lb Weight 255 lb I&O: 03/16/19 03/17/19 03/18/19 06:59 06:59 06:59 Intake Total 500 610 Output Total 800 1850 Balance -300 -1240 Result Diagrams: 03/14/19 05:05 03/14/19 05:05 Phys Exam - Physical Examination HEENT: PERRLA Respiratory: no wheezing, no rales, no rhonchi, clear to auscultation bilateral Cardiovascular: RRR, no significant murmur, no rub Gastrointestinal: soft, non-tender, no distention, positive bowel sounds Right stump is dressed Dx/Plan (1) Osteomyelitis Code(s): M86.9 - OSTEOMYELITIS, UNSPECIFIED Status: Acute Qualifiers: Osteomyelitis type: unspecified type Osteomyelitis location: femur Laterality: right Qualified Code(s): M86.9 - Osteomyelitis, unspecified Comment: s/p revision of right aka (2) Cirrhosis Code(s): K74.60 - UNSPECIFIED CIRRHOSIS OF LIVER Status: Chronic Qualifiers: Hepatic cirrhosis type: alcoholic cirrhosis Ascites presence: unspecified Qualified Code(s): K70.30 - Alcoholic cirrhosis of liver without ascites (3) Above knee amputation of right lower extremity Code(s): Z89.611 - ACQUIRED ABSENCE OF RIGHT LEG ABOVE KNEE Status: Acute (4) Hypertension Code(s): I10 - ESSENTIAL (PRIMARY) HYPERTENSION Status: Chronic Qualifiers: Hypertension type: essential hypertension Qualified Code(s): I10 - Essential (primary) hypertension (5) Physical deconditioning Code(s): R53.81 - OTHER MALAISE Status: Chronic - Plan * Patient has decided on Hospice Care * He is stable for discharge home..
[2019-03-17 15:18] VITALS: BP 145/70; TEMP 97.7
--- NOTE | 2019-03-17 20:15 | DIS ---
DATE OF ADMISSION: 02/27/2019 DATE OF DISCHARGE: 03/17/2019 DISCHARGE DISPOSITION: Home with home hospice. DISCHARGE DIAGNOSES: 1. Nonhealing right AKA stump, status post revision. 2. Osteomyelitis of the femur. 3. Alcoholic cirrhosis. 4. Hypertension. 5. Acute kidney injury, resolved. DISCHARGE MEDICATIONS: 1. Zinc sulfate 220 mg daily. 2. Thiamine 100 mg daily. 3. K-Dur 20 mEq twice a day. 4. Folic acid 1 mg daily. 5. Iron sulfate 325 mg daily. 6. Keflex 500 mg 4 times a day. 7. Vitamin C 500 mg daily. 8. Ambien 10 mg at bedtime. 9. Ultram 50 mg as directed. 10. Melatonin 10 mg at bedtime p.r.n. 11. Lasix 80 mg daily. 12. Folic acid 400 mg daily. 13. Pepcid 20 mg daily. CODE STATUS: DNR. ALLERGIES: DULOXETINE AND IODINATED CONTRAST. PROCEDURES: Procedures done during the admission; the patient had a revision and removal of devascularized tissue at the right leg amputation stump. HOSPITAL COURSE: Mr. Saucedo is a 73-year-old gentleman, who was admitted to the Orthopedic Surgery Service for an elective revision of a right stump that had become infected. The patient's distal femur shaft had developed osteomyelitis. He underwent debridement and removal of devitalized tissue. During the course of the hospital stay, the patient voiced the opinion that he never wanted to come back to the hospital that he was getting tired of aggressive medical care and asked to be discharged home on home hospice. Given his history of diastolic heart failure with pulmonary hypertension as well as cirrhosis of the liver, this is a reasonable alternative in care and therefore, the patient was discharged home with [facility] on 03/17/2019. Job ID: [id number]
== END 2019-03-17 18:25 | disposition hospice, home (50) | DRG 475 ==
LOC: SURG A 09:28 → SJJU 14:11
PROVIDERS: ADMIT Orthopaedic Surgery; ATTEND Orthopaedic Surgery
PROC: 0Y6F0ZZ Detachment at Right Knee Region, Open Approach (ICD-10-PCS; principal; 2019-02-27)
PROC: 02HV33Z Insertion of Infusion Device into Superior Vena Cava, Percutaneous Approach (ICD-10-PCS; 2019-03-02)
PROC: B548ZZA Ultrasonography of Superior Vena Cava, Guidance (ICD-10-PCS; 2019-03-02)
PROC: 30233N1 Transfusion of Nonautologous Red Blood Cells into Peripheral Vein, Percutaneous Approach (ICD-10-PCS; 2019-03-02)
PROC: 30233L1 Transfusion of Nonautologous Fresh Plasma into Peripheral Vein, Percutaneous Approach (ICD-10-PCS; 2019-03-11)
PROC: 0KDS0ZZ Extraction of Right Lower Leg Muscle, Open Approach (ICD-10-PCS; 2019-03-13)
DX: T87.43 Infection of amputation stump, right lower extremity (principal); N17.9 Acute kidney failure, unspecified; M86.151 Other acute osteomyelitis, right femur; I50.32 Chronic diastolic (congestive) heart failure; D62 Acute posthemorrhagic anemia; I13.0 Hypertensive heart and chronic kidney disease with heart failure and stage 1 through stage 4 chronic kidney disease, or unspecified chronic kidney disease; D68.4 Acquired coagulation factor deficiency; I24.8 Other forms of acute ischemic heart disease; K46.0 Unspecified abdominal hernia with obstruction, without gangrene; Z66 Do not resuscitate; Y83.9 Surgical procedure, unspecified as the cause of abnormal reaction of the patient, or of later complication, without mention of misadventure at the time of the procedure; B95.61 Methicillin susceptible Staphylococcus aureus infection as the cause of diseases classified elsewhere; F10.20 Alcohol dependence, uncomplicated; K70.30 Alcoholic cirrhosis of liver without ascites; I27.20 Pulmonary hypertension, unspecified; D63.1 Anemia in chronic kidney disease; I07.1 Rheumatic tricuspid insufficiency; Z79.899 Other long term (current) drug therapy; Z91.041 Radiographic dye allergy status; Z91.013 Allergy to seafood
CPT/HCPCS: 36415; 36416; 36430; 36569; 80048; 80076; 80202; 82274; 85014; 85018; 85025; 85610; 85730; 86850; 86900; 86901; 87070; 87077; 87186; 87205; 93005; 93010; C1751; J0690; J0696; J1170; J1644; J1650; J1940; J2270; J2405; J2543; J3010; J3370; J3411; J3430; J3490; J7050; P9016; P9059; Q0162

== ENCOUNTER 2019-11-23 11:17 | Inpatient (IN) | payer MEDICARE ==
[~2019-11-23 11:17] MED LIST changes: +EPHEDRINE 25 MG/5 ML SYRINGE ONE; +EPINEPHrine 1 MG/10 ML Abboject SYRINGE ONE; +Esmolol 100 MG/10 ML VIAL ONE; -Gadobenate Dimeglumine 529 MG/1 ML (20ML VIAL) ONE; +Lidocaine 1% PF 5 ML VIAL ONE; +PHENYLEPHRINE-NS 100 MCG/ML 10 ML SYRINGE ONE; +PROPOFOL 200 MG/20 ML VIAL ONE; +Rocuronium Bromide 10 MG/ML (10ML VIAL) ONE
[2019-11-23 12:09] LABS: Hemoglobin 6.5 g/dL (14.0-18.0); Mean Corpuscular HGB CONC 32.3 g/dL (32.0-36.0); Mean Corpuscular Hemoglobin 31.9 pg (27.0-31.0); Mean Corpuscular Volume 98.7 fL (78.0-98.0); Mean Platelet Volume 7.7 fL (7.4-10.4); Platelet Count 151 thou/uL (130-400); RBC Distribution Width 17.7 % (11.5-14.5); Red Blood Cell (RBC) Count 2.04 mill/uL (4.70-6.10); White Blood Cell (WBC) Count 13.4 thou/uL (4.8-10.8)
[2019-11-23 12:18] LABS: INR-International Normal Ratio 2.3; PTT 32.2 SEC (22.9-36.1)
[2019-11-23 12:26] LABS: ALT (SGPT) 22 U/L (8-55); AST (SGOT) 35 U/L (5-34); Albumin 1.9 g/dL (3.4-4.8); Alkaline Phosphatase 129 U/L (40-110); Anion Gap 14 mmol/L (10-20); BUN (Urea Nitrogen) 39 mg/dL (8.4-25.7); Calc. Creatinine Clearance 0 mL/min (70-130); Calcium 6.9 mg/dL (7.8-10.44); Carbon Dioxide 19 mmol/L (23-31); Chloride 108 mmol/L (98-107); Estimated GFR-MDRD Greater than 90; Globulin 2.6 g/dL (2.4-3.5); Glucose 125 mg/dL (83-110); Lipase 17 U/L (8-78); Potassium 3.3 mmol/L (3.5-5.1); Protein, Total 4.5 g/dL (5.8-8.1); Sodium 138 mmol/L (136-145)
[2019-11-23 12:40] LABS: Anisocytosis SLIGHT = 6-15 cells (100X) (0-5/hpf); Band 10 % (5-11); Lymphocytes 9 % (21-51); MDiff Complete? YES; Macrocytosis SLIGHT = 6-15 cells (100X) (0-5/hpf); Monocytes 10 % (0-10); Neutrophil 70 % (42-75); Platelet Morphology Comment Appears Adequate; Polychromasia SLIGHT = 2-3 cells (100X) (0-2/hpf); Reactive Lymphocytes 1 % (0-10); Schistocytes SLIGHT = 2-5 cells (100X) (0-1/hpf); Target Cells SLIGHT = 2-5 cells (100X) (0-1/hpf)
[2019-11-23] MEDS ORDERED: Bisacodyl 5 MG TAB PO PRN (12:52)
[2019-11-23] MEDS ORDERED: Ondansetron PF 4 MG/2 ML Vial IVP PRN (12:52)
[2019-11-23] MEDS ORDERED: Pantoprazole 80 MG in Sodium Chloride 0.9% 100 ML IVP SCH (13:00)
[2019-11-23] MEDS ORDERED: Octreotide Acetate 1,250 MCG in Sodium Chloride 0.9% 250 ML 250 ML IVPB SCH (13:00)
[2019-11-23] MEDS ORDERED: Pantoprazole 40 MG VIAL ONE (13:00)
--- NOTE | 2019-11-23 15:51 | HP ---
PRIMARY CARE PROVIDER: Unknown. CHIEF COMPLAINT: Generalized weakness. HISTORY OF PRESENT ILLNESS: Mr. Saucedo is a pleasant 74-year-old gentleman who was seen at [facility] on November 23, 2019. He was hospitalized here from February 27 to March 17, 2019, for nonhealing right above-knee amputation stump, status post revision, osteomyelitis of the femur, alcoholic cirrhosis, and acute kidney injury. At that time, he was discharged home with home hospice. The patient is unclear as to whether he is still followed by home hospice. He reports that his has all the details, but she has been hospitalized at [facility] for the last 5 days. The patient reports having dark stools yesterday and bright red stool today. EMS was called and the patient was found to have a large amount of blood in the bed. He was hypotensive, tachycardic, and tachypneic. He was therefore brought to the emergency room. In the emergency room, he was noted to have a drop in his hemoglobin. In the emergency room, he was found to have low hemoglobin of 6.5. He received 2 units of packed RBC transfusion. Gastroenterology Service was consulted and the patient was recommended admission to critical care unit for further management. Hospitalist Service has been consulted for admission to the hospital. The patient denies any abdominal pain. He denies any fevers or chills. He denies any nausea or vomiting. REVIEW OF SYSTEMS: All systems were reviewed and found to be negative except for pertinent positives mentioned above. PAST MEDICAL HISTORY: Hypertension, gastroesophageal reflux disease, right knee MRSA infection, and alcoholic cirrhosis. PAST SURGICAL HISTORY: Left toe amputation, right above-knee amputation, and hernia repair x2. SOCIAL HISTORY: The patient reports that he drinks 2 beers a day. He reports occasional tobacco use. He denies any recreational drug use. FAMILY HISTORY: He denies any family history of premature coronary artery disease. CODE STATUS: I discussed his code status. He wishes to be full code. ALLERGIES: DULOXETINE, IODINE. CURRENT MEDICATIONS: 1. Lasix 80 mg 2 times a day. 2. Gabapentin 300 mg daily. 3. Tramadol p.r.n. 4. Potassium chloride 20 mEq 2 times a day. PHYSICAL EXAMINATION: GENERAL: On examination, Mr. Saucedo is awake and alert, not in acute distress. VITAL SIGNS: Blood pressure is 117/67, pulse 128, respiratory rate 28, and oxygen saturation 100% on 3 L of oxygen. He is afebrile. EYES: He has scleral icterus and conjunctival pallor. ENT: Moist mucosal membranes. No oropharyngeal erythema or exudates. NECK: Supple, nontender. Trachea is midline. RESPIRATORY: Accessory muscles of breathing are mildly active. Chest wall movements are symmetric bilaterally. Lungs are clear to auscultation without wheeze, rhonchi, or crepitations. CARDIOVASCULAR: S1 and S2 are heard, tachycardic and irregular. No pericardial rub. ABDOMEN: Soft, nontender. Bowel sounds are heard. NEUROLOGIC: Cranial nerves 2 through 12 are intact. MUSCULOSKELETAL: Status post right above-knee amputation. The patient is moving all 4 extremities. SKIN: No rashes. LYMPHATIC: No cervical lymphadenopathy. PSYCHIATRIC: Normal mood. Normal affect. The patient is oriented to person, place, and time. LABORATORY DATA: Mr. Ortiz labs and investigations were reviewed. I reviewed his electrocardiogram, which shows normal sinus rhythm, premature supraventricular complexes present. No ST changes to suggest an acute coronary syndrome. He has elevated white count of 13,400 of which 70% are neutrophils, macrocytic anemia with hemoglobin 6.5, normal platelet count. INR 2.3. Normal sodium of 138, decreased potassium of 3.3, elevated total bilirubin of 3.0, elevated AST 35, normal ALT, elevated alkaline phosphatase of 129. Normal troponin-I. Elevated BNP of 278.6. Albumin is decreased at 1.9. ASSESSMENT AND PLAN: Mr. Saucedo is a pleasant 74-year-old gentleman who was seen at [facility] on November 23, 2019. His problem list includes: 1. Acute blood loss anemia: Mr. Saucedo is presenting with acute blood loss anemia. He appears to have had both dark blood and bright red blood. He has been started on Protonix drip, which I will continue. He will be admitted to the Critical Care Unit for further management. Gastroenterology Service has been consulted for opinion and help with further management. He has also been started on octreotide drip. 2. Hypertension: The patient's home medications will be resumed once clarified. Monitor vital signs and titrate antihypertensives as needed. 3. Gastroesophageal reflux disease: This will be evaluated since the patient will most likely need upper endoscopy. 4. Alcoholic cirrhosis: The patient will be counseled regarding cessation of alcohol use. Many thanks for allowing me to participate in your patient's care. Please feel free to contact me with any questions or concerns. LEVEL OF RISK: Moderate. LEVEL OF COMPLEXITY: Moderate. Job ID: [id number]
[2019-11-23] MEDS ORDERED: Ketamine 50 MG/ML (10ML VIAL) ONE (16:17)
[2019-11-23] MEDS ORDERED: Phenylephrine 10 MG/ML VIAL ONE (16:18)
[2019-11-23] MEDS ORDERED: Albumin 5% 500 ML ONE (16:24)
[2019-11-23] MEDS ORDERED: Ethanolamine Oleate 5% 2 ml Ampule ONE (16:52)
[2019-11-23 17:47] LABS: Actual Bicarbonate (HCO3a) 16.4 mEq/L (22-28); Base Excess (BEa) -11.7 mEq/L (-2.0 to +3.0); CO2 Tension 46.5 mmHg (35.0-45.0); Calcium, Ionized 0.96 mmol/L (1.12-1.30); Carboxyhemoglobin (COHb) 0.7 gm% (0.0-3.0); Hemoglobin (Hb) 10.9 g/dL (14.0-18.0); O2 Tension (PaO2) 221.7 mmHg (> 70.0); Potassium - ABG Lab 3.27 mmol/L (3.70-5.30)
[2019-11-23 17:55] LABS: ALV-art Gradient 219.275 (0-20); Puncture Site RRAD; pH, Arterial 7.17 (7.35-7.45)
[2019-11-23] MEDS ORDERED: cefTRIAXone\\ROCEPHIN 1 GM in Sodium Chloride 0.9% 100 ML IVPB SCH (18:00)
[2019-11-23 18:21] LABS: Hemoglobin 10.8 g/dL (14.0-18.0); Mean Corpuscular HGB CONC 33.8 g/dL (32.0-36.0); Mean Corpuscular Hemoglobin 32.7 pg (27.0-31.0); Mean Corpuscular Volume 96.5 fL (78.0-98.0); RBC Distribution Width 15.4 % (11.5-14.5); Red Blood Cell (RBC) Count 3.32 mill/uL (4.70-6.10); White Blood Cell (WBC) Count 9.2 thou/uL (4.8-10.8)
[2019-11-23] MEDS: Nicotine 14 MG PATCH TD SCH (18:24)
[2019-11-23] MEDS ORDERED: Propofol BOLUS 1,000 MG/100 ML VIAL IV PRN (18:40)
[2019-11-23] MEDS ORDERED: DISCONTINUE PREVIOUS NARCOTIC PAIN MEDICATIONS AND BENZODIAZEPINES FS SCH (18:40)
[2019-11-23] MEDS ORDERED: Lorazepam 2 MG/ML VIAL SLOW IVP PRN (18:40)
[2019-11-23] MEDS ORDERED: Propofol 1,000 MG/100 ML VIAL IV PRN (18:40)
[2019-11-23] MEDS ORDERED: Morphine 2 MG/ML SYRINGE SLOW IVP PRN (18:40)
[2019-11-23] MEDS ORDERED: Fentanyl BOLUS 250 ML IVPB PRN (18:40)
[2019-11-23] MEDS ORDERED: fentaNYL Citrate/PF 2,000 MCG in Sodium Chloride 0.9% 60 ML IV SCH (18:40)
[2019-11-23 18:44] LABS: Anisocytosis MODERATE=16-30 cells (100X) (0-5/hpf); Band 50 % (5-11); Lymphocytes 9 % (21-51); MDiff Complete? YES; Mean Platelet Volume 8.1 fL (7.4-10.4); Monocytes 7 % (0-10); Neutrophil 32 % (42-75); Ovalocytes SLIGHT = 2-5 cells (100X) (0-1/hpf); Platelet Count 101 thou/uL (130-400); Platelet Morphology Comment Appears Decreased; Polychromasia MODERATE = 3-4 cells (100X) (0-2/hpf); Reactive Lymphocytes 2 % (0-10)
--- NOTE | 2019-11-23 19:22 | PDOC.FMACP ---
Advance Care Planning - Problem (1) Acute blood loss anemia Status: Acute Code(s): D62 - ACUTE POSTHEMORRHAGIC ANEMIA (2) Alcoholic cirrhosis of liver with ascites Status: Chronic Code(s): K70.31 - ALCOHOLIC CIRRHOSIS OF LIVER WITH ASCITES - Note Participants: patient Summary: Advanced Care Planning was discussed. The diagnosis, prognosis and goals of care were discussed. Appropriate forms and documentation to accomplish the goals of care were discussed. All questions were answered. The Palliative Care Team will be engaged to assist with completion of any outstanding forms that are needed. Pt wished to be Full Code. Order entered. Time Spent (mins): 17
--- NOTE | 2019-11-23 20:44 | CON ---
DATE OF CONSULTATION: 11/23/2019 REQUESTING PHYSICIAN: Dr. Bergeron. REASON FOR CONSULTATION: GI hemorrhage. HISTORY OF PRESENT ILLNESS: Virgil Saucedo is a 74-year-old man with a past medical history significant for cirrhosis secondary to alcohol abuse which is ongoing, hypertension, and dyslipidemia. He was last hospitalized here in February and March 2019 after right [id number] amputation, treated for distal femoral osteomyelitis. Notably at the time of discharge on 03/17/2019, the patient had made the decision to pursue hospice care and actually went home with home hospice with his nonhealing right AKA stump. The patient continues to drink alcohol. He says he will have probably a 6-pack of beer over the course of a week. Previously, it was much heavier. He has been seen by Dr. Hong in the past as well as by Dr. Vigil, but has not followed up with GI for at least the past five years, it would seem. I am not sure that he has ever undergone EGD or colonoscopy. He has diastolic heart failure and pulmonary hypertension. The patient reports that over the course of the day yesterday, he started having diarrhea with jet black tarry stools. Then this morning, he got very dizzy and lightheaded and started passing what appeared more like marysol and dark red blood per the rectum. He was brought by EMS. Upon presentation, he was tachycardic with pulse of 144 and blood pressure was 116/72. He was pale and hypothermic and hemoglobin was 6.5. He received 2 units rapid RBC transfusion and hemodynamically he is stabilized a bit, pulses down to 99. He is having some intermittent generalized cramping abdominal pain. There has been no nausea or vomiting. He states he has never had anything like this happen before. Other laboratory studies are significant for INR 2.3, and this is without being on any anticoagulation. He is being admitted to the ICU and we were consulted for the bleeding. PAST MEDICAL HISTORY: Cirrhosis secondary to alcohol abuse, ongoing; diastolic heart failure; pulmonary hypertension; right [id number] amputation; osteomyelitis of the right femur; tobacco abuse; hypertension; and hyperlipidemia. REVIEW OF SYSTEMS: Full review of systems including constitutional, head, eyes, ears, nose, throat, GI, , cardiovascular, respiratory, musculoskeletal, neurologic systems is negative except as noted in the HPI. SOCIAL HISTORY: The patient reports drinking maybe a 6-pack of beer over the course of the week. This is much less than he had done in the past. FAMILY HISTORY: Noncontributory. ALLERGIES: IODINE AND DULOXETINE. HOME MEDICATIONS: 1. Lasix 80 mg twice daily. 2. Gabapentin 300 mg daily. 3. Tramadol p.r.n. 4. Potassium chloride 20 mEq twice daily. PHYSICAL EXAMINATION: VITAL SIGNS: Pulse 99, blood pressure 139/75, 100% oxygen saturation on room air, and temperature 95.7. GENERAL: Chronically ill-appearing 74-year-old man, pale, lying in bed, in mild distress. SKIN: He is pale. Mild jaundice as well. No rashes were palpable. EYES: Mild scleral icterus. Extraocular movements intact. ENT: Mucous membranes moist. No oral lesions. LYMPH: No submandibular or supraclavicular lymphadenopathy. THYROID: Nontender to palpation. HEART: Regular rate and rhythm. LUNGS: Clear to auscultation bilaterally. ABDOMEN: Mild distention, soft, mildly tender to palpation throughout. Umbilical hernia is reducible. EXTREMITIES: No peripheral edema. VESSELS: Radial pulses 2+ bilaterally. NEUROLOGIC: Cranial nerves 2 through 12 intact bilaterally. LABORATORY STUDIES: Hemoglobin 6.5, MCV 98.7, WBC 13.4, platelets 151. Sodium 138, potassium 3.3, BUN is elevated to 39 with creatinine only 0.79. INR is elevated to 2.3. Lipase normal at 17. Troponin negative. BNP elevated to 278.6. Total bilirubin elevated to 3.0, alkaline phosphatase 129, AST 35, ALT 22, and albumin 1.9. Looking back, it appears his baseline hemoglobin is anywhere from 8 to 9. IMAGING STUDIES: None. ASSESSMENT AND PLAN: 1. Gastrointestinal bleeding, appears to likely represent brisk upper gastrointestinal source. 2. Hemorrhagic shock, improved after 2 units initial RBC transfusion. 3. Alcoholic cirrhosis, appears decompensated now. 4. Coagulopathy, INR 2.3, secondary to cirrhosis. Given the patient's initial hemodynamic instability as well as elevated BUN to creatinine ratio, and history of cirrhosis, my suspicion is for brisk upper GI bleeding source, potentially esophageal varices or ulcer. Also, consider possible diverticular bleed, though this seems less likely. We need to proceed with esophagogastroduodenoscopy urgently this afternoon. I had a long discussion with the patient about goals of care. He had been discharged on home hospice last year, but he is saying that he would like to have procedures done to look into this even if it means endotracheal intubation, so we are going to proceed with esophagogastroduodenoscopy. Please start Protonix and octreotide drips. Also, have the patient on antibiotics such as IV ceftriaxone. At some point, this admission will need to get abdominal imaging and check an AFP as well. Overall, prognosis seems poor. Job ID: [id number] [facility]OSPITALAarti
--- NOTE | 2019-11-23 20:49 | CT ---
Exam: Abdomen CT without contrast Pelvic CT without contrast HISTORY: Deep duodenal ulcer. GI bleeding. Dark stools yesterday. Right red stools today. Unstable GI bleed with hypotension and significant tachycardia. COMPARISON: 07/25/2015 FINDINGS: Abdomen CT: Lung bases:Small effusions. Bibasilar aspiration or pneumonia may be superimposed upon dependent atel ectatic change. Heart size: Cardiomegaly. Minimal pericardial fluid. Coronary disease is identified Aorta: No aneurysm or dissection. There is elongation of the aorta. There is extensive atherosclerosi s. Solid organs: Limited evaluation by the absence of IV contrast. There are multiple ill-defined hypode nsities scattered throughout the liver. These hypodensities have an attenuation coefficient of 32 to 37 Hounsfield units, not compatible with simple cyst. There does appear to be cirrhotic change and nodularity of the liver. Spleen, pancreas and adrenal glands are grossly unremarkable. Lymph nodes: No gastrohepatic, retrocrural or periportal lymphadenopathy Gallbladder: Cholelithiasis, without definite evidence of cholecystitis. Mesentery: No mass, lymphadenopathy. There is a small amount of fluid in both paracolic gutters. Ther e is markedly pneumoperitoneum. Kidneys: Nonspecific mild calcification of the right renal pyramids.. Nonobstructing calculi in the r ight renal pelvis. Bilaterally no definite obstructive uropathy Alimentary canal: Markedly limited evaluation by the absence of oral contrast. There are small pocket s of free air adjacent to the gastric fundus, gastric antrum and adjacent to the duodenum. Interline Clerk pocket of free air adjacent to the alimentary canal, in the right upper quadrant measu res 0.9 x 0.8 cm. There is significant free air such that there is mass effect upon the mesentery, solid organs and alimentary canal. There is also air in a ventral abdominal wall hernia with large am ount of subcutaneous emphysema, measuring 15.8 x 4.4 cm. Evaluation of the alimentary canal is limited by the absence of oral contrast. Multiple slightly prominent small bowel loops with bowel wal l thickening is noted. Ileocecal junction is unremarkable. Normal caliber appendix is noted. Colon appears to be decompressed. Additional findings: There is evidence of significant splenic varices and possible gastroesophageal v arices. CT PELVIS: Markedly free fluid in the pelvis. No mass, lymphadenopathy. There is free air. Urinary bladder: Fatima catheter decompresses the urinary bladder. Osseous structures: Multilevel compression fractures, presumed be chronic. Incidentals: Sinker Puller localizer suggests that the endotracheal tube may be in the right mainstem bronchu s. IMPRESSION: 1. Severe amount of pneumoperitoneum. There is mass effect upon the intra-abdominal contents secondar y to pneumoperitoneum. The source is presumed to be in the epigastric region. General surgical consultation is recommended. 2. Additional findings as above. 3. Endotracheal tube appears to be in the right mainstem bronchus, as suggested on the sexologist localize r. Results study given that the patient's nurse, Daxa. 11/23/2019 8:46 PM Code CR Transcribed Date/Time: 11/23/2019 9:15 PM
[2019-11-23] MEDS ORDERED: Prevnar 13-Val Conj/PF 0.5 ML SYRINGE IM ONE (21:00)
[2019-11-23] MEDS ORDERED: FLU VACC TS2019-20(65YR UP)/PF 180 MCG/0.5 ML SYRINGE IM ONE (21:00)
--- NOTE | 2019-11-23 21:39 | RAD ---
Exam: Chest one view HISTORY:Repositioning of endotracheal tube Comparison: No recent comparison FINDINGS: Cardiac silhouette: Normal Aorta: Unremarkable Pulmonary vessels: Normal Costophrenic angles: Clear LUNGS: Diminished lung volumes, likely due to markedly pneumoperitoneum. Pneumothorax: No pneumothorax Lines and tubes: Endotracheal tube appears to be in the trachea and approximately 2.5 cm above the ca alex. Endotracheal tube appears to have been repositioned since the manager practice localizer for the recent CT Osseous abnormalities: None IMPRESSION: 1. Endotracheal tube appears to be in the trachea. 2. Marked pneumoperitoneum. Transcribed Date/Time: 11/23/2019 9:49 PM
--- NOTE | 2019-11-23 21:56 | PRG ---
DATE OF SERVICE: 11/23/2019 PULMONARY MEDICINE CONSULT HISTORY OF PRESENT ILLNESS: Mr. Saucedo is a 74-year-old male, who presented with GI bleed. He underwent a long endoscopy and was found to have bleeding esophageal ulcer as well as very deep duodenal ulcer. He was transferred to critical care unit. Because of Dr. Ramirez's concerns about the depth of the ulcer, an abdomen and pelvis CT was done which showed free air. Surgery has been consulted. It is felt by Gastroenterology that he has extremely high mortality for an operative procedure. He is unable to give a history obviously. PAST MEDICAL HISTORY: Remarkable for: 1. Ioytl-ccl-tvjf amputation on the right. 2. History of alcoholic cirrhosis. 3. History of chronic kidney disease. 4. History of being discharged home in last summer on hospice. There is no family around to explain that part of the history. 5. History of hypertension. 6. History of reflux disease. 7. History of right knee MRSA infection. 8. History of left toe amputation. 9. History of two herniorrhaphies. SOCIAL HISTORY: He still reportedly drinks beer and smokes. FAMILY HISTORY: Negative for lung disease in early age. REVIEW OF SYSTEMS: Ten points otherwise negative. PHYSICAL EXAMINATION: VITAL SIGNS: Heart rate is in 80s, respiratory rates in the teens, blood pressure is 116/71, and respiratory rate was turned up to 28 after we got his blood gas back. HEAD AND NECK: Unremarkable. LUNGS: Clear. HEART: Regular rhythm. ABDOMEN: Soft and nontender. EXTREMITIES: Without clubbing, cyanosis, or edema. Healed amputation LABORATORY DATA: White count 9.2, hemoglobin 10.8, platelets 101,000. Blood gas; pH 7.17, CO2 46, PO2 221. Sodium 138, potassium 3.3, chloride 108, bicarb 19, BUN 39, creatinine 0.79, calcium 6.9, bilirubin is 3, AST is 35, ALT 22, alkaline phosphatase 129, albumin is 1.9. IMPRESSION AND PLAN: 1. Perforated duodenal ulcer. 2. Status post significant upper GI bleeding from esophageal ulcer with visible vessel that was injected. General surgery was consulted. Prognosis is obviously quite poor. 3. Cirrhosis with a coagulopathy and severe hypoalbuminemia. Critical care time is 35 minutes. Job ID: [id number] [facility]
--- NOTE | 2019-11-23 23:59 | OP ---
DATE OF PROCEDURE: 11/23/2019 MARITIME OFFICER SURGEON: None. PROCEDURE PERFORMED: Esophagogastroduodenoscopy with control of hemorrhage. INDICATION: 1. GI bleeding with hemorrhagic shock. 2. Alcoholic cirrhosis. 3. Coagulopathy, with INR 2.3. MEDICATIONS: See Anesthesia record. FINDINGS: After discussion of the risks, benefits, and alternatives of the procedure, informed consent was obtained and witnessed. Pre-endoscopic cardiopulmonary examination was satisfactory. Time-out was performed before sedation was achieved. Sedation was achieved with Anesthesia assistance in the endoscopy unit. The patient was endotracheally intubated under general anesthesia for the procedure. He was placed in left lateral decubitus position. A Pentax adult therapeutic upper endoscope was placed into the oropharynx and passed through the cricopharyngeus under direct visualization. The proximal and mid esophageal mucosa appeared normal. In the distal esophagus, there was severe LA grade D erosive esophagitis with generalized erythema and friability for the entire lower third of the esophagus, and then multiple large ulcerations at the level of the GE junction at 35 cm. There was a lot of edematous and friable tissue in this area. There was one visible vessel which was not actively bleeding upon initial examination. I quickly advanced the scope into the stomach. Forward and retroflexed views of the gastric mucosa were obtained. There was a considerable amount of old blood in the stomach, but I was able to suction most of it. The mucosa was somewhat obscured due to adherent old blood, but there was no new blood within the stomach. I was able to get good views of the fundus, and I did not see any gastric varices. The endoscope was passed through the pylorus and into the duodenal bulb. There was a very large ulcer in the duodenum occupying essentially the entire anterior wall of the first and second portions of the duodenum, with a lot of associated edema, difficult to advance the scope beyond this area, looked quite deep, with multiple areas of necrosis, but no active hemorrhage noted. The endoscope was then withdrawn back into the esophagus. At this point, that visible vessel at 35 cm was found to again be actively hemorrhaging. Frankly, it was difficult to tell whether this represented arterial or venous bleeding. The ulceration in the area was quite deep and there was initially some concern that this might represents variceal bleeding; however, when the banding kit was applied, due to the depth and fibrous nature of the ulcer bed, there was no way that any tissue could be sucked up into the vincent for banding. This was aborted and the banding kit was discarded. We then used a needle to inject 10 mL of subcutaneous epinephrine around the visible vessel in the ulcer base. Hemostasis was achieved in this fashion. The upper endoscope was completely withdrawn, and the patient was taken to the PACU remaining in critical condition. There were no immediate postprocedure complications. IMPRESSION: 1. Severe distal esophagitis with stricture and ulceration, with actively bleeding visible vessel at 35 cm. Injected with 10 mL epinephrine, hemostasis achieved. 2. Normal gastric mucosa was visualized. 3. No esophageal or gastric varices. 4. Massive duodenal ulcer occupying about 50% of the circumference of the lumen anteriorly in the first and second portions of the duodenum, with multiple areas of necrosis, but no active bleeding. The ulcer is quite deep. RECOMMENDATIONS: 1. Continue with the IV PPI drip. For now, would also continue with the octreotide drip. 2. I would recommend the patient remain intubated in the intensive care unit, effort should be taken to keep any retching to a minimum. 3. Continue to trend the H and H, transfuse as needed. The patient is set to get FFP as well. 4. Get a CT of the abdomen with contrast. Note, the patient did not present with signs suggestive of peritonitis, but this duodenal ulcer is quite deep, rule out any perforation. 5. If there is concern for recurrent bleeding, we could consider repeat EGD in the next 2 to 3 days. GI will continue to follow along. Prognosis is quite grim. Job ID: [id number]
--- NOTE | 2019-11-24 00:59 | CON ---
DATE OF CONSULTATION: 11/23/2019 HISTORY OF PRESENT ILLNESS: Mr. Saucedo is a 74-year-old man with history of chronic alcoholism and liver cirrhosis. The patient was admitted with acute gastrointestinal hemorrhage. He underwent upper endoscopy earlier today. He is now having abdominal pain. CT scan of the abdomen and pelvis was obtained, which revealed large pneumoperitoneum. I have been asked to evaluate the patient with regard to perforated viscus. At the time of my evaluation, the patient is on mechanical ventilator support, slightly sedated, but arousable to deep voice. He endorses abdominal pain. PAST MEDICAL HISTORY: Significant for gastroesophageal reflux disease, essential hypertension, chronic alcoholism with alcohol cirrhosis, and recent acute blood loss anemia. PAST SURGICAL HISTORY: Pertinent for left toe amputation, inguinal herniorrhaphy x2, and right [id number] amputation. SOCIAL HISTORY: The patient drinks alcohol routinely and heavily. There is a history of tobacco use and no illicit drug abuse history. A lot of the history was obtained from chart review and from speaking with the patient's home care associate, her name is Monalisa Rader via telephone conversation. FAMILY HISTORY: Noncontributory for this patient's age. REVIEW OF SYSTEMS: Could not be obtained as patient is intubated on mechanical ventilator support and appears to be in extremis. PHYSICAL EXAMINATION: VITAL SIGNS: At the time of my evaluation was noted at 67/48, pulse 125, respiratory rate is 28, oxygen saturation 100% on FiO2 of 100%. HEENT: Pupils equal, round, reactive to light bilaterally. HEART: Reveals regular rate with sinus tachycardia. LUNGS: Clear to auscultation bilaterally. Breathing, tachypneic, and nonlabored. ABDOMEN: Markedly distended and diffusely tender to palpation. He does have rebound tenderness present. NEUROLOGIC: Reveals no focal deficits present. LABORATORY FINDINGS: Include CBC with 9200 white blood cells, hemoglobin and hematocrit are 10.8 and 32.0, and this is after transfusion of 3 units of packed red blood cells and fresh frozen plasma earlier. Platelet count is 101,000, differential counts as follows, 32% segmented neutrophils, 50 bands, 9 lymphocytes and 7 monocytes. PTT and INR this morning were noted at 32.2 seconds and 2.3 respectively. The patient is not on any anticoagulants. I have personally reviewed CT scan of the abdomen and pelvis, which was obtained prior to my consultation, which shows large pneumoperitoneum and cholelithiasis without any evidence of acute cholecystitis. IMPRESSIONS: 1. Acute perforated viscus with acute septic shock. 2. Acute respiratory failure. 3. Alcohol liver disease with chronic cirrhosis and chronic coagulopathy. 4. Acute blood loss anemia. RECOMMENDATIONS: 1. Nonoperative management of the perforated viscus in this patient will be met with mortality due to further complications of the sepsis. However, given this patient's significant comorbidities, chronic coagulopathy, operative intervention would certainly hasten his demise. 2. I have discussed above with the patient and his caregiver Monalisa Rader by telephone conversation. 3. I am recommending therefore comfort care measures for this patient at this time. 4. The patient indicates understanding of the information I provided and I have informed the patient and his caregiver that comfort care measures would suddenly lead to his demise. Mrs. Rader did reiterate that the patient will be unwilling to be maintained on life support. 5. I have also discussed above findings and plan with Dr. Ramirez, Dr. Filiberto Jc and Dr. Nathanael Welch, all concur. 6. The patient will be removed from the ventilator support and comfort care measures will be initiated. DNR is entered after this consultation. Job ID: [id number]
--- NOTE | 2019-11-24 09:49 | PRG ---
DATE OF SERVICE: 11/24/2019 SUBJECTIVE: Mr. Saucedo went down for CT of the abdomen and pelvis last night, and unfortunately was found to have perforation, which does appear to be originating from his deep duodenal ulcer. I asked Dr. Schwarz to see the patient, and I very much appreciate his assistance and input. This is an unfortunate situation in which nonoperative management will result in the patient's demise, but attempted surgery would hasten his demise. The patient has been switched to comfort measures only. Currently, he appears comfortable, and does respond to my questioning, but his answers are incoherent. However, he does state that his pain is well controlled at this time. OBJECTIVE: VITAL SIGNS: Temperature 97.4, pulse 96, blood pressure 122/84, and 94% oxygen saturation on facemask oxygen. GENERAL: Ill, 74-year-old man, appearing comfortable on facemask oxygen. HEART: Regular, tachycardia. LUNGS: Bibasilar crackles. ABDOMEN: Distended, tympanitic. Some tenderness to palpation. EXTREMITIES: No peripheral edema. ASSESSMENT AND PLAN: 1. Duodenal ulcer with perforation. 2. Severe gastrointestinal bleeding from distal esophageal ulcer with visible vessel, treated with epinephrine injection yesterday. 3. Anemia of acute gastrointestinal blood loss, improved yesterday after transfusion. 4. End-stage alcoholic cirrhosis with coagulopathy. The patient currently indeed appears comfortable with comfort measures in place. Again, I greatly appreciate the assistance of Dr. Schwarz, Dr. Jc, and the primary service. Please call back anytime with GI can be of further assistance. Job ID: [id number]
[2019-11-24] MEDS: Morphine 4 MG/ML VIAL SLOW IVP PRN ×2 (11:19→15:49)
[2019-11-24 12:23] VITALS: BP 88/63; TEMP 97.5
[2019-11-24] MEDS: Nicotine 14 MG PATCH TD SCH (15:49)
--- NOTE | 2019-11-24 16:54 | PRG ---
DATE OF SERVICE: 11/24/2019 Mr. Saucedo was terminally extubated after Surgery evaluated and then talked to the family by phone. They elected to proceed with comfort care. His pressure is in the 80s today at noon, heart rate is in the 90s, respiratory rate is 18. He is afebrile. He has only comfort medications ordered at this time. His demise clinically does not appear to be eminent. Since he has been transferred out for comfort measures, we will no longer follow the patient. Job ID: [id number]
--- NOTE | 2019-11-26 12:12 | DIS ---
DATE OF ADMISSION: 11/23/2019 DATE OF DISCHARGE: 11/24/2019 HOSPITAL COURSE: Mr. Saucedo is a 74-year-old male with a medical history of alcoholic cirrhosis and chronic coagulopathy, who presented to the ED on November 23, for generalized weakness. In the ED, he was found to have a hemoglobin of 6.5 and was given 2 packs of RBCs. Gastroenterology was consulted because the patient reported large amount of blood in his bed as well as bright red stools and dark stools over the 24 hours prior to admission. An EGD was done, and the patient was found to have a large duodenal ulcer that was bleeding occupying about 50% of the circumference of the lumen as well as additional ulceration in the esophagus. Surgery was consulted, and it was decided based on discussion with both Surgery and Gastroenterology that medical management would not suffice, and surgical management would hasten the patient's demise. The patient's family and medical decision makers were contacted, and it was decided to transition the patient to comfort care based on the patient's previous wishes. The patient at 06:01 p.m. Expiration was confirmed. Job ID: [id number] MTDD
--- NOTE | 2019-12-08 23:10 | EKG ---
Test Reason : Blood Pressure : / mmHG Vent. Rate : 101 BPM Atrial Rate : 100 BPM P-R Int : 000 ms QRS Dur : 090 ms QT Int : 364 ms P-R-T Axes : 000 026 046 degrees QTc Int : 471 ms Atrial fibrillation with rapid ventricular response with premature ventricular or aberrantly conducte d complexes Abnormal ECG Confirmed by ADRIANNA JOLLY, ABHILASH Rasmussen ([id number]), multimedia editor HUMBLE YU ([id number]) on 12/08/2019 11:09:53 PM Referred By: Confirmed By:ABHILASH RODAS MD
== END 2019-11-24 18:01 | disposition expired | DRG 380 ==
LOC: ERS 11:17 → ERHOLD 13:25 → CCU 17:53 → T4-A 11-24 02:10
PROVIDERS: ADMIT Emergency Medicine; ATTEND Emergency Medicine
PROC: 0W3P8ZZ Control Bleeding in Gastrointestinal Tract, Via Natural or Artificial Opening Endoscopic (ICD-10-PCS; principal; 2019-11-23)
PROC: 0BH17EZ Insertion of Endotracheal Airway into Trachea, Via Natural or Artificial Opening (ICD-10-PCS; 2019-11-23)
PROC: 5A1935Z Respiratory Ventilation, Less than 24 Consecutive Hours (ICD-10-PCS; 2019-11-23)
PROC: 30233N1 Transfusion of Nonautologous Red Blood Cells into Peripheral Vein, Percutaneous Approach (ICD-10-PCS; 2019-11-23)
DX: K22.11 Ulcer of esophagus with bleeding (principal); J96.00 Acute respiratory failure, unspecified whether with hypoxia or hypercapnia; A41.9 Sepsis, unspecified organism; R65.21 Severe sepsis with septic shock; K55.069 Acute infarction of intestine, part and extent unspecified; D62 Acute posthemorrhagic anemia; D68.9 Coagulation defect, unspecified; Z66 Do not resuscitate; Z51.5 Encounter for palliative care; K26.4 Chronic or unspecified duodenal ulcer with hemorrhage; I10 Essential (primary) hypertension; Z98.890 Other specified postprocedural states; Z89.422 Acquired absence of other left toe(s); Z89.611 Acquired absence of right leg above knee; Z88.8 Allergy status to other drugs, medicaments and biological substances; Z91.041 Radiographic dye allergy status; K70.30 Alcoholic cirrhosis of liver without ascites; K21.0 Gastro-esophageal reflux disease with esophagitis; E88.09 Other disorders of plasma-protein metabolism, not elsewhere classified; I48.91 Unspecified atrial fibrillation; R57.8 Other shock; Z72.0 Tobacco use
CPT/HCPCS: 36415; 36430; 71045; 74176; 80053; 82805; 83690; 83880; 84484; 85025; 85610; 85730; 86850; 86900; 86901; 93005; 94002; 96361; 96374; 99292; C9113; J0171; J0696; J1430; J2001; J2060; J2270; J2354; J2370; J2704; J3490; J7050; P9016; P9045; P9059